=== PATIENT | female | born 1970 | race African-American/Black ===

== ENCOUNTER 2016-04-10 10:38 | Inpatient (IN) | payer MEDICARE, OTHER ==
[~2016-04-10] VITALS: Ht 162.6 cm; Wt 85.4 kg
[2016-04-10] VITALS (11 sets, daily range): BP systolic 82–119; BP diastolic 50–66; PULSE 123–130; RESP 20–32; TEMP 98.6–103.5; O2SAT 98–100
[~2016-04-10 10:38] MED LIST: ACET325T PO; CARB200T PO; LACT PO; LEVE500 PO; PRIM250T5 PO; VALP250 PO; VANC500I3 PO
[2016-04-10] MEDS ORDERED: ACETAMINOPHEN 650 MG SUPP RECTAL ONE (10:45)
[2016-04-10] MEDS ORDERED: SODIUM CHLOR 0.9% 1000 ML INJ 800 ML IV ONE (10:45)
[2016-04-10] MEDS ORDERED: SODIUM CHLOR 0.9% 1000 ML INJ 1,000 ML IV ONE (10:45)
[2016-04-10] MEDS ORDERED: metroNIDAZOLE 500 MG INJ 100 ML IV STA (10:51)
[2016-04-10] MEDS ORDERED: CITRSOL4 PO (11:31)
[2016-04-10] MEDS ORDERED: DULC10SU3 PR (11:31)
[2016-04-10] MEDS ORDERED: VALP250 PO (11:31)
[2016-04-10] MEDS ORDERED: VANC1SOL3 PO (11:31)
[2016-04-10] MEDS ORDERED: QUES4POW PO (11:31)
[2016-04-10] MEDS ORDERED: METR-1 PO (11:31)
[2016-04-10] MEDS ORDERED: MILKSUS PO (11:31)
[2016-04-10] MEDS ORDERED: LORA-392 PO (11:31)
[2016-04-10] MEDS ORDERED: ENEMENE5 PR (11:31)
--- NOTE | 2016-04-10 11:32 | PD ---
HPI Chief Complaint: Fever Time Seen by Provider: 10:45 Travel History International Travel<30 days: No Contact w/Intl Traveler<30days: No Traveled to known affect area: No History of Present Illness HPI Patient is a 45-year-old female with history of mental delay, blindness and seizure who presents to emergency room from alf for evaluation of fever , tachycardia, diarrhea, seizures. Patient was recently admitted to the hospital on March 14, 2016 severe sepsis secondary to C. difficile colitis. Patient recently completed course of PO Flagyl yesterday. As per alf records, patient has been having seizures all night, reports that she had 2 seizures this morning. Reports that she has been febrile with a temperature of 103.5. Reports concerns for her seizures as well as her tachycardia and increased temperature. When EMS at alf, patient's systolic blood pressure was in the 70s, after 1 L fluid, patient's blood pressure did improve and was 102/66. Patient was febrile in the emergency room with a rectal temperature of 103.5 and tachycardic with heart rate of 125. Patient unable to provide history of present illness at this time. PFSH Past Medical History Medical History: Unable to Obtain Hx Anticoagulant Therapy: No Developmental Delay: Yes (HX MENTAL RETARDATION) Diminished Hearing: No Gastrointestinal Disorders: Yes (C.DIFF) Hypertension: Yes Neurologic: Yes Reproductive: Yes Seizures: Yes Tetanus Vaccination: Unknown ?: Not Past Surgical History Surgical History: Unable to Obtain Neurologic Surgery: Yes (HEAD INJURY) Other Surgery: Yes Social History Alcohol Use: No (UNABLE TO OBTAIN) Tobacco Use: No (UNABLE TO OBTAIN) Substance Use: No (UNABLE TO OBTAIN) Allergies-Medications (Allergen,Severity, Reaction): Coded Allergies: No Known Allergies (Unverified , 04/10/16) Reported Meds & Prescriptions Reported Meds & Active Scripts Active Acetaminophen 325 Mg Tab 650 Mg PO Q4H PRN Acidophilus/l-Sporogenes (Lactobacillus Acidophilus) 1 Tab Tab 1 Tab PO TID Keppra (Levetiracetam) 500 Mg Tab 1,500 Mg PO Q12HR 30 Days Carbamazepine 200 Mg Tab 400 Mg PO Q8HR 30 Days Reported First-Vancomycin 50 Liq (Vancomycin HCl) 50 Mg/Ml [place] 125 Mg PO Q6HR Questran (Cholestyramine) 4 Gm/Pkt Powd 4 Gm PO TID 1 packet contains 4gm of cholestyramine. Milk of Magnesia Liq (Magnesium Hydroxide) 400 Mg/5 Ml Susp 30 Ml PO HS PRN Flagyl (Metronidazole) 500 Mg Tab 500 Mg PO TID 10 Days Enema Disposable (Sodium Phosphates) 1 Kellie Kellie 1 Applic NE DIRECTED PRN Dulcolax Supp (Bisacodyl) 10 Mg Supp 10 Mg NE IN AM PRN Depakene (Valproic Acid) 250 Mg Cap 500 Mg PO Q6HR Citroma Liq (Magnesium Citrate) 300 Ml Liq 300 Ml PO IN THE AM PRN Ativan (Lorazepam) 0.5 Mg Tab 0.5 Mg PO Q6H PRN Primidone 250 Mg Tab 250 Mg PO TID Review of Systems ROS Limitations: Altered Mental Status Except as stated in HPI: all other systems reviewed are Neg Physical Exam Exam Limitations: Altered Mental Status, Poor Historian Narrative GENERAL: Patient in moderate distress SKIN: Warm and dry. HEAD: Atraumatic. Normocephalic. EYES: Pupils equal and round. No scleral icterus. No injection or drainage. ENT: No nasal bleeding or discharge. Mucous membranes pink and dry NECK: Trachea midline. No JVD. CARDIOVASCULAR: Patient tachycardic. No murmur appreciated. RESPIRATORY: No accessory muscle use. Clear to auscultation. Breath sounds equal bilaterally. GASTROINTESTINAL: Abdomen soft, non-tender, nondistended. Hepatic and splenic margins not palpable. FC in place draining dark urine MUSCULOSKELETAL: No obvious deformities. No clubbing. No cyanosis. No edema. NEUROLOGICAL: Patient awake and alert only to sternal rubbing Data Data Last Documented VS Vital Signs Date Time Temp Pulse Resp B/P Pulse Ox O2 Delivery O2 Flow Rate FiO2 04/10/16 11:58 130 32 93/50 99 Room Air 04/10/16 10:40 103.5 Orders Electrocardiogram (04/10/16 10:45) Complete Blood Count With Diff (04/10/16 10:45) Comprehensive Metabolic Panel (04/10/16 10:45) Prothrombin Time / Inr (Pt) (04/10/16 10:45) Act Partial Throm Time (Ptt) (04/10/16 10:45) Magnesium (Mg) (04/10/16 10:45) Lipase (04/10/16 10:45) Ckmb (Isoenzyme) Profile (04/10/16 10:45) Troponin I (04/10/16 10:45) Urinalysis - C+S If Indicated (04/10/16 10:45) Influenzae A/B Antigen (04/10/16 10:45) Blood Culture (04/10/16 10:45) Chest, Single Ap (04/10/16 10:45) Sodium Chlor 0.9% 1000 Ml Inj (Ns 1000 M (04/10/16 10:45) Sodium Chlor 0.9% 1000 Ml Inj (Ns 1000 M (04/10/16 10:45) Lactic Acid Sepsis Protocol (04/10/16 10:45) Acetaminophen Supp (Tylenol Supp) (04/10/16 10:45) Phenytoin (Dilantin) (04/10/16 10:45) Carbamazepine (Tegretol) (04/10/16 10:45) Valproic Acid (Depakene) (04/10/16 10:45) Continue Browne/Suprapubic Cath (04/10/16 10:45) Stool Ova And Parasite Screen (04/10/16 10:51) Stool Wbc (Leukocytes) (04/10/16 10:51) C Diff Toxin Pcr (04/10/16 10:51) Metronidazole 500 Mg Inj (Flagyl 500 Mg (04/10/16 10:51) Urine Culture (04/10/16 11:30) Admit Order (Ed Use Only) (04/10/16 12:19) Labs Laboratory Tests Test 04/10/16 04/10/16 11:30 12:15 Urine Color BROWN Urine Turbidity HAZY Urine pH 5.5 Urine Specific [place] 1.024 Urine Protein 30 mg/dL Urine Glucose (UA) NEG mg/dL Urine Ketones NEG mg/dL Urine Occult Blood SMALL Urine Nitrite NEG Urine Bilirubin SMALL Urine Urobilinogen 2.0 MG/DL Urine Leukocyte Esterase LARGE Urine RBC 4 /hpf Urine WBC 14 /hpf Urine Squamous Epithelial 4 /hpf Cells Urine Bacteria OCC /hpf Urine Hyaline Casts 63 /lpf Urine Mucus FEW /lpf Microscopic Urinalysis Comment CATH-CULTURE IND White Blood Count 17.8 TH/MM3 Red Blood Count 2.87 MIL/MM3 Hemoglobin 8.3 GM/DL Hematocrit 25.2 % Mean Corpuscular Volume 87.7 FL Mean Corpuscular Hemoglobin 28.8 PG Mean Corpuscular Hemoglobin 32.8 % Concent Red Cell Distribution Width 17.3 % Platelet Count 279 TH/MM3 Mean Platelet Volume 8.4 FL Neutrophils (%) (Auto) 87.0 % Lymphocytes (%) (Auto) 2.7 % Monocytes (%) (Auto) 10.2 % Eosinophils (%) (Auto) 0.0 % Basophils (%) (Auto) 0.1 % Neutrophils # (Auto) 15.5 TH/MM3 Lymphocytes # (Auto) 0.5 TH/MM3 Monocytes # (Auto) 1.8 TH/MM3 Eosinophils # (Auto) 0.0 TH/MM3 Basophils # (Auto) 0.0 TH/MM3 CBC Comment AUTO DIFF Differential Total Cells 100 Counted Neutrophils % (Manual) 45 % Band Neutrophils % 47 % Lymphocytes % 1 % Monocytes % 6 % Neutrophils # (Manual) 16.6 TH/MM3 Metamyelocytes 1 % Differential Comment FINAL DIFF MANUAL Toxic Vacuolation PRESENT Dohle Bodies PRESENT Platelet Estimate NORMAL Platelet Morphology Comment NORMAL Sodium Level 139 MEQ/L Potassium Level 3.3 MEQ/L Chloride Level 109 MEQ/L Carbon Dioxide Level 17.4 MEQ/L Anion Gap 13 MEQ/L Blood Urea Nitrogen 32 MG/DL Creatinine 1.07 MG/DL Estimat Glomerular Filtration 67 ML/MIN Rate Random Glucose 87 MG/DL Lactic Acid Level 2.0 mmol/L Calcium Level 7.4 MG/DL Protein Corrected Calcium 8.0 MG/DL Magnesium Level 1.3 MG/DL Total Bilirubin 1.1 MG/DL Aspartate Amino Transf 59 U/L (AST/SGOT) Alanine Aminotransferase 34 U/L (ALT/SGPT) Alkaline Phosphatase 84 U/L Total Creatine Kinase 13 U/L Troponin I LESS THAN 0.02 NG/ML Total Protein 6.0 GM/DL Albumin 1.8 GM/DL Lipase 47 U/L Phenytoin (Dilantin) Level LESS THAN 0.4 MCG/ML Valproic Acid (Depakene) Level 49 MCG/ML Carbamazepine (Tegretol) Level 5.5 MCG/ML MDM Medical Decision Making Medical Screen Exam Complete: Yes Emergency Medical Condition: Yes Interpretation(s) EKG at 1118: Sinus tachycardia at 134 beats minute, QT/QTc to 331/410, nonspecific ST and T-wave abnormalities Vital Signs Date Time Temp Pulse Resp B/P Pulse Ox O2 Delivery O2 Flow Rate FiO2 04/10/16 11:58 130 32 93/50 99 Room Air 04/10/16 11:04 30 99 Room Air 04/10/16 10:40 103.5 125 30 102/66 98 04/10/16 10:40 103.5 125 30 102/66 99 Room Air Laboratory Tests Test 04/10/16 11:30 Urine Color BROWN (YELLW/STRAW) Urine Turbidity HAZY (CLEAR) Urine pH 5.5 (5.0-8.5) Urine Specific [place] 1.024 (1.002-1.035) Urine Protein 30 mg/dL (NEG-TRACE) Urine Glucose (UA) NEG mg/dL (NEG) Urine Ketones NEG mg/dL (NEG) Urine Occult Blood SMALL (NEG) Urine Nitrite NEG (NEG) Urine Bilirubin SMALL (NEG) Urine Urobilinogen 2.0 MG/DL (LESS THAN 2.0) Urine Leukocyte Esterase LARGE (NEG) Urine RBC 4 /hpf (0-3) Urine WBC 14 /hpf (0-5) Urine Squamous Epithelial 4 /hpf (0-5) Cells Urine Bacteria OCC /hpf (NONE) Urine Hyaline Casts 63 /lpf (RARE) Urine Mucus FEW /lpf (OCC) Microscopic Urinalysis Comment CATH-CULTURE IND Differential Diagnosis Severe sepsis, C. difficile colitis, dehydration, seizure disorder, UTI Narrative Course 45-year-old female with history of mental delay, blindness and seizures, since the emergency room from alf with complaints of multiple episodes of seizure yesterday as well today. Patient does have history of seizures, seizure precautions initiated emergency room. Patient is currently taking Depakote and Tegretol for her seizures, levels of Depakote and Tegretol ordered to evaluate if she is therapeutic on her seizure medications. Patient currently with no seizures in the emergency room Patient febrile with a temperature of 103.5 rectally, tachycardic with a heart rate in the 125 and initially hypotensive with a systolic blood pressure in the 70s - patient with severe sepsis most likely secondary to C. difficile. Patient 's diaper was changed while emergency room which showed diarrhea concern for C. difficile colitis. Patient has been ordered her 30 cc/kg fluid bolus, after fluid bolus, her blood pressure is 93/50. Patient has been given IV Flagyl as patient is mostly septic secondary to C. difficile colitis. Blood cultures and lactate ordered for patient as well. Rectal acetaminophen ordered for patient. Case reviewed with Dr. Pelayo, patient's primary care doctor who is in agreement with plan of care. Plan to admit patient to the ICU for close monitoring. Critical Care Narrative Aggregate critical care time was 30 minutes. Time to perform other separately billable procedures was not included in the critical care time. My time did not include minutes spent treating any other patients simultaneously or on activities that did not directly contribute to the patient's treatment. The services I provided to this patient were to treat and/or prevent clinically significant deterioration that could result in: , decompensation, deterioration I provided critical care services requiring my management, as noted below: Chart data review, documentation time, medication orders and management, vital sign assessments/reviewing monitor data, ordering and reviewing lab tests, ordering and interpreting/reviewing x-rays and diagnostic studies, care of the patient and discussion of the patient with the admitting physicians. Sepsis Criteria SIRS Criteria (2 or more): Temp > 100.9 or < 96.8, Heart rate over 90, RR > 20 or PaCO2 < 32 Sepsis Criteria (SIRS+source): Infect source susp/known Severe Sepsis (+one): Hypotension, Hypoperfusion Criteria Outcome: Meets SIRS criteria, Meets sepsis criteria, Meets severe sepsis criteria Diagnosis Primary Impression: Severe sepsis Admitting Information Admitting Physician Requests: Admit Elsie Kirkpatrick DO Apr 10, 2016 11:32
[2016-04-10 11:49] LABS: BACTERIA, URINE OCC /hpf; BLOOD, URINE SMALL (NEG); GLUCOSE,URINE NEG (NEG); HYALINE CAST, URINE 63 /lpf (RARE); KETONE, URINE NEG (NEG); MUCUS URINE FEW /lpf (OCC); NITRITE,URINE NEG (NEG); PH, URINE 5.5 (5.0-8.5); SQUAMOUS EPITHELIAL CELL URINE 4 /hpf (0-5)
[2016-04-10 11:51] LABS: COMMENT (UR) CATH-CULTURE IND; CULTURE IF INDICATED CATH CULTURE IND; URINE COLOR BROWN (YELLW/STRAW)
--- NOTE | 2016-04-10 12:23 | HHI.HP ---
History of Present Illness Primary Care Physician Unknown Admission Diagnosis Severe Sepsis Diagnoses: (1) Hypotension (2) Dehydration, moderate (3) C. difficile colitis (4) Seizure disorder (5) Leukocytosis (6) Physical deconditioning (7) Seizures (8) Mental retardation (9) Small bowel obstruction (10) JAMIE (acute kidney injury) History of Present Illness 45 y AAF. [place] [facility] [place]. PT NEW TO MY PRACTICE[facility] I ORDERED ATIVAN AND LABS FOR VPA, TEGRETOL, CBC, CMP. UNFORTUNATELY PT HAD TWO SZ TODAY, SPIKED TEMP TO 103 AND HAD PROGRESSIVE DIARRHEA WITH POS C DIF. PT SENT TO ER EMS. I WAS THUS CALLED BY ER MD FOR ADMIT. PT W NO FURTHER SZ. LABS PENDING. D/W ER MD. Sepsis Criteria SIRS Criteria (2 or more): Temp > 100.9 or < 96.8, Heart rate over 90, RR > 20 or PaCO2 < 32, WBC > 04008, < 4000 or > 10% bands Severe Sepsis (+one): Organ Dysfunction, Hypotension Multiple Organ Dysfunction Syn: Evidence -2 organs failing Criteria Outcome: Meets severe sepsis criteria Review of Systems ROS Limitations: Clinical Condition, Altered Mental Status, Unresponsive, Uncooperative Constitutional: COMPLAINS OF: Fatigue, Fever, Change in appetite Psychiatric: COMPLAINS OF: Confusion, Mood changes Past Family Social History Allergies: Coded Allergies: No Known Allergies (Unverified , 04/10/16) Past Medical History C DIF DEHYDRATION SZ'S, INTRACTABLE SBO RECENTLY MR JAMIE HYPERAMMONEMIA Past Surgical History NC Reported Medications Active Medications Acetaminophen (Tylenol Supp) 650 mg ONCE ONCE RECTAL Last administered on 04/10at 11:39; Start 04/10/16 at 10:45; Stop 04/10/16 at 10:51; Status DC Sodium Chloride 1,000 ml @ 1,000 mls/hr Q1H ONCE IV Last administered on at 11:39; Start 04/10/16 at 10:45; Stop 04/10/16 at 11:44; Status DC Sodium Chloride (NS 1000 ml Inj) 800 ml @ 1,000 mls/hr Q48M ONCE IV Last administered on 04/10/16at 12:07; Start 04/10/16 at 10:45; Stop 04/10/16 at 11 :32; Status DC Family History NC Social History , LIVES W FAMILY, NO E/T/D Physical Exam Vital Signs Vital Signs Date Time Temp Pulse Resp B/P Pulse Ox O2 Delivery O2 Flow Rate FiO2 04/10/16 11:58 130 32 93/50 99 Room Air 04/10/16 11:04 30 99 Room Air 04/10/16 10:40 103.5 125 30 102/66 98 04/10/16 10:40 103.5 125 30 102/66 99 Room Air Physical Exam GENERAL: chronically ill appearing, lethargic SKIN: No rashes, ecchymoses or lesions. Cool and dry. HEAD: Atraumatic. Normocephalic. No temporal or scalp tenderness. EYES: Pupils equal round and reactive. Extraocular motions intact. No scleral icterus. No injection or drainage. ENT: Nose without bleeding, purulent drainage or septal hematoma. Throat without erythema, tonsillar hypertrophy or exudate. Uvula midline. Airway patent. NECK: Trachea midline. No JVD or lymphadenopathy. Supple, nontender, no meningeal signs. CARDIOVASCULAR: Regular rate and rhythm without murmurs, gallops, or rubs. RESPIRATORY: Clear to auscultation. Breath sounds equal bilaterally. No wheezes , rales, or rhonchi. GASTROINTESTINAL: Abdomen soft, non-tender, nondistended. No hepato-splenomegaly , or palpable masses. No guarding. MUSCULOSKELETAL: Extremities without clubbing, cyanosis, or edema. No joint tenderness, effusion, or edema noted. No calf tenderness. Negative Homans sign bilaterally. NEUROLOGICAL: Awake and alert. Cranial nerves II through XII intact. Motor and sensory grossly within normal limits. 1 out of 5 muscle strength in all muscle groups. Normal speech. Laboratory Laboratory Tests Test 04/10/16 11:30 Urine Color BROWN Urine Turbidity HAZY Urine pH 5.5 Urine Specific [place] 1.024 Urine Protein 30 Urine Glucose (UA) NEG Urine Ketones NEG Urine Occult Blood SMALL Urine Nitrite NEG Urine Bilirubin SMALL Urine Urobilinogen 2.0 Urine Leukocyte Esterase LARGE Urine RBC 4 Urine WBC 14 Urine Squamous Epithelial 4 Cells Urine Bacteria OCC Urine Hyaline Casts 63 Urine Mucus FEW Microscopic Urinalysis Comment CATH-CULTURE IND Date/Time Procedure Status Source Growth 04/10/16 11:30 Urine Culture Received Urine Clean Catch Pending 04/10/16 11:25 Influenza Types A,B Antigen ([facility]) - Final Complete Nasal Aspirate NEGATIVE FOR FLU A AND B ANTIGEN.... Assessment and Plan Assessment and Plan SEVERE SEPSIS C DIF DEHYDRATION SZ'S, INTRACTABLE UTI SBO RECENTLY MR JAMIE HYPOKALEMIA HYPOMAGNESEMIA HYPOCALCEMIA HYPERAMMONEMIA PLAN: IVF IV ABX STOOL CULTURES ANTIEPILEPTIC LEVELS ATIVAN PRN ID CONSULT NEURO CONSULT CCM CONSULT IV MG IV CA ICU ADMIT FOR THE ABOVE DX AND PLAN. EXPECT 4 D INPT STAY. PT WOULD FROM THE ABOVE WITHOUT INPT ADMIT. DC BACK TO [facility]. Romie Pelayo MD Apr 10, 2016 12:23
[2016-04-10 12:27] LABS: AUTOMATED NEUTROPHIL # 15.5 TH/MM3 (1.8-7.7); BASOPHIL % 0.1 % (0.0-2.0); HEMATOCRIT 25.2 % (35.0-46.0); LYMPH % 2.7 % (9.0-44.0); LYMPHOCYTE # 0.5 TH/MM3 (1.0-4.8); MEAN CELL VOLUME 87.7 FL (80.0-100.0); MEAN CORPUSCULAR HEMOGLOBIN 28.8 PG (27.0-34.0); MEAN CORPUSCULAR HGB CONC 32.8 % (32.0-36.0); MONO % 10.2 % (0.0-8.0); PLATELET COUNT 279 TH/MM3 (150-450); RED BLOOD COUNT 2.87 MIL/MM3 (4.00-5.30); RED CELL DISTRIBUTION WIDTH 17.3 % (11.6-17.2); WHITE BLOOD COUNT 17.8 TH/MM3 (4.0-11.0)
[2016-04-10] MEDS ORDERED: BISACODYL 10 MG SUPP PR PRN ×2 (12:30→12:45)
[2016-04-10] MEDS ORDERED: PROCHLORPERAZINE 25 MG SUPP PR PRN (12:30)
[2016-04-10] MEDS ORDERED: MAGNESIUM HYDROXIDE SUSP 30 ML CUP PO PRN ×2 (12:30→12:45)
[2016-04-10] MEDS ORDERED: NALOXONE HCL 0.4 MG/ML AMP IV PRN (12:30)
[2016-04-10] MEDS ORDERED: SODIUM CHLORIDE 0.9% FLUSH 5 ML FLUSH FLUSH PRN (12:30)
[2016-04-10 12:36] LABS: HEMO FLAGS AUTO DIFF
[2016-04-10] MEDS ORDERED: LORazepam 2 MG/ML VIAL IV PUSH PRN (12:45)
[2016-04-10] MEDS ORDERED: DEXT 5%-NACL 0.9% 1000 ML INJ 1,000 ML IV SCH (12:45)
[2016-04-10] MEDS ORDERED: LORazepam 0.5 MG TAB PO PRN (12:45)
[2016-04-10] MEDS ORDERED: MAGNESIUM CITRATE SOLN 300 ML BTL PO PRN (12:45)
[2016-04-10 12:53] LABS: ALKALINE PHOSPHATASE 84 U/L (45-117); ALT (GPT) 34 U/L (10-53); ANION GAP 13 MEQ/L (5-15); AST (GOT) 59 U/L (15-37); BICARBONATE 17.4 MEQ/L (21.0-32.0); BLOOD UREA NITROGEN 32 MG/DL (7-18); CHLORIDE 109 MEQ/L (98-107); GLOMERULAR FILTRATION RATE 67 ML/MIN (>89); MAGNESIUM 1.3 MG/DL (1.5-2.5); POTASSIUM 3.3 MEQ/L (3.5-5.1); SODIUM (NA) 139 MEQ/L (136-145); TOTAL BILIRUBIN ADULT 1.1 MG/DL (0.2-1.0)
[2016-04-10 12:54] LABS: CREATINE KINASE 13 U/L (26-192)
[2016-04-10] MEDS: CHOLESTYRAMINE 4 GM PACKET PO SCH ×2 (13:00→17:58)
[2016-04-10] MEDS ORDERED: PIPERACIL-TAZO 3.375 GM PREMIX 50 ML IV ONE (13:00)
[2016-04-10] MEDS: LACTOBACILLUS ACIDOPHILUS TAB PO SCH ×2 (13:00→17:58)
[2016-04-10] MEDS: PRIMIDONE 250 MG TAB PO SCH (13:00)
--- NOTE | 2016-04-10 13:16 | RADRPT ---
EXAM DATE/TIME: 04/10/2016 12:47 [facility] COMPARISON: CHEST SINGLE AP, March 21, 2016, 13:53. INDICATIONS : Fever. MEDICAL HISTORY : Seizures. Blind SURGICAL HISTORY : None. ENCOUNTER: Initial ACUITY: 1 day PAIN SCORE: Non-responsive. LOCATION: Bilateral chest FINDINGS: A single view of the chest demonstrates the lungs to be symmetrically aerated without evidence of mas s or effusion. The cardiomediastinal contours are unremarkable. Osseous structures are intact. Mild coarsening of the bronchovascular markings in the retrocardiac region suggest left lower lobe manager lighting ior basilar infiltrate CONCLUSION: Coarsened bronchovascular markings retrocardiac region consistent with minimal or early left lower lo be posterior basilar segment infiltrate Ulysses Cardenas MD on April 10, 2016 at 13:13 Board Certified Radiologist. This report was verified electronically.
[2016-04-10 13:34] LABS: BANDS 47 % (0-6); METAMYELOCYTES 1 % (0-1); NEUTROPHIL # MANUAL DIFF 16.6 TH/MM3 (1.8-7.7); PLATELET ESTIMATE SMEAR NORMAL (NORMAL); PLATELET MORPHOLOGY NORMAL (NORMAL); POLYS (SEG NEUTROPHILS) 45 % (16-70); SCAN/DIFF FINAL DIFF MANUAL; WBC DIFF SAMPLE 100
[2016-04-10 13:36] LABS: DOHLE BODIES PRESENT (NONE SEEN); TOXIC VACUOLATION PRESENT (NONE SEEN)
[2016-04-10] MEDS: HEPARIN SODIUM - SQ 10,000 UNITS/ML VIAL SQ SCH ×2 (13:46→23:10)
[2016-04-10] MEDS: carBAMazepine 200 MG TAB PO SCH ×2 (14:00→20:35)
[2016-04-10] MEDS ORDERED: VANCOMYCIN INJ 600 MG in SODIUM CHLOR 0.9% 250 ML INJ 250 ML IV ONE (14:15)
[2016-04-10 14:18] LABS: C. DIFF EPI 027 PRESUMPTIVE POSITIVE (NEGATIVE)
[2016-04-10 14:24] LABS: C. DIFF TOXIN PCR POSITIVE (NEGATIVE)
--- NOTE | 2016-04-10 15:09 | PD.CONS ---
HPI Service Critical Care Medicine Consult Requested By Dr. Pelayo Reason for Consult Septic shock Primary Care Physician Unknown History of Present Illness 45y AA female with history of mental delay, blindness, seizure d/o, and recent hospitalization for C. difficile colitis presents from SNF with diarrhea and two day history of seizures. Pt was recently hospitalized at [facility] for treatment C. diff colitis, dehydration, JAMIE, and seizures. Discharged to SNF with vancomycin 125mg PO x4 weeks total (completed 04/10/16) per ID (Dr Bower). Due to AMS, pt unable to provide details about symptoms. Per EMR and discussion with ED physician, pt had continued diarrhea, with suspected failure of outpatient treatment for C. difficile, and seizures 2 days which prompted her visit to ED. Seizures currently managed with Keppra 1500mg BID, valproic acid 650mg q6h, and Carbamazepine 400mg q8h. seizure medications were increased 03/31/16. However, neurology has previously stated pt may never be seizure free (as EEG 03/18, 03/20, and 03/22 showed ongoing epileptic focus). Sister brought patient in, but was not at bedside during interview Review of Systems ROS Limitations: Clinical Condition (seizures), Altered Mental Status (at baseline) Eyes: COMPLAINS OF: Vision loss (blind) Neurologic: COMPLAINS OF: Seizures ROS ROS limited due to AMS patient Past Family Social History Allergies: Coded Allergies: No Known Allergies (Unverified , 04/10/16) Past Medical History Seizure disorder Mental delay Blindness Underweight: BMI <16 Recent C. difficile colitis Physical deconditioning Past Surgical History Unable to obtain from patient, per chart Reported Medications Reported Meds & Active Scripts Active Acetaminophen 325 Mg Tab 650 Mg PO Q4H PRN Acidophilus/l-Sporogenes (Lactobacillus Acidophilus) 1 Tab Tab 1 Tab PO TID Keppra (Levetiracetam) 500 Mg Tab 1,500 Mg PO Q12HR 30 Days Carbamazepine 200 Mg Tab 400 Mg PO Q8HR 30 Days Reported First-Vancomycin 50 Liq (Vancomycin HCl) 50 Mg/Ml [place] 125 Mg PO Q6HR Questran (Cholestyramine) 4 Gm/Pkt Powd 4 Gm PO TID 1 packet contains 4gm of cholestyramine. Milk of Magnesia Liq (Magnesium Hydroxide) 400 Mg/5 Ml Susp 30 Ml PO HS PRN Flagyl (Metronidazole) 500 Mg Tab 500 Mg PO TID 10 Days Enema Disposable (Sodium Phosphates) 1 Kellie Kellie 1 Applic MO DIRECTED PRN Dulcolax Supp (Bisacodyl) 10 Mg Supp 10 Mg MO IN AM PRN Depakene (Valproic Acid) 250 Mg Cap 500 Mg PO Q6HR Citroma Liq (Magnesium Citrate) 300 Ml Liq 300 Ml PO IN THE AM PRN Ativan (Lorazepam) 0.5 Mg Tab 0.5 Mg PO Q6H PRN Primidone 250 Mg Tab 250 Mg PO TID Family History Unable to obtain from patient, per EMR review. Noncontributory Social History Unable to obtain from patient, per EMR review: No tobacco, alcohol, recreational drug use Physical Exam Vital Signs Vital Signs Date Time Temp Pulse Resp B/P Pulse Ox O2 Delivery O2 Flow Rate FiO2 04/10/16 14:00 127 30 91/51 100 Room Air 04/10/16 13:00 103.4 125 32 93/51 99 Room Air 04/10/16 12:40 100 21 04/10/16 11:58 130 32 93/50 99 Room Air 04/10/16 11:04 30 99 Room Air 04/10/16 10:40 103.5 125 30 102/66 98 04/10/16 10:40 103.5 125 30 102/66 99 Room Air Physical Exam CONST: Thin AA female with AMS, unable to follow commands. Appears lethargic DERM: Excessively warm and dry, flaky skin. HEENT: White cloudy sclera bilaterally. Pupils obscured, misshapen, below lower lid line. NECK: No LAD CV: Tachycardic to 130. Hypotensive to 90/50. Regular rhythm. No murmurs appreciated. RESP: Breathing well on room air. Breath sounds equal bilaterally on anterior lung exam. No wheezing. GI: Abd soft, distended. Diffusely tender to palpation. Patient began moaning on exam and did not stop moaning, even once physical exam completed. : Browne in place draining dark yellow urine MSK: Able to move all four limbs. Unable to follow commands. NEURO: Altered mental status. Appears sleepy. 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 Laboratory Laboratory Tests Test 04/10/16 04/10/16 04/10/16 11:25 11:30 12:15 Stool C. difficile Toxin (PCR) POSITIVE Stl C. difficile Toxin PRESUMPTIVE Epiderm 027 POSITIVE Urine Color BROWN Urine Turbidity HAZY Urine pH 5.5 Urine Specific [place] 1.024 Urine Protein 30 Urine Glucose (UA) NEG Urine Ketones NEG Urine Occult Blood SMALL Urine Nitrite NEG Urine Bilirubin SMALL Urine Urobilinogen 2.0 Urine Leukocyte Esterase LARGE Urine RBC 4 Urine WBC 14 Urine Squamous Epithelial 4 Cells Urine Bacteria OCC Urine Hyaline Casts 63 Urine Mucus FEW Microscopic Urinalysis Comment CATH-CULTURE IND White Blood Count 17.8 Red Blood Count 2.87 Hemoglobin 8.3 Hematocrit 25.2 Mean Corpuscular Volume 87.7 Mean Corpuscular Hemoglobin 28.8 Mean Corpuscular Hemoglobin 32.8 Concent Red Cell Distribution Width 17.3 Platelet Count 279 Mean Platelet Volume 8.4 Neutrophils (%) (Auto) 87.0 Lymphocytes (%) (Auto) 2.7 Monocytes (%) (Auto) 10.2 Eosinophils (%) (Auto) 0.0 Basophils (%) (Auto) 0.1 Neutrophils # (Auto) 15.5 Lymphocytes # (Auto) 0.5 Monocytes # (Auto) 1.8 Eosinophils # (Auto) 0.0 Basophils # (Auto) 0.0 CBC Comment AUTO DIFF Differential Total Cells 100 Counted Neutrophils % (Manual) 45 Band Neutrophils % 47 Lymphocytes % 1 Monocytes % 6 Neutrophils # (Manual) 16.6 Metamyelocytes 1 Differential Comment FINAL DIFF MANUAL Toxic Vacuolation PRESENT Dohle Bodies PRESENT Platelet Estimate NORMAL Platelet Morphology Comment NORMAL Sodium Level 139 Potassium Level 3.3 Chloride Level 109 Carbon Dioxide Level 17.4 Anion Gap 13 Blood Urea Nitrogen 32 Creatinine 1.07 Estimat Glomerular Filtration 67 Rate Random Glucose 87 Lactic Acid Level 2.0 Calcium Level 7.4 Protein Corrected Calcium 8.0 Magnesium Level 1.3 Total Bilirubin 1.1 Aspartate Amino Transf 59 (AST/SGOT) Alanine Aminotransferase 34 (ALT/SGPT) Alkaline Phosphatase 84 Total Creatine Kinase 13 Troponin I LESS THAN 0.02 Total Protein 6.0 Albumin 1.8 Lipase 47 Phenytoin (Dilantin) Level LESS THAN 0.4 Valproic Acid (Depakene) Level 49 Carbamazepine (Tegretol) Level 5.5 Date/Time Procedure Status Source Growth 04/10/16 11:30 Urine Culture Worksheet Urine Clean Catch Pending 04/10/16 11:25 Influenza Types A,B Antigen (KAREN) - Final Complete Nasal Aspirate NEGATIVE FOR FLU A AND B ANTIGEN.... Result Diagram: 04/10/16 1215 04/10/16 1215 Imaging Last 72 hours Impressions Chest X-Ray 04/10/16 1045 Signed Impressions: Service Date/Time: Friday, April 10, 2016 12:47 - CONCLUSION: Coarsened bronchovascular markings retrocardiac region consistent with minimal or early left lower lobe posterior basilar segment infiltrate Ulysses Cardenas MD Septic Shock Reassessment Heart: Other Lungs: Clear Skin: Other (Excessively warm) Peripheral Pulses: Weak Right Dorsalis Pedis Bounding Right Radial Bounding Left Radial Absent Left Dorsalis Pedis Assessment and Plan Assessment and Plan 45y AA female with C. difficile collitis with failure of outpatient treatment with vancomycin, mental delay, seizure disorder, and large uterine fibroid presenting with seizures and septic shock. Critical care consulted for treatment of septic shock. Neuro Seizure disorder Seizures Altered mental status Blindness EEG on 03/18 with epileptic activities. Repeat EEG 03/20,03/22, still shows consistent with ongoing epileptic focus. -Tylenol PRN fever -Continue carbamazepine, keppra, valproic acid Cardiovascular Hypotensive Tachycardic -500mL LR bolus ordered Respiratory Abnormal CXR- possible aspiration PNA Negative for Flu A/B. CXR (04/10): Left lower lobe infiltrate. -Oximetry and oxygen supplementation PRN for saturations 90%+ -Antibiotics as below (ID) Gastrointestinal Abdominal distension Abdominal pain Uterine fibroid C. 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 Also evaluated by Gen [facility] who recommended medical management. Patient poor surgical candidate for surgery 2/2 C diff -NPO per ST recommendations -KUB bedside ordered, pending Infectious Disease Septic Shock secondary to C. difficile colitis, failure of outpatient treatment with vancomycin PO UTI Abnormal CXR- rule out aspiration pneumonia -Infectious disease consult pending -U/A +Large LE, +bacteria. Urine culture (04/10) pending -Blood culture (04/10) x2 pending -Continue Vanc IV, Vanc PO, and Flagyl IV -Consider adding cefepime or other broad spec coverage in addition to above. Will defer to ID recommendations. Received Zosyn x1 in ED this AM Renal/FEN No fluids at present, recommend considering hypotension Electrolytes: monitor and replace per ICU protocol Nutrition: NPO per ST recommendations Heme Normocytic anemia H/H currently 8.7/25. MCV 87. -Monitor with daily CBCs -Consider transfusion if Hgb <7 Prophylaxis GI: Protonix IV DVT: SCD, Heparin 5000units SQ BID Code Status Full Discussed Condition With DW: Dr. Bennett Attestation Attending Attestation: I evaluated the patient today with Dr. Weinstein. Together we discussed the patient's condition and formulated a joint care plan. I have reviewed and agree with the above documentation unless otherwise stated below. I personally saw and examined the patient, and my findings are below. In Brief: Is a 45-year-old female with history of congenital blindness who was recently admitted with C. difficile colitis and is recently status post treatment for this. She re-presents with high fevers, seizures, leukocytosis, tachycardia, hypotension all suggestive of severe sepsis. Her lactate was 2.0 in the emergency department. Her C. difficile stool test was positive. She is well known to Dr. Navarro of the infectious disease team. Critical-care medicine is been consult to evaluate and manage her severe sepsis and hemodynamic's. Her past medical history is pertinent for seizure disorder, mental delay, congenital blindness, and recent C. difficile colitis. Her past surgical history, family history, social history is unobtainable secondary to patient's clinical condition. Her outpatient medications were reviewed and are documented in the above resident's history and physical. On my exam, the patient is a frail female who appears much older than stated age. She is very critically ill appearing. She is in mild-to -moderate distress. She arouses to light tactile stimulation, but not to voice. She follows commands in bilateral upper extremities. She is somnolent. She is a RASS -1. She is tachycardic and mildly hypotensive with systolic blood pressure of 91. Her lungs are clear to auscultation. Her abdomen is soft , mildly tender, nondistended. There are no signs of gilberto peritonitis or guarding. Her extremities are very warm. They have good cap refill. Distal pulses are 2+. There are no lesions or skin breakdown. Her laboratory data is remarkable for a significant leukocytosis, lactate of 2, C. difficile positive. Assessment: 45-year-old female with recent history of C. difficile colitis who now represents with what appears to be severe sepsis. In the emergency department she received 2 L of crystalloid and was very fluid responsive. I agree with admitting her to the ICU for close monitoring. I discussed case with Dr. Navarro, we agree that we should cover her not only with C. difficile coverage but also with broad-spectrum antibiotics in case she has a superimposed bacterial infection. We will await cultures for blood, urine, sputum. Also given her waxing and waning mental status which may be secondary to her seizures, we will avoid by mouth medications and try to convert his many cases possible IV. The medications that we cannot convert to IV we will give per NG tube. For now, her severe sepsis, her seizures, her recurrent C. difficile all are clearly life-threatening at this point she is critically ill. Active problems: Seizures Severe sepsis Lactic acidosis Leukocytosis C. difficile colitis Dysphagia Severe acute protein calorie malnutrition Plan: Admit to the ICU Seizure precautions Ativan when necessary for seizures We'll place her back on her home antiepileptics with as many of these as possible converted to IV. Given additional 500 cc of LR for mild hypotension and tachycardia Increase her maintenance fluids to 200 cc an hour Recheck lactate in the morning Place Browne catheter every hour urine outputs with strict I's and O's IV Flagyl, by mouth vancomycin for C. difficile As discussed with infectious disease, we will hold off on broad-spectrum antibiotics. If she clinically declines, we will add Vancomycin, cefepime, Flagyl for broad-spectrum coverage, or as adjusted by infectious disease consult Nothing by mouth for now. Speech eval for dysphagia SCDs, subcutaneous heparin for DVT prophylaxis Protonix for GI prophylaxis This patient remains critically ill with one or more organ systems which are or may become a threat to life. I have spent in excess of 34 minutes discontinuously in the care and management of this patient. This time is exclusive of procedures, and includes, but is not limited to, evaluation of the patient, review of the medical record, discussions with family, consultants, nursing staff, or respiratory therapy, and documentation in the medical record. Jeane Weinstein MD R1 Apr 10, 2016 15:09 Jin Bennett MD Apr 10, 2016 20:28
[2016-04-10] MEDS ORDERED: D5-NS + KCL 40 MEQ INJ 1,000 ML IV SCH (15:15)
[2016-04-10] MEDS ORDERED: LACTATED RINGER'S 1000 ML INJ 500 ML IV ONE (16:00)
[2016-04-10] MEDS ORDERED: CALCIUM CHLORIDE 10% SOLN 1 GRAM/10 ML SYR IV PUSH ONE (16:00)
[2016-04-10] MEDS ORDERED: CALCIUM CHLORIDE INJ 1 GM in SODIUM CHLORIDE 0.9% INJ 100 ML IV ONE (16:00)
[2016-04-10] MEDS: MAGNESIUM SULFATE 1 GM PREMIX 100 ML IV SCH ×2 (16:38→17:24)
--- NOTE | 2016-04-10 17:19 | MB ---
cc: PING WISE DATE OF CONSULTATION 04/10/2016 REASON FOR CONSULTATION She is 45-year-old woman who I had actually rounded on for DR. Brown on 03/22/2016. I had talked to her sister at that time. She was sleeping a lot at home, on primidone, Depakote and Tegretol. Her EEG was positive. She has a seizure everyday at home and by the sounds of it a primary generalized seizure disorder. I increased her Depakote to 650 four times daily from 500 four times daily and maxed out her Keppra to 1500 b.i.d. I thought it was unlikely we would normalize her EEG. I recommended considering Vimpat or Lamictal if not doing well over the weekend. Nevertheless, the patient was admitted to the hospital today. She was in [facility], had a seizure yesterday, got Ativan. Two seizures today. Spiked a temperature to 103, progressive diarrhea with positive C. Difficile. Came into the ER. PAST MEDICAL HISTORY For: 1. C. Difficile. 2. Dehydration. 3. Seizures. 4. Blindness. 5. Small bowel obstruction. 6. Elevated ammonia in the past. 7. Mental retardation. SOCIAL HISTORY Not a smoker or a drinker. Lives with her sister. ALLERGIES NO KNOWN DRUG ALLERGIES. MEDICATIONS Before admission: 1. Primidone 250 t.i.d. 2. Ativan p.r.n. 3. Magnesium. 4. Depakote 500 q.6h 5. Dulcolax. 6. Enema. 7. Flagyl. 8. Questran. 9. Vancomycin. 10. Tegretol 400 q.8h. 11. Keppra 1500 q.12. 12. Acetaminophen. PHYSICAL EXAMINATION VITAL SIGNS: Temperature is 103.4 rectally, pulse to 130, respiratory rate 28, blood pressure 82/52 to 93/51. NECK: No carotid bruits. HEAD: Turned to the right but no forcefully so. HEART: Tachycardic. NEUROLOGIC: I did not see her pupils, just sclerae with blindness. She help her arms up for me and held her legs up for me but not to command. But when I put them up she held them up. Toes are downgoing bilaterally. No ankle clonus. LABORATORY DATA White count 17,000. Hematocrit 25, platelet count 279. C. difficile positive today. Depakote level 49. Tegretol 5.5 . Phenobarbital level 03/14 was 32. Primidone of 25. Basic metabolic profile essentially normal. Corrected calcium 8. LFTs minimally elevated. Ammonia level 31 two weeks ago. Troponin negative. Albumin 1.8. IMAGING CT of the brain done in February no acute findings review of the films. 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 IMPRESSION Breakthrough seizures but chronic seizures are hard to control. We will start her on the Vimpat IV, continue on her Depakote, Tegretol, primidone. I know her prior EEGs showed spike wave at times. Her seizures are more head turns. I will have to review her old EEG. Sounds like more of a primary generalized seizure disorder. MD POONAM Jaffe/TESSA /4:24 PM /4:45 PM
--- NOTE | 2016-04-10 17:30 | RADRPT ---
EXAM DATE/TIME: 04/10/2016 16:37 [facility] COMPARISON: CT ABDOMEN & PELVIS W CONTRAST, March 14, 2016, 10:21. ABDOMEN KUB ONLY, March 22, 2016, 5:56. ABDOMEN KUB ONLY, March 28, 2016, 23:21. INDICATIONS : Abdominal distention. MEDICAL HISTORY : None. SURGICAL HISTORY : None. ENCOUNTER: Subsequent ACUITY: 2 weeks PAIN SCORE: Non-responsive. LOCATION: all quadrants FINDINGS: Again a large soft tissue pelvic mass displaces bowel into the mid and upper to the level of L5. All does not appear dilated or obstructed. abdomen CONCLUSION: Surgery stable abdomen. Large pelvic mass displacing bowel into the mid and upper abdomen without nannette dence of obstruction Ulysses Cardenas MD on April 10, 2016 at 17:26 Board Certified Radiologist. This report was verified electronically.
--- NOTE | 2016-04-10 17:46 | PD.ID.CON ---
History of Present Illness Service Infectious Disease Consult Requested By Reason for Consult Evaluation and Mment of Severe Sepsis, Cdiff colitis. Primary Care Physician Unknown Diagnoses: History of Present Illness is a 45 y/o AAF with PMHx of mental delay, blindness, seizures, fibroid cyst for a long time (x20 years) who was brought in by her niece. Patient has prior known history of mental retardation and blindness. Patient was recently seen by me earlier this month at [facility]. During that admission patient had Small bowel obstruction from mechanical obstruction from uterine mass. She also diarrhea with severe colitis and Cdiff PCR positive. She underwent treatment with Oral Vanco, Vanco enema, Difficid during that admission. She continued to improve and now is readmitted due to uncontrolled seizures and new vs ongoing sepsis related to Cdiff. She was s/b GI during last admission and had Colonoscopy positive for pseudomembranes. ID consulted for evaluation and Mment of recurrent vs persistent Cdiff Colitis. Review of Systems ROS Limitations: Altered Mental Status, Other (mental retardation) Past Family Social History Allergies: Coded Allergies: No Known Allergies (Unverified , 04/10/16) Past Medical History Mental retardation Seizure disorder Uterine fibroid. blindness. Past Surgical History none Reported Medications Reported Meds & Active Scripts Active Acetaminophen 325 Mg Tab 650 Mg PO Q4H PRN Acidophilus/l-Sporogenes (Lactobacillus Acidophilus) 1 Tab Tab 1 Tab PO TID Keppra (Levetiracetam) 500 Mg Tab 1,500 Mg PO Q12HR 30 Days Carbamazepine 200 Mg Tab 400 Mg PO Q8HR 30 Days Reported First-Vancomycin 50 Liq (Vancomycin HCl) 50 Mg/Ml [place] 125 Mg PO Q6HR Questran (Cholestyramine) 4 Gm/Pkt Powd 4 Gm PO TID 1 packet contains 4gm of cholestyramine. Milk of Magnesia Liq (Magnesium Hydroxide) 400 Mg/5 Ml Susp 30 Ml PO HS PRN Flagyl (Metronidazole) 500 Mg Tab 500 Mg PO TID 10 Days Enema Disposable (Sodium Phosphates) 1 Kellie Kellie 1 Applic IA DIRECTED PRN Dulcolax Supp (Bisacodyl) 10 Mg Supp 10 Mg IA IN AM PRN Depakene (Valproic Acid) 250 Mg Cap 500 Mg PO Q6HR Citroma Liq (Magnesium Citrate) 300 Ml Liq 300 Ml PO IN THE AM PRN Ativan (Lorazepam) 0.5 Mg Tab 0.5 Mg PO Q6H PRN Primidone 250 Mg Tab 250 Mg PO TID Active Ordered Medications Current Medications Medications (Trade) Dose Ordered Sig/Rebeca Route Start Time Stop Time Status Last Admin (NS Flush) 2 ml UNSCH PRN FLUSH 04/10/16 12:30 04/10/16 15:19 (NS Flush) 2 ml BID FLUSH 04/10/16 21:00 (Tylenol) 650 mg Q4H PRN PO 04/10/16 12:30 04/10/16 17:58 (Zofran Inj) 4 mg Q6H PRN IVP 04/10/16 12:30 (Compazine Supp) 25 mg Q12H PRN IA 04/10/16 12:30 (Heparin Inj) 5,000 units Q12H SQ 04/10/16 13:00 04/10/16 13:46 (Narcan Inj) 0.4 mg UNSCH PRN IV 04/10/16 12:30 (Dulcolax Supp) 10 mg DAILY PRN IA 04/10/16 12:45 (TEGretol) 400 mg Q8HR PO 04/10/16 14:00 (Questran 4 Gm Pkt) 4 gm TID PO 04/10/16 13:00 04/10/16 17:58 (Lactinex) 1 tab TID PO 04/10/16 13:00 04/10/16 17:58 (Ativan) 0.5 mg Q6H PRN PO 04/10/16 12:45 (Citroma Liq) 300 ml DAILY PRN PO 04/10/16 12:45 (Milk Of Magnesia Liq) 30 ml HS PRN PO 04/10/16 12:45 (Mysoline) 250 mg TID PO 04/10/16 13:00 Vancomycin HCl 125 mg 125 mg Q6HR PO 04/10/16 18:00 04/10/16 17:58 (Flagyl 500 Mg Inj) 100 ml @ 100 mls/hr Q8H IV 04/10/16 20:00 Lorazepam 1 mg 1 mg Q4HR PRN IV PUSH 04/10/16 12:45 Potassium Chloride/Dextrose/ Sod Cl 1,000 ml @ 100 mls/hr Q10H IV 04/10/16 15:15 04/10/16 16:57 Levetriacetam 100 ml @ 400 mls/hr Q12HR IV 04/10/16 21:00 Valproate Sodium 750 mg/Sodium Chloride 107.5 ml @ 105 mls/hr Q6HR IV 04/10/16 18:00 04/10/16 18:04 (Vimpat Inj/NS Inj) 110 ml @ 110 mls/hr Q12HR IV 04/10/16 21:00 Family History NC to current ID problems. Social History Has sister involved in her care. Resident of [facility] prior to that was homebound. Physical Exam Vital Signs Vital Signs Date Time Temp Pulse Resp B/P Pulse Ox O2 Delivery O2 Flow Rate FiO2 04/10/16 15:45 125 27 86/57 99 Room Air 04/10/16 15:00 130 28 82/52 100 Room Air 04/10/16 14:00 127 30 91/51 100 Room Air 04/10/16 13:00 103.4 125 32 93/51 99 Room Air 04/10/16 12:40 100 21 04/10/16 11:58 130 32 93/50 99 Room Air 04/10/16 11:04 30 99 Room Air 04/10/16 10:40 103.5 125 30 102/66 98 04/10/16 10:40 103.5 125 30 102/66 99 Room Air Physical Exam GENERAL: This is a well-nourished, well-developed patient, in no apparent distress. SKIN: No rashes, ecchymoses or lesions. Cool and dry. HEAD: Atraumatic. Normocephalic. No temporal or scalp tenderness. EYES: Pupils equal round and reactive. Extraocular motions intact. No scleral icterus. No injection or drainage. ENT: Nose without bleeding, purulent drainage or septal hematoma. Throat without erythema, tonsillar hypertrophy or exudate. Uvula midline. Airway patent. NECK: Trachea midline. Supple, nontender, no meningeal signs. CARDIOVASCULAR: HS audible. RESPIRATORY: Clear to auscultation. Breath sounds equal bilaterally. GASTROINTESTINAL: Abdomen soft, diffuse tenderness. No rebound tenderness, rigidity or guarding. MUSCULOSKELETAL: Extremities without clubbing, cyanosis, or edema. No joint tenderness, effusion, or edema noted. No calf tenderness. Negative Homans sign bilaterally. NEUROLOGICAL: Awake. Responds to simple verbal questions. Blind. Psych: cooperative IV line sites with no e/o infection. Laboratory Laboratory Tests Test 04/10/16 04/10/16 04/10/16 11:25 11:30 12:15 Stool C. difficile Toxin (PCR) POSITIVE Stl C. difficile Toxin PRESUMPTIVE Epiderm 027 POSITIVE Urine Color BROWN Urine Turbidity HAZY Urine pH 5.5 Urine Specific Kaycee 1.024 Urine Protein 30 Urine Glucose (UA) NEG Urine Ketones NEG Urine Occult Blood SMALL Urine Nitrite NEG Urine Bilirubin SMALL Urine Urobilinogen 2.0 Urine Leukocyte Esterase LARGE Urine RBC 4 Urine WBC 14 Urine Squamous Epithelial 4 Cells Urine Bacteria OCC Urine Hyaline Casts 63 Urine Mucus FEW Microscopic Urinalysis Comment CATH-CULTURE IND White Blood Count 17.8 Red Blood Count 2.87 Hemoglobin 8.3 Hematocrit 25.2 Mean Corpuscular Volume 87.7 Mean Corpuscular Hemoglobin 28.8 Mean Corpuscular Hemoglobin 32.8 Concent Red Cell Distribution Width 17.3 Platelet Count 279 Mean Platelet Volume 8.4 Neutrophils (%) (Auto) 87.0 Lymphocytes (%) (Auto) 2.7 Monocytes (%) (Auto) 10.2 Eosinophils (%) (Auto) 0.0 Basophils (%) (Auto) 0.1 Neutrophils # (Auto) 15.5 Lymphocytes # (Auto) 0.5 Monocytes # (Auto) 1.8 Eosinophils # (Auto) 0.0 Basophils # (Auto) 0.0 CBC Comment AUTO DIFF Differential Total Cells 100 Counted Neutrophils % (Manual) 45 Band Neutrophils % 47 Lymphocytes % 1 Monocytes % 6 Neutrophils # (Manual) 16.6 Metamyelocytes 1 Differential Comment FINAL DIFF MANUAL Toxic Vacuolation PRESENT Dohle Bodies PRESENT Platelet Estimate NORMAL Platelet Morphology Comment NORMAL Sodium Level 139 Potassium Level 3.3 Chloride Level 109 Carbon Dioxide Level 17.4 Anion Gap 13 Blood Urea Nitrogen 32 Creatinine 1.07 Estimat Glomerular Filtration 67 Rate Random Glucose 87 Lactic Acid Level 2.0 Calcium Level 7.4 Protein Corrected Calcium 8.0 Magnesium Level 1.3 Total Bilirubin 1.1 Aspartate Amino Transf 59 (AST/SGOT) Alanine Aminotransferase 34 (ALT/SGPT) Alkaline Phosphatase 84 Total Creatine Kinase 13 Troponin I LESS THAN 0.02 Total Protein 6.0 Albumin 1.8 Lipase 47 Phenytoin (Dilantin) Level LESS THAN 0.4 Valproic Acid (Depakene) Level 49 Carbamazepine (Tegretol) Level 5.5 Date/Time Procedure Status Source Growth 04/10/16 15:25 Aerobic Blood Culture Received Blood Peripheral Pending 04/10/16 15:25 Anaerobic Blood Culture Received Blood Peripheral Pending 04/10/16 11:30 Urine Culture Worksheet Urine Clean Catch Pending 04/10/16 11:25 Influenza Types A,B Antigen (KAREN) - Final Complete Nasal Aspirate NEGATIVE FOR FLU A AND B ANTIGEN.... Result Diagram: 04/10/16 1215 04/10/16 1215 Imaging Last Impressions Chest X-Ray 04/10/16 1045 Signed Impressions: Service Date/Time: Sunday, April 10, 2016 12:47 - CONCLUSION: Coarsened bronchovascular markings retrocardiac region consistent with minimal or early left lower lobe posterior basilar segment infiltrate Ulysses Cardenas MD Abdomen X-Ray 04/10/16 0000 Signed Impressions: Service Date/Time: Sunday, April 10, 2016 16:37 - CONCLUSION: Surgery stable abdomen. Large pelvic mass displacing bowel into the mid and upper abdomen without evidence of obstruction Ulysses Cardenas MD Assessment and Plan Assessment and Plan Severe Sepsis Cdiff Colitis. Uterine fibroids large. Last admission had mechanical obstruction and ileus. Pneumonia likely aspiration PNA. Acute metabolic encephalopathy: seizures, sepsis. Acute renal failure: sepsis, prerenal. Recs Continue Flagyl IV Continue Vanco oral Repeat CXR in am. If continues to spike fevers or persistent infiltrate will need antibiotics. recd 1 dose of Zosyn and Vanco IV. For now treat as aspiration related chemical pneumonitis. If clinical condition changes overnight ok to add Broad spectrum antibiotics. Follow cultures Follow clinically. Reinaldo Mitchell and RN. Le Navarro MD Apr 10, 2016 17:46
[2016-04-10] MEDS: ACETAMINOPHEN 325 MG TAB PO PRN (17:58)
[2016-04-10] MEDS: VANCOMYCIN 500 MG VIAL (FOR ORAL USE ONLY) PO SCH ×2 (17:58→22:44)
[2016-04-10] MEDS ORDERED: VALPROIC ACID 250 MG CAP PO SCH (18:00)
[2016-04-10] MEDS: VALPROATE INJ 750 MG in SODIUM CHLORIDE 0.9% INJ 100 ML IV SCH ×2 (18:04→23:09)
[2016-04-10 19:47] LABS: APTT (PATIENT) 37.3 SEC (24.3-30.1); INTERNATIONAL NORMALIZED RATIO 1.4 RATIO
[2016-04-10] MEDS: levETIRAcetam 1000 MG INJ 100 ML IV SCH (20:35)
[2016-04-10] MEDS: SODIUM CHLORIDE 0.9% FLUSH 5 ML FLUSH FLUSH SCH (20:36)
[2016-04-10] MEDS: LACOSAMIDE INJ 100 MG in SODIUM CHLORIDE 0.9% INJ 100 ML IV SCH (20:37)
[2016-04-10] MEDS: metroNIDAZOLE 500 MG INJ 100 ML IV SCH (20:37)
[2016-04-10] MEDS ORDERED: CHLORHEXIDINE GLUCONATE 2 % 1 PACK (2 CLOTHS)(extra cloths) TOP PRN (20:45)
[2016-04-10] MEDS: DEXTROSE 10% INJ 1,000 ML IV SCH (20:47)
[2016-04-10] MEDS: LACTATED RINGER'S 1000 ML INJ 1,000 ML IV SCH (20:48)
[2016-04-10] MEDS ORDERED: levETIRAcetam 500 MG TAB PO SCH (21:00)
--- NOTE | 2016-04-10 22:58 | EKG ---
Date Performed: 04/10/2016 Time Performed: 11:18:59 PTAGE: 45 years EKG: SINUS TACHYCARDIA WITH SHORT ID INTERVAL WITH OCCASIONAL SUPRAVENTRICULAR PREMATURE COMPLEX ES NONSPECIFIC ST & T-WAVE ABNORMALITY ABNORMAL RHYTHM ECG PREVIOUS TRACING : 02/22/2016 15.55 DOCTOR: Rich Sutton Interpretating Date/Time 04/10/2016 22:58:03
[2016-04-10] MEDS: CHLORHEXIDINE GLUCONATE 2 % 1 PACK (2 CLOTHS)(taper/protocol) TOP SCH (23:47)
[2016-04-11] VITALS (13 sets, daily range): BP systolic 93–118; BP diastolic 50–65; PULSE 115–130; RESP 18–24; TEMP 98.2–101.6; O2SAT 97–100
[2016-04-11] MEDS: LACTATED RINGER'S 1000 ML INJ 1,000 ML IV SCH ×4 (00:39→19:55)
[2016-04-11] MEDS: metroNIDAZOLE 500 MG INJ 100 ML IV SCH ×3 (03:36→19:55)
[2016-04-11] MEDS: VANCOMYCIN 500 MG VIAL (FOR ORAL USE ONLY) PO SCH ×4 (04:13→23:01)
[2016-04-11] MEDS: carBAMazepine 200 MG TAB PO SCH ×3 (04:14→20:29)
[2016-04-11] MEDS: VALPROATE INJ 750 MG in SODIUM CHLORIDE 0.9% INJ 100 ML IV SCH ×4 (04:14→19:55)
--- NOTE | 2016-04-11 08:26 | HHI.PR ---
Subjective Remarks no sz overnoc Objective Vital Signs Date Time Temp Pulse Resp B/P Pulse Ox O2 Delivery O2 Flow Rate FiO2 04/11/16 06:00 123 04/11/16 04:00 100.1 123 20 115/62 100 04/11/16 04:00 123 04/11/16 00:00 98.7 125 20 118/63 100 04/11/16 00:00 123 04/10/16 23:10 99 21 04/10/16 22:00 123 04/10/16 20:00 98.6 123 20 119/55 100 04/10/16 20:00 123 04/10/16 16:00 102.5 129 20 119/55 100 04/10/16 15:45 125 27 86/57 99 Room Air 04/10/16 15:00 130 28 82/52 100 Room Air 04/10/16 14:00 127 30 91/51 100 Room Air 04/10/16 13:00 103.4 125 32 93/51 99 Room Air 04/10/16 12:40 100 21 04/10/16 11:58 130 32 93/50 99 Room Air 04/10/16 11:04 30 99 Room Air 04/10/16 10:40 103.5 125 30 102/66 98 04/10/16 10:40 103.5 125 30 102/66 99 Room Air I/O 04/10/16 04/10/16 04/10/16 04/11/16 04/11/16 04/11/16 07:00 15:00 23:00 07:00 15:00 23:00 Intake Total 1350 ml 1275 ml Output Total 850 ml 750 ml Balance 500 ml 525 ml IV Total 1350 ml 1275 ml Output Urine Total 850 ml 750 ml # Bowel Movements 2 1 3 Result Diagram: 04/10/16 1215 04/10/16 1215 Objective Remarks awake sticks out tongue and raises arms up for me Assessment and Plan Assessment and Plan imp on vimpat primidone vpa and cbz we will not be able to normalize eg an dunlikley we can dc sz as has daily for yrs will work on it oob and po soon Narendra Bob MD Apr 11, 2016 08:26
[2016-04-11] MEDS: LACTOBACILLUS ACIDOPHILUS TAB PO SCH ×3 (09:08→17:43)
[2016-04-11] MEDS: CHOLESTYRAMINE 4 GM PACKET PO SCH ×3 (09:08→17:43)
[2016-04-11] MEDS: PRIMIDONE 250 MG TAB PO SCH ×3 (09:08→17:42)
[2016-04-11] MEDS: SODIUM CHLORIDE 0.9% FLUSH 5 ML FLUSH FLUSH SCH ×2 (09:08→19:56)
[2016-04-11] MEDS: LACOSAMIDE INJ 100 MG in SODIUM CHLORIDE 0.9% INJ 100 ML IV SCH ×2 (09:09→19:56)
[2016-04-11] MEDS: levETIRAcetam 1000 MG INJ 100 ML IV SCH ×2 (09:09→19:55)
[2016-04-11] MEDS: ONDANSETRON HCL 4 MG/2 ML VIAL IVP PRN (09:25)
[2016-04-11] MEDS: ACETAMINOPHEN 325 MG TAB PO PRN (09:26)
[2016-04-11 09:42] LABS: AUTOMATED NEUTROPHIL # 12.9 TH/MM3 (1.8-7.7); BASOPHIL % 0.2 % (0.0-2.0); EOSINOPHIL % 0.2 % (0.0-4.0); HEMATOCRIT 31.2 % (35.0-46.0); HEMO FLAGS AUTO DIFF; LYMPH % 3.9 % (9.0-44.0); LYMPHOCYTE # 0.6 TH/MM3 (1.0-4.8); MEAN CELL VOLUME 87.6 FL (80.0-100.0); MEAN CORPUSCULAR HEMOGLOBIN 28.2 PG (27.0-34.0); MEAN CORPUSCULAR HGB CONC 32.2 % (32.0-36.0); MONO % 9.4 % (0.0-8.0); NEUT % 86.3 % (16.0-70.0); PLATELET COUNT 215 TH/MM3 (150-450); RED BLOOD COUNT 3.56 MIL/MM3 (4.00-5.30); RED CELL DISTRIBUTION WIDTH 17.8 % (11.6-17.2); WHITE BLOOD COUNT 14.9 TH/MM3 (4.0-11.0)
[2016-04-11 09:47] LABS: BICARBONATE 18.1 MEQ/L (21.0-32.0); POTASSIUM 3.9 MEQ/L (3.5-5.1)
[2016-04-11 10:21] LABS: BANDS 16 % (0-6); METAMYELOCYTES 3 % (0-1); NEUTROPHIL # MANUAL DIFF 12.2 TH/MM3 (1.8-7.7); PLATELET ESTIMATE SMEAR NORMAL (NORMAL); PLATELET MORPHOLOGY NORMAL (NORMAL); POLYS (SEG NEUTROPHILS) 63 % (16-70); SCAN/DIFF FINAL DIFF MANUAL; WBC DIFF SAMPLE 100
[2016-04-11] MEDS ORDERED: DIATRIZOATE MEGLUM/DIATRIZOATE SOD 9 ML CUP PO ONE (10:45)
--- NOTE | 2016-04-11 11:21 | HHI.IDPN ---
Subjective Subjective Remarks is a 45 y/o AAF with PMHx of mental delay, blindness, seizures, fibroid cyst for a long time (x20 years) who was brought in by her niece. Patient has prior known history of mental retardation and blindness. Patient was recently seen by me earlier this month at [facility]. During that admission patient had Small bowel obstruction from mechanical obstruction from uterine mass. She also diarrhea with severe colitis and Cdiff PCR positive. She underwent treatment with Oral Vanco, Vanco enema, Difficid during that admission. She continued to improve and now is readmitted due to uncontrolled seizures and new vs ongoing sepsis related to Cdiff. She was s/b GI during last admission and had Colonoscopy positive for pseudomembranes. Overnight events reviewed. Fevers Tmax Antibiotics Vanco oral Flagyl IV Lines Lines with no infection. Past Medical History reviewed Allergies: Coded Allergies: No Known Allergies (Unverified , 04/10/16) Objective . Vital Signs Date Time Temp Pulse Resp B/P Pulse Ox O2 Delivery O2 Flow Rate FiO2 04/11/16 11:11 97 04/11/16 10:00 121 04/11/16 08:00 101.6 130 24 95/50 99 04/11/16 08:00 130 04/11/16 06:00 123 04/11/16 04:00 100.1 123 20 115/62 100 04/11/16 04:00 123 04/11/16 00:00 98.7 125 20 118/63 100 04/11/16 00:00 123 04/10/16 23:10 99 21 04/10/16 22:00 123 04/10/16 20:00 98.6 123 20 119/55 100 04/10/16 20:00 123 04/10/16 16:00 102.5 129 20 119/55 100 04/10/16 15:45 125 27 86/57 99 Room Air 04/10/16 15:00 130 28 82/52 100 Room Air 04/10/16 14:00 127 30 91/51 100 Room Air 04/10/16 13:00 103.4 125 32 93/51 99 Room Air 04/10/16 12:40 100 21 04/10/16 11:58 130 32 93/50 99 Room Air 04/10/16 04/10/16 04/11/16 15:00 23:00 07:00 Intake Total 1350 ml 1275 ml Output Total 850 ml 750 ml Balance 500 ml 525 ml IV Total 1350 ml 1275 ml Output Urine Total 850 ml 750 ml # Bowel Movements 2 1 3 . Laboratory Tests Test 04/10/16 04/11/16 12:15 09:15 White Blood Count 17.8 TH/MM3 14.9 TH/MM3 Red Blood Count 2.87 MIL/MM3 3.56 MIL/MM3 Hemoglobin 8.3 GM/DL 10.0 GM/DL Hematocrit 25.2 % 31.2 % Mean Corpuscular Volume 87.7 FL 87.6 FL Mean Corpuscular Hemoglobin 28.8 PG 28.2 PG Mean Corpuscular Hemoglobin 32.8 % 32.2 % Concent Red Cell Distribution Width 17.3 % 17.8 % Platelet Count 279 TH/MM3 215 TH/MM3 Mean Platelet Volume 8.4 FL 9.0 FL Neutrophils (%) (Auto) 87.0 % 86.3 % Lymphocytes (%) (Auto) 2.7 % 3.9 % Monocytes (%) (Auto) 10.2 % 9.4 % Eosinophils (%) (Auto) 0.0 % 0.2 % Basophils (%) (Auto) 0.1 % 0.2 % Neutrophils # (Auto) 15.5 TH/MM3 12.9 TH/MM3 Lymphocytes # (Auto) 0.5 TH/MM3 0.6 TH/MM3 Monocytes # (Auto) 1.8 TH/MM3 1.4 TH/MM3 Eosinophils # (Auto) 0.0 TH/MM3 0.0 TH/MM3 Basophils # (Auto) 0.0 TH/MM3 0.0 TH/MM3 CBC Comment AUTO DIFF AUTO DIFF Differential Total Cells 100 100 Counted Neutrophils % (Manual) 45 % 63 % Band Neutrophils % 47 % 16 % Lymphocytes % 1 % 12 % Monocytes % 6 % 6 % Neutrophils # (Manual) 16.6 TH/MM3 12.2 TH/MM3 Metamyelocytes 1 % 3 % Differential Comment FINAL DIFF FINAL DIFF MANUAL MANUAL Toxic Vacuolation PRESENT Dohle Bodies PRESENT Platelet Estimate NORMAL NORMAL Platelet Morphology Comment NORMAL NORMAL Red Cell Morphology Comment NORMAL Hematology Comments Laboratory Tests Test 04/10/16 04/11/16 12:15 09:15 Sodium Level 139 MEQ/L 144 MEQ/L Potassium Level 3.3 MEQ/L 3.9 MEQ/L Chloride Level 109 MEQ/L 110 MEQ/L Carbon Dioxide Level 17.4 MEQ/L 18.1 MEQ/L Anion Gap 13 MEQ/L 16 MEQ/L Blood Urea Nitrogen 32 MG/DL 25 MG/DL Creatinine 1.07 MG/DL 0.77 MG/DL Estimat Glomerular Filtration 67 ML/MIN 98 ML/MIN Rate Random Glucose 87 MG/DL 88 MG/DL Lactic Acid Level 2.0 mmol/L 4.6 mmol/L Calcium Level 7.4 MG/DL 7.7 MG/DL Protein Corrected Calcium 8.0 MG/DL Magnesium Level 1.3 MG/DL Total Bilirubin 1.1 MG/DL Aspartate Amino Transf 59 U/L (AST/SGOT) Alanine Aminotransferase 34 U/L (ALT/SGPT) Alkaline Phosphatase 84 U/L Total Creatine Kinase 13 U/L Troponin I LESS THAN 0.02 NG/ML Total Protein 6.0 GM/DL Albumin 1.8 GM/DL Lipase 47 U/L Microbiology Date/Time Procedure Status Source Growth 04/10/16 11:25 Influenza Types A,B Antigen (KAREN) - Final Complete Nasal Aspirate NEGATIVE FOR FLU A AND B ANTIGEN.... 04/10/16 11:30 Urine Culture Worksheet Urine Clean Catch Pending 04/10/16 15:25 Aerobic Blood Culture - Preliminary Resulted Blood Peripheral NO GROWTH IN 1 DAY 04/10/16 15:25 Anaerobic Blood Culture - Preliminary Resulted Blood Peripheral NO GROWTH IN 1 DAY 04/10/16 18:47 Aerobic Blood Culture - Preliminary Resulted Blood Peripheral NO GROWTH IN 1 DAY 04/10/16 18:47 Anaerobic Blood Culture - Final Resulted Blood Peripheral QNS - SEE AEROBE REPORT Imaging Last Impressions Chest X-Ray 04/10/16 1045 Signed Impressions: Service Date/Time: Sunday, April 10, 2016 12:47 - CONCLUSION: Coarsened bronchovascular markings retrocardiac region consistent with minimal or early left lower lobe posterior basilar segment infiltrate Ulysses Cardenas MD Abdomen X-Ray 04/10/16 0000 Signed Impressions: Service Date/Time: Sunday, April 10, 2016 16:37 - CONCLUSION: Surgery stable abdomen. Large pelvic mass displacing bowel into the mid and upper abdomen without evidence of obstruction Ulysses Cardenas MD Physical Exam GENERAL: This is a well-nourished, well-developed patient, in no apparent distress. SKIN: No rashes, ecchymoses or lesions. Cool and dry. HEAD: Atraumatic. Normocephalic. No temporal or scalp tenderness. EYES: Pupils equal round and reactive. Extraocular motions intact. No scleral icterus. No injection or drainage. ENT: Nose without bleeding, purulent drainage or septal hematoma. Throat without erythema, tonsillar hypertrophy or exudate. Uvula midline. Airway patent. NECK: Trachea midline. Supple, nontender, no meningeal signs. CARDIOVASCULAR: HS audible. RESPIRATORY: Clear to auscultation. Breath sounds equal bilaterally. GASTROINTESTINAL: Abdomen soft, diffuse tenderness. No rebound tenderness, rigidity or guarding. MUSCULOSKELETAL: Extremities without clubbing, cyanosis, or edema. No joint tenderness, effusion, or edema noted. No calf tenderness. Negative Homans sign bilaterally. NEUROLOGICAL: Awake. Responds to simple verbal questions. Blind. Psych: cooperative IV line sites with no e/o infection. Assessment & Plan Remarks Severe Sepsis Cdiff Colitis. Uterine fibroids large. Last admission had mechanical obstruction and ileus. Pneumonia likely aspiration PNA. Acute metabolic encephalopathy: seizures, sepsis. Acute renal failure: sepsis, prerenal. Recs Continue Flagyl IV Continue Vanco oral Repeat CXR today in view of persistent fevers. If continues to spike fevers or persistent infiltrate will need antibiotics. recd 1 dose of Zosyn and Vanco IV. Check repeat lactate at 2 pm today. If lactate high get CT A/P to look for bowel pathology. For now treat as aspiration related chemical pneumonitis. If clinical condition changes overnight ok to add Broad spectrum antibiotics. Follow cultures Follow clinically. Reinaldo Mitchell and RN. Kitchen will be OOT from 04/12/16 to 05/01/2016. Other ID MDs covering for me. Le Navarro MD Apr 11, 2016 11:21
--- NOTE | 2016-04-11 11:50 | RADRPT ---
EXAM DATE/TIME: 04/11/2016 11:22 [place] COMPARISON: CHEST SINGLE AP, April 10, 2016, 12:47. INDICATIONS : Pneumonia. MEDICAL HISTORY : None. SURGICAL HISTORY : None. ENCOUNTER: Subsequent ACUITY: 1 week PAIN SCORE: 0/10 LOCATION: Bilateral chest FINDINGS: Compared to the prior exam there now appears to be some interstitial infiltrates bilaterally. This ca n be seen with either pulmonary edema versus pneumonia. The heart size is stable. No definite pleural effusions are demonstrated. There is NG tube in the stomach. The bony structures are stable. CONCLUSION: 1. There has been an increase in the interstitial markings bilaterally which can be seen with either pulmonary edema versus pneumonia. 2. NG tube in the stomach. Rashad Coronel MD on April 11, 2016 at 11:47 Board Certified Radiologist. This report was verified electronically.
--- NOTE | 2016-04-11 12:26 | HHI.FPPN ---
Subjective Remarks IN ICU NGT CLAMPED D/W DR CURTIS PLAN BELOW D/W RN PT TOOK PO Objective Vitals Vital Signs Date Time Temp Pulse Resp B/P Pulse Ox O2 Delivery O2 Flow Rate FiO2 04/11/16 11:11 97 04/11/16 10:00 121 04/11/16 08:00 101.6 130 24 95/50 99 04/11/16 08:00 130 04/11/16 06:00 123 04/11/16 04:00 100.1 123 20 115/62 100 04/11/16 04:00 123 04/11/16 00:00 98.7 125 20 118/63 100 04/11/16 00:00 123 04/10/16 23:10 99 21 04/10/16 22:00 123 04/10/16 20:00 98.6 123 20 119/55 100 04/10/16 20:00 123 04/10/16 16:00 102.5 129 20 119/55 100 04/10/16 15:45 125 27 86/57 99 Room Air 04/10/16 15:00 130 28 82/52 100 Room Air 04/10/16 14:00 127 30 91/51 100 Room Air 04/10/16 13:00 103.4 125 32 93/51 99 Room Air 04/10/16 12:40 100 21 I/O 04/10/16 04/10/16 04/10/16 04/11/16 04/11/16 04/11/16 06:59 14:59 22:59 06:59 14:59 22:59 Intake Total 1350 ml 1275 ml Output Total 850 ml 750 ml Balance 500 ml 525 ml IV Total 1350 ml 1275 ml Output Urine Total 850 ml 750 ml # Bowel Movements 2 1 3 Result Diagram: 04/11/1691404/11/16914 Objective Remarks GENERAL: SKIN: Warm and dry. HEAD: Atraumatic. Normocephalic. EYES: Pupils equal and round. No scleral icterus. No injection or drainage. ENT: No nasal bleeding or discharge. Mucous membranes pink and moist. NECK: Trachea midline. No JVD. CARDIOVASCULAR: Regular rate and rhythm. RESPIRATORY: No accessory muscle use. Clear to auscultation. Breath sounds equal bilaterally. GASTROINTESTINAL: Abdomen soft, tender, distended. Hepatic and splenic margins not palpable. MUSCULOSKELETAL: Extremities without clubbing, cyanosis, or edema. No obvious deformities. NEUROLOGICAL: Awake and alert. No obvious cranial nerve deficits. Motor grossly within normal limits. 1 out of 5 muscle strength in the arms and legs. PSYCHIATRIC: lethargic Medications and IVs Current Medications Medications (Trade) Dose Ordered Sig/Rebeca Route Start Time Stop Time Status Last Admin (NS Flush) 2 ml UNSCH PRN FLUSH 04/10/16 12:30 04/10/16 15:19 (NS Flush) 2 ml BID FLUSH 04/10/16 21:00 04/11/16 09:08 (Tylenol) 650 mg Q4H PRN PO 04/10/16 12:30 04/11/16 09:26 (Zofran Inj) 4 mg Q6H PRN IVP 04/10/16 12:30 04/11/16 09:25 (Compazine Supp) 25 mg Q12H PRN IL 04/10/16 12:30 (Heparin Inj) 5,000 units Q12H SQ 04/10/16 13:00 04/10/16 23:10 (Narcan Inj) 0.4 mg UNSCH PRN IV 04/10/16 12:30 (Dulcolax Supp) 10 mg DAILY PRN IL 04/10/16 12:45 (TEGretol) 400 mg Q8HR PO 04/10/16 14:00 04/11/16 04:14 (Questran 4 Gm Pkt) 4 gm TID PO 04/10/16 13:00 04/11/16 09:08 (Lactinex) 1 tab TID PO 04/10/16 13:00 04/11/16 09:08 (Ativan) 0.5 mg Q6H PRN PO 04/10/16 12:45 (Citroma Liq) 300 ml DAILY PRN PO 04/10/16 12:45 (Milk Of Magnesia Liq) 30 ml HS PRN PO 04/10/16 12:45 (Mysoline) 250 mg TID PO 04/10/16 13:00 04/11/16 09:08 Vancomycin HCl 125 mg 125 mg Q6HR PO 04/10/16 18:00 04/11/16 04:13 (Flagyl 500 Mg Inj) 100 ml @ 100 mls/hr Q8H IV 04/10/16 20:00 04/11/16 03:36 Lorazepam 1 mg 1 mg Q4HR PRN IV PUSH 04/10/16 12:45 Levetriacetam 100 ml @ 400 mls/hr Q12HR IV 04/10/16 21:00 04/11/16 09:09 Valproate Sodium 750 mg/Sodium Chloride 107.5 ml @ 105 mls/hr Q6HR IV 04/10/16 18:00 04/11/16 04:14 Lacosamide 100 mg/ Sodium Chloride 110 ml @ 110 mls/hr Q12HR IV 04/10/16 21:00 04/11/16 09:09 Dextrose 1,000 ml @ 30 mls/hr Q24H IV 04/10/16 21:00 04/10/16 20:47 (Lr 1000 ml Inj) 1,000 ml @ 150 mls/hr Q6H40M IV 04/10/16 21:00 04/11/16 09:09 Miscellaneous Information Patient in critical care unit? Ass... [id number] XX 04/10/16 20:45 (Chlorhexidine 2% Cloth) 3 pack DAILY@04 TOP 04/11/16 04:00 04/15/16 04:01 04/10/16 23:47 (Chlorhexidine 2% Cloth) 3 pack UNSCH PRN TOP 04/10/16 20:45 04/15/16 20:39 A/P Assessment and Plan SEVERE SEPSIS C DIF DEHYDRATION SZ'S, INTRACTABLE UTI SBO RECENTLY ASPIRATION PNA UTERINE FIBROIDS ARF, PRERENAL MR JAMIE HYPOKALEMIA HYPOMAGNESEMIA HYPOCALCEMIA HYPERAMMONEMIA PLAN: NGT REPEAT LACTATE AND MAYBE CT IVF IV ABX STOOL CULTURES ANTIEPILEPTIC LEVELS ATIVAN PRN ID CONSULT NEURO CONSULT CCM CONSULT ICU CARE Romie Pelayo MD Apr 11, 2016 12:26
[2016-04-11] MEDS: HEPARIN SODIUM - SQ 10,000 UNITS/ML VIAL SQ SCH ×2 (12:43→23:01)
--- NOTE | 2016-04-11 15:34 | HHI.CCPN ---
Subjective Remarks/Hospital Course Hospital Course: 45y AA female with history of mental delay, blindness, seizure d/o, and recent hospitalization for C. difficile colitis presents from SNF with diarrhea and two day history of seizures. Pt was recently hospitalized at [facility] for treatment C. diff colitis, dehydration, JAMIE, and seizures. Discharged to SNF with vancomycin 125mg PO x4 weeks total (completed 04/10/16) per ID (Dr Bower). Due to AMS, pt unable to provide details about symptoms. Per EMR and discussion with ED physician, pt had continued diarrhea, with suspected failure of outpatient treatment for C. difficile, and seizures 2 days which prompted her visit to ED. Seizures currently managed with Keppra 1500mg BID, valproic acid 650mg q6h, and Carbamazepine 400mg q8h. seizure medications were increased 03/31/16. However, neurology has previously stated pt may never be seizure free (as EEG 03/18, 03/20, and 03/22 showed ongoing epileptic focus). Sister brought patient in, but was not at bedside during interview Subjective: 04/11: significantly improved mental status, back to baseline. eating applesauce this morning. renal function improving. lactate uptrended from 2 to 4 this AM, unclear etiology. Objective Vital Signs Date Time Temp Pulse Resp B/P Pulse Ox O2 Delivery O2 Flow Rate FiO2 04/11/16 14:00 117 04/11/16 12:00 98.2 20 93/60 100 04/10/16 23:10 21 04/10/16 15:45 Room Air Intake and Output 04/10/16 04/10/16 04/11/16 08:00 16:00 00:00 Intake Total 1350 ml Output Total 850 ml Balance 500 ml Result Diagram: 04/11/16 0915 04/11/16 0915 Other Results Microbiology Date/Time Procedure Status Source Growth 04/10/16 11:25 Influenza Types A,B Antigen (KAREN) - Final Complete Nasal Aspirate NEGATIVE FOR FLU A AND B ANTIGEN.... Imaging Last 72 hours Impressions Chest X-Ray 04/10/16 1045 Signed Impressions: Service Date/Time: Sunday, April 10, 2016 12:47 - CONCLUSION: Coarsened bronchovascular markings retrocardiac region consistent with minimal or early left lower lobe posterior basilar segment infiltrate Ulysses Cardenas MD Objective Remarks GENERAL: Frail -[place]itt[place] woman, lying in bed HEENT: Pupils equally round and reactive. Mucous members moist. NECK: Trachea is midline. There is no JVD. CHEST: Equal chest rise. Unlabored respirations. Clear to auscultation. CARDIOVASCULAR: Tachycardic rate, regular rhythm. No appreciable murmurs. ABDOMEN: Soft, moderately distended, nontender. No guarding or peritoneal signs. MUSCULOSKELETAL: no peripheral edema. Distal pulses 2+. NEUROLOGICAL: RASS -1. Follows commands. A/P Assessment and Plan Assessment: 45-year-old female with history of ovarian mass and prior C. difficile who presents with recurrent C. difficile and severe sepsis. Her hematinics are improving. Her lactate is concerning. Given her history of abdominal pathology, it is possible that she has intestinal ischemia or other intra-abdominal process. We will repeat a lactate and 4 hours and if it is uptrending we will order CT abdomen/pelvis with IV and by mouth contrast. Otherwise hemodynamically she is improved. Neuro Seizure disorder Seizures Altered mental statusresolving Blindness EEG on 03/18 with epileptic activities. Repeat EEG 03/20,03/22, still shows consistent with ongoing epileptic focus. -Tylenol PRN fever -Continue carbamazepine, keppra, valproic acid Cardiovascular Severe sepsis Sinus tachycardialikely secondary to surgical response - continue maintenance IV fluids Goal map greater than 65. Not needing pressors at this time. Respiratory Possible retrocardiac consolidation possible aspiration PNA Negative for Flu A/B. CXR (04/10): Left lower lobe infiltrate. -Oximetry and oxygen supplementation PRN for saturations 90%+ -Antibiotics as below (ID) Gastrointestinal Abdominal distension Uterine fibroid C. diff colitis (see ID) Dysphagiaresolving Acute protein calorie malnutritionmoderate Last hospitalization, pt evaluated by LINER MACHINE OPERATOR who did not believe obstruction caused by fibroids. Also evaluated by Gen Sx who recommended medical management. Patient poor surgical candidate for surgery 2/2 C diff -NPO per ST recommendations. We will reevaluate this as she is more awake today. Nursing bedside swallow assessment. If she passes we'll advance her to clear liquids. Infectious Disease Septic Shock secondary to C. difficile colitis, failure of outpatient treatment with vancomycin PO UTI Abnormal CXR- rule out aspiration pneumonia -Infectious disease- Dr. Navarro -U/A +Large LE, +bacteria. Urine culture (04/10) pending -Blood culture (04/10) x2 pending -Continue Vanc PO, and Flagyl IV -If clinical decline, will broaden to BSAbx. Renal/FEN Acute kidney injuryresolving Hypokalemia ICU electronic protocol Continue Browne Renal function improving, daily BMP Heme Normocytic anemialikely anemia of chronic disease Does not be transfusion triggers at this time Daily CBC -Consider transfusion if Hgb <7 Prophylaxis GI: Protonix IV DVT: SCD, Heparin 5000units SQ BID Dispo: Remain in the ICU. If she continues to improve, critical care medicine will sign off and transition back to the family medicine team. Jin Bennett MD Apr 11, 2016 15:34
--- NOTE | 2016-04-11 18:17 | MG ---
cc: GLEN BEE Lab No: [id number] Date: 04/11/2016 Age: Sex: F Race: TECHNIQUE: 17 channel EEG. DESCRIPTION: The background rhythm shows mild slowing in the theta range roughly 6 Hz. At times, there is a normal alpha rhythm. At times there also appears to be sleep activity with sleep spindles and vertex sharp waves present. There are no lateralizing features and I do not see any epileptiform discharges. INTERPRETATION: Mildly abnormal study consistent with a mild encephalopathy. There is normal sleep activity as well. There are no epileptiform discharges. MD ELICIA Younger/ABA /6:01 PM /6:16 PM
[2016-04-11] MEDS: DEXTROSE 10% INJ 1,000 ML IV SCH (19:56)
[2016-04-11] MEDS: CHLORHEXIDINE GLUCONATE 2 % 1 PACK (2 CLOTHS)(taper/protocol) TOP SCH (23:02)
[2016-04-12] VITALS (13 sets, daily range): BP systolic 97–107; BP diastolic 54–68; PULSE 110–123; RESP 18–22; TEMP 97.8–99; O2SAT 97–100
[2016-04-12] MEDS: metroNIDAZOLE 500 MG INJ 100 ML IV SCH ×3 (01:53→20:01)
[2016-04-12] MEDS: LACTATED RINGER'S 1000 ML INJ 1,000 ML IV SCH ×3 (04:05→20:03)
[2016-04-12] MEDS: carBAMazepine 200 MG TAB PO SCH ×3 (04:33→20:01)
[2016-04-12] MEDS: VANCOMYCIN 500 MG VIAL (FOR ORAL USE ONLY) PO SCH ×4 (04:33→23:04)
[2016-04-12] MEDS: VALPROATE INJ 750 MG in SODIUM CHLORIDE 0.9% INJ 100 ML IV SCH ×4 (04:34→20:01)
[2016-04-12] MEDS: LACOSAMIDE INJ 100 MG in SODIUM CHLORIDE 0.9% INJ 100 ML IV SCH ×2 (08:10→21:00)
[2016-04-12] MEDS: SODIUM CHLORIDE 0.9% FLUSH 5 ML FLUSH FLUSH SCH ×2 (08:10→20:02)
--- NOTE | 2016-04-12 08:35 | MG ---
cc: GLEN BEE M.D. Lab No: [id number] Date: 04/11/2016 Age: __ Sex: F Race: __ Since the original dictation, I have reviewed the EEG of Suzanne Tejada on 04/11. There are approximately six episodes of occasional bilateral frontal sharp activity which does show phase reversal. This does indicate an underlying convulsive tendency. MD ELICIA Younger/ARACELIS /8:28 AM /8:33 AM
[2016-04-12 08:51] LABS: BICARBONATE 17.5 MEQ/L (21.0-32.0); INDIRECT BILIRUBIN 0.3 MG/DL (0.0-0.8); PHENOBARBITAL 20.4 MCG/ML (15.0-40.0); POTASSIUM 3.8 MEQ/L (3.5-5.1); TOTAL BILIRUBIN ADULT 0.5 MG/DL (0.2-1.0)
[2016-04-12] MEDS: levETIRAcetam 1000 MG INJ 100 ML IV SCH ×2 (09:00→20:01)
[2016-04-12] MEDS: LACTOBACILLUS ACIDOPHILUS TAB PO SCH ×3 (09:00→17:38)
[2016-04-12] MEDS: PRIMIDONE 250 MG TAB PO SCH ×3 (09:00→17:38)
[2016-04-12] MEDS: CHOLESTYRAMINE 4 GM PACKET PO SCH ×3 (09:00→17:38)
--- NOTE | 2016-04-12 09:04 | HHI.PR ---
Subjective Remarks no sz overnoc acc to nurse tech thought she saw some small sz head turn yest? Objective Vital Signs Date Time Temp Pulse Resp B/P Pulse Ox O2 Delivery O2 Flow Rate FiO2 04/12/16 08:00 98.7 114 18 98/57 100 04/12/16 08:00 114 04/12/16 06:00 123 04/12/16 04:00 98.7 113 18 107/68 100 04/12/16 04:00 123 04/12/16 02:00 123 04/12/16 00:00 123 04/12/16 00:00 98.5 113 18 97/54 100 04/11/16 22:00 123 04/11/16 20:03 98 21 04/11/16 20:00 98.9 119 18 95/58 100 04/11/16 20:00 123 04/11/16 18:00 123 04/11/16 16:00 98.8 120 18 97/65 100 04/11/16 16:00 120 04/11/16 14:00 117 04/11/16 12:00 98.2 115 20 93/60 100 04/11/16 12:00 115 04/11/16 11:11 97 04/11/16 10:00 121 I/O 04/11/16 04/11/16 04/11/16 04/12/16 04/12/16 04/12/16 06:59 14:59 22:59 06:59 14:59 22:59 Intake Total 1275 ml 1870 ml 1159 ml 1194 ml 645 ml Output Total 750 ml 432 ml 375 ml 394 ml 46 ml Balance 525 ml 1438 ml 784 ml 800 ml 599 ml IV Total 1275 ml 1870 ml 1159 ml 1194 ml 645 ml Output Urine Total 750 ml 432 ml 375 ml 394 ml 46 ml # Bowel Movements 3 3 3 Result Diagram: 04/11/16 0915 04/12/16 0800 Objective Remarks awake raises arms up for me Assessment and Plan Assessment and Plan imp on vimpat primidone vpa and cbz cbz 14 will lower to 300 tid hold next dose we will not be able to normalize eeg an d unlikley we can dc sz as has daily for yrs will work on it doing well change to po when able Narendra Bob MD Apr 12, 2016 09:04
--- NOTE | 2016-04-12 09:31 | HHI.FPPN ---
Subjective Remarks D/W DR CURTIS, ORDER CT ABDOMEN W CONTRAST, IVF'S D/W RN Objective Vitals Vital Signs Date Time Temp Pulse Resp B/P Pulse Ox O2 Delivery O2 Flow Rate FiO2 04/12/16 08:00 98.7 114 18 98/57 100 04/12/16 08:00 114 04/12/16 06:00 123 04/12/16 04:00 98.7 113 18 107/68 100 04/12/16 04:00 123 04/12/16 02:00 123 04/12/16 00:00 123 04/12/16 00:00 98.5 113 18 97/54 100 04/11/16 22:00 123 04/11/16 20:03 98 21 04/11/16 20:00 98.9 119 18 95/58 100 04/11/16 20:00 123 04/11/16 18:00 123 04/11/16 16:00 98.8 120 18 97/65 100 04/11/16 16:00 120 04/11/16 14:00 117 04/11/16 12:00 98.2 115 20 93/60 100 04/11/16 12:00 115 04/11/16 11:11 97 04/11/16 10:00 121 I/O 04/11/16 04/11/16 04/11/16 04/12/16 04/12/16 04/12/16 07:00 15:00 23:00 07:00 15:00 23:00 Intake Total 1275 ml 1870 ml 1326 ml 1027 ml 645 ml Output Total 750 ml 432 ml 430 ml 339 ml 46 ml Balance 525 ml 1438 ml 896 ml 688 ml 599 ml IV Total 1275 ml 1870 ml 1326 ml 1027 ml 645 ml Output Urine Total 750 ml 432 ml 430 ml 339 ml 46 ml # Bowel Movements 3 3 3 Result Diagram: 04/11/16 0915 04/12/16 0800 Objective Remarks GENERAL: SKIN: Warm and dry. HEAD: Atraumatic. Normocephalic. EYES: Pupils equal and round. No scleral icterus. No injection or drainage. ENT: No nasal bleeding or discharge. Mucous membranes pink and moist. NECK: Trachea midline. No JVD. CARDIOVASCULAR: Regular rate and rhythm. RESPIRATORY: No accessory muscle use. Clear to auscultation. Breath sounds equal bilaterally. GASTROINTESTINAL: Abdomen soft, tender, distended. Hepatic and splenic margins not palpable. MUSCULOSKELETAL: Extremities without clubbing, cyanosis, or edema. No obvious deformities. NEUROLOGICAL: Awake and alert. No obvious cranial nerve deficits. Motor grossly within normal limits. 1 out of 5 muscle strength in the arms and legs. PSYCHIATRIC: lethargic Medications and IVs Current Medications Medications (Trade) Dose Ordered Sig/Rebeca Route Start Time Stop Time Status Last Admin (NS Flush) 2 ml UNSCH PRN FLUSH 04/10/16 12:30 04/10/16 15:19 (NS Flush) 2 ml BID FLUSH 04/10/16 21:00 04/11/16 19:56 (Tylenol) 650 mg Q4H PRN PO 04/10/16 12:30 04/11/16 09:26 (Zofran Inj) 4 mg Q6H PRN IVP 04/10/16 12:30 04/11/16 09:25 (Compazine Supp) 25 mg Q12H PRN GA 04/10/16 12:30 (Heparin Inj) 5,000 units Q12H SQ 04/10/16 13:00 04/11/16 23:01 (Narcan Inj) 0.4 mg UNSCH PRN IV 04/10/16 12:30 (Dulcolax Supp) 10 mg DAILY PRN GA 04/10/16 12:45 (Questran 4 Gm Pkt) 4 gm TID PO 04/10/16 13:00 04/12/16 09:00 (Lactinex) 1 tab TID PO 04/10/16 13:00 04/12/16 09:00 (Ativan) 0.5 mg Q6H PRN PO 04/10/16 12:45 (Citroma Liq) 300 ml DAILY PRN PO 04/10/16 12:45 (Milk Of Magnesia Liq) 30 ml HS PRN PO 04/10/16 12:45 (Mysoline) 250 mg TID PO 04/10/16 13:00 04/12/16 09:00 Vancomycin HCl 125 mg 125 mg Q6HR PO 04/10/16 18:00 04/12/16 04:33 (Flagyl 500 Mg Inj) 100 ml @ 100 mls/hr Q8H IV 04/10/16 20:00 04/12/16 01:53 Lorazepam 1 mg 1 mg Q4HR PRN IV PUSH 04/10/16 12:45 Levetriacetam 100 ml @ 400 mls/hr Q12HR IV 04/10/16 21:00 04/12/16 09:00 Valproate Sodium 750 mg/Sodium Chloride 107.5 ml @ 105 mls/hr Q6HR IV 04/10/16 18:00 04/12/16 04:34 Lacosamide 100 mg/ Sodium Chloride 110 ml @ 110 mls/hr Q12HR IV 04/10/16 21:00 04/12/16 08:10 Dextrose 1,000 ml @ 30 mls/hr Q24H IV 04/10/16 21:00 04/11/16 19:56 (Lr 1000 ml Inj) 1,000 ml @ 150 mls/hr Q6H40M IV 04/10/16 21:00 04/12/16 04:05 Miscellaneous Information Patient in critical care unit? Ass... [id number] XX 04/10/16 20:45 (Chlorhexidine 2% Cloth) 3 pack DAILY@04 TOP 04/11/16 04:00 04/15/16 04:01 04/11/16 23:02 (Chlorhexidine 2% Cloth) 3 pack UNSCH PRN TOP 04/10/16 20:45 04/15/16 20:39 (TEGretol) 300 mg Q8HR PO 04/12/16 14:00 Urinary Catheter: Yes A/P Assessment and Plan SEVERE SEPSIS LACTIC ACIDOSIS C DIF DEHYDRATION SZ'S, INTRACTABLE UTI SBO RECENTLY ASPIRATION PNA UTERINE FIBROIDS ARF, PRERENAL MR JAMIE HYPOKALEMIA HYPOMAGNESEMIA HYPOCALCEMIA HYPERAMMONEMIA PLAN: CT A/P NPO HOLD TEGRETOL NGT IVF IV ABX STOOL CULTURES ANTIEPILEPTIC LEVELS ATIVAN PRN ID CONSULT NEURO CONSULT. CCM CONSULT ICU CARE Romie Pelayo MD Apr 12, 2016 09:31
[2016-04-12] MEDS ORDERED: DIATRIZOATE MEGLUM/DIATRIZOATE SOD 9 ML CUP PO ONE (09:45)
--- NOTE | 2016-04-12 10:51 | HHI.IDPN ---
Subjective Subjective Remarks ID COVERAGE Chart reviewed is a 45 y/o AAF with PMHx of mental delay, blindness, seizures, fibroid cyst for a long time (x20 years) who was brought in by her niece. Patient has prior known history of mental retardation and blindness. Patient was recently seen by me earlier this month at [facility]. During that admission patient had Small bowel obstruction from mechanical obstruction from uterine mass. She also diarrhea with severe colitis and Cdiff PCR positive. She underwent treatment with Oral Vanco, Vanco enema, Difficid during that admission. She continued to improve and now is readmitted due to uncontrolled seizures and new vs ongoing sepsis related to Cdiff. She was s/b GI during last admission and had Colonoscopy positive for pseudomembranes. Notes reviewed Temps better Frequent BM BP ok Lactic acid higher today Antibiotics Vanco oral Flagyl IV Lines Lines with no infection. Past Medical History reviewed Allergies: Coded Allergies: No Known Allergies (Unverified , 04/10/16) Objective . Vital Signs Date Time Temp Pulse Resp B/P Pulse Ox O2 Delivery O2 Flow Rate FiO2 04/12/16 10:00 110 04/12/16 08:00 98.7 114 18 98/57 100 04/12/16 08:00 114 04/12/16 06:00 123 04/12/16 04:00 98.7 113 18 107/68 100 04/12/16 04:00 123 04/12/16 02:00 123 04/12/16 00:00 123 04/12/16 00:00 98.5 113 18 97/54 100 04/11/16 22:00 123 04/11/16 20:03 98 21 04/11/16 20:00 98.9 119 18 95/58 100 04/11/16 20:00 123 04/11/16 18:00 123 04/11/16 16:00 98.8 120 18 97/65 100 04/11/16 16:00 120 04/11/16 14:00 117 04/11/16 12:00 98.2 115 20 93/60 100 04/11/16 12:00 115 04/11/16 11:11 97 04/11/16 04/11/16 04/12/16 15:00 23:00 07:00 Intake Total 1870 ml 1326 ml 1027 ml Output Total 432 ml 430 ml 339 ml Balance 1438 ml 896 ml 688 ml IV Total 1870 ml 1326 ml 1027 ml Output Urine Total 432 ml 430 ml 339 ml # Bowel Movements 3 3 . Laboratory Tests Test 04/10/16 04/11/16 12:15 09:15 White Blood Count 17.8 TH/MM3 14.9 TH/MM3 Red Blood Count 2.87 MIL/MM3 3.56 MIL/MM3 Hemoglobin 8.3 GM/DL 10.0 GM/DL Hematocrit 25.2 % 31.2 % Mean Corpuscular Volume 87.7 FL 87.6 FL Mean Corpuscular Hemoglobin 28.8 PG 28.2 PG Mean Corpuscular Hemoglobin 32.8 % 32.2 % Concent Red Cell Distribution Width 17.3 % 17.8 % Platelet Count 279 TH/MM3 215 TH/MM3 Mean Platelet Volume 8.4 FL 9.0 FL Neutrophils (%) (Auto) 87.0 % 86.3 % Lymphocytes (%) (Auto) 2.7 % 3.9 % Monocytes (%) (Auto) 10.2 % 9.4 % Eosinophils (%) (Auto) 0.0 % 0.2 % Basophils (%) (Auto) 0.1 % 0.2 % Neutrophils # (Auto) 15.5 TH/MM3 12.9 TH/MM3 Lymphocytes # (Auto) 0.5 TH/MM3 0.6 TH/MM3 Monocytes # (Auto) 1.8 TH/MM3 1.4 TH/MM3 Eosinophils # (Auto) 0.0 TH/MM3 0.0 TH/MM3 Basophils # (Auto) 0.0 TH/MM3 0.0 TH/MM3 CBC Comment AUTO DIFF AUTO DIFF Differential Total Cells 100 100 Counted Neutrophils % (Manual) 45 % 63 % Band Neutrophils % 47 % 16 % Lymphocytes % 1 % 12 % Monocytes % 6 % 6 % Neutrophils # (Manual) 16.6 TH/MM3 12.2 TH/MM3 Metamyelocytes 1 % 3 % Differential Comment FINAL DIFF FINAL DIFF MANUAL MANUAL Toxic Vacuolation PRESENT Dohle Bodies PRESENT Platelet Estimate NORMAL NORMAL Platelet Morphology Comment NORMAL NORMAL Red Cell Morphology Comment NORMAL Hematology Comments Laboratory Tests Test 04/10/16 04/11/16 04/11/16 04/12/16 12:15 09:15 17:02 08:00 Sodium Level 139 MEQ/L 144 MEQ/L 138 MEQ/L Potassium Level 3.3 MEQ/L 3.9 MEQ/L 3.8 MEQ/L Chloride Level 109 MEQ/L 110 MEQ/L 107 MEQ/L Carbon Dioxide Level 17.4 MEQ/L 18.1 MEQ/L 17.5 MEQ/L Anion Gap 13 MEQ/L 16 MEQ/L 14 MEQ/L Blood Urea Nitrogen 32 MG/DL 25 MG/DL 19 MG/DL Creatinine 1.07 MG/DL 0.77 MG/DL 0.47 MG/DL Estimat Glomerular Filtration 67 ML/MIN 98 ML/MIN 173 ML/MIN Rate Random Glucose 87 MG/DL 88 MG/DL 79 MG/DL Lactic Acid Level 2.0 mmol/L 4.6 mmol/L 5.2 mmol/L Calcium Level 7.4 MG/DL 7.7 MG/DL 8.0 MG/DL Protein Corrected Calcium 8.0 MG/DL Magnesium Level 1.3 MG/DL Total Bilirubin 1.1 MG/DL 0.5 MG/DL Aspartate Amino Transf 59 U/L 42 U/L (AST/SGOT) Alanine Aminotransferase 34 U/L 26 U/L (ALT/SGPT) Alkaline Phosphatase 84 U/L 99 U/L Total Creatine Kinase 13 U/L Troponin I LESS THAN 0.02 NG/ML Total Protein 6.0 GM/DL 5.7 GM/DL Albumin 1.8 GM/DL 1.4 GM/DL Lipase 47 U/L Direct Bilirubin 0.2 MG/DL Indirect Bilirubin 0.3 MG/DL Microbiology Date/Time Procedure Status Source Growth 04/10/16 11:25 Influenza Types A,B Antigen (KAREN) - Final Complete Nasal Aspirate NEGATIVE FOR FLU A AND B ANTIGEN.... 04/10/16 11:30 Urine Culture - Final Complete Urine Clean Catch Enterobacter Cloacae 04/10/16 15:25 Aerobic Blood Culture - Preliminary Resulted Blood Peripheral NO GROWTH IN 1 DAY 04/10/16 15:25 Anaerobic Blood Culture - Preliminary Resulted Blood Peripheral NO GROWTH IN 1 DAY 04/10/16 18:47 Aerobic Blood Culture - Preliminary Resulted Blood Peripheral NO GROWTH IN 1 DAY 04/10/16 18:47 Anaerobic Blood Culture - Final Resulted Blood Peripheral QNS - SEE AEROBE REPORT Imaging Last Impressions Chest X-Ray 04/10/16 1045 Signed Impressions: Service Date/Time: Sunday, April 10, 2016 12:47 - CONCLUSION: Coarsened bronchovascular markings retrocardiac region consistent with minimal or early left lower lobe posterior basilar segment infiltrate Ulysses Cardenas MD Abdomen X-Ray 04/10/16 0000 Signed Impressions: Service Date/Time: Sunday, April 10, 2016 16:37 - CONCLUSION: Surgery stable abdomen. Large pelvic mass displacing bowel into the mid and upper abdomen without evidence of obstruction Ulysses Cardenas MD Physical Exam GENERAL: awakens easily, not in resp distress SKIN: No rashes, ecchymoses or lesions. Cool and dry. HEAD: Atraumatic. Normocephalic. No temporal or scalp tenderness. EYES: Pupils equal round and reactive. No scleral icterus. No injection or drainage. ENT: Nose without bleeding, purulent drainage. Slightly dry oral mucosa. Airway patent. NECK: Trachea midline. Supple, nontender, no meningeal signs. CARDIOVASCULAR: HS audible. RESPIRATORY: Clear to auscultation. Breath sounds equal bilaterally. GASTROINTESTINAL: Abdomen distended, diffuse tenderness. No rebound tenderness , rigidity or guarding. MUSCULOSKELETAL: Extremities without clubbing, cyanosis, or edema. No joint effusion, or edema noted. No calf tenderness. Negative Homans sign bilaterally. NEUROLOGICAL: Awake. Responds to simple verbal questions. Blind. Psych: cooperative IV line sites with no e/o infection. Assessment & Plan Remarks Severe Sepsis Cdiff Colitis. Uterine fibroids large. Last admission had mechanical obstruction and ileus. Pneumonia likely aspiration PNA. Acute metabolic encephalopathy: seizures, sepsis. Acute renal failure: sepsis, prerenal. Elevated lactic acid, rising, etiology? Recs Continue Flagyl IV Continue Vanco oral Monitor temps Follow C/S Follow CBC For CT A/P today Monitor progress Dr Price covering this weekend D/W Sheila Acuña MD Apr 12, 2016 10:51
--- NOTE | 2016-04-12 11:07 | HHI.CCPN ---
Subjective Remarks/Hospital Course Hospital Course: 45y AA female with history of mental delay, blindness, seizure d/o, and recent hospitalization for C. difficile colitis presents from SNF with diarrhea and two day history of seizures. Pt was recently hospitalized at [facility] for treatment C. diff colitis, dehydration, JAMIE, and seizures. Discharged to SNF with vancomycin 125mg PO x4 weeks total (completed 04/10/16) per ID (Dr Bower). Due to AMS, pt unable to provide details about symptoms. Per EMR and discussion with ED physician, pt had continued diarrhea, with suspected failure of outpatient treatment for C. difficile, and seizures 2 days which prompted her visit to ED. Seizures currently managed with Keppra 1500mg BID, valproic acid 650mg q6h, and Carbamazepine 400mg q8h. seizure medications were increased 03/31/16. However, neurology has previously stated pt may never be seizure free (as EEG 03/18, 03/20, and 03/22 showed ongoing epileptic focus). Sister brought patient in, but was not at bedside during interview Subjective: 04/11: significantly improved mental status, back to baseline. eating applesauce this morning. renal function improving. lactate uptrended from 2 to 4 this AM, unclear etiology. 04/12: lactate continues to rise, but clinically she continues to improve. I am concerned we are missing an intra-abdominal source of tissue malperfusion. urine with aponte-sensitive enterobacter, but d/w ID and we think this may be contaminant or colonization and likely not the source of her clinical decline. Objective Vital Signs Date Time Temp Pulse Resp B/P Pulse Ox O2 Delivery O2 Flow Rate FiO2 04/12/16 10:00 110 04/12/16 08:00 98.7 18 98/57 100 04/11/16 20:03 21 04/10/16 15:45 Room Air Intake and Output 04/11/16 04/11/16 04/12/16 08:00 16:00 00:00 Intake Total 1275 ml 2283 ml 1056 ml Output Total 750 ml 552 ml 349 ml Balance 525 ml 1731 ml 707 ml Result Diagram: 04/11/16 0915 04/12/16 0800 Other Results Microbiology Date/Time Procedure Status Source Growth 04/10/16 11:25 Influenza Types A,B Antigen (KAREN) - Final Complete Nasal Aspirate NEGATIVE FOR FLU A AND B ANTIGEN.... 04/10/16 11:30 Urine Culture - Final Complete Urine Clean Catch Enterobacter Cloacae Imaging Last 72 hours Impressions Chest X-Ray 04/10/16 1045 Signed Impressions: Service Date/Time: Sunday, April 10, 2016 12:47 - CONCLUSION: Coarsened bronchovascular markings retrocardiac region consistent with minimal or early left lower lobe posterior basilar segment infiltrate Ulysses Cardenas MD Objective Remarks GENERAL: Frail -Mexican woman, lying in bed HEENT: Pupils equally round and reactive. Mucous members moist. NECK: Trachea is midline. There is no JVD. CHEST: Equal chest rise. Unlabored respirations. Clear to auscultation. CARDIOVASCULAR: Tachycardic rate, regular rhythm. No appreciable murmurs. ABDOMEN: Soft, moderately distended, nontender. No guarding or peritoneal signs. MUSCULOSKELETAL: no peripheral edema. Distal pulses 2+. NEUROLOGICAL: RASS -1. Follows commands. A/P Assessment and Plan Assessment: 45-year-old female with history of ovarian mass and prior C. difficile who presents with recurrent C. difficile and severe sepsis. Clinically, she appears to be improving, though her lactic acidosis is worsening , and this is concerning to me. I am worried we are missing an intra-abdominal source of tissue malperfusion. We will proceed with CT abdomen/pelvis with IV and by mouth contrast. Neuro Seizure disorder Seizures Altered mental statusresolving Blindness EEG on 03/18 with epileptic activities. Repeat EEG 03/20,03/22, still shows consistent with ongoing epileptic focus. -Tylenol PRN fever -Continue carbamazepine, keppra, valproic acid - neurology following. - carbamazepine level elevated today, and per neuro recs, will hold dose and adjust per neuro. Cardiovascular Severe sepsis Sinus tachycardialikely secondary to surgical response - continue maintenance IV fluids, decrease to 82cc/hr. Goal map greater than 65. Not needing pressors at this time. Respiratory Possible retrocardiac consolidation possible aspiration PNA Negative for Flu A/B. CXR (04/10): Left lower lobe infiltrate. -Oximetry and oxygen supplementation PRN for saturations 90%+ -Antibiotics as below (ID) Gastrointestinal Abdominal distension Uterine fibroid C. diff colitis (see ID) Dysphagiaresolving Acute protein calorie malnutritionmoderate Last hospitalization, pt evaluated by ESCORT SERVICE ATTENDANT who did not believe obstruction caused by fibroids. Also evaluated by Gen Sx who recommended medical management. Patient poor surgical candidate for surgery 2/2 C diff -NPO per ST recommendations. Continue to re-evaluate per speech therapy. Infectious Disease Septic Shock secondary to C. difficile colitis, failure of outpatient treatment with vancomycin PO UTI Abnormal CXR- rule out aspiration pneumonia -Infectious disease- Dr. Navarro -U/A +Large LE, +bacteria. Urine culture (04/10) aponte-sensitive enterobacter. I have spoken to ID and we both agree that this may be either a contaminant or colonization, but given her overall clinical improvement, this is likely not the source of her sepsis and we will conservatively manage this without abx coverage at this time. -Blood culture (04/10) x2 pending -Continue Vanc PO, and Flagyl IV -If clinical decline, will broaden to BSAbx. Renal/FEN Acute kidney injuryresolving Hypokalemia ICU electronic protocol Continue Browne Renal function improving, daily BMP Heme Normocytic anemialikely anemia of chronic disease Does not be transfusion triggers at this time Daily CBC -Consider transfusion if Hgb <7 Prophylaxis GI: Protonix IV DVT: SCD, Heparin 5000units SQ BID Dispo: Remain in the ICU. If she continues to improve, critical care medicine will sign off and transition back to the family medicine team. Jin Bennett MD Apr 12, 2016 11:07
[2016-04-12 11:20] LABS: AUTOMATED NEUTROPHIL # 16.1 TH/MM3 (1.8-7.7); BASOPHIL % 0.1 % (0.0-2.0); HEMATOCRIT 30.4 % (35.0-46.0); LYMPHOCYTE # 0.4 TH/MM3 (1.0-4.8); MEAN CELL VOLUME 88.4 FL (80.0-100.0); MEAN CORPUSCULAR HEMOGLOBIN 27.5 PG (27.0-34.0); MEAN CORPUSCULAR HGB CONC 31.1 % (32.0-36.0); MONO % 8.2 % (0.0-8.0); NEUT % 89.7 % (16.0-70.0); PLATELET COUNT 232 TH/MM3 (150-450); RED BLOOD COUNT 3.44 MIL/MM3 (4.00-5.30); RED CELL DISTRIBUTION WIDTH 18.3 % (11.6-17.2)
[2016-04-12 11:23] LABS: HEMO FLAGS AUTO DIFF
[2016-04-12 11:28] LABS: APTT (PATIENT) 35.3 SEC (24.3-30.1); INTERNATIONAL NORMALIZED RATIO 1.5 RATIO; PROTHROMBIN TIME - PATIENT 16.4 SEC (9.8-11.6)
[2016-04-12 12:08] LABS: BANDS 20 % (0-6); CORRECTED NUCLEATED RBC 1 /100 WBC (0-0); METAMYELOCYTES 2 % (0-1); NEUTROPHIL # MANUAL DIFF 16.7 TH/MM3 (1.8-7.7); PLATELET ESTIMATE SMEAR NORMAL (NORMAL); PLATELET MORPHOLOGY NORMAL (NORMAL); POLYS (SEG NEUTROPHILS) 71 % (16-70); SCAN/DIFF FINAL DIFF MANUAL; WBC DIFF SAMPLE 100
[2016-04-12 12:13] LABS: TOXIC GRANULATION 1+ (NORMAL)
[2016-04-12] MEDS: HEPARIN SODIUM - SQ 10,000 UNITS/ML VIAL SQ SCH ×2 (12:23→23:04)
[2016-04-12] MEDS: ONDANSETRON HCL 4 MG/2 ML VIAL IVP PRN (12:23)
[2016-04-12] MEDS ORDERED: IOHEXOL 350 MG/ML 10 ML VIAL (for RAD DIAG) IV ONE (15:01)
--- NOTE | 2016-04-12 15:49 | RADRPT ---
EXAM DATE/TIME: 04/12/2016 14:59 [facility] COMPARISON: CT ABDOMEN & PELVIS W CONTRAST, March 14, 2016, 10:21. INDICATIONS : Severe sepsis with diffuse abdominal pain; evaluate for possible abscess. IV CONTRAST: 80 cc Omnipaque 350 (iohexol) IV ORAL CONTRAST: Prescribed oral contrast ingested. RADIATION DOSE: 11.47 CTDIvol (mGy) MEDICAL HISTORY : Hypertension. Seizures. C-Diff SURGICAL HISTORY : Hysterectomy. ENCOUNTER: Initial ACUITY: 1 month PAIN SCALE: Non-responsive LOCATION: Abdomen/pelvis TECHNIQUE: Volumetric scanning of the abdomen and pelvis was performed. Using automated exposure control and ad justment of the mA and/or kV according to patient size, radiation dose was kept as low as reasonably achievable to obtain optimal diagnostic quality images. FINDINGS: LOWER LUNGS: Bibasilar atelectasis with small effusions. LIVER: Homogeneous density without lesion. There is no dilation of the biliary tree. No calcified gallston es. SPLEEN: Normal size without lesion. PANCREAS: Within normal limits. KIDNEYS: Normal in size and shape. There is no mass, stone or hydronephrosis. ADRENAL GLANDS: Within normal limits. VASCULAR: There is no aortic aneurysm. BOWEL/MESENTERY: There continues to be diffuse inflammatory changes throughout the entire colon from the cecum all the way to the rectum suggestive of diffuse colitis. There is contrast in the small bowel which is nondi lated. The colon is nondilated. No free air is demonstrated. There is a small amount of abdominal asc ites, not enough for drainage. No loculated fluid collections are seen to suggest an abdominal absces s.. ABDOMINAL WALL: There is edema throughout the body wall characteristic of anasarca. RETROPERITONEUM: There is no lymphadenopathy. BLADDER: Browne catheter in place. Bladder decompressed. REPRODUCTIVE: Large bulky fibroid uterus. The bulky fibroid uterus measures 14 cm x 14.8 cm. INGUINAL: There is no lymphadenopathy or hernia. MUSCULOSKELETAL: Within normal limits for patient age. CONCLUSION: 1. No evidence of abdominal or pelvic abscess. 2. Diffuse inflammatory changes of the entire colon from the cecum to the rectum characteristic of di ffuse colitis. 3. Bibasilar atelectasis with small bilateral effusions. 4. Small amount of ascites in the abdomen and pelvis, insufficient for drainage. 5. Diffuse edema throughout the body wall characteristics of anasarca. 6. Large bulky fibroid uterus. Rashad J. Siragusa, MD on April 12, 2016 at 15:41 Board Certified Radiologist. This report was verified electronically.
[2016-04-12] MEDS: DEXTROSE 10% INJ 1,000 ML IV SCH (20:02)
[2016-04-12] MEDS: CHLORHEXIDINE GLUCONATE 2 % 1 PACK (2 CLOTHS)(taper/protocol) TOP SCH (23:26)
[2016-04-13] VITALS (13 sets, daily range): BP systolic 94–105; BP diastolic 59–72; PULSE 101–114; RESP 20–24; TEMP 97.5–98.7; O2SAT 95–100
[2016-04-13] MEDS: metroNIDAZOLE 500 MG INJ 100 ML IV SCH ×3 (02:28→21:11)
[2016-04-13] MEDS: VANCOMYCIN 500 MG VIAL (FOR ORAL USE ONLY) PO SCH ×4 (04:51→23:41)
[2016-04-13] MEDS: carBAMazepine 200 MG TAB PO SCH ×3 (04:52→21:15)
[2016-04-13] MEDS: VALPROATE INJ 750 MG in SODIUM CHLORIDE 0.9% INJ 100 ML IV SCH ×4 (05:06→23:36)
[2016-04-13] MEDS: CHOLESTYRAMINE 4 GM PACKET PO SCH ×3 (09:39→17:41)
[2016-04-13] MEDS: levETIRAcetam 1000 MG INJ 100 ML IV SCH ×2 (09:39→21:11)
[2016-04-13] MEDS: SODIUM CHLORIDE 0.9% FLUSH 5 ML FLUSH FLUSH SCH ×2 (09:39→21:00)
[2016-04-13] MEDS: PRIMIDONE 250 MG TAB PO SCH ×3 (09:39→17:41)
[2016-04-13] MEDS: LACOSAMIDE INJ 100 MG in SODIUM CHLORIDE 0.9% INJ 100 ML IV SCH ×2 (09:39→21:15)
[2016-04-13] MEDS: LACTOBACILLUS ACIDOPHILUS TAB PO SCH ×3 (09:39→17:41)
--- NOTE | 2016-04-13 10:21 | HHI.FPPN ---
Subjective Remarks LETHARGIC AROUSES TO VOICE D/W RN Objective Vitals Vital Signs Date Time Temp Pulse Resp B/P Pulse Ox O2 Delivery O2 Flow Rate FiO2 04/13/16 06:00 114 04/13/16 04:00 114 04/13/16 04:00 97.5 109 22 101/67 100 04/13/16 02:00 114 04/13/16 00:00 98.7 108 22 94/59 100 04/13/16 00:00 114 04/12/16 22:00 114 04/12/16 20:00 98.7 114 22 105/64 100 04/12/16 20:00 114 04/12/16 19:30 100 21 04/12/16 18:00 114 04/12/16 16:00 99.0 115 22 107/67 100 04/12/16 16:00 115 04/12/16 14:00 118 04/12/16 12:00 97.8 118 22 107/63 97 04/12/16 12:00 118 I/O 04/12/16 04/12/16 04/12/16 04/13/16 04/13/16 04/13/16 06:59 14:59 22:59 06:59 14:59 22:59 Intake Total 1194 ml 1817 ml 694 ml 816 ml Output Total 394 ml 200 ml 306 ml 376 ml Balance 800 ml 1617 ml 388 ml 440 ml IV Total 1194 ml 1817 ml 694 ml 816 ml Output Urine Total 394 ml 200 ml 306 ml 376 ml # Bowel Movements 3 1 3 Result Diagram: 04/12/16 1034 04/12/16 0800 Objective Remarks GENERAL: SKIN: Warm and dry. HEAD: Atraumatic. Normocephalic. EYES: Pupils equal and round. No scleral icterus. No injection or drainage. ENT: No nasal bleeding or discharge. Mucous membranes pink and moist. NGT CLAMPED NECK: Trachea midline. No JVD. CARDIOVASCULAR: Regular rate and rhythm. RESPIRATORY: No accessory muscle use. Clear to auscultation. Breath sounds equal bilaterally. GASTROINTESTINAL: Abdomen soft, tender, distended. Hepatic and splenic margins not palpable. MUSCULOSKELETAL: Extremities without clubbing, cyanosis, or edema. No obvious deformities. NEUROLOGICAL: Awake and alert. No obvious cranial nerve deficits. Motor grossly within normal limits. 1 out of 5 muscle strength in the arms and legs. PSYCHIATRIC: lethargic Medications and IVs Current Medications Medications (Trade) Dose Ordered Sig/Rebeca Route Start Time Stop Time Status Last Admin (NS Flush) 2 ml UNSCH PRN FLUSH 04/10/16 12:30 04/10/16 15:19 (NS Flush) 2 ml BID FLUSH 04/10/16 21:00 04/13/16 09:39 (Tylenol) 650 mg Q4H PRN PO 04/10/16 12:30 04/11/16 09:26 (Zofran Inj) 4 mg Q6H PRN IVP 04/10/16 12:30 04/12/16 12:23 (Compazine Supp) 25 mg Q12H PRN ID 04/10/16 12:30 (Heparin Inj) 5,000 units Q12H SQ 04/10/16 13:00 04/13/16 23:41 (Narcan Inj) 0.4 mg UNSCH PRN IV 04/10/16 12:30 (Dulcolax Supp) 10 mg DAILY PRN ID 04/10/16 12:45 (Questran 4 Gm Pkt) 4 gm TID PO 04/10/16 13:00 04/13/16 17:41 (Lactinex) 1 tab TID PO 04/10/16 13:00 04/13/16 17:41 (Ativan) 0.5 mg Q6H PRN PO 04/10/16 12:45 (Citroma Liq) 300 ml DAILY PRN PO 04/10/16 12:45 (Milk Of Magnesia Liq) 30 ml HS PRN PO 04/10/16 12:45 (Mysoline) 250 mg TID PO 04/10/16 13:00 04/13/16 17:41 Vancomycin HCl 125 mg 125 mg Q6HR PO 04/10/16 18:00 04/14/16 05:04 (Flagyl 500 Mg Inj) 100 ml @ 100 mls/hr Q8H IV 04/10/16 20:00 04/14/16 05:02 Lorazepam 1 mg 1 mg Q4HR PRN IV PUSH 04/10/16 12:45 Levetriacetam 100 ml @ 400 mls/hr Q12HR IV 04/10/16 21:00 04/13/16 21:11 Valproate Sodium 750 mg/Sodium Chloride 107.5 ml @ 105 mls/hr Q6HR IV 04/10/16 18:00 04/14/16 05:02 Lacosamide 100 mg/ Sodium Chloride 110 ml @ 110 mls/hr Q12HR IV 04/10/16 21:00 04/13/16 21:15 Dextrose 1,000 ml @ 30 mls/hr Q24H IV 04/10/16 21:00 04/13/16 14:57 (Lr 1000 ml Inj) 1,000 ml @ 83 mls/hr Q12H3M IV 04/10/16 21:00 04/14/16 05:02 Miscellaneous Information Patient in critical care unit? Ass... Q361D XX 04/10/16 20:45 (Chlorhexidine 2% Cloth) 3 pack DAILY@04 TOP 04/11/16 04:00 04/15/16 04:01 04/14/16 04:00 (Chlorhexidine 2% Cloth) 3 pack UNSCH PRN TOP 04/10/16 20:45 04/15/16 20:39 (TEGretol) 300 mg Q8HR PO 04/12/16 14:00 04/14/16 05:03 A/P Assessment and Plan SEVERE SEPSIS LACTIC ACIDOSIS C DIF. COLITIS ON CT ABDOMEN. DEHYDRATION SZ'S, INTRACTABLE UTI, LIKELY CONTAMINANT ON UA SBO RECENTLY ASPIRATION PNA UTERINE FIBROIDS TEGRETOL TOXICITY ARF, PRERENAL MR JAMIE HYPOKALEMIA HYPOMAGNESEMIA HYPOCALCEMIA HYPERAMMONEMIA PLAN: NPO NGT CHANGE TO D51/2 IV ABX STOOL CULTURES ANTIEPILEPTIC LEVELS ATIVAN PRN ID CONSULT NEURO CONSULT. CCM SIGNED OFF. ICU CARE. SEE ORDERS FOR MED AND LABS CHANGES. Romie Pelayo MD Apr 13, 2016 10:21
[2016-04-13 11:53] LABS: AUTOMATED NEUTROPHIL # 13.2 TH/MM3 (1.8-7.7); BASOPHIL % 0.3 % (0.0-2.0); EOSINOPHIL % 0.1 % (0.0-4.0); HEMATOCRIT 32.3 % (35.0-46.0); LYMPH % 10.3 % (9.0-44.0); LYMPHOCYTE # 1.7 TH/MM3 (1.0-4.8); MEAN CORPUSCULAR HGB CONC 32.2 % (32.0-36.0); MONO % 9.9 % (0.0-8.0); NEUT % 79.4 % (16.0-70.0); PLATELET COUNT 214 TH/MM3 (150-450); RED BLOOD COUNT 3.71 MIL/MM3 (4.00-5.30); RED CELL DISTRIBUTION WIDTH 18.2 % (11.6-17.2); WHITE BLOOD COUNT 16.6 TH/MM3 (4.0-11.0)
[2016-04-13 11:58] LABS: HEMO FLAGS AUTO DIFF
[2016-04-13 12:07] LABS: BICARBONATE 15.6 MEQ/L (21.0-32.0); PHENOBARBITAL 21.6 MCG/ML (15.0-40.0); POTASSIUM 4.3 MEQ/L (3.5-5.1)
[2016-04-13 13:39] LABS: BANDS 33 % (0-6); NEUTROPHIL # MANUAL DIFF 13.6 TH/MM3 (1.8-7.7); OVALOCYTES 1+ (NORMAL); PLATELET ESTIMATE SMEAR NORMAL (NORMAL); PLATELET MORPHOLOGY NORMAL (NORMAL); POLYS (SEG NEUTROPHILS) 49 % (16-70); SCAN/DIFF FINAL DIFF MANUAL; TOXIC GRANULATION 1+ (NORMAL); WBC DIFF SAMPLE 100
[2016-04-13] MEDS: HEPARIN SODIUM - SQ 10,000 UNITS/ML VIAL SQ SCH ×2 (14:10→23:41)
[2016-04-13] MEDS: DEXTROSE 10% INJ 1,000 ML IV SCH (14:57)
[2016-04-13] MEDS: LACTATED RINGER'S 1000 ML INJ 1,000 ML IV SCH (17:41)
[2016-04-14] VITALS (13 sets, daily range): BP systolic 100–108; BP diastolic 60–71; PULSE 95–104; RESP 21–24; TEMP 98.2–99; O2SAT 95–99
[2016-04-14] MEDS: CHLORHEXIDINE GLUCONATE 2 % 1 PACK (2 CLOTHS)(taper/protocol) TOP SCH (04:00)
[2016-04-14] MEDS: VALPROATE INJ 750 MG in SODIUM CHLORIDE 0.9% INJ 100 ML IV SCH ×3 (05:02→17:20)
[2016-04-14] MEDS: metroNIDAZOLE 500 MG INJ 100 ML IV SCH ×3 (05:02→20:06)
[2016-04-14] MEDS: LACTATED RINGER'S 1000 ML INJ 1,000 ML IV SCH (05:02)
[2016-04-14] MEDS: carBAMazepine 200 MG TAB PO SCH ×3 (05:03→21:38)
[2016-04-14] MEDS: VANCOMYCIN 500 MG VIAL (FOR ORAL USE ONLY) PO SCH ×3 (05:04→17:20)
[2016-04-14] MEDS: levETIRAcetam 1000 MG INJ 100 ML IV SCH ×2 (08:31→20:07)
[2016-04-14] MEDS: SODIUM CHLORIDE 0.9% FLUSH 5 ML FLUSH FLUSH SCH ×2 (08:31→20:07)
[2016-04-14] MEDS: LACTOBACILLUS ACIDOPHILUS TAB PO SCH ×3 (08:31→17:21)
[2016-04-14] MEDS: PRIMIDONE 250 MG TAB PO SCH ×3 (08:31→18:00)
[2016-04-14] MEDS: CHOLESTYRAMINE 4 GM PACKET PO SCH ×3 (08:31→17:21)
[2016-04-14] MEDS: LACOSAMIDE INJ 100 MG in SODIUM CHLORIDE 0.9% INJ 100 ML IV SCH ×2 (08:31→20:09)
[2016-04-14] MEDS: DEXT 5%-NACL 0.9% 1000 ML INJ 1,000 ML IV SCH ×2 (09:00→21:15)
[2016-04-14 11:02] LABS: HEMATOCRIT 28.4 % (35.0-46.0); MEAN CELL VOLUME 84.5 FL (80.0-100.0); MEAN CORPUSCULAR HEMOGLOBIN 26.2 PG (27.0-34.0); MEAN CORPUSCULAR HGB CONC 31.1 % (32.0-36.0); PLATELET COUNT 191 TH/MM3 (150-450); RED BLOOD COUNT 3.36 MIL/MM3 (4.00-5.30); RED CELL DISTRIBUTION WIDTH 17.8 % (11.6-17.2); WHITE BLOOD COUNT 13.2 TH/MM3 (4.0-11.0)
[2016-04-14 11:15] LABS: ANION GAP 12 MEQ/L (5-15); AST (GOT) 37 U/L (15-37); BICARBONATE 19.2 MEQ/L (21.0-32.0); BLOOD UREA NITROGEN 11 MG/DL (7-18); CHLORIDE 103 MEQ/L (98-107); GLOMERULAR FILTRATION RATE 279 ML/MIN (>89); POTASSIUM 3.1 MEQ/L (3.5-5.1); SODIUM (NA) 134 MEQ/L (136-145)
[2016-04-14 11:17] LABS: ALKALINE PHOSPHATASE 137 U/L (45-117); ALT (GPT) 18 U/L (10-53); TOTAL BILIRUBIN ADULT 0.8 MG/DL (0.2-1.0)
[2016-04-14 11:19] LABS: HEMO FLAGS AUTO DIFF
[2016-04-14 11:43] LABS: BANDS 18 % (0-6); METAMYELOCYTES 1 % (0-1); NEUTROPHIL # MANUAL DIFF 11.5 TH/MM3 (1.8-7.7); OVALOCYTES 1+ (NORMAL); PLATELET ESTIMATE SMEAR NORMAL (NORMAL); PLATELET MORPHOLOGY NORMAL (NORMAL); POLYS (SEG NEUTROPHILS) 68 % (16-70); SCAN/DIFF FINAL DIFF MANUAL; TARGET CELLS 1+ (NORMAL); TOXIC GRANULATION 1+ (NORMAL); WBC DIFF SAMPLE 100
[2016-04-14 11:48] LABS: PHENOBARBITAL 19.4 MCG/ML (15.0-40.0)
[2016-04-14] MEDS: HEPARIN SODIUM - SQ 10,000 UNITS/ML VIAL SQ SCH (12:54)
[2016-04-14] MEDS: ACETAMINOPHEN 325 MG TAB PO PRN (17:21)
[2016-04-14] MEDS: POTASSIUM CHLOR 20 MEQ PREMIX 100 ML IV SCH ×2 (17:43→21:15)
[2016-04-15] VITALS (13 sets, daily range): BP systolic 99–112; BP diastolic 62–72; PULSE 96–103; RESP 20–24; TEMP 98.2–99.2; O2SAT 95–100
[2016-04-15] MEDS: VALPROATE INJ 750 MG in SODIUM CHLORIDE 0.9% INJ 100 ML IV SCH ×4 (00:52→18:02)
[2016-04-15] MEDS: VANCOMYCIN 500 MG VIAL (FOR ORAL USE ONLY) PO SCH ×4 (00:53→18:02)
[2016-04-15] MEDS: HEPARIN SODIUM - SQ 10,000 UNITS/ML VIAL SQ SCH ×2 (00:56→12:19)
[2016-04-15] MEDS: CHLORHEXIDINE GLUCONATE 2 % 1 PACK (2 CLOTHS)(taper/protocol) TOP SCH (04:00)
[2016-04-15] MEDS: metroNIDAZOLE 500 MG INJ 100 ML IV SCH ×3 (04:26→21:47)
[2016-04-15] MEDS: carBAMazepine 200 MG TAB PO SCH ×3 (04:27→22:35)
[2016-04-15 06:54] LABS: HEMATOCRIT 30.4 % (35.0-46.0); MEAN CELL VOLUME 85.6 FL (80.0-100.0); MEAN CORPUSCULAR HEMOGLOBIN 27.4 PG (27.0-34.0); PLATELET COUNT 276 TH/MM3 (150-450); RED BLOOD COUNT 3.55 MIL/MM3 (4.00-5.30); RED CELL DISTRIBUTION WIDTH 18.2 % (11.6-17.2); WHITE BLOOD COUNT 13.6 TH/MM3 (4.0-11.0)
[2016-04-15 06:55] LABS: PHENOBARBITAL 17.8 MCG/ML (15.0-40.0)
[2016-04-15 06:56] LABS: BICARBONATE 19.1 MEQ/L (21.0-32.0); MAGNESIUM 1.5 MG/DL (1.5-2.5)
[2016-04-15 06:59] LABS: POTASSIUM 3.8 MEQ/L (3.5-5.1)
[2016-04-15 07:02] LABS: HEMO FLAGS AUTO DIFF
[2016-04-15 07:49] LABS: BANDS 22 % (0-6); MYELOCYTES 1 % (0-0); NEUTROPHIL # MANUAL DIFF 11.2 TH/MM3 (1.8-7.7); POLYS (SEG NEUTROPHILS) 59 % (16-70); WBC DIFF SAMPLE 100
[2016-04-15 07:50] LABS: SCAN/DIFF FINAL DIFF MANUAL
[2016-04-15 07:51] LABS: KERATOCYTES OCC (NORMAL); PLATELET ESTIMATE SMEAR NORMAL (NORMAL); PLATELET MORPHOLOGY NORMAL (NORMAL); TOXIC GRANULATION 1+ (NORMAL)
--- NOTE | 2016-04-15 07:58 | HHI.FPPN ---
Subjective Remarks weak +diarrhea d/w RN Objective Vitals Vital Signs Date Time Temp Pulse Resp B/P Pulse Ox O2 Delivery O2 Flow Rate FiO2 04/15/16 06:00 102 04/15/16 04:00 102 04/15/16 04:00 98.4 102 22 106/69 100 04/15/16 02:00 103 04/15/16 00:00 98.9 103 21 112/70 100 04/15/16 00:00 103 04/14/16 22:00 101 04/14/16 20:00 103 04/14/16 20:00 98.8 103 22 100/71 96 04/14/16 18:00 98 04/14/16 16:00 98 04/14/16 16:00 98.2 101 24 101/60 95 04/14/16 14:00 98 04/14/16 12:00 98 04/14/16 12:00 98.4 102 22 106/69 96 04/14/16 10:00 98 04/14/16 09:49 98 21 04/14/16 08:00 98.2 95 22 102/71 97 04/14/16 08:00 98 I/O 04/14/16 04/14/16 04/14/16 04/15/16 04/15/16 04/15/16 07:00 15:00 23:00 07:00 15:00 23:00 Intake Total 1302 ml 1444 ml 989 ml 1178 ml Output Total 200 ml 350 ml 280 ml 250 ml Balance 1102 ml 1094 ml 709 ml 928 ml IV Total 1242 ml 1244 ml 929 ml 1118 ml Other 60 ml 200 ml 60 ml 60 ml Output Urine Total 200 ml 350 ml 280 ml 250 ml # Bowel Movements 0 3 1 1 Result Diagram: 04/15/16 0509 04/15/16 0509 Objective Remarks GENERAL: SKIN: Warm and dry. HEAD: Atraumatic. Normocephalic. EYES: Pupils equal and round. No scleral icterus. No injection or drainage. ENT: No nasal bleeding or discharge. Mucous membranes pink and moist. NGT CLAMPED NECK: Trachea midline. No JVD. CARDIOVASCULAR: Regular rate and rhythm. RESPIRATORY: No accessory muscle use. Clear to auscultation. Breath sounds equal bilaterally. GASTROINTESTINAL: Abdomen soft, tender, distended. Hepatic and splenic margins not palpable. MUSCULOSKELETAL: Extremities without clubbing, cyanosis, or edema. No obvious deformities. NEUROLOGICAL: Awake and alert. No obvious cranial nerve deficits. Motor grossly within normal limits. 1 out of 5 muscle strength in the arms and legs. PSYCHIATRIC: lethargic Medications and IVs Current Medications Medications (Trade) Dose Ordered Sig/Rebeca Route Start Time Stop Time Status Last Admin (NS Flush) 2 ml UNSCH PRN FLUSH 04/10/16 12:30 04/10/16 15:19 (NS Flush) 2 ml BID FLUSH 04/10/16 21:00 04/13/16 09:39 (Tylenol) 650 mg Q4H PRN PO 04/10/16 12:30 04/14/16 17:21 (Zofran Inj) 4 mg Q6H PRN IVP 04/10/16 12:30 04/12/16 12:23 (Compazine Supp) 25 mg Q12H PRN IA 04/10/16 12:30 (Heparin Inj) 5,000 units Q12H SQ 04/10/16 13:00 04/15/16 00:56 (Narcan Inj) 0.4 mg UNSCH PRN IV 04/10/16 12:30 (Dulcolax Supp) 10 mg DAILY PRN IA 04/10/16 12:45 (Questran 4 Gm Pkt) 4 gm TID PO 04/10/16 13:00 04/14/16 17:21 (Lactinex) 1 tab TID PO 04/10/16 13:00 04/14/16 17:21 (Ativan) 0.5 mg Q6H PRN PO 04/10/16 12:45 (Citroma Liq) 300 ml DAILY PRN PO 04/10/16 12:45 (Milk Of Magnesia Liq) 30 ml HS PRN PO 04/10/16 12:45 (Mysoline) 250 mg TID PO 04/10/16 13:00 04/14/16 18:00 Vancomycin HCl 125 mg 125 mg Q6HR PO 04/10/16 18:00 04/15/16 04:27 (Flagyl 500 Mg Inj) 100 ml @ 100 mls/hr Q8H IV 04/10/16 20:00 04/15/16 04:26 Lorazepam 1 mg 1 mg Q4HR PRN IV PUSH 04/10/16 12:45 Levetriacetam 100 ml @ 400 mls/hr Q12HR IV 04/10/16 21:00 04/14/16 20:07 Valproate Sodium 750 mg/Sodium Chloride 107.5 ml @ 105 mls/hr Q6HR IV 04/10/16 18:00 04/15/16 06:17 (Vimpat Inj/NS Inj) 110 ml @ 110 mls/hr Q12HR IV 04/10/16 21:00 04/14/16 20:09 Miscellaneous Information Patient in critical care unit? Ass... Q361D XX 04/10/16 20:45 (Chlorhexidine 2% Cloth) 3 pack UNSCH PRN TOP 04/10/16 20:45 04/15/16 20:39 Carbamazepine 300 mg 300 mg Q8HR PO 04/12/16 14:00 04/15/16 04:27 (D5W-NS 1000 ml Inj) 1,000 ml @ 84 mls/hr [id number] IV 04/14/16 09:00 04/14/16 21:15 A/P Assessment and Plan SEVERE SEPSIS LACTIC ACIDOSIS C DIF. COLITIS ON CT ABDOMEN. DEHYDRATION HYPOKALEMIA SZ'S, INTRACTABLE UTI, LIKELY CONTAMINANT ON UA SBO RECENTLY ASPIRATION PNA UTERINE FIBROIDS TEGRETOL TOXICITY ARF, PRERENAL MR JAMIE HYPOKALEMIA HYPOMAGNESEMIA HYPOCALCEMIA HYPERAMMONEMIA PLAN: NPO NGT CHANGE TO D51/2 LYTE REPLACEMENT IV ABX STOOL CULTURES ANTIEPILEPTIC LEVELS ATIVAN PRN ID CONSULT NEURO CONSULT. CCM SIGNED OFF. ICU CARE. SEE ORDERS FOR MED AND LABS CHANGES. Romie Pelayo MD Apr 15, 2016 07:58
[2016-04-15] MEDS ORDERED: POTASSIUM CL 40 MEQ/30 ML LIQ UDC PO/TUBE PRN ×2 (08:00)
[2016-04-15] MEDS ORDERED: POTASSIUM CHLOR 20 MEQ PREMIX 100 ML IV PRN ×2 (08:00)
[2016-04-15] MEDS ORDERED: MAGNESIUM SULFATE INJ 4 GM in SODIUM CHLORIDE 0.9% INJ 92 ML IV PRN (08:00)
[2016-04-15] MEDS ORDERED: MAGNESIUM OXIDE 400 MG TAB PO PRN (08:00)
[2016-04-15] MEDS ORDERED: SODIUM PHOSPHATE INJ 30 MMOL in SODIUM CHLOR 0.9% 250 ML INJ 240 ML IV PRN (08:00)
[2016-04-15] MEDS ORDERED: POTASSIUM PHOSPHATE MONOBASIC 500 MG TAB PO/TUBE PRN (08:00)
[2016-04-15] MEDS ORDERED: MAGNESIUM SULFATE INJ 2 GM in SODIUM CHLORIDE 0.9% INJ 96 ML IV PRN (08:00)
[2016-04-15] MEDS ORDERED: POTASSIUM PHOSPHATE MONOBASIC 500 MG TAB PO PRN (08:00)
[2016-04-15] MEDS ORDERED: POTASSIUM PHOSPHATE INJ 30 MMOL in SODIUM CHLOR 0.9% 250 ML INJ 250 ML IV PRN (08:00)
[2016-04-15] MEDS ORDERED: POTASSIUM CHLOR 40 MEQ PREMIX 100 ML IV PRN ×2 (08:00)
[2016-04-15] MEDS: LACTOBACILLUS ACIDOPHILUS TAB PO SCH ×3 (08:44→18:02)
[2016-04-15] MEDS: LACOSAMIDE INJ 100 MG in SODIUM CHLORIDE 0.9% INJ 100 ML IV SCH ×2 (08:44→21:44)
[2016-04-15] MEDS: PRIMIDONE 250 MG TAB PO SCH ×3 (08:44→18:02)
[2016-04-15] MEDS: CHOLESTYRAMINE 4 GM PACKET PO SCH ×3 (08:44→18:02)
[2016-04-15] MEDS: SODIUM CHLORIDE 0.9% FLUSH 5 ML FLUSH FLUSH SCH ×2 (09:00→21:48)
--- NOTE | 2016-04-15 09:36 | HHI.PR ---
Subjective Remarks no sz overnoc acc to nurse Objective Vital Signs Date Time Temp Pulse Resp B/P Pulse Ox O2 Delivery O2 Flow Rate FiO2 04/15/16 08:00 98.4 98 22 105/69 98 04/15/16 08:00 98 04/15/16 06:00 102 04/15/16 04:00 102 04/15/16 04:00 98.4 102 22 106/69 100 04/15/16 02:00 103 04/15/16 00:00 98.9 103 21 112/70 100 04/15/16 00:00 103 04/14/16 22:00 101 04/14/16 20:00 103 04/14/16 20:00 98.8 103 22 100/71 96 04/14/16 18:00 98 04/14/16 16:00 98 04/14/16 16:00 98.2 101 24 101/60 95 04/14/16 14:00 98 04/14/16 12:00 98 04/14/16 12:00 98.4 102 22 106/69 96 04/14/16 10:00 98 04/14/16 09:49 98 21 I/O 04/14/16 04/14/16 04/14/16 04/15/16 04/15/16 04/15/16 06:59 14:59 22:59 06:59 14:59 22:59 Intake Total 1302 ml 1444 ml 989 ml 1178 ml Output Total 200 ml 350 ml 280 ml 250 ml Balance 1102 ml 1094 ml 709 ml 928 ml IV Total 1242 ml 1244 ml 929 ml 1118 ml Other 60 ml 200 ml 60 ml 60 ml Output Urine Total 200 ml 350 ml 280 ml 250 ml # Bowel Movements 0 3 1 1 Result Diagram: 04/15/16 0509 04/15/16 0509 Objective Remarks asleep now Assessment and Plan Assessment and Plan imp on vimpat primidone vpa and cbz cbz 8 on300 tid we will not be able to normalize eeg an stephani light we can dc sz as has daily for yrs will work on it doing well change to po when able recheck eeg doing well now Narendra Bob MD Apr 15, 2016 09:36
[2016-04-15] MEDS: DEXT 5%-NACL 0.9% 1000 ML INJ 1,000 ML IV SCH ×2 (10:20→22:35)
[2016-04-15] MEDS: levETIRAcetam 1000 MG INJ 100 ML IV SCH ×2 (10:21→21:41)
[2016-04-15] MEDS: ACETAMINOPHEN 325 MG TAB PO PRN ×2 (12:43→21:41)
--- NOTE | 2016-04-15 15:55 | HHI.IDPN ---
Subjective Subjective Remarks ID COVERAGE Notes reviewed Temps ok Still with LBM CT A/P with colitis BP ok is a 45 y/o AAF with PMHx of mental delay, blindness, seizures, fibroid cyst for a long time (x20 years) who was brought in by her niece. Patient has prior known history of mental retardation and blindness. Patient was recently seen by me earlier this month at [facility]. During that admission patient had Small bowel obstruction from mechanical obstruction from uterine mass. She also diarrhea with severe colitis and Cdiff PCR positive. She underwent treatment with Oral Vanco, Vanco enema, Difficid during that admission. She continued to improve and now is readmitted due to uncontrolled seizures and new vs ongoing sepsis related to Cdiff. She was s/b GI during last admission and had Colonoscopy positive for pseudomembranes. Antibiotics Vanco oral Flagyl IV Lines Lines with no infection. Past Medical History reviewed Allergies: Coded Allergies: No Known Allergies (Unverified , 04/10/16) Objective . Vital Signs Date Time Temp Pulse Resp B/P Pulse Ox O2 Delivery O2 Flow Rate FiO2 04/15/16 14:00 98 04/15/16 12:00 98.6 98 24 110/72 95 04/15/16 12:00 96 04/15/16 10:00 98 04/15/16 08:00 98.4 98 22 105/69 98 04/15/16 08:00 98 04/15/16 06:00 102 04/15/16 04:00 102 04/15/16 04:00 98.4 102 22 106/69 100 04/15/16 02:00 103 04/15/16 00:00 98.9 103 21 112/70 100 04/15/16 00:00 103 04/14/16 22:00 101 04/14/16 20:00 103 04/14/16 20:00 98.8 103 22 100/71 96 04/14/16 18:00 98 04/14/16 16:00 98 04/14/16 16:00 98.2 101 24 101/60 95 04/14/16 04/14/16 04/15/16 15:00 23:00 07:00 Intake Total 1444 ml 989 ml 1178 ml Output Total 350 ml 280 ml 250 ml Balance 1094 ml 709 ml 928 ml IV Total 1244 ml 929 ml 1118 ml Other 200 ml 60 ml 60 ml Output Urine Total 350 ml 280 ml 250 ml # Bowel Movements 3 1 1 . Laboratory Tests Test 04/14/16 04/15/16 09:57 05:09 White Blood Count 13.2 TH/MM3 13.6 TH/MM3 Red Blood Count 3.36 MIL/MM3 3.55 MIL/MM3 Hemoglobin 8.8 GM/DL 9.7 GM/DL Hematocrit 28.4 % 30.4 % Mean Corpuscular Volume 84.5 FL 85.6 FL Mean Corpuscular Hemoglobin 26.2 PG 27.4 PG Mean Corpuscular Hemoglobin 31.1 % 32.0 % Concent Red Cell Distribution Width 17.8 % 18.2 % Platelet Count 191 TH/MM3 276 TH/MM3 Mean Platelet Volume 8.6 FL 9.4 FL Neutrophils (%) (Auto) % % Lymphocytes (%) (Auto) % % Monocytes (%) (Auto) % % Eosinophils (%) (Auto) % % Basophils (%) (Auto) % % Neutrophils # (Auto) TH/MM3 TH/MM3 Lymphocytes # (Auto) TH/MM3 TH/MM3 Monocytes # (Auto) TH/MM3 TH/MM3 Eosinophils # (Auto) TH/MM3 TH/MM3 Basophils # (Auto) TH/MM3 TH/MM3 CBC Comment AUTO DIFF AUTO DIFF Differential Total Cells 100 100 Counted Neutrophils % (Manual) 68 % 59 % Band Neutrophils % 18 % 22 % Lymphocytes % 6 % 4 % Monocytes % 7 % 14 % Neutrophils # (Manual) 11.5 TH/MM3 11.2 TH/MM3 Metamyelocytes 1 % Differential Comment FINAL DIFF FINAL DIFF MANUAL MANUAL Toxic Granulation 1+ 1+ Platelet Estimate NORMAL NORMAL Platelet Morphology Comment NORMAL NORMAL Target Cells 1+ Ovalocytes 1+ Hematology Comments Myelocytes 1 % Keratocytes OCC Laboratory Tests Test 04/14/16 04/15/16 09:57 05:09 Sodium Level 134 MEQ/L 137 MEQ/L Potassium Level 3.1 MEQ/L 3.8 MEQ/L Chloride Level 103 MEQ/L 106 MEQ/L Carbon Dioxide Level 19.2 MEQ/L 19.1 MEQ/L Anion Gap 12 MEQ/L 12 MEQ/L Blood Urea Nitrogen 11 MG/DL 9 MG/DL Creatinine 0.31 MG/DL 0.37 MG/DL Estimat Glomerular Filtration 279 ML/MIN 227 ML/MIN Rate Random Glucose 88 MG/DL 82 MG/DL Calcium Level 7.5 MG/DL 7.6 MG/DL Total Bilirubin 0.8 MG/DL Aspartate Amino Transf 37 U/L (AST/SGOT) Alanine Aminotransferase 18 U/L (ALT/SGPT) Alkaline Phosphatase 137 U/L Total Protein 5.1 GM/DL Albumin 1.3 GM/DL Phosphorus Level 2.3 MG/DL Magnesium Level 1.5 MG/DL Imaging Last Impressions Chest X-Ray 04/10/16 1045 Signed Impressions: Service Date/Time: Sunday, April 10, 2016 12:47 - CONCLUSION: Coarsened bronchovascular markings retrocardiac region consistent with minimal or early left lower lobe posterior basilar segment infiltrate Ulysses Cardenas MD Abdomen X-Ray 04/10/16 0000 Signed Impressions: Service Date/Time: Sunday, April 10, 2016 16:37 - CONCLUSION: Surgery stable abdomen. Large pelvic mass displacing bowel into the mid and upper abdomen without evidence of obstruction Ulysses Cardenas MD Physical Exam GENERAL: looks very weak, awake and interactive, not in resp distress SKIN: No rashes, ecchymoses or lesions. Cool and dry. HEENT: [place] conjunctiva. No scleral icterus. No injection or drainage. Slightly dry oral mucosa. NECK: Trachea midline. Supple, nontender, no meningeal signs. CARDIOVASCULAR: HS audible. RESPIRATORY: Clear to auscultation. Breath sounds equal bilaterally. GASTROINTESTINAL: Abdomen distended, diffuse tenderness. No rebound tenderness , rigidity or guarding. MUSCULOSKELETAL: Extremities without clubbing, cyanosis, or edema. No calf tenderness. Negative Homans sign bilaterally. NEUROLOGICAL: Awake. Interactive. Psych: cooperative IV line sites with no e/o infection. Assessment & Plan Remarks Severe Sepsis, slowly improving Cdiff Colitis. Uterine fibroids large. Last admission had mechanical obstruction and ileus. Pneumonia likely aspiration PNA. Acute metabolic encephalopathy: seizures, sepsis. Acute renal failure: sepsis, prerenal. Elevated lactic acid, rising, etiology? Recs Continue Flagyl IV Continue Vanco oral Monitor temps Monitor progress Sheila Rowland MD Apr 15, 2016 15:55
--- NOTE | 2016-04-15 19:42 | MG ---
cc: PING WISE Lab No: Date: Age: Sex: F Race: ELECTROENCEPHALOGRAM NUMBER [id number] INTRODUCTION Known history of seizures. This is a repeat EEG. On Tegretol, Depakote, Vimpat, primidone. DESCRIPTION A diffuse 5-10 Hz rhythms are noted, synchronous and symmetric. Sharp complexes seen diffusely at epoch 24 which lasts 200 milliseconds. No prolonged seizure activity is noted. Photic stimulation was performed without significant posterior driving. Another sharp wave is seen at epoch 121 just lasting 200 milliseconds. IMPRESSION There is not very much seizure activity going on here, just sharp noted twice today. This is much improved from past reports. MD POONAM Jaffe/TESSA /6:54 PM /7:37 PM
[2016-04-16] VITALS (12 sets, daily range): BP systolic 102–108; BP diastolic 65–69; PULSE 90–104; RESP 16–20; TEMP 96.5–98.5; O2SAT 96–100
[2016-04-16] MEDS: VALPROATE INJ 750 MG in SODIUM CHLORIDE 0.9% INJ 100 ML IV SCH ×4 (01:11→18:00)
[2016-04-16] MEDS: VANCOMYCIN 500 MG VIAL (FOR ORAL USE ONLY) PO SCH ×4 (01:12→18:00)
[2016-04-16] MEDS: HEPARIN SODIUM - SQ 10,000 UNITS/ML VIAL SQ SCH ×2 (01:12→16:31)
[2016-04-16] MEDS: ACETAMINOPHEN 325 MG TAB PO PRN (04:33)
[2016-04-16] MEDS: metroNIDAZOLE 500 MG INJ 100 ML IV SCH ×3 (04:33→22:30)
[2016-04-16] MEDS: carBAMazepine 200 MG TAB PO SCH ×3 (06:17→22:29)
[2016-04-16] MEDS: DEXT 5%-NACL 0.9% 1000 ML INJ 1,000 ML IV SCH ×2 (06:19→22:31)
[2016-04-16] MEDS: LACTOBACILLUS ACIDOPHILUS TAB PO SCH ×3 (07:50→18:00)
[2016-04-16] MEDS: LACOSAMIDE INJ 100 MG in SODIUM CHLORIDE 0.9% INJ 100 ML IV SCH ×2 (07:50→22:46)
[2016-04-16] MEDS: PRIMIDONE 250 MG TAB PO SCH ×3 (07:50→18:00)
[2016-04-16] MEDS: SODIUM CHLORIDE 0.9% FLUSH 5 ML FLUSH FLUSH SCH ×2 (07:51→22:32)
[2016-04-16] MEDS: CHOLESTYRAMINE 4 GM PACKET PO SCH ×3 (07:51→18:00)
[2016-04-16] MEDS: levETIRAcetam 1000 MG INJ 100 ML IV SCH ×2 (07:55→22:32)
--- NOTE | 2016-04-16 10:17 | HHI.FPPN ---
Subjective Remarks EEG IMPROVED D/W RN, OK TO TRANSFER FLOORS OFF TELE LABS REVIEWED SPECIALISTS NOTES REVIEWED. PT CALM Objective Vitals Vital Signs Date Time Temp Pulse Resp B/P Pulse Ox O2 Delivery O2 Flow Rate FiO2 04/16/16 08:25 98.3 96 20 102/65 100 04/16/16 08:24 102 04/16/16 06:00 97 04/16/16 05:33 20 04/16/16 04:00 98.2 100 20 105/68 100 04/16/16 04:00 100 04/16/16 02:00 95 04/16/16 00:00 104 04/16/16 00:00 98.5 104 16 108/66 100 04/15/16 22:00 101 04/15/16 20:00 99.2 101 20 99/62 100 04/15/16 20:00 101 04/15/16 19:10 96 21 04/15/16 18:00 98 04/15/16 16:00 98.2 99 22 106/64 96 04/15/16 16:00 98 04/15/16 14:00 98 04/15/16 12:00 98.6 98 24 110/72 95 04/15/16 12:00 96 I/O 04/15/16 04/15/16 04/15/16 04/16/16 04/16/16 04/16/16 07:00 15:00 23:00 07:00 15:00 23:00 Intake Total 1178 ml 1234 ml 963 ml 1094 ml Output Total 250 ml 350 ml 325 ml 260 ml Balance 928 ml 884 ml 638 ml 834 ml Intake Oral 120 ml 0 ml 0 ml IV Total 1118 ml 914 ml 933 ml 1034 ml Other 60 ml 200 ml 30 ml 60 ml Output Urine Total 250 ml 350 ml 325 ml 260 ml # Bowel Movements 1 2 1 1 Result Diagram: 04/15/16 0509 04/15/16 0509 Objective Remarks GENERAL: SKIN: Warm and dry. HEAD: Atraumatic. Normocephalic. EYES: Pupils equal and round. No scleral icterus. No injection or drainage. ENT: No nasal bleeding or discharge. Mucous membranes pink and moist. NGT CLAMPED NECK: Trachea midline. No JVD. CARDIOVASCULAR: Regular rate and rhythm. RESPIRATORY: No accessory muscle use. Clear to auscultation. Breath sounds equal bilaterally. GASTROINTESTINAL: Abdomen soft, tender, distended. Hepatic and splenic margins not palpable. MUSCULOSKELETAL: Extremities without clubbing, cyanosis, or edema. No obvious deformities. NEUROLOGICAL: Awake and alert. No obvious cranial nerve deficits. Motor grossly within normal limits. 1 out of 5 muscle strength in the arms and legs. PSYCHIATRIC: lethargic Medications and IVs Current Medications Medications (Trade) Dose Ordered Sig/Rebeca Route Start Time Stop Time Status Last Admin (NS Flush) 2 ml UNSCH PRN FLUSH 04/10/16 12:30 04/10/16 15:19 (NS Flush) 2 ml BID FLUSH 04/10/16 21:00 04/16/16 07:51 (Tylenol) 650 mg Q4H PRN PO 04/10/16 12:30 04/16/16 04:33 (Zofran Inj) 4 mg Q6H PRN IVP 04/10/16 12:30 04/12/16 12:23 (Compazine Supp) 25 mg Q12H PRN [place] 04/10/16 12:30 (Heparin Inj) 5,000 units Q12H SQ 04/10/16 13:00 04/16/16 01:12 (Narcan Inj) 0.4 mg UNSCH PRN IV 04/10/16 12:30 (Dulcolax Supp) 10 mg DAILY PRN [place] 04/10/16 12:45 (Questran 4 Gm Pkt) 4 gm TID PO 04/10/16 13:00 04/16/16 07:51 (Lactinex) 1 tab TID PO 04/10/16 13:00 04/16/16 07:50 (Ativan) 0.5 mg Q6H PRN PO 04/10/16 12:45 (Citroma Liq) 300 ml DAILY PRN PO 04/10/16 12:45 (Milk Of Magnesia Liq) 30 ml HS PRN PO 04/10/16 12:45 Primidone 250 mg 250 mg TID PO 04/10/16 13:00 04/16/16 07:50 (Flagyl 500 Mg Inj) 100 ml @ 100 mls/hr Q8H IV 04/10/16 20:00 04/16/16 04:33 Lorazepam 1 mg 1 mg Q4HR PRN IV PUSH 04/10/16 12:45 Levetriacetam 100 ml @ 400 mls/hr Q12HR IV 04/10/16 21:00 04/16/16 07:55 Valproate Sodium 750 mg/Sodium Chloride 107.5 ml @ 105 mls/hr Q6HR IV 04/10/16 18:00 04/16/16 06:17 (Vimpat Inj/NS Inj) 110 ml @ 110 mls/hr Q12HR IV 04/10/16 21:00 04/16/16 07:50 Miscellaneous Information Patient in critical care unit? Ass... [id number] XX 04/10/16 20:45 Carbamazepine 300 mg 300 mg Q8HR PO 04/12/16 14:00 04/16/16 06:17 Dextrose/Sodium Chloride 1,000 ml @ 84 mls/hr [id number] IV 04/14/16 09:00 04/16/16 06:19 Potassium Chloride 100 ml @ 50 mls/hr Q2H PRN IV 04/15/16 08:00 (KCl 20 Meq Premix Inj) 100 ml @ 50 mls/hr Q2H PRN IV 04/15/16 08:00 Potassium Chloride 40 meq 40 meq UNSCH PRN PO/TUBE 04/15/16 08:00 Potassium Chloride 100 ml @ 25 mls/hr UNSCH PRN IV 04/15/16 08:00 Potassium Chloride 100 ml @ 50 mls/hr Q2H PRN IV 04/15/16 08:00 (Magnesium Sulfate Inj/NS Inj) 100 ml @ 50 mls/hr UNSCH PRN IV 04/15/16 08:00 Magnesium Oxide 800 mg 800 mg UNSCH PRN PO 04/15/16 08:00 (Magnesium Sulfate Inj/NS Inj) 100 ml @ 50 mls/hr UNSCH PRN IV 04/15/16 08:00 Potassium Phosphate 2000 mg 2,000 mg Q4H PRN PO 04/15/16 08:00 (Sodium Phosphate Inj/NS 250 ml Inj) 250 ml @ 42 mls/hr UNSCH PRN IV 04/15/16 08:00 (KCl 40 Meq/30 ml Liq) 40 meq UNSCH PRN PO/TUBE 04/15/16 08:00 Potassium Phosphate 2000 mg 2,000 mg UNSCH PRN PO/TUBE 04/15/16 08:00 (Potassium Phosphate Inj/NS 250 ml Inj) 260 ml @ 42 mls/hr UNSCH PRN IV 04/15/16 08:00 (VANCOMYCIN for oral use only) 500 mg Q6HR PO 04/15/16 18:00 04/16/16 06:17 A/P Assessment and Plan SEVERE SEPSIS LACTIC ACIDOSIS C DIF. COLITIS ON CT ABDOMEN. DEHYDRATION HYPOKALEMIA SZ'S, INTRACTABLE UTI, LIKELY CONTAMINANT ON UA SBO RECENTLY ASPIRATION PNA UTERINE FIBROIDS TEGRETOL TOXICITY ARF, PRERENAL MR JAMIE HYPOKALEMIA HYPOMAGNESEMIA HYPOCALCEMIA HYPERAMMONEMIA PLAN: NGT D51/2 IV ABX STOOL CULTURES ANTIEPILEPTIC LEVELS ATIVAN PRN ID CONSULT NEURO CONSULT. CCM SIGNED OFF. ICU CARE. SEE ORDERS FOR MED AND LABS CHANGES. Romie Pelayo MD Apr 16, 2016 10:17
--- NOTE | 2016-04-16 13:58 | HHI.IDPN ---
Subjective Subjective Remarks ID COVERAGE Notes reviewed Patient is out of [facility] Temps ok Still with LBM CT A/P with colitis BP ok is a 45 y/o AAF with PMHx of mental delay, blindness, seizures, fibroid cyst for a long time (x20 years) who was brought in by her niece. Patient has prior known history of mental retardation and blindness. Patient was recently seen by me earlier this month at [facility]. During that admission patient had Small bowel obstruction from mechanical obstruction from uterine mass. She also diarrhea with severe colitis and Cdiff PCR positive. She underwent treatment with Oral Vanco, Vanco enema, Difficid during that admission. She continued to improve and now is readmitted due to uncontrolled seizures and new vs ongoing sepsis related to Cdiff. She was s/b GI during last admission and had Colonoscopy positive for pseudomembranes. Antibiotics Vanco oral Flagyl IV Lines Lines with no infection. Past Medical History reviewed Allergies: Coded Allergies: No Known Allergies (Unverified , 04/10/16) Objective . Vital Signs Date Time Temp Pulse Resp B/P Pulse Ox O2 Delivery O2 Flow Rate FiO2 04/16/16 12:42 96.5 90 18 106/69 99 04/16/16 10:00 96 04/16/16 08:25 98.3 96 20 102/65 100 04/16/16 08:24 102 04/16/16 06:00 97 04/16/16 05:33 20 04/16/16 04:00 98.2 100 20 105/68 100 04/16/16 04:00 100 04/16/16 02:00 95 04/16/16 00:00 104 04/16/16 00:00 98.5 104 16 108/66 100 04/15/16 22:00 101 04/15/16 20:00 99.2 101 20 99/62 100 04/15/16 20:00 101 04/15/16 19:10 96 21 04/15/16 18:00 98 04/15/16 16:00 98.2 99 22 106/64 96 04/15/16 16:00 98 04/15/16 14:00 98 04/15/16 04/15/16 04/16/16 15:00 23:00 07:00 Intake Total 1234 ml 963 ml 1094 ml Output Total 350 ml 325 ml 260 ml Balance 884 ml 638 ml 834 ml Intake Oral 120 ml 0 ml 0 ml IV Total 914 ml 933 ml 1034 ml Other 200 ml 30 ml 60 ml Output Urine Total 350 ml 325 ml 260 ml # Bowel Movements 2 1 1 . Laboratory Tests Test 04/15/16 05:09 White Blood Count 13.6 TH/MM3 Red Blood Count 3.55 MIL/MM3 Hemoglobin 9.7 GM/DL Hematocrit 30.4 % Mean Corpuscular Volume 85.6 FL Mean Corpuscular Hemoglobin 27.4 PG Mean Corpuscular Hemoglobin 32.0 % Concent Red Cell Distribution Width 18.2 % Platelet Count 276 TH/MM3 Mean Platelet Volume 9.4 FL Neutrophils (%) (Auto) % Lymphocytes (%) (Auto) % Monocytes (%) (Auto) % Eosinophils (%) (Auto) % Basophils (%) (Auto) % Neutrophils # (Auto) TH/MM3 Lymphocytes # (Auto) TH/MM3 Monocytes # (Auto) TH/MM3 Eosinophils # (Auto) TH/MM3 Basophils # (Auto) TH/MM3 CBC Comment AUTO DIFF Differential Total Cells 100 Counted Neutrophils % (Manual) 59 % Band Neutrophils % 22 % Lymphocytes % 4 % Monocytes % 14 % Neutrophils # (Manual) 11.2 TH/MM3 Myelocytes 1 % Differential Comment FINAL DIFF MANUAL Toxic Granulation 1+ Platelet Estimate NORMAL Platelet Morphology Comment NORMAL Keratocytes OCC Laboratory Tests Test 04/15/16 05:09 Sodium Level 137 MEQ/L Potassium Level 3.8 MEQ/L Chloride Level 106 MEQ/L Carbon Dioxide Level 19.1 MEQ/L Anion Gap 12 MEQ/L Blood Urea Nitrogen 9 MG/DL Creatinine 0.37 MG/DL Estimat Glomerular Filtration 227 ML/MIN Rate Random Glucose 82 MG/DL Calcium Level 7.6 MG/DL Phosphorus Level 2.3 MG/DL Magnesium Level 1.5 MG/DL Imaging Last Impressions Chest X-Ray 04/10/16 1045 Signed Impressions: Service Date/Time: Sunday, April 10, 2016 12:47 - CONCLUSION: Coarsened bronchovascular markings retrocardiac region consistent with minimal or early left lower lobe posterior basilar segment infiltrate Ulysses Cardenas MD Abdomen X-Ray 04/10/16 0000 Signed Impressions: Service Date/Time: Sunday, April 10, 2016 16:37 - CONCLUSION: Surgery stable abdomen. Large pelvic mass displacing bowel into the mid and upper abdomen without evidence of obstruction Ulysses Cardenas MD Physical Exam GENERAL: looks very weak, awakens easily, not in resp distress SKIN: No rashes, ecchymoses or lesions. Cool and dry. HEENT: [place] conjunctiva. No scleral icterus. No injection or drainage. Slightly dry oral mucosa. NECK: Trachea midline. Supple, nontender, no meningeal signs. CARDIOVASCULAR: HS audible. RESPIRATORY: Clear to auscultation. Breath sounds equal bilaterally. GASTROINTESTINAL: Abdomen distended, diffuse tenderness. No rebound tenderness , rigidity or guarding. MUSCULOSKELETAL: Extremities without clubbing, cyanosis, or edema. No calf tenderness. NEUROLOGICAL: Awake. Interactive. Psych: cooperative IV line sites with no e/o infection. Assessment & Plan Remarks Severe Sepsis, slowly improving Cdiff Colitis. Uterine fibroids large. Last admission had mechanical obstruction and ileus. Pneumonia likely aspiration PNA. Acute metabolic encephalopathy: seizures, sepsis. Acute renal failure: sepsis, prerenal. - resolved Elevated lactic acid, better Recs Continue Flagyl IV Continue Vanco oral Monitor temps Monitor progress Sheila Rowland MD Apr 16, 2016 13:58
[2016-04-16 14:48] LABS: AUTOMATED NEUTROPHIL # 14.4 TH/MM3 (1.8-7.7); BASOPHIL # 0.1 TH/MM3 (0-0.2); BASOPHIL % 0.7 % (0.0-2.0); EOSINOPHIL % 0.3 % (0.0-4.0); HEMATOCRIT 32.5 % (35.0-46.0); LYMPH % 9.5 % (9.0-44.0); LYMPHOCYTE # 1.8 TH/MM3 (1.0-4.8); MEAN CELL VOLUME 85.8 FL (80.0-100.0); MEAN CORPUSCULAR HEMOGLOBIN 27.2 PG (27.0-34.0); MEAN CORPUSCULAR HGB CONC 31.7 % (32.0-36.0); MONO % 12.7 % (0.0-8.0); NEUT % 76.8 % (16.0-70.0); PLATELET COUNT 395 TH/MM3 (150-450); RED BLOOD COUNT 3.78 MIL/MM3 (4.00-5.30); RED CELL DISTRIBUTION WIDTH 18.4 % (11.6-17.2); WHITE BLOOD COUNT 18.8 TH/MM3 (4.0-11.0)
[2016-04-16 14:49] LABS: HEMO FLAGS AUTO DIFF
[2016-04-16 15:17] LABS: BANDS 23 % (0-6); METAMYELOCYTES 3 % (0-1); MYELOCYTES 7 % (0-0); NEUTROPHIL # MANUAL DIFF 17.3 TH/MM3 (1.8-7.7); OVALOCYTES 1+ (NORMAL); POLYS (SEG NEUTROPHILS) 59 % (16-70); TOXIC GRANULATION 1+ (NORMAL); WBC DIFF SAMPLE 100
[2016-04-16 15:18] LABS: PLATELET ESTIMATE SMEAR NORMAL (NORMAL); PLATELET MORPHOLOGY NORMAL (NORMAL); SCAN/DIFF FINAL DIFF MANUAL
[2016-04-16 15:19] LABS: BICARBONATE 19.9 MEQ/L (21.0-32.0); POTASSIUM 3.1 MEQ/L (3.5-5.1)
[2016-04-16 15:20] LABS: PHENOBARBITAL 18.1 MCG/ML (15.0-40.0)
[2016-04-16 15:37] LABS: CALCIUM-PROTEIN CORRECTED 8.5 MG/DL (8.5-10.1)
[2016-04-16] MEDS ORDERED: MORPHINE SULFATE 4 MG/ML INJ IV PRN (22:00)
[2016-04-16] MEDS ORDERED: FUROSEMIDE 40 MG/4 ML VIAL IV PUSH ONE (22:00)
[2016-04-17] VITALS (8 sets, daily range): BP systolic 104–119; BP diastolic 61–69; PULSE 90–103; RESP 15–20; TEMP 95.4–98.5; O2SAT 96–100
[2016-04-17] MEDS: VALPROATE INJ 750 MG in SODIUM CHLORIDE 0.9% INJ 100 ML IV SCH ×4 (01:19→18:00)
[2016-04-17] MEDS: VANCOMYCIN 500 MG VIAL (FOR ORAL USE ONLY) PO SCH ×4 (01:19→18:00)
[2016-04-17] MEDS: HEPARIN SODIUM - SQ 10,000 UNITS/ML VIAL SQ SCH ×2 (01:20→13:00)
[2016-04-17] MEDS: metroNIDAZOLE 500 MG INJ 100 ML IV SCH ×3 (04:48→20:00)
[2016-04-17] MEDS: carBAMazepine 200 MG TAB PO SCH ×3 (06:30→21:47)
[2016-04-17] MEDS: CHOLESTYRAMINE 4 GM PACKET PO SCH ×3 (09:00→18:00)
[2016-04-17] MEDS: SODIUM CHLORIDE 0.9% FLUSH 5 ML FLUSH FLUSH SCH ×2 (09:00→21:00)
[2016-04-17 10:24] LABS: BICARBONATE 20.6 MEQ/L (21.0-32.0); POTASSIUM 3.4 MEQ/L (3.5-5.1)
[2016-04-17] MEDS: LACOSAMIDE INJ 100 MG in SODIUM CHLORIDE 0.9% INJ 100 ML IV SCH ×2 (10:30→21:00)
[2016-04-17 10:39] LABS: AUTOMATED NEUTROPHIL # 17.5 TH/MM3 (1.8-7.7); BASOPHIL # 0.1 TH/MM3 (0-0.2); BASOPHIL % 0.5 % (0.0-2.0); EOSINOPHIL # 0.1 TH/MM3 (0-0.4); EOSINOPHIL % 0.3 % (0.0-4.0); HEMATOCRIT 30.3 % (35.0-46.0); HEMO FLAGS AUTO DIFF; LYMPHOCYTE # 1.4 TH/MM3 (1.0-4.8); MEAN CELL VOLUME 84.7 FL (80.0-100.0); MEAN CORPUSCULAR HEMOGLOBIN 26.8 PG (27.0-34.0); MEAN CORPUSCULAR HGB CONC 31.6 % (32.0-36.0); MONO % 15.2 % (0.0-8.0); PLATELET COUNT 490 TH/MM3 (150-450); RED BLOOD COUNT 3.58 MIL/MM3 (4.00-5.30); RED CELL DISTRIBUTION WIDTH 18.4 % (11.6-17.2); WHITE BLOOD COUNT 22.5 TH/MM3 (4.0-11.0)
[2016-04-17 10:41] LABS: CALCIUM-PROTEIN CORRECTED 8.5 MG/DL (8.5-10.1)
[2016-04-17] MEDS: LACTOBACILLUS ACIDOPHILUS TAB PO SCH ×3 (11:17→18:00)
[2016-04-17] MEDS: PRIMIDONE 250 MG TAB PO SCH ×3 (11:17→18:00)
--- NOTE | 2016-04-17 11:20 | HHI.FPPN ---
Subjective Remarks CALLED W SEVERE EDEMA AND ABDOM PAIN RN REQS MORPHINE AND LASIX D/W RN Objective Vitals Vital Signs Date Time Temp Pulse Resp B/P Pulse Ox O2 Delivery O2 Flow Rate FiO2 04/17/16 04:00 98.1 99 18 109/64 99 04/17/16 00:00 98.4 100 18 119/64 98 04/16/16 22:32 18 04/16/16 21:00 96 04/16/16 20:01 96 21 04/16/16 20:00 98.5 101 18 104/66 97 04/16/16 16:15 97.3 98 20 106/67 97 04/16/16 12:42 96.5 90 18 106/69 99 I/O 04/16/16 04/16/16 04/16/16 04/17/16 04/17/16 04/17/16 07:00 15:00 23:00 07:00 15:00 23:00 Intake Total 1094 ml 902 ml Output Total 260 ml 600 ml 1950 ml Balance 834 ml -600 ml -1048 ml Intake Oral 0 ml IV Total 1034 ml 902 ml Other 60 ml Output Urine Total 260 ml 600 ml 1950 ml # Bowel Movements 1 1 0 Result Diagram: 04/17/1637 04/17/1637 Objective Remarks GENERAL: SKIN: Warm and dry. HEAD: Atraumatic. Normocephalic. EYES: Pupils equal and round. No scleral icterus. No injection or drainage. ENT: No nasal bleeding or discharge. Mucous membranes pink and moist. NGT CLAMPED NECK: Trachea midline. No JVD. CARDIOVASCULAR: Regular rate and rhythm. RESPIRATORY: No accessory muscle use. Clear to auscultation. Breath sounds equal bilaterally. GASTROINTESTINAL: Abdomen soft, tender, distended. Hepatic and splenic margins not palpable. MUSCULOSKELETAL: Extremities without clubbing, cyanosis, or edema. No obvious deformities. NEUROLOGICAL: Awake and alert. No obvious cranial nerve deficits. Motor grossly within normal limits. 1 out of 5 muscle strength in the arms and legs. PSYCHIATRIC: lethargic Medications and IVs Current Medications Medications (Trade) Dose Ordered Sig/Rebeca Route Start Time Stop Time Status Last Admin (NS Flush) 2 ml UNSCH PRN FLUSH 04/10/16 12:30 04/10/16 15:19 (NS Flush) 2 ml BID FLUSH 04/10/16 21:00 04/16/16 22:32 (Tylenol) 650 mg Q4H PRN PO 04/10/16 12:30 04/16/16 04:33 (Zofran Inj) 4 mg Q6H PRN IVP 04/10/16 12:30 04/12/16 12:23 (Compazine Supp) 25 mg Q12H PRN [place] 04/10/16 12:30 (Heparin Inj) 5,000 units Q12H SQ 04/10/16 13:00 04/17/16 01:20 (Narcan Inj) 0.4 mg UNSCH PRN IV 04/10/16 12:30 (Dulcolax Supp) 10 mg DAILY PRN [place] 04/10/16 12:45 (Questran 4 Gm Pkt) 4 gm TID PO 04/10/16 13:00 04/16/16 18:00 (Lactinex) 1 tab TID PO 04/10/16 13:00 04/16/16 18:00 (Ativan) 0.5 mg Q6H PRN PO 04/10/16 12:45 (Citroma Liq) 300 ml DAILY PRN PO 04/10/16 12:45 (Milk Of Magnesia Liq) 30 ml HS PRN PO 04/10/16 12:45 Primidone 250 mg 250 mg TID PO 04/10/16 13:00 04/16/16 07:50 (Flagyl 500 Mg Inj) 100 ml @ 100 mls/hr Q8H IV 04/10/16 20:00 04/17/16 04:48 Lorazepam 1 mg 1 mg Q4HR PRN IV PUSH 04/10/16 12:45 Levetriacetam 100 ml @ 400 mls/hr Q12HR IV 04/10/16 21:00 04/16/16 22:32 Valproate Sodium 750 mg/Sodium Chloride 107.5 ml @ 105 mls/hr Q6HR IV 04/10/16 18:00 04/17/16 06:30 (Vimpat Inj/NS Inj) 110 ml @ 110 mls/hr Q12HR IV 04/10/16 21:00 04/16/16 22:46 Miscellaneous Information Patient in critical care unit? Ass... Q361D XX 04/10/16 20:45 Carbamazepine 300 mg 300 mg Q8HR PO 04/12/16 14:00 04/17/16 06:30 Dextrose/Sodium Chloride 1,000 ml @ 84 mls/hr [id number] IV 04/14/16 09:00 04/16/16 22:31 Potassium Chloride 100 ml @ 50 mls/hr Q2H PRN IV 04/15/16 08:00 (KCl 20 Meq Premix Inj) 100 ml @ 50 mls/hr Q2H PRN IV 04/15/16 08:00 Potassium Chloride 40 meq 40 meq UNSCH PRN PO/TUBE 04/15/16 08:00 Potassium Chloride 100 ml @ 25 mls/hr UNSCH PRN IV 04/15/16 08:00 Potassium Chloride 100 ml @ 50 mls/hr Q2H PRN IV 04/15/16 08:00 (Magnesium Sulfate Inj/NS Inj) 100 ml @ 50 mls/hr UNSCH PRN IV 04/15/16 08:00 Magnesium Oxide 800 mg 800 mg UNSCH PRN PO 04/15/16 08:00 (Magnesium Sulfate Inj/NS Inj) 100 ml @ 50 mls/hr UNSCH PRN IV 04/15/16 08:00 Potassium Phosphate 2000 mg 2,000 mg Q4H PRN PO 04/15/16 08:00 (Sodium Phosphate Inj/NS 250 ml Inj) 250 ml @ 42 mls/hr UNSCH PRN IV 04/15/16 08:00 (KCl 40 Meq/30 ml Liq) 40 meq UNSCH PRN PO/TUBE 04/15/16 08:00 Potassium Phosphate 2000 mg 2,000 mg UNSCH PRN PO/TUBE 04/15/16 08:00 (Potassium Phosphate Inj/NS 250 ml Inj) 260 ml @ 42 mls/hr UNSCH PRN IV 04/15/16 08:00 (VANCOMYCIN for oral use only) 500 mg Q6HR PO 04/15/16 18:00 04/17/16 06:30 (Morphine Inj) 4 mg Q4H PRN IV 04/16/16 22:00 04/16/16 22:27 A/P Assessment and Plan SEVERE SEPSIS LACTIC ACIDOSIS C DIF. COLITIS ON CT ABDOMEN. DEHYDRATION HYPOKALEMIA SZ'S, INTRACTABLE UTI, LIKELY CONTAMINANT ON UA SBO RECENTLY ASPIRATION PNA UTERINE FIBROIDS TEGRETOL TOXICITY ARF, PRERENAL MR JAMIE HYPOKALEMIA HYPOMAGNESEMIA HYPOCALCEMIA HYPERAMMONEMIA PLAN: KUB NGT D51/2, ADD K, LOWER IVF, LASIX IV X ONE IV ABX STOOL CULTURES ATIVAN PRN GI CONSULT FOR INTRACTABLE C DIF, INCR ABDOM PAIN ID CONSULT NEURO CONSULT. CCM SIGNED OFF. ICU CARE. SEE ORDERS FOR MED AND LABS CHANGES. Romie Pelayo MD Apr 17, 2016 11:20
[2016-04-17] MEDS: levETIRAcetam 1000 MG INJ 100 ML IV SCH ×2 (11:22→21:00)
[2016-04-17 12:08] LABS: BANDS 27 % (0-6); CORRECTED NUCLEATED RBC 1 /100 WBC (0-0); METAMYELOCYTES 3 % (0-1); NEUTROPHIL # MANUAL DIFF 16.2 TH/MM3 (1.8-7.7); PLATELET ESTIMATE SMEAR HIGH (NORMAL); POLYS (SEG NEUTROPHILS) 42 % (16-70); WBC DIFF SAMPLE 100
[2016-04-17 12:09] LABS: PLATELET MORPHOLOGY CLUMPED (NORMAL); SCAN/DIFF FINAL DIFF MANUAL
--- NOTE | 2016-04-17 12:34 | HHI.IDPN ---
Subjective Subjective Remarks ID COVERAGE Notes reviewed Temps ok Still with LBM Having increased abdominal pain CT A/P with colitis BP ok is a 45 y/o AAF with PMHx of mental delay, blindness, seizures, fibroid cyst for a long time (x20 years) who was brought in by her niece. Patient has prior known history of mental retardation and blindness. Patient was recently seen by me earlier this month at [facility]. During that admission patient had Small bowel obstruction from mechanical obstruction from uterine mass. She also diarrhea with severe colitis and Cdiff PCR positive. She underwent treatment with Oral Vanco, Vanco enema, Difficid during that admission. She continued to improve and now is readmitted due to uncontrolled seizures and new vs ongoing sepsis related to Cdiff. She was s/b GI during last admission and had Colonoscopy positive for pseudomembranes. Antibiotics Vanco oral Flagyl IV Lines Lines with no infection. Past Medical History reviewed Allergies: Coded Allergies: No Known Allergies (Unverified , 04/10/16) Objective . Vital Signs Date Time Temp Pulse Resp B/P Pulse Ox O2 Delivery O2 Flow Rate FiO2 04/17/16 04:00 98.1 99 18 109/64 99 04/17/16 00:00 98.4 100 18 119/64 98 04/16/16 22:32 18 04/16/16 21:00 96 04/16/16 20:01 96 21 04/16/16 20:00 98.5 101 18 104/66 97 04/16/16 16:15 97.3 98 20 106/67 97 04/16/16 12:42 96.5 90 18 106/69 99 04/16/16 04/16/16 04/17/16 15:00 23:00 07:00 Intake Total 902 ml Output Total 600 ml 1950 ml Balance -600 ml -1048 ml IV Total 902 ml Output Urine Total 600 ml 1950 ml # Bowel Movements 1 0 . Laboratory Tests Test 04/16/16 04/17/16 14:41 09:37 White Blood Count 18.8 TH/MM3 22.5 TH/MM3 Red Blood Count 3.78 MIL/MM3 3.58 MIL/MM3 Hemoglobin 10.3 GM/DL 9.6 GM/DL Hematocrit 32.5 % 30.3 % Mean Corpuscular Volume 85.8 FL 84.7 FL Mean Corpuscular Hemoglobin 27.2 PG 26.8 PG Mean Corpuscular Hemoglobin 31.7 % 31.6 % Concent Red Cell Distribution Width 18.4 % 18.4 % Platelet Count 395 TH/MM3 490 TH/MM3 Mean Platelet Volume 7.8 FL 8.0 FL Neutrophils (%) (Auto) 76.8 % 78.0 % Lymphocytes (%) (Auto) 9.5 % 6.0 % Monocytes (%) (Auto) 12.7 % 15.2 % Eosinophils (%) (Auto) 0.3 % 0.3 % Basophils (%) (Auto) 0.7 % 0.5 % Neutrophils # (Auto) 14.4 TH/MM3 17.5 TH/MM3 Lymphocytes # (Auto) 1.8 TH/MM3 1.4 TH/MM3 Monocytes # (Auto) 2.4 TH/MM3 3.4 TH/MM3 Eosinophils # (Auto) 0.0 TH/MM3 0.1 TH/MM3 Basophils # (Auto) 0.1 TH/MM3 0.1 TH/MM3 CBC Comment AUTO DIFF AUTO DIFF Differential Total Cells 100 100 Counted Neutrophils % (Manual) 59 % 42 % Band Neutrophils % 23 % 27 % Lymphocytes % 4 % 12 % Monocytes % 4 % 16 % Neutrophils # (Manual) 17.3 TH/MM3 16.2 TH/MM3 Metamyelocytes 3 % 3 % Myelocytes 7 % Differential Comment FINAL DIFF FINAL DIFF MANUAL MANUAL Toxic Granulation 1+ Platelet Estimate NORMAL HIGH Platelet Morphology Comment NORMAL CLUMPED Ovalocytes 1+ Nucleated Red Blood Cells 1 /100 WBC Hematology Comments Laboratory Tests Test 04/16/16 04/17/16 14:41 09:37 Sodium Level 140 MEQ/L 141 MEQ/L Potassium Level 3.1 MEQ/L 3.4 MEQ/L Chloride Level 109 MEQ/L 110 MEQ/L Carbon Dioxide Level 19.9 MEQ/L 20.6 MEQ/L Anion Gap 11 MEQ/L 10 MEQ/L Blood Urea Nitrogen 6 MG/DL 5 MG/DL Creatinine 0.36 MG/DL 0.34 MG/DL Estimat Glomerular Filtration 235 ML/MIN 251 ML/MIN Rate Random Glucose 83 MG/DL 72 MG/DL Calcium Level 7.4 MG/DL 7.4 MG/DL Protein Corrected Calcium 8.5 MG/DL 8.5 MG/DL Total Protein 5.2 GM/DL 5.2 GM/DL Imaging Last Impressions Chest X-Ray 12/28/16 1045 Signed Impressions: Service Date/Time: Sunday, April 10, 2016 12:47 - CONCLUSION: Coarsened bronchovascular markings retrocardiac region consistent with minimal or early left lower lobe posterior basilar segment infiltrate Ulysses Cardenas MD Abdomen X-Ray 04/10/16 0000 Signed Impressions: Service Date/Time: Sunday, April 10, 2016 16:37 - CONCLUSION: Surgery stable abdomen. Large pelvic mass displacing bowel into the mid and upper abdomen without evidence of obstruction Ulysses Cardenas MD Physical Exam GENERAL: looks very weak, awakens easily, not in resp distress SKIN: No rashes, ecchymoses or lesions. Cool and dry. HEENT: [place] conjunctiva. No scleral icterus. No injection or drainage. Slightly dry oral mucosa. NECK: Trachea midline. Supple, nontender, no meningeal signs. CARDIOVASCULAR: HS audible. RESPIRATORY: Clear to auscultation. Breath sounds equal bilaterally. GASTROINTESTINAL: Abdomen distended, diffuse tenderness. No rebound tenderness , rigidity or guarding. MUSCULOSKELETAL: Extremities without clubbing, cyanosis, or edema. No calf tenderness. NEUROLOGICAL: Awake. Interactive. Psych: cooperative IV line sites with no e/o infection. Assessment & Plan Remarks Severe Sepsis, due to C diff Cdiff Colitis. - increasing abdominal pain Leukocytosis worsening Uterine fibroids large. Last admission had mechanical obstruction and ileus. Pneumonia likely aspiration PNA. Acute metabolic encephalopathy: seizures, sepsis. Acute renal failure: sepsis, prerenal. - resolved Elevated lactic acid, better Recs Continue Flagyl IV Continue Vanco oral AXR to eval increased pain GI has been consulted Monitor temps Monitor progress Follow CBC Sheila Rowland MD Apr 17, 2016 12:34
[2016-04-17] MEDS: POTASSIUM CHLORIDE INJ 30 MEQ in DEXT 5%-NACL 0.9% 1000 ML INJ 1,000 ML IV SCH (13:00)
--- NOTE | 2016-04-17 15:02 | PD.CONS ---
HPI History of Present Illness This is a 45 year old who is currently hospitalized for severe sepsis with CDiff colitis. She was recently hospitalized at [facility] and was treated with oral vanco, vanco enema. She was evaluated with colonoscopy ( 03/15/16) and this revealed C. Difficile colitis. Pathology revealed mild acute colitis. She was discharged on 04/05/16 on Oral Vancomycin. She returned to the ER on 04/10 with fever, tachycardia, seizures, and diarrhea and was admitted for sepsis and persistent CDiff colitis.Abdomen/Pelvis CT (04/12/16)--- --> 1. No evidence of abdominal or pelvic abscess. 2. Diffuse inflammatory changes of the entire colon from the cecum to the rectum characteristic of diffuse colitis. 3. Bibasilar atelectasis with small bilateral effusions. 4. Small amount of ascites in the abdomen and pelvis, insufficient for drainage. 5. Diffuse edema throughout the body wall characteristics of anasarca. 6. Large bulky fibroid uterus. ID is following and she is being treated with Flagyl and oral vanco. However, she is having worsening leukocytosis, distention, and abdominal discomfort and GI has been consulted for further evaluation. The patient is lethargic and is unable to answer any questions or provide any history and therefore the history has been obtained from the EMR. Her abdomen is distended and tympanic and she has moderate to severe tenderness on exam. She is having 2-7 bowel movements per day. KUB is pending. (Tara Dean) PFSH Past Medical History Recent CDiff colitis Seizure disorder Developmental delay Blindness Past Surgical History Unable to obtain (Tara Dean) Coded Allergies: No Known Allergies (Unverified , 04/10/16) Medications Allergies Coded Allergies Type Severity Reaction Last Updated Verified No Known Allergies 04/10/16 No Active Scripts Medications Dose Route/Sig Days Date Category Dose Instructions First-Vancomycin 50 Liq (Vancomycin HCl) 50 Mg/Ml [place] 125 Mg PO Q6HR 04/10/16 Reported Questran (Cholestyramine) 4 Gm/Pkt Powd 4 Gm PO TID 04/10/16 Reported 1 packet contains 4gm of cholestyramine. Milk of Magnesia Liq (Magnesium Hydroxide) 400 Mg/5 Ml Susp 30 Ml PO HS PRN 04/10/16 Reported Flagyl (Metronidazole) 500 Mg Tab 500 Mg PO TID 10 04/10/16 Reported Enema Disposable (Sodium Phosphates) 1 Kellie Kellie 1 Applic PA DIRECTED PRN 04/10/16 Reported Dulcolax Supp (Bisacodyl) 10 Mg Supp 10 Mg PA IN AM PRN 04/10/16 Reported Depakene (Valproic Acid) 250 Mg Cap 500 Mg PO Q6HR 04/10/16 Reported Citroma Liq (Magnesium Citrate) 300 Ml Liq 300 Ml PO IN THE AM PRN 04/10/16 Reported Ativan (Lorazepam) 0.5 Mg Tab 0.5 Mg PO Q6H PRN 04/10/16 Reported Acetaminophen 325 Mg Tab 650 Mg PO Q4H PRN 04/05/16 Rx Acidophilus/l-Sporogenes (Lactobacillus Acidophilus) 1 Tab Tab 1 Tab PO TID 04/05/16 Rx Keppra (Levetiracetam) 500 Mg Tab 1,500 Mg PO Q12HR 30 04/05/16 Rx Carbamazepine 200 Mg Tab 400 Mg PO Q8HR 30 04/05/16 Rx Primidone 250 Mg Tab 250 Mg PO TID 02/22/16 Reported Family History Unable to obtain Social History Unable to obtain (Tara Dean) Review of Systems ROS Unable to obtain (Tara Dean) GI Exam Vitals I&O Vital Signs Date Time Temp Pulse Resp B/P Pulse Ox O2 Delivery O2 Flow Rate FiO2 04/17/16 04:00 98.1 99 18 109/64 99 04/17/16 00:00 98.4 100 18 119/64 98 04/16/16 22:32 18 04/16/16 21:00 96 04/16/16 20:01 96 21 04/16/16 20:00 98.5 101 18 104/66 97 04/16/16 16:15 97.3 98 20 106/67 97 I/O 04/16/16 04/16/16 04/16/16 04/17/16 04/17/16 04/17/16 06:59 14:59 22:59 06:59 14:59 22:59 Intake Total 1094 ml 902 ml Output Total 260 ml 600 ml 1950 ml Balance 834 ml -600 ml -1048 ml Intake Oral 0 ml IV Total 1034 ml 902 ml Other 60 ml Output Urine Total 260 ml 600 ml 1950 ml # Bowel Movements 1 1 0 Imaging Last Impressions Abdomen/Pelvis CT 04/12/16 0000 Signed Impressions: Service Date/Time: Tuesday, April 12, 2016 14:59 - CONCLUSION: 1. No evidence of abdominal or pelvic abscess. 2. Diffuse inflammatory changes of the entire colon from the cecum to the rectum characteristic of diffuse colitis. 3. Bibasilar atelectasis with small bilateral effusions. 4. Small amount of ascites in the abdomen and pelvis, insufficient for drainage. 5. Diffuse edema throughout the body wall characteristics of anasarca. 6. Large bulky fibroid uterus. Rashad Coronel MD Chest X-Ray 04/11/16 0000 Signed Impressions: Service Date/Time: March 11:22 - CONCLUSION: 1. There has been an increase in the interstitial markings bilaterally which can be seen with either pulmonary edema versus pneumonia. 2. NG tube in the stomach. Rashad Coronel MD Abdomen X-Ray 04/10/16 0000 Signed Impressions: Service Date/Time: Sunday, April 10, 2016 16:37 - CONCLUSION: Surgery stable abdomen. Large pelvic mass displacing bowel into the mid and upper abdomen without evidence of obstruction Ulysses Cardenas MD Laboratory Test 04/17/16 09:37 White Blood Count 22.5 TH/MM3 Red Blood Count 3.58 MIL/MM3 Hemoglobin 9.6 GM/DL Hematocrit 30.3 % Mean Corpuscular Volume 84.7 FL Mean Corpuscular Hemoglobin 26.8 PG Mean Corpuscular Hemoglobin 31.6 % Concent Red Cell Distribution Width 18.4 % Platelet Count 490 TH/MM3 Mean Platelet Volume 8.0 FL Neutrophils (%) (Auto) 78.0 % Lymphocytes (%) (Auto) 6.0 % Monocytes (%) (Auto) 15.2 % Eosinophils (%) (Auto) 0.3 % Basophils (%) (Auto) 0.5 % Neutrophils # (Auto) 17.5 TH/MM3 Lymphocytes # (Auto) 1.4 TH/MM3 Monocytes # (Auto) 3.4 TH/MM3 Eosinophils # (Auto) 0.1 TH/MM3 Basophils # (Auto) 0.1 TH/MM3 CBC Comment AUTO DIFF Differential Total Cells 100 Counted Neutrophils % (Manual) 42 % Band Neutrophils % 27 % Lymphocytes % 12 % Monocytes % 16 % Neutrophils # (Manual) 16.2 TH/MM3 Metamyelocytes 3 % Nucleated Red Blood Cells 1 /100 WBC Differential Comment FINAL DIFF MANUAL Platelet Estimate HIGH Platelet Morphology Comment CLUMPED Hematology Comments Sodium Level 141 MEQ/L Potassium Level 3.4 MEQ/L Chloride Level 110 MEQ/L Carbon Dioxide Level 20.6 MEQ/L Anion Gap 10 MEQ/L Blood Urea Nitrogen 5 MG/DL Creatinine 0.34 MG/DL Estimat Glomerular Filtration 251 ML/MIN Rate Random Glucose 72 MG/DL Calcium Level 7.4 MG/DL Protein Corrected Calcium 8.5 MG/DL Total Protein 5.2 GM/DL Physical Examination HEENT: Normocephalic; atraumatic; no jaundice. CHEST: Resp. even/unlabored. CARDIAC: RRR. ABDOMEN: Abdomen is distended, tympanic, moderate to severe tenderness on exam ; no hepatosplenomegaly; bowel sounds are present in all four quadrants. EXTREMITIES: Generalized edema SKIN: Normal; no rash; no jaundice. 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 Pt recently hospitalized at [facility] for CDiff and was treated with oral vanco, vanco enema. She was evaluated with colonoscopy (03/15/16) and this revealed C. Difficile colitis. Pathology revealed mild acute colitis. She was discharged on 04/05/16 on Oral Vancomycin. She returned to the ER on 04/10 with fever, tachycardia, seizures, and diarrhea and was admitted for sepsis and persistent CDiff colitis.Abdomen/Pelvis CT (04/12/16)-----> 1. No evidence of abdominal or pelvic abscess. 2. Diffuse inflammatory changes of the entire colon from the cecum to the rectum characteristic of diffuse colitis. 3. Bibasilar atelectasis with small bilateral effusions. 4. Small amount of ascites in the abdomen and pelvis, insufficient for drainage. 5. Diffuse edema throughout the body wall characteristics of anasarca. 6. Large bulky fibroid uterus. ID is following, on flagyl, oral vanco. Now with worsening distention, abdominal pain, and leukocytosis. Pt is quite distended and tympanic and she has moderate to severe tenderness on exam. KUB pending. ? Rpt. CT scan. R/O megacolon. - Sepsis/leukocytosis/lactic acidosis secondary to above. Worsening leukocytosis. - Dehydration, electrolyte abnormalities. Per primary - Sz d/o, per primary PLAN: - NPO - NGT to LIWS - Lactic acid level - Stat CT Scan with po contrast - GS evaluation - Await KUB results - Cont. Flagyl, Oral Vanco - CBC, BMP in am - Will d/w Dr. Giron - Supportive care - Further recommendations to follow based on results of above - Pt seen and examined by Dr. Giron and myself and this note is written on his behalf (Tara Dean) Physician Comments Patient was seen and examined, agree with above note and plan, labs for AM, consider surgical consult. (Ignacio Giron MD) Tara Dean Apr 17, 2016 15:01 Ignacio Giron MD Apr 17, 2016 20:52
--- NOTE | 2016-04-17 16:02 | RADRPT ---
EXAM DATE/TIME: 04/17/2016 13:29 [facility] COMPARISON: CT ABDOMEN & PELVIS W CONTRAST, April 12, 2016, 14:59. INDICATIONS : Distention. MEDICAL HISTORY : Hypertension. seizures, c-diff SURGICAL HISTORY : Hysterectomy. ENCOUNTER: Initial ACUITY: 1 week PAIN SCORE: Non-responsive. LOCATION: Abdomen FINDINGS: Supine view of the abdomen was performed. The abdominal bowel gas pattern is mild ileus. No abnorma l masses, calcifications, or organomegaly is seen. The osseous structures are unremarkable. CONCLUSION: 1. Mild ileus. Findings similar to April 10. No free air. No evidence for obstruction. Thumbprinti ng and mucosal thickening suspected in the colon. Bruce Baez MD on April 17, 2016 at 15:59 Board Certified Radiologist. This report was verified electronically.
[2016-04-17] MEDS ORDERED: DIATRIZOATE MEGLUM/DIATRIZOATE SOD 9 ML CUP PO ONE (16:30)
[2016-04-18] VITALS (8 sets, daily range): BP systolic 112–120; BP diastolic 62–76; PULSE 93–101; RESP 16–20; TEMP 93.6–98.6; O2SAT 95–99
[2016-04-18] MEDS: HEPARIN SODIUM - SQ 10,000 UNITS/ML VIAL SQ SCH (01:00)
--- NOTE | 2016-04-18 01:47 | RADRPT ---
EXAM DATE/TIME: 04/18/2016 01:10 [facility] COMPARISON: CT ABDOMEN & PELVIS W CONTRAST, April 12, 2016, 14:59. INDICATIONS : Severe distension and abdomial pain. Evaluate for free air. ORAL CONTRAST: Prescribed oral contrast ingested. RADIATION DOSE: 16.05 CTDIvol (mGy) MEDICAL HISTORY : Seizures. Hypertension. SURGICAL HISTORY : None. ENCOUNTER: Subsequent ACUITY: 1 week PAIN SCALE: 8/10 LOCATION: abdomen TECHNIQUE: Volumetric scanning of the abdomen and pelvis was performed. Using automated exposure control and ad justment of the mA and/or kV according to patient size, radiation dose was kept as low as reasonably achievable to obtain optimal diagnostic quality images. FINDINGS: LOWER LUNGS: Bilateral pleural effusions and bibasilar consolidation. This is stable. Small pericardial effusion i s stable as well. LIVER: Homogeneous density without lesion. There is no dilation of the biliary tree. No calcified gallston es. SPLEEN: Normal size without lesion. PANCREAS: Within normal limits. KIDNEYS: Normal in size and shape. There is no mass, stone, or hydronephrosis. ADRENAL GLANDS: Within normal limits. VASCULAR: There is no aortic aneurysm. BOWEL/MESENTERY: Diffuse wall thickening of the entire colon is again seen and unchanged. No free air observed. A slig ht increase in the volume of ascites noted. Small bowel and stomach are unremarkable. ABDOMINAL WALL: Anasarca. RETROPERITONEUM: There is no lymphadenopathy. BLADDER: No wall thickening or mass. REPRODUCTIVE: A grossly enlarged and lobulated uterus is again noted. INGUINAL: There is no lymphadenopathy or hernia. MUSCULOSKELETAL: Within normal limits for patient age. CONCLUSION: 1. No abscess or free air. 2. Diffuse inflammatory process involving the entire colon is unchanged. 3. Slight increase in volume of ascites. 4. Unchanged bilateral pleural effusions and bibasilar atelectasis/infiltrates. 5. Anasarca 6. Enlarged fibroid uterus Jordan Up Jr., MD on April 18, 2016 at 1:40 Board Certified Radiologist. This report was verified electronically.
[2016-04-18] MEDS: metroNIDAZOLE 500 MG INJ 100 ML IV SCH ×3 (04:00→21:03)
[2016-04-18] MEDS: VALPROATE INJ 750 MG in SODIUM CHLORIDE 0.9% INJ 100 ML IV SCH ×5 (06:00→18:23)
[2016-04-18] MEDS: VANCOMYCIN 500 MG VIAL (FOR ORAL USE ONLY) PO SCH ×4 (07:08→18:08)
[2016-04-18] MEDS: carBAMazepine 200 MG TAB PO SCH ×3 (07:09→21:08)
--- NOTE | 2016-04-18 08:01 | HHI.PR ---
Subjective Remarks no sz overnoc acc to nurse Objective Vital Signs Date Time Temp Pulse Resp B/P Pulse Ox O2 Delivery O2 Flow Rate FiO2 04/18/16 04:00 98.6 98 20 120/71 98 04/18/16 00:00 98.6 100 20 119/67 95 04/17/16 20:00 98.5 101 20 118/69 96 04/17/16 14:00 96.2 90 15 111/65 100 04/17/16 12:00 95.6 90 18 104/61 98 04/17/16 10:00 96 I/O 04/17/16 04/17/16 04/17/16 04/18/16 04/18/16 04/18/16 07:00 15:00 23:00 07:00 15:00 23:00 Intake Total 902 ml 0 ml 0 ml Output Total 1950 ml 1050 ml 300 ml Balance -1048 ml -1050 ml -300 ml Intake Oral 0 ml 0 ml IV Total 902 ml Output Urine Total 1950 ml 1050 ml 300 ml # Voids 0 # Bowel Movements 0 0 2 Result Diagram: 04/17/16 0937 04/17/16 0937 Objective Remarks asleep now again hard to awaken Assessment and Plan Assessment and Plan imp on vimpat primidone 18 vpa 53 and cbz 8.7 cbz 8.7 on300 tid last eeg looked really good just a few d/c will work on it doing well change to po when able c diff nursing will update me at noon if awakens or not Narendra Bob MD Apr 18, 2016 08:01
[2016-04-18 08:29] LABS: AUTOMATED NEUTROPHIL # 16.1 TH/MM3 (1.8-7.7); BASOPHIL % 0.2 % (0.0-2.0); EOSINOPHIL % 0.1 % (0.0-4.0); HEMATOCRIT 32.3 % (35.0-46.0); LYMPHOCYTE # 1.4 TH/MM3 (1.0-4.8); MEAN CELL VOLUME 89.6 FL (80.0-100.0); MEAN CORPUSCULAR HEMOGLOBIN 27.7 PG (27.0-34.0); MEAN CORPUSCULAR HGB CONC 30.9 % (32.0-36.0); MONO % 10.7 % (0.0-8.0); PLATELET COUNT 581 TH/MM3 (150-450); RED CELL DISTRIBUTION WIDTH 19.1 % (11.6-17.2); WHITE BLOOD COUNT 19.6 TH/MM3 (4.0-11.0)
[2016-04-18 08:30] LABS: HEMO FLAGS AUTO DIFF
[2016-04-18 08:52] LABS: BICARBONATE 22.3 MEQ/L (21.0-32.0); POTASSIUM 3.1 MEQ/L (3.5-5.1)
[2016-04-18] MEDS: levETIRAcetam 1000 MG INJ 100 ML IV SCH ×2 (09:00→21:04)
[2016-04-18] MEDS: CHOLESTYRAMINE 4 GM PACKET PO SCH ×3 (09:00→18:00)
[2016-04-18] MEDS: SODIUM CHLORIDE 0.9% FLUSH 5 ML FLUSH FLUSH SCH ×2 (09:00→21:08)
[2016-04-18] MEDS: LACTOBACILLUS ACIDOPHILUS TAB PO SCH ×3 (09:00→18:00)
[2016-04-18 09:42] LABS: BANDS 16 % (0-6); EOSINOPHILS 1 % (0-4); METAMYELOCYTES 1 % (0-1); MYELOCYTES 3 % (0-0); NEUTROPHIL # MANUAL DIFF 13.7 TH/MM3 (1.8-7.7); PLATELET ESTIMATE SMEAR HIGH (NORMAL); PLATELET MORPHOLOGY NORMAL (NORMAL); POLYS (SEG NEUTROPHILS) 50 % (16-70); SCAN/DIFF FINAL DIFF MANUAL; WBC DIFF SAMPLE 100
[2016-04-18] MEDS ORDERED: INSULIN HUMAN REGULAR 1,000 UNITS/10 ML VIAL SQ PRN (10:00)
[2016-04-18] MEDS ORDERED: LACTATED RINGER'S 1000 ML IV SCH (10:00)
--- NOTE | 2016-04-18 10:58 | HHI.FPPN ---
Subjective Remarks LETHARGIC D/W RN NOTES REVIEWED Objective Vitals Vital Signs Date Time Temp Pulse Resp B/P Pulse Ox O2 Delivery O2 Flow Rate FiO2 04/18/16 08:00 93.6 93 20 112/62 96 04/18/16 04:00 98.6 98 20 120/71 98 04/18/16 00:00 98.6 100 20 119/67 95 04/17/16 20:00 98.5 101 20 118/69 96 04/17/16 14:00 96.2 90 15 111/65 100 04/17/16 12:00 95.6 90 18 104/61 98 I/O 04/17/16 04/17/16 04/17/16 04/18/16 04/18/16 04/18/16 06:59 14:59 22:59 06:59 14:59 22:59 Intake Total 902 ml 0 ml 0 ml Output Total 1950 ml 1050 ml 300 ml Balance -1048 ml -1050 ml -300 ml Intake Oral 0 ml 0 ml IV Total 902 ml Output Urine Total 1950 ml 1050 ml 300 ml # Voids 0 # Bowel Movements 0 0 2 Result Diagram: 04/18/1672704/18/16727 Objective Remarks GENERAL: SKIN: Warm and dry. HEAD: Atraumatic. Normocephalic. EYES: Pupils equal and round. No scleral icterus. No injection or drainage. ENT: No nasal bleeding or discharge. Mucous membranes pink and moist. NGT CLAMPED NECK: Trachea midline. No JVD. CARDIOVASCULAR: Regular rate and rhythm. RESPIRATORY: No accessory muscle use. Clear to auscultation. Breath sounds equal bilaterally. GASTROINTESTINAL: Abdomen soft, tender, distended. Hepatic and splenic margins not palpable. MUSCULOSKELETAL: Extremities without clubbing, cyanosis, or edema. No obvious deformities. NEUROLOGICAL: Awake and alert. No obvious cranial nerve deficits. Motor grossly within normal limits. 1 out of 5 muscle strength in the arms and legs. PSYCHIATRIC: lethargic Medications and IVs Current Medications Medications (Trade) Dose Ordered Sig/Rebeca Route Start Time Stop Time Status Last Admin (NS Flush) 2 ml UNSCH PRN FLUSH 04/10/16 12:30 04/10/16 15:19 (NS Flush) 2 ml BID FLUSH 04/10/16 21:00 1/4/17 21:00 (Tylenol) 650 mg Q4H PRN PO 04/10/16 12:30 04/16/16 04:33 (Zofran Inj) 4 mg Q6H PRN IVP 04/10/16 12:30 04/12/16 12:23 (Compazine Supp) 25 mg Q12H PRN AK 04/10/16 12:30 (Heparin Inj) 5,000 units Q12H SQ 04/10/16 13:00 Hold 04/18/16 01:00 (Narcan Inj) 0.4 mg UNSCH PRN IV 04/10/16 12:30 (Dulcolax Supp) 10 mg DAILY PRN AK 04/10/16 12:45 (Questran 4 Gm Pkt) 4 gm TID PO 04/10/16 13:00 04/17/16 18:00 (Lactinex) 1 tab TID PO 04/10/16 13:00 04/17/16 18:00 (Ativan) 0.5 mg Q6H PRN PO 04/10/16 12:45 (Citroma Liq) 300 ml DAILY PRN PO 04/10/16 12:45 (Milk Of Magnesia Liq) 30 ml HS PRN PO 04/10/16 12:45 Primidone 250 mg 250 mg TID PO 04/10/16 13:00 04/17/16 18:00 (Flagyl 500 Mg Inj) 100 ml @ 100 mls/hr Q8H IV 04/10/16 20:00 04/18/16 04:00 Lorazepam 1 mg 1 mg Q4HR PRN IV PUSH 04/10/16 12:45 Levetriacetam 100 ml @ 400 mls/hr Q12HR IV 04/10/16 21:00 04/17/16 21:00 Valproate Sodium 750 mg/Sodium Chloride 107.5 ml @ 105 mls/hr Q6HR IV 04/10/16 18:00 04/18/16 06:00 (Vimpat Inj/NS Inj) 110 ml @ 110 mls/hr Q12HR IV 04/10/16 21:00 04/17/16 21:00 Miscellaneous Information Patient in critical care unit? Ass... Q361D XX 04/10/16 20:45 (TEGretol) 300 mg Q8HR PO 04/12/16 14:00 1/5/17 07:09 Vancomycin HCl 500 mg 500 mg Q6HR PO 04/15/16 18:00 04/18/16 07:08 Potassium Chloride 30 meq/ Dextrose/Sodium Chloride 1,015 ml @ 30 mls/hr Q24H IV 04/17/16 13:00 04/17/16 13:00 (Lr 1000 ml Inj) 1,000 ml @ 30 mls/hr Q24H IV 04/18/16 10:00 Urinary Catheter: Yes A/P Assessment and Plan SEVERE SEPSIS LACTIC ACIDOSIS C DIF. COLITIS ON CT ABDOMEN. ILEUS DEHYDRATION HYPOKALEMIA SZ'S, INTRACTABLE UTI, LIKELY CONTAMINANT ON UA SBO RECENTLY ASPIRATION PNA UTERINE FIBROIDS TEGRETOL TOXICITY ARF, PRERENAL MR JAMIE HYPOKALEMIA HYPOMAGNESEMIA HYPOCALCEMIA HYPERAMMONEMIA PLAN: MAY HAVE COLECTOMY AND RESECTION TODAY IVF NGT LIWS IV ABX STOOL CULTURES ATIVAN PRN GI CONSULT FOR INTRACTABLE C DIF, INCR ABDOM PAIN ID CONSULT NEURO CONSULT. SURGERY CONSULT CCM SIGNED OFF. ICU CARE. SEE ORDERS FOR MED AND LABS CHANGES. Romie Pelayo MD Apr 18, 2016 10:58
[2016-04-18] MEDS: LACOSAMIDE INJ 100 MG in SODIUM CHLORIDE 0.9% INJ 100 ML IV SCH ×2 (11:18→21:05)
[2016-04-18] MEDS: PRIMIDONE 250 MG TAB PO SCH ×3 (11:23→18:08)
--- NOTE | 2016-04-18 12:36 | HHI.IDPN ---
Subjective Subjective Remarks ID COVERAGE Notes reviewed Temps ok BM recorded less Lethargic Repeat CT no change except increased ascites GI consult noted is a 45 y/o AAF with PMHx of mental delay, blindness, seizures, fibroid cyst for a long time (x20 years) who was brought in by her niece. Patient has prior known history of mental retardation and blindness. Patient was recently seen by me earlier this month at [facility]. During that admission patient had Small bowel obstruction from mechanical obstruction from uterine mass. She also diarrhea with severe colitis and Cdiff PCR positive. She underwent treatment with Oral Vanco, Vanco enema, Difficid during that admission. She continued to improve and now is readmitted due to uncontrolled seizures and new vs ongoing sepsis related to Cdiff. She was s/b GI during last admission and had Colonoscopy positive for pseudomembranes. Antibiotics Vanco oral Flagyl IV Lines Lines with no infection. Past Medical History reviewed Allergies: Coded Allergies: No Known Allergies (Unverified , 04/10/16) Objective . Vital Signs Date Time Temp Pulse Resp B/P Pulse Ox O2 Delivery O2 Flow Rate FiO2 04/18/16 08:00 93.6 93 20 112/62 96 04/18/16 04:00 98.6 98 20 120/71 98 04/18/16 00:00 98.6 100 20 119/67 95 04/17/16 20:00 98.5 101 20 118/69 96 04/17/16 18:00 103 04/17/16 14:00 96.2 90 15 111/65 100 04/17/16 04/17/16 04/18/16 15:00 23:00 07:00 Intake Total 0 ml 0 ml Output Total 1050 ml 300 ml Balance -1050 ml -300 ml Intake Oral 0 ml 0 ml Output Urine Total 1050 ml 300 ml # Voids 0 # Bowel Movements 0 2 . Laboratory Tests Test 04/16/16 04/17/16 04/18/16 14:41 09:37 07:28 White Blood Count 18.8 TH/MM3 22.5 TH/MM3 19.6 TH/MM3 Red Blood Count 3.78 MIL/MM3 3.58 MIL/MM3 3.60 MIL/MM3 Hemoglobin 10.3 GM/DL 9.6 GM/DL 10.0 GM/DL Hematocrit 32.5 % 30.3 % 32.3 % Mean Corpuscular Volume 85.8 FL 84.7 FL 89.6 FL Mean Corpuscular Hemoglobin 27.2 PG 26.8 PG 27.7 PG Mean Corpuscular Hemoglobin 31.7 % 31.6 % 30.9 % Concent Red Cell Distribution Width 18.4 % 18.4 % 19.1 % Platelet Count 395 TH/MM3 490 TH/MM3 581 TH/MM3 Mean Platelet Volume 7.8 FL 8.0 FL 7.4 FL Neutrophils (%) (Auto) 76.8 % 78.0 % 82.0 % Lymphocytes (%) (Auto) 9.5 % 6.0 % 7.0 % Monocytes (%) (Auto) 12.7 % 15.2 % 10.7 % Eosinophils (%) (Auto) 0.3 % 0.3 % 0.1 % Basophils (%) (Auto) 0.7 % 0.5 % 0.2 % Neutrophils # (Auto) 14.4 TH/MM3 17.5 TH/MM3 16.1 TH/MM3 Lymphocytes # (Auto) 1.8 TH/MM3 1.4 TH/MM3 1.4 TH/MM3 Monocytes # (Auto) 2.4 TH/MM3 3.4 TH/MM3 2.1 TH/MM3 Eosinophils # (Auto) 0.0 TH/MM3 0.1 TH/MM3 0.0 TH/MM3 Basophils # (Auto) 0.1 TH/MM3 0.1 TH/MM3 0.0 TH/MM3 CBC Comment AUTO DIFF AUTO DIFF AUTO DIFF Differential Total Cells 100 100 100 Counted Neutrophils % (Manual) 59 % 42 % 50 % Band Neutrophils % 23 % 27 % 16 % Lymphocytes % 4 % 12 % 16 % Monocytes % 4 % 16 % 13 % Neutrophils # (Manual) 17.3 TH/MM3 16.2 TH/MM3 13.7 TH/MM3 Metamyelocytes 3 % 3 % 1 % Myelocytes 7 % 3 % Differential Comment FINAL DIFF FINAL DIFF FINAL DIFF MANUAL MANUAL MANUAL Toxic Granulation 1+ Platelet Estimate NORMAL HIGH HIGH Platelet Morphology Comment NORMAL CLUMPED NORMAL Ovalocytes 1+ Nucleated Red Blood Cells 1 /100 WBC Hematology Comments Eosinophils % 1 % Laboratory Tests Test 04/16/16 04/17/16 04/17/16 04/18/16 14:41 09:37 16:36 07:28 Sodium Level 140 MEQ/L 141 MEQ/L 140 MEQ/L Potassium Level 3.1 MEQ/L 3.4 MEQ/L 3.1 MEQ/L Chloride Level 109 MEQ/L 110 MEQ/L 108 MEQ/L Carbon Dioxide Level 19.9 MEQ/L 20.6 MEQ/L 22.3 MEQ/L Anion Gap 11 MEQ/L 10 MEQ/L 10 MEQ/L Blood Urea Nitrogen 6 MG/DL 5 MG/DL 3 MG/DL Creatinine 0.36 MG/DL 0.34 MG/DL 0.32 MG/DL Estimat Glomerular Filtration 235 ML/MIN 251 ML/MIN 269 ML/MIN Rate Random Glucose 83 MG/DL 72 MG/DL 85 MG/DL Calcium Level 7.4 MG/DL 7.4 MG/DL 7.6 MG/DL Protein Corrected Calcium 8.5 MG/DL 8.5 MG/DL Total Protein 5.2 GM/DL 5.2 GM/DL Lactic Acid Level 1.1 mmol/L Imaging Last Impressions Chest X-Ray 04/10/16 1045 Signed Impressions: Service Date/Time: Sunday, April 10, 2016 12:47 - CONCLUSION: Coarsened bronchovascular markings retrocardiac region consistent with minimal or early left lower lobe posterior basilar segment infiltrate Ulysses Cardenas MD Abdomen X-Ray 04/10/16 0000 Signed Impressions: Service Date/Time: Sunday, April 10, 2016 16:37 - CONCLUSION: Surgery stable abdomen. Large pelvic mass displacing bowel into the mid and upper abdomen without evidence of obstruction Ulysses Cardenas MD Physical Exam GENERAL: Lethargic, weak, not in resp distress SKIN: No rashes, ecchymoses or lesions. Cool and dry. HEENT: [place] conjunctiva. No scleral icterus. No injection or drainage. Slightly dry oral mucosa. NECK: Trachea midline. Supple, nontender, no meningeal signs. CARDIOVASCULAR: HS audible. RESPIRATORY: Clear to auscultation. Breath sounds equal bilaterally. GASTROINTESTINAL: Abdomen distended, has diffuse tenderness. MUSCULOSKELETAL: Extremities without clubbing, cyanosis, or edema. No calf tenderness. NEUROLOGICAL: Lethargic. Psych: cooperative IV line sites with no e/o infection. Assessment & Plan Remarks Severe Sepsis, due to C diff Cdiff Colitis. - increasing abdominal pain Leukocytosis, persistent Uterine fibroids large. Last admission had mechanical obstruction and ileus. Pneumonia likely aspiration PNA. Acute metabolic encephalopathy: seizures, sepsis. Acute renal failure: sepsis, prerenal. - resolved Recs Continue Flagyl IV Continue Vanco oral Monitor temps Monitor progress Follow CBC GI evaluating Sheila Rowland MD Apr 18, 2016 12:36
--- NOTE | 2016-04-18 14:16 | HHI.GIFU ---
Subjective Remarks Resting in bed. Lethargic. NGT to LIWS- small amount of drainage. Abdomen soft, not as distended or tender on exam today. Family at bedside. Going to OR this afternoon (Tara Dean) Objective Vitals I&O Vital Signs Date Time Temp Pulse Resp B/P Pulse Ox O2 Delivery O2 Flow Rate FiO2 04/18/16 12:00 96.5 96 17 116/70 97 04/18/16 08:00 93.6 93 20 112/62 96 04/18/16 04:00 98.6 98 20 120/71 98 04/18/16 00:00 98.6 100 20 119/67 95 04/17/16 20:00 98.5 101 20 118/69 96 04/17/16 18:00 103 I/O 04/17/16 04/17/16 04/17/16 04/18/16 04/18/16 04/18/16 07:00 15:00 23:00 07:00 15:00 23:00 Intake Total 902 ml 0 ml 0 ml Output Total 1950 ml 1050 ml 300 ml Balance -1048 ml -1050 ml -300 ml Intake Oral 0 ml 0 ml IV Total 902 ml Output Urine Total 1950 ml 1050 ml 300 ml # Voids 0 # Bowel Movements 0 0 2 Laboratory Laboratory Tests Test 04/17/16 04/18/16 16:36 07:28 Lactic Acid Level 1.1 White Blood Count 19.6 Red Blood Count 3.60 Hemoglobin 10.0 Hematocrit 32.3 Mean Corpuscular Volume 89.6 Mean Corpuscular Hemoglobin 27.7 Mean Corpuscular Hemoglobin 30.9 Concent Red Cell Distribution Width 19.1 Platelet Count 581 Mean Platelet Volume 7.4 Neutrophils (%) (Auto) 82.0 Lymphocytes (%) (Auto) 7.0 Monocytes (%) (Auto) 10.7 Eosinophils (%) (Auto) 0.1 Basophils (%) (Auto) 0.2 Neutrophils # (Auto) 16.1 Lymphocytes # (Auto) 1.4 Monocytes # (Auto) 2.1 Eosinophils # (Auto) 0.0 Basophils # (Auto) 0.0 CBC Comment AUTO DIFF Differential Total Cells 100 Counted Neutrophils % (Manual) 50 Band Neutrophils % 16 Lymphocytes % 16 Monocytes % 13 Eosinophils % 1 Neutrophils # (Manual) 13.7 Metamyelocytes 1 Myelocytes 3 Differential Comment FINAL DIFF MANUAL Platelet Estimate HIGH Platelet Morphology Comment NORMAL Sodium Level 140 Potassium Level 3.1 Chloride Level 108 Carbon Dioxide Level 22.3 Anion Gap 10 Blood Urea Nitrogen 3 Creatinine 0.32 Estimat Glomerular Filtration 269 Rate Random Glucose 85 Calcium Level 7.6 Imaging Last Impressions Abdomen/Pelvis CT 04/17/16 0000 Signed Impressions: Service Date/Time: April 01:10 - CONCLUSION: 1. No abscess or free air. 2. Diffuse inflammatory process involving the entire colon is unchanged. 3. Slight increase in volume of ascites. 4. Unchanged bilateral pleural effusions and bibasilar atelectasis/infiltrates. 5. Anasarca 6. Enlarged fibroid uterus Jordan Up Jr., MD Abdomen X-Ray 04/17/16 0000 Signed Impressions: Service Date/Time: Sunday, April 17, 2016 13:29 - CONCLUSION: 1. Mild ileus. Findings similar to April 10. No free air. No evidence for obstruction. Thumbprinting and mucosal thickening suspected in the colon. Bruce Baez MD Chest X-Ray 04/11/16 0000 Signed Impressions: Service Date/Time: March 11:22 - CONCLUSION: 1. There has been an increase in the interstitial markings bilaterally which can be seen with either pulmonary edema versus pneumonia. 2. NG tube in the stomach. Rashad Coronel MD Physical Exam HEENT: Normocephalic; atraumatic; no jaundice. CHEST: Resp. shallow/even, diminished throughout CARDIAC: RRR ABDOMEN: Soft, distended, although improved from yesterday, diffuse tenderness , mild- much improved from yesterday; no hepatosplenomegaly; bowel sounds are present in all four quadrants. EXTREMITIES: Generalized edema. SKIN: Normal; no rash; no jaundice. PAPER SORTER: Lethargic. (Tara Dean) Assessment and Plan Plan ASSESSMENT: - CDiff Colitis. Pt recently hospitalized at [facility] for CDiff and was treated with oral vanco, vanco enema. She was evaluated with colonoscopy (03/15/16) and this revealed C. Difficile colitis. Pathology revealed mild acute colitis. She was discharged on 04/05/16 on Oral Vancomycin. She returned to the ER on 04/10 with fever, tachycardia, seizures, and diarrhea and was admitted for sepsis and persistent CDiff colitis.Abdomen/Pelvis CT (04/12/16)-----> 1. No evidence of abdominal or pelvic abscess. 2. Diffuse inflammatory changes of the entire colon from the cecum to the rectum characteristic of diffuse colitis. 3. Bibasilar atelectasis with small bilateral effusions. 4. Small amount of ascites in the abdomen and pelvis, insufficient for drainage. 5. Diffuse edema throughout the body wall characteristics of anasarca. 6. Large bulky fibroid uterus. ID is following, on flagyl, oral vanco. Pt had worsening distention, abdominal pain, and leukocytosis and had worrisome exam with moderate to severe distention, with moderate to severe tenderness yesterday. GS consulted. Abdomen X-Ray (04/17/16)----> 1. Mild ileus. Findings similar to April 10. No free air. No evidence for obstruction. Thumbprinting and mucosal thickening suspected in the colon. Abdomen/Pelvis CT (04/17/16)----> 1. No abscess or free air. 2. Diffuse inflammatory process involving the entire colon is unchanged. 3. Slight increase in volume of ascites. 4. Unchanged bilateral pleural effusions and bibasilar atelectasis/infiltrates. 5. Anasarca 6. Enlarged fibroid uterus. S/P GS evaluation, going to OR for exploratory laparotomy, possible ostomy, possible bowel resection. NGT to LIWS, not much drainage. Clinically , not as distended or tender today. No bm per nurse. WBC 19.6. Flagyl, Oral Vanco. . - Sepsis/leukocytosis/lactic acidosis secondary to above. ID following. - Dehydration, electrolyte abnormalities. Per primary - Sz d/o, per primary PLAN: - NPO - NGT to LIWS - Cont. Flagyl, Oral Vanco - GS following - Monitor labs - Supportive care - Further recommendations to follow based on results of above - Pt seen and examined by Dr. Giron and myself and this note is written on his behalf (Tara Dean) Physician Comments Patient was seen and examined, agree with above note and plan, D/W surgery, may need colectomy if no improvement. (Ignacio Giron MD) Tara Dean Apr 18, 2016 14:16 Ignacio Giron MD Apr 18, 2016 20:24
[2016-04-19] VITALS (7 sets, daily range): BP systolic 111–115; BP diastolic 64–74; PULSE 89–101; RESP 20; TEMP 96.3–97.6; O2SAT 96–100
[2016-04-19] MEDS: VALPROATE INJ 750 MG in SODIUM CHLORIDE 0.9% INJ 100 ML IV SCH ×3 (00:40→21:00)
[2016-04-19] MEDS: VANCOMYCIN 500 MG VIAL (FOR ORAL USE ONLY) PO SCH ×4 (00:44→18:00)
[2016-04-19] MEDS: metroNIDAZOLE 500 MG INJ 100 ML IV SCH ×4 (06:28→20:45)
[2016-04-19] MEDS: POTASSIUM CHLORIDE INJ 30 MEQ in DEXT 5%-NACL 0.9% 1000 ML INJ 1,000 ML IV SCH (06:31)
[2016-04-19] MEDS: carBAMazepine 200 MG TAB PO SCH (06:31)
--- NOTE | 2016-04-19 08:38 | HHI.PR ---
Subjective Remarks Objective Vital Signs Date Time Temp Pulse Resp B/P Pulse Ox O2 Delivery O2 Flow Rate FiO2 04/19/16 04:00 97.6 100 20 114/64 100 04/19/16 00:00 96.3 89 20 115/74 98 04/18/16 20:00 96.8 96 20 119/76 99 04/18/16 18:00 97 04/18/16 14:00 95.4 100 16 118/65 95 04/18/16 12:00 96.5 96 17 116/70 97 I/O 04/18/16 04/18/16 04/18/16 04/19/16 04/19/16 04/19/16 07:00 15:00 23:00 07:00 15:00 23:00 Intake Total 0 ml Output Total 300 ml 700 ml 600 ml Balance -300 ml -700 ml -600 ml Intake Oral 0 ml Output Urine Total 300 ml 700 ml 600 ml # Bowel Movements 2 3 2 Result Diagram: 04/18/16 0728 04/18/1628 Objective Remarks awake follows commands voice strong Assessment and Plan Assessment and Plan imp on vimpat primidone 18 vpa 53 and cbz 8.7 cbz 8.7 on300 tid last eeg looked really good just a few d/c will work on it doing well change to po when able c diff oob please to chair Narendra Bob MD Apr 19, 2016 08:37
[2016-04-19] MEDS: levETIRAcetam 1000 MG INJ 100 ML IV SCH ×2 (09:00→21:00)
[2016-04-19] MEDS: LACTOBACILLUS ACIDOPHILUS TAB PO SCH ×2 (09:00→12:35)
[2016-04-19] MEDS: SODIUM CHLORIDE 0.9% FLUSH 5 ML FLUSH FLUSH SCH (09:00)
[2016-04-19] MEDS: CHOLESTYRAMINE 4 GM PACKET PO SCH ×2 (09:00→12:35)
[2016-04-19] MEDS: PRIMIDONE 250 MG TAB PO SCH ×2 (09:00→12:35)
[2016-04-19 10:02] LABS: BICARBONATE 22.5 MEQ/L (21.0-32.0); POTASSIUM 3.1 MEQ/L (3.5-5.1)
[2016-04-19 10:25] LABS: AUTOMATED NEUTROPHIL # 17.9 TH/MM3 (1.8-7.7); BASOPHIL # 0.1 TH/MM3 (0-0.2); BASOPHIL % 0.3 % (0.0-2.0); EOSINOPHIL # 0.1 TH/MM3 (0-0.4); EOSINOPHIL % 0.4 % (0.0-4.0); LYMPH % 7.1 % (9.0-44.0); LYMPHOCYTE # 1.5 TH/MM3 (1.0-4.8); MEAN CELL VOLUME 83.8 FL (80.0-100.0); MEAN CORPUSCULAR HEMOGLOBIN 27.7 PG (27.0-34.0); MEAN CORPUSCULAR HGB CONC 33.1 % (32.0-36.0); MONO % 8.3 % (0.0-8.0); NEUT % 83.9 % (16.0-70.0); PLATELET COUNT 516 TH/MM3 (150-450); RED BLOOD COUNT 3.46 MIL/MM3 (4.00-5.30); RED CELL DISTRIBUTION WIDTH 18.5 % (11.6-17.2); WHITE BLOOD COUNT 21.4 TH/MM3 (4.0-11.0)
[2016-04-19 10:26] LABS: HEMO FLAGS AUTO DIFF
[2016-04-19] MEDS: NACL 0.9% IV SCH (10:49)
[2016-04-19] MEDS: POTASSIUM CHLORIDE IV SCH (10:49)
[2016-04-19] MEDS: DEXT 5% IV SCH (10:49)
[2016-04-19] MEDS: LACOSAMIDE INJ 100 MG in SODIUM CHLORIDE 0.9% INJ 100 ML IV SCH ×2 (10:52→21:00)
--- NOTE | 2016-04-19 10:55 | HHI.FPPN ---
Subjective Remarks more alert NGT OUT AGITATED WHEN EXAMINED "LEAVE ME ALONE" D/W RN Objective Vitals Vital Signs Date Time Temp Pulse Resp B/P Pulse Ox O2 Delivery O2 Flow Rate FiO2 04/19/16 08:39 96.6 101 20 113/71 96 04/19/16 04:00 97.6 100 20 114/64 100 04/19/16 00:00 96.3 89 20 115/74 98 04/18/16 20:00 96.8 96 20 119/76 99 04/18/16 18:00 97 04/18/16 14:00 95.4 100 16 118/65 95 04/18/16 12:00 96.5 96 17 116/70 97 I/O 04/18/16 04/18/16 04/18/16 04/19/16 04/19/16 04/19/16 07:00 15:00 23:00 07:00 15:00 23:00 Intake Total 0 ml Output Total 300 ml 700 ml 600 ml Balance -300 ml -700 ml -600 ml Intake Oral 0 ml Output Urine Total 300 ml 700 ml 600 ml # Bowel Movements 2 3 2 Result Diagram: 04/19/1692904/19/1630 Objective Remarks GENERAL: SKIN: Warm and dry. HEAD: Atraumatic. Normocephalic. EYES: cloudy, blind ENT: No nasal bleeding or discharge. Mucous membranes pink and moist. NGT CLAMPED NECK: Trachea midline. No JVD. CARDIOVASCULAR: Regular rate and rhythm. RESPIRATORY: No accessory muscle use. Clear to auscultation. Breath sounds equal bilaterally. GASTROINTESTINAL: Abdomen soft, tender. mod distended. Hepatic and splenic margins not palpable. MUSCULOSKELETAL: Extremities without clubbing, cyanosis, or edema. No obvious deformities. NEUROLOGICAL: Awake and alert. No obvious cranial nerve deficits. Motor grossly within normal limits. 1 out of 5 muscle strength in the arms and legs. PSYCHIATRIC: lethargic Medications and IVs Current Medications Medications (Trade) Dose Ordered Sig/Rebeca Route Start Time Stop Time Status Last Admin (NS Flush) 2 ml UNSCH PRN FLUSH 04/10/16 12:30 04/10/16 15:19 (NS Flush) 2 ml BID FLUSH 04/10/16 21:00 04/18/16 21:08 (Tylenol) 650 mg Q4H PRN PO 04/10/16 12:30 04/16/16 04:33 (Zofran Inj) 4 mg Q6H PRN IVP 04/10/16 12:30 04/12/16 12:23 (Compazine Supp) 25 mg Q12H PRN W[place] 04/10/16 12:30 (Heparin Inj) 5,000 units Q12H SQ 04/10/16 13:00 Hold 04/18/16 01:00 (Narcan Inj) 0.4 mg UNSCH PRN IV 04/10/16 12:30 (Dulcolax Supp) 10 mg DAILY PRN W[place] 04/10/16 12:45 (Questran 4 Gm Pkt) 4 gm TID PO 04/10/16 13:00 04/17/16 18:00 (Lactinex) 1 tab TID PO 04/10/16 13:00 04/17/16 18:00 (Ativan) 0.5 mg Q6H PRN PO 04/10/16 12:45 (Citroma Liq) 300 ml DAILY PRN PO 04/10/16 12:45 (Milk Of Magnesia Liq) 30 ml HS PRN PO 04/10/16 12:45 Primidone 250 mg 250 mg TID PO 04/10/16 13:00 04/18/16 18:08 (Flagyl 500 Mg Inj) 100 ml @ 100 mls/hr Q8H IV 04/10/16 20:00 04/19/16 06:28 Lorazepam 1 mg 1 mg Q4HR PRN IV PUSH 04/10/16 12:45 Levetriacetam 100 ml @ 400 mls/hr Q12HR IV 04/10/16 21:00 04/18/16 21:04 Valproate Sodium 750 mg/Sodium Chloride 107.5 ml @ 105 mls/hr Q6HR IV 04/10/16 18:00 04/19/16 06:27 (Vimpat Inj/NS Inj) 110 ml @ 110 mls/hr Q12HR IV 04/10/16 21:00 04/18/16 21:05 Miscellaneous Information Patient in critical care unit? Ass... Q361D XX 04/10/16 20:45 (TEGretol) 300 mg Q8HR PO 04/12/16 14:00 04/19/16 06:31 Vancomycin HCl 500 mg 500 mg Q6HR PO 04/15/16 18:00 04/19/16 06:31 Potassium Chloride 30 meq/ Dextrose/Sodium Chloride 1,015 ml @ 30 mls/hr Q24H IV 04/17/16 13:00 04/19/16 06:31 (Lr 1000 ml Inj) 1,000 ml @ 30 mls/hr Q24H IV 04/18/16 10:00 A/P Assessment and Plan SEVERE SEPSIS LACTIC ACIDOSIS C DIF. COLITIS ON CT ABDOMEN. ILEUS DEHYDRATION HYPOKALEMIA SZ'S, INTRACTABLE UTI, LIKELY CONTAMINANT ON UA SBO RECENTLY ASPIRATION PNA UTERINE FIBROIDS TEGRETOL TOXICITY ARF, PRERENAL MR JAMIE HYPOKALEMIA HYPOMAGNESEMIA HYPOCALCEMIA HYPERAMMONEMIA PLAN: MAY HAVE COLECTOMY AND RESECTION TODAY. replace Ca and K IVF IV ABX STOOL CULTURES ATIVAN PRN GI CONSULT FOR INTRACTABLE C DIF, INCR ABDOM PAIN ID CONSULT NEURO CONSULT. SURGERY CONSULT CCM SIGNED OFF. ICU CARE. SEE ORDERS FOR MED AND LABS CHANGES. Romie Pelayo MD Apr 19, 2016 10:55
[2016-04-19] MEDS ORDERED: POTASSIUM CHLOR 40 MEQ PREMIX 100 ML IV ONE (11:00)
--- NOTE | 2016-04-19 11:08 | HHI.GIFU ---
Subjective Remarks Resting in bed. No distress. Nurse reports that she pulled out NGT this am, but is going to OR at 1pm and they do plan on placing gastrostomy tube. Does not seem to be as tender on exam. + BM (Tara Dean) Objective Vitals I&O Vital Signs Date Time Temp Pulse Resp B/P Pulse Ox O2 Delivery O2 Flow Rate FiO2 04/19/16 08:39 96.6 101 20 113/71 96 04/19/16 04:00 97.6 100 20 114/64 100 04/19/16 00:00 96.3 89 20 115/74 98 04/18/16 20:00 96.8 96 20 119/76 99 04/18/16 18:00 97 04/18/16 14:00 95.4 100 16 118/65 95 04/18/16 12:00 96.5 96 17 116/70 97 I/O 04/18/16 04/18/16 04/18/16 04/19/16 04/19/16 04/19/16 07:00 15:00 23:00 07:00 15:00 23:00 Intake Total 0 ml Output Total 300 ml 700 ml 600 ml Balance -300 ml -700 ml -600 ml Intake Oral 0 ml Output Urine Total 300 ml 700 ml 600 ml # Bowel Movements 2 3 2 Laboratory Laboratory Tests Test 04/18/16 04/19/16 13:50 09:30 Blood Type A POSITIVE Antibody Screen NEGATIVE Blood Bank Comment White Blood Count 21.4 Red Blood Count 3.46 Hemoglobin 9.6 Hematocrit 29.0 Mean Corpuscular Volume 83.8 Mean Corpuscular Hemoglobin 27.7 Mean Corpuscular Hemoglobin 33.1 Concent Red Cell Distribution Width 18.5 Platelet Count 516 Mean Platelet Volume 8.0 Neutrophils (%) (Auto) 83.9 Lymphocytes (%) (Auto) 7.1 Monocytes (%) (Auto) 8.3 Eosinophils (%) (Auto) 0.4 Basophils (%) (Auto) 0.3 Neutrophils # (Auto) 17.9 Lymphocytes # (Auto) 1.5 Monocytes # (Auto) 1.8 Eosinophils # (Auto) 0.1 Basophils # (Auto) 0.1 CBC Comment AUTO DIFF Hematology Comments Sodium Level 143 Potassium Level 3.1 Chloride Level 109 Carbon Dioxide Level 22.5 Anion Gap 12 Blood Urea Nitrogen 3 Creatinine 0.19 Estimat Glomerular Filtration 491 Rate Random Glucose 82 Calcium Level 6.9 Protein Corrected Calcium 8.0 Total Protein 5.0 Imaging Last Impressions Abdomen/Pelvis CT 04/17/16 0000 Signed Impressions: Service Date/Time: April 01:10 - CONCLUSION: 1. No abscess or free air. 2. Diffuse inflammatory process involving the entire colon is unchanged. 3. Slight increase in volume of ascites. 4. Unchanged bilateral pleural effusions and bibasilar atelectasis/infiltrates. 5. Anasarca 6. Enlarged fibroid uterus Jordan Up Jr., MD Abdomen X-Ray 04/17/16 0000 Signed Impressions: Service Date/Time: Sunday, April 17, 2016 13:29 - CONCLUSION: 1. Mild ileus. Findings similar to April 10. No free air. No evidence for obstruction. Thumbprinting and mucosal thickening suspected in the colon. Bruce Baez MD Chest X-Ray 04/11/16 0000 Signed Impressions: Service Date/Time: March 11:22 - CONCLUSION: 1. There has been an increase in the interstitial markings bilaterally which can be seen with either pulmonary edema versus pneumonia. 2. NG tube in the stomach. Rashad Coronel MD Physical Exam HEENT: Normocephalic; atraumatic; no jaundice. CHEST: Resp. shallow/even, diminished throughout CARDIAC: RRR ABDOMEN: Soft, distended, although improved from yesterday, mild diffuse tenderness,improved; no hepatosplenomegaly; bowel sounds are present in all four quadrants. EXTREMITIES: Generalized edema. SKIN: Normal; no rash; no jaundice. APPLICATION SPECIALIST: Lethargic. (Tara Dean [facility]) Assessment and Plan Plan ASSESSMENT: - CDiff Colitis. Pt recently hospitalized at [facility] for CDiff and was treated with oral vanco, vanco enema. She was evaluated with colonoscopy (03/15/16) and this revealed C. Difficile colitis. Pathology revealed mild acute colitis. She was discharged on 04/05/16 on Oral Vancomycin. She returned to the ER on 04/10 with fever, tachycardia, seizures, and diarrhea and was admitted for sepsis and persistent CDiff colitis.Abdomen/Pelvis CT (04/12/16)-----> 1. No evidence of abdominal or pelvic abscess. 2. Diffuse inflammatory changes of the entire colon from the cecum to the rectum characteristic of diffuse colitis. 3. Bibasilar atelectasis with small bilateral effusions. 4. Small amount of ascites in the abdomen and pelvis, insufficient for drainage. 5. Diffuse edema throughout the body wall characteristics of anasarca. 6. Large bulky fibroid uterus. ID is following, on flagyl, oral vanco. Pt had worsening distention, abdominal pain, and leukocytosis and had worrisome exam with moderate to severe distention, with moderate to severe tenderness yesterday. GS consulted. Abdomen X-Ray (04/17/16)----> 1. Mild ileus. Findings similar to April 10. No free air. No evidence for obstruction. Thumbprinting and mucosal thickening suspected in the colon. Abdomen/Pelvis CT (04/17/16)----> 1. No abscess or free air. 2. Diffuse inflammatory process involving the entire colon is unchanged. 3. Slight increase in volume of ascites. 4. Unchanged bilateral pleural effusions and bibasilar atelectasis/infiltrates. 5. Anasarca 6. Enlarged fibroid uterus. S/P GS evaluation, going to OR for exploratory laparotomy, possible ostomy, possible bowel resection, gastrostomy tube placement today at 1pm. NGT came out this am. Small bm. Distended, not quite as tender on exam. WBC 21.4. Flagyl, Oral Vanco. . - Sepsis/leukocytosis/lactic acidosis secondary to above. ID following. - Dehydration, electrolyte abnormalities. Per primary - Sz d/o, per primary PLAN: - NPO - Cont. Flagyl, Oral Vanco - GS following- going to OR at 1pm - Monitor labs - Supportive care - Further recommendations to follow based on results of above - Pt seen and examined by Dr. Giron and myself and this note is written on his behalf (Tara Dean) Physician Comments Patient was seen and examined, agree with above note and plan, we will sign off since she is getting surgery. (Ignacio Giron MD) Tara Dean Apr 19, 2016 11:08 Ignacio Giron MD Apr 20, 2016 07:28
[2016-04-19 11:15] LABS: BANDS 5 % (0-6); METAMYELOCYTES 2 % (0-1); MYELOCYTES 3 % (0-0); NEUTROPHIL # MANUAL DIFF 18.8 TH/MM3 (1.8-7.7); PLATELET ESTIMATE SMEAR HIGH (NORMAL); PLATELET MORPHOLOGY CLUMPED (NORMAL); POLYS (SEG NEUTROPHILS) 78 % (16-70); SCAN/DIFF FINAL DIFF MANUAL; WBC DIFF SAMPLE 100
[2016-04-19 11:17] LABS: TOXIC GRANULATION 2+ (NORMAL)
[2016-04-19] MEDS ORDERED: PROPOFOL 200 MG/20 ML AMP IV ONE (12:00)
[2016-04-19] MEDS ORDERED: POTASSIUM CHLOR 20 MEQ PREMIX 100 ML IV SCH (12:00)
[2016-04-19] MEDS ORDERED: LACTATED RINGER'S 1000 ML INJ 2,000 ML IV ONE (12:00)
[2016-04-19] MEDS ORDERED: SODIUM CHLORID 0.9% 500 ML INJ 500 ML IV ONE (12:00)
[2016-04-19] MEDS ORDERED: PHENYLEPHRINE HCL 10 MG/ML VIAL IV ONE (12:00)
[2016-04-19] MEDS ORDERED: NORMOSOL R INJ 1,000 ML IV ONE (12:00)
[2016-04-19] MEDS ORDERED: ONDANSETRON HCL 4 MG/2 ML VIAL IV PUSH ONE (12:00)
[2016-04-19] MEDS ORDERED: CALCIUM GLUCONATE INJ 1 GM in SODIUM CHLORIDE 0.9% INJ 100 ML IV ONE (12:00)
[2016-04-19] MEDS ORDERED: SODIUM CHLOR 0.9% 250 ML INJ 250 ML IV ONE (12:00)
--- NOTE | 2016-04-19 12:18 | HHI.IDPN ---
Subjective Subjective Remarks ID COVERAGE Notes reviewed D/W RN Temps ok Still with frequent BM OR today by general surgery More awake today is a 45 y/o AAF with PMHx of mental delay, blindness, seizures, fibroid cyst for a long time (x20 years) who was brought in by her niece. Patient has prior known history of mental retardation and blindness. Patient was recently seen by me earlier this month at [facility]. During that admission patient had Small bowel obstruction from mechanical obstruction from uterine mass. She also diarrhea with severe colitis and Cdiff PCR positive. She underwent treatment with Oral Vanco, Vanco enema, Difficid during that admission. She continued to improve and now is readmitted due to uncontrolled seizures and new vs ongoing sepsis related to Cdiff. She was s/b GI during last admission and had Colonoscopy positive for pseudomembranes. Antibiotics Vanco oral Flagyl IV Lines Lines with no infection. Past Medical History reviewed Allergies: Coded Allergies: No Known Allergies (Unverified , 04/10/16) Objective . Vital Signs Date Time Temp Pulse Resp B/P Pulse Ox O2 Delivery O2 Flow Rate FiO2 04/19/16 08:39 96.6 101 20 113/71 96 04/19/16 04:00 97.6 100 20 114/64 100 04/19/16 00:00 96.3 89 20 115/74 98 04/18/16 20:00 96.8 96 20 119/76 99 04/18/16 18:00 97 04/18/16 14:00 95.4 100 16 118/65 95 04/18/16 04/18/16 04/19/16 15:00 23:00 07:00 Output Total 700 ml 600 ml Balance -700 ml -600 ml Output Urine Total 700 ml 600 ml # Bowel Movements 3 2 . Laboratory Tests Test 04/18/16 04/19/16 07:28 09:30 White Blood Count 19.6 TH/MM3 21.4 TH/MM3 Red Blood Count 3.60 MIL/MM3 3.46 MIL/MM3 Hemoglobin 10.0 GM/DL 9.6 GM/DL Hematocrit 32.3 % 29.0 % Mean Corpuscular Volume 89.6 FL 83.8 FL Mean Corpuscular Hemoglobin 27.7 PG 27.7 PG Mean Corpuscular Hemoglobin 30.9 % 33.1 % Concent Red Cell Distribution Width 19.1 % 18.5 % Platelet Count 581 TH/MM3 516 TH/MM3 Mean Platelet Volume 7.4 FL 8.0 FL Neutrophils (%) (Auto) 82.0 % 83.9 % Lymphocytes (%) (Auto) 7.0 % 7.1 % Monocytes (%) (Auto) 10.7 % 8.3 % Eosinophils (%) (Auto) 0.1 % 0.4 % Basophils (%) (Auto) 0.2 % 0.3 % Neutrophils # (Auto) 16.1 TH/MM3 17.9 TH/MM3 Lymphocytes # (Auto) 1.4 TH/MM3 1.5 TH/MM3 Monocytes # (Auto) 2.1 TH/MM3 1.8 TH/MM3 Eosinophils # (Auto) 0.0 TH/MM3 0.1 TH/MM3 Basophils # (Auto) 0.0 TH/MM3 0.1 TH/MM3 CBC Comment AUTO DIFF AUTO DIFF Differential Total Cells 100 100 Counted Neutrophils % (Manual) 50 % 78 % Band Neutrophils % 16 % 5 % Lymphocytes % 16 % 8 % Monocytes % 13 % 4 % Eosinophils % 1 % Neutrophils # (Manual) 13.7 TH/MM3 18.8 TH/MM3 Metamyelocytes 1 % 2 % Myelocytes 3 % 3 % Differential Comment FINAL DIFF FINAL DIFF MANUAL MANUAL Platelet Estimate HIGH HIGH Platelet Morphology Comment NORMAL CLUMPED Toxic Granulation 2+ Hematology Comments Laboratory Tests Test 04/17/16 04/18/16 04/19/16 16:36 07:28 09:30 Lactic Acid Level 1.1 mmol/L Sodium Level 140 MEQ/L 143 MEQ/L Potassium Level 3.1 MEQ/L 3.1 MEQ/L Chloride Level 108 MEQ/L 109 MEQ/L Carbon Dioxide Level 22.3 MEQ/L 22.5 MEQ/L Anion Gap 10 MEQ/L 12 MEQ/L Blood Urea Nitrogen 3 MG/DL 3 MG/DL Creatinine 0.32 MG/DL 0.19 MG/DL Estimat Glomerular Filtration 269 ML/MIN 491 ML/MIN Rate Random Glucose 85 MG/DL 82 MG/DL Calcium Level 7.6 MG/DL 6.9 MG/DL Protein Corrected Calcium 8.0 MG/DL Total Protein 5.0 GM/DL Imaging Last Impressions Chest X-Ray 04/10/16 1045 Signed Impressions: Service Date/Time: Sunday, April 10, 2016 12:47 - CONCLUSION: Coarsened bronchovascular markings retrocardiac region consistent with minimal or early left lower lobe posterior basilar segment infiltrate Ulysses Cardenas MD Abdomen X-Ray 04/10/16 0000 Signed Impressions: Service Date/Time: Sunday, April 10, 2016 16:37 - CONCLUSION: Surgery stable abdomen. Large pelvic mass displacing bowel into the mid and upper abdomen without evidence of obstruction Ulysses Cardenas MD Physical Exam GENERAL: Awake, and alert today, weak, not in resp distress SKIN: No rashes, ecchymoses or lesions. Cool and dry. HEENT: [place] conjunctiva. No scleral icterus. No injection or drainage. Slightly dry oral mucosa. NECK: Trachea midline. Supple, nontender, no meningeal signs. CARDIOVASCULAR: HS audible. RESPIRATORY: Clear to auscultation. Breath sounds equal bilaterally. GASTROINTESTINAL: Abdomen seems less distended, still has diffuse tenderness. MUSCULOSKELETAL: Extremities without edema. No calf tenderness. NEUROLOGICAL: Lethargic. Psych: cooperative IV line sites with no e/o infection. Assessment & Plan Remarks Severe Sepsis, due to C diff C diff Colitis. - increasing abdominal pain Leukocytosis, persistent Uterine fibroids large. Last admission had mechanical obstruction and ileus. Pneumonia likely aspiration PNA. Acute metabolic encephalopathy: seizures, sepsis. Acute renal failure: sepsis, prerenal. - resolved Recs Continue Flagyl IV Continue Vanco oral Monitor progress OR today - possible bowel resection and placement of feeding tube D/W RN Dr Arriaga covering this weekend if neede Sheila Rowland MD Apr 19, 2016 12:18
[2016-04-19] MEDS ORDERED: VANCOMYCIN HCL 1000 MG VIAL ONE (12:23)
[2016-04-19] MEDS ORDERED: BUPIVACAINE/EPINEPHRINE 0.25% PF 30 ML VIAL ONE (12:24)
--- NOTE | 2016-04-19 12:56 | HHI.PR ---
Subjective Subjective Notes remains in bed groaning, WBC 21k Objective Vitals/I&O Vital Signs Date Time Temp Pulse Resp B/P Pulse Ox O2 Delivery O2 Flow Rate FiO2 04/19/16 08:39 96.6 101 20 113/71 96 04/16/16 20:01 21 Labs Laboratory Tests Test 04/18/16 04/19/16 13:50 09:30 Blood Type A POSITIVE Antibody Screen NEGATIVE Blood Bank Comment White Blood Count 21.4 Red Blood Count 3.46 Hemoglobin 9.6 Hematocrit 29.0 Mean Corpuscular Volume 83.8 Mean Corpuscular Hemoglobin 27.7 Mean Corpuscular Hemoglobin 33.1 Concent Red Cell Distribution Width 18.5 Platelet Count 516 Mean Platelet Volume 8.0 Neutrophils (%) (Auto) 83.9 Lymphocytes (%) (Auto) 7.1 Monocytes (%) (Auto) 8.3 Eosinophils (%) (Auto) 0.4 Basophils (%) (Auto) 0.3 Neutrophils # (Auto) 17.9 Lymphocytes # (Auto) 1.5 Monocytes # (Auto) 1.8 Eosinophils # (Auto) 0.1 Basophils # (Auto) 0.1 CBC Comment AUTO DIFF Differential Total Cells 100 Counted Neutrophils % (Manual) 78 Band Neutrophils % 5 Lymphocytes % 8 Monocytes % 4 Neutrophils # (Manual) 18.8 Metamyelocytes 2 Myelocytes 3 Differential Comment FINAL DIFF MANUAL Toxic Granulation 2+ Platelet Estimate HIGH Platelet Morphology Comment CLUMPED Hematology Comments Sodium Level 143 Potassium Level 3.1 Chloride Level 109 Carbon Dioxide Level 22.5 Anion Gap 12 Blood Urea Nitrogen 3 Creatinine 0.19 Estimat Glomerular Filtration 491 Rate Random Glucose 82 Calcium Level 6.9 Protein Corrected Calcium 8.0 Total Protein 5.0 Cardiovascular: Regular Lungs: Other (bilateral expansion) Abdomen: Other (distended, +ttp, rebound) A/P Assessment and Plan chronic c. diff failed medical management PLAN OR today for exploration npo hold heparin abx Jeremiah Lozada MD Apr 19, 2016 12:56
[2016-04-19] MEDS ORDERED: KETAMINE HCL 500 MG/5 ML VIAL ONE (13:56)
[2016-04-19] MEDS ORDERED: ALBUMIN HUMAN 5% 12.5 GM/250 ML BOTTLE IV ONE ×2 (14:55→17:04)
[2016-04-19 15:01] LABS: BLOOD GAS BASE EXCESS -3.3 mmol/L (-2-2); BLOOD GAS CARBOXYHEMOGLOBIN 2.1 % (0-4); BLOOD GAS HCO3 21 mmol/L (22-26); BLOOD GAS METHEMOGLOBIN 1.2 % (0-2); BLOOD GAS O2 HGB SATURATION 96 % (90-100); BLOOD GAS OXYGEN CONTENT 12.3 Vol % (12.0-20.0); BLOOD GAS PCO2 33 mmHg (38-42); BLOOD GAS PO2 153 mmHg (61-120); BLOOD GAS TOTAL HGB 8.8 G/DL (12.0-16.0); CRITICAL VALUE NO; FIO2 50 %; OXYGEN DEVICE OR; TEMP CORR TO 98.6
[2016-04-19] MEDS ORDERED: PROPOFOL 1000 MG/100 ML INJ 100 ML ONE (16:55)
[2016-04-19] MEDS ORDERED: ACETAMINOPHEN 1000 MG/100 ML VIAL IV ONE (16:58)
[2016-04-19] MEDS ORDERED: PHENYLEPHRINE HCL 10 MG/ML VIAL ONE (17:08)
--- NOTE | 2016-04-19 17:14 | HHI.PR ---
Immediate Post Op Note Procedure Date: Apr 19, 2016 Pre Op Diagnosis: medical refractory c.diff Post Op Diagnosis: same Surgeon: Jeremiah Lozada MD Marketing Professional(s): Dr. Godwin due to the complexity of the laparoscopic case Dr. Godwin was needed to assist with retraction and camera control Procedure: dx lap, lap g tube, lap pericentesis, lap diverting ileostomy with mucus fistula , vanc irrigation of colon Findings: ascities, viable distended colon Complications: none Specimen(s) removed: none Estimated blood loss: 40cc Anesthesia: General Drains: REBEL (pelvic 10F) IVF (2500) Patient to: PACU Patient Condition: Jeremiah Desai MD Apr 19, 2016 17:14
[2016-04-19] MEDS ORDERED: fentaNYL CITRATE 250 MCG/5 ML AMP ONE (17:19)
[2016-04-19] MEDS ORDERED: MIDAZOLAM HCL 2 MG/2 ML VIAL ONE (17:19)
[2016-04-19 18:15] LABS: AUTOMATED NEUTROPHIL # 16.5 TH/MM3 (1.8-7.7); BASOPHIL # 0.1 TH/MM3 (0-0.2); BASOPHIL % 0.4 % (0.0-2.0); EOSINOPHIL % 0.2 % (0.0-4.0); HEMATOCRIT 23.5 % (35.0-46.0); LYMPH % 4.4 % (9.0-44.0); LYMPHOCYTE # 0.8 TH/MM3 (1.0-4.8); MEAN CELL VOLUME 84.6 FL (80.0-100.0); MEAN CORPUSCULAR HEMOGLOBIN 27.9 PG (27.0-34.0); MONO % 6.5 % (0.0-8.0); NEUT % 88.5 % (16.0-70.0); PLATELET COUNT 577 TH/MM3 (150-450); RED BLOOD COUNT 2.78 MIL/MM3 (4.00-5.30); RED CELL DISTRIBUTION WIDTH 18.2 % (11.6-17.2); WHITE BLOOD COUNT 18.7 TH/MM3 (4.0-11.0)
[2016-04-19 18:20] LABS: HEMO FLAGS AUTO DIFF
[2016-04-19] MEDS ORDERED: DO NOT ADM ANY ANTICOAGULANT DRUGS XX PRN (18:30)
[2016-04-19 18:57] LABS: BLOOD GAS BASE EXCESS -5.2 mmol/L (-2-2); BLOOD GAS CARBOXYHEMOGLOBIN 1.6 % (0-4); BLOOD GAS HCO3 20 mmol/L (22-26); BLOOD GAS METHEMOGLOBIN 1.2 % (0-2); BLOOD GAS O2 HGB SATURATION 96 % (90-100); BLOOD GAS OXYGEN CONTENT 11.7 Vol % (12.0-20.0); BLOOD GAS PCO2 42 mmHg (38-42); BLOOD GAS PO2 130 mmHg (61-120); BLOOD GAS TOTAL HGB 8.5 G/DL (12.0-16.0); CRITICAL VALUE NO; DRAW SITE ART LINE; FIO2 50 %; OXYGEN DEVICE VENTILATOR; TEMP CORR TO 98.6; VENT SETTINGS A/C 10/450/+5
--- NOTE | 2016-04-19 19:09 | RADRPT ---
EXAM DATE/TIME: 04/19/2016 18:02 [facility] COMPARISON: CHEST SINGLE AP, April 11, 2016, 11:22. INDICATIONS : Central line placement and intubation. MEDICAL HISTORY : None. SURGICAL HISTORY : None. ENCOUNTER: Initial ACUITY: 1 day PAIN SCORE: Non-responsive. LOCATION: Bilateral chest FINDINGS: A single view of the chest demonstrates endotracheal tube in satisfactory position. Right central deacon e in superior vena cava. Cardiomegaly. Left greater than right airspace disease. Small left effusion. CONCLUSION: 1. Endotracheal tube and right central line in satisfactory position. No pneumothorax. Left greater t jack right airspace disease and pleural effusion. Bruce Baez MD on April 19, 2016 at 19:06 Board Certified Radiologist. This report was verified electronically.
[2016-04-19 19:11] LABS: APTT (PATIENT) 45.3 SEC (24.3-30.1); INTERNATIONAL NORMALIZED RATIO 3.3 RATIO; PROTHROMBIN TIME - PATIENT 38.4 SEC (9.8-11.6)
[2016-04-19 19:16] LABS: ANION GAP 12 MEQ/L (5-15); BICARBONATE 21.7 MEQ/L (21.0-32.0); BLOOD UREA NITROGEN 3 MG/DL (7-18); CHLORIDE 110 MEQ/L (98-107); GLOMERULAR FILTRATION RATE 645 ML/MIN (>89); SODIUM (NA) 144 MEQ/L (136-145)
[2016-04-19 19:22] LABS: BANDS 7 % (0-6); CORRECTED NUCLEATED RBC 1 /100 WBC (0-0); METAMYELOCYTES 4 % (0-1); MYELOCYTES 5 % (0-0); NEUTROPHIL # MANUAL DIFF 17.4 TH/MM3 (1.8-7.7); OVALOCYTES 1+ (NORMAL); POLYS (SEG NEUTROPHILS) 77 % (16-70); WBC DIFF SAMPLE 100
[2016-04-19 19:23] LABS: KERATOCYTES 1+ (NORMAL); PLATELET ESTIMATE SMEAR HIGH (NORMAL); PLATELET MORPHOLOGY NORMAL (NORMAL); SCAN/DIFF FINAL DIFF MANUAL; STOMATOCYTES 1+ (NORMAL)
[2016-04-19 19:38] LABS: CALCIUM-PROTEIN CORRECTED 8.1 MG/DL (8.5-10.1)
[2016-04-19 19:40] LABS: POTASSIUM 2.4 MEQ/L (3.5-5.1)
[2016-04-19] MEDS ORDERED: POTASSIUM PHOSPHATE MONOBASIC 500 MG TAB PO/TUBE PRN (19:45)
[2016-04-19] MEDS ORDERED: POTASSIUM CHLOR 20 MEQ PREMIX 100 ML IV PRN ×2 (19:45)
[2016-04-19] MEDS ORDERED: MAGNESIUM OXIDE 400 MG TAB PO PRN (19:45)
[2016-04-19] MEDS ORDERED: POTASSIUM PHOSPHATE INJ 30 MMOL in SODIUM CHLOR 0.9% 250 ML INJ 250 ML IV PRN (19:45)
[2016-04-19] MEDS ORDERED: CHLORHEXIDINE GLUCONATE 2 % 1 PACK (2 CLOTHS) TOP PRN (19:45)
[2016-04-19] MEDS ORDERED: MAGNESIUM SULFATE INJ 2 GM in SODIUM CHLORIDE 0.9% INJ 96 ML IV PRN (19:45)
[2016-04-19] MEDS ORDERED: POTASSIUM PHOSPHATE MONOBASIC 500 MG TAB PO PRN (19:45)
[2016-04-19] MEDS ORDERED: SODIUM CHLORIDE 0.9% FLUSH 5 ML FLUSH IV FLUSH PRN (19:45)
[2016-04-19] MEDS ORDERED: MISCELLANEOUS NURSING INFORMATION XX SCH (19:45)
[2016-04-19] MEDS ORDERED: POTASSIUM CL 40 MEQ/30 ML LIQ UDC PO/TUBE PRN ×2 (19:45)
[2016-04-19] MEDS ORDERED: SODIUM PHOSPHATE INJ 30 MMOL in SODIUM CHLOR 0.9% 250 ML INJ 240 ML IV PRN (19:45)
[2016-04-19] MEDS ORDERED: POTASSIUM CHLOR 40 MEQ PREMIX 100 ML ONE (19:47)
[2016-04-19] MEDS ORDERED: RESP: ALBUTEROL 2.5 MG/IPRATROPIUM 0.5 MG NEB (PRN) INH (20:00)
[2016-04-19] MEDS: NS + KCL 20 MEQ INJ 1,000 ML IV SCH (20:00)
[2016-04-19] MEDS: POTASSIUM CHLOR 40 MEQ PREMIX 100 ML IV PRN ×2 (20:00→21:53)
[2016-04-19] MEDS: RESP: ALBUTEROL 2.5 MG/IPRATROPIUM 0.5 MG NEB (SCH) INH (22:20)
[2016-04-20] MEDS ORDERED: VALPROATE INJ 750 MG in SODIUM CHLORIDE 0.9% INJ 100 ML IV SCH ×2
[2016-04-20] MEDS ORDERED: *morphine SULFATE 8 MG/ML PERIprocedure ONLY ONE ×3 (01:41→07:18)
--- NOTE | 2016-04-20 02:04 | PD.CONS ---
HPI Service Critical Care Medicine Consult Requested By Reason for Consult Ventilator dependency Primary Care Physician Unknown History of Present Illness 45y AA female with history of mental delay, blindness, seizure d/o, and recent hospitalization for C. difficile colitis presents from SNF with diarrhea and two day history of seizures. Pt was recently hospitalized at [place] for treatment C. diff colitis, dehydration, JAMIE, and seizures. Discharged to SNF with vancomycin 125mg PO x4 weeks total (completed 04/10/16) per ID (Dr Bower).Due to AMS, pt unable to provide details about symptoms. Per EMR and discussion with ED physician, pt had continued diarrhea, with suspected failure of outpatient treatment for C. difficile, and seizures 2 days which prompted her visit to ED. Seizures currently managed with Keppra 1500mg BID, valproic acid 650mg q6h, and Carbamazepine 400mg q8h. seizure medications were increased 03/31/16. The patient left hospital 04/05 , on oral vancomycin during her treatment for C. difficile colitis. The patient presented 5 days later 04/10 with abdominal pain fever sepsis and seizures and was admitted. For the previous 5 days it was noted that the patient began to have mental decline, alert and oriented to somnolent responding only to noxious stimuli. The patient today underwent surgery which included a diagnostic laparoscopy, laparoscopy assisted diverting ileostomy with mucous fistula, removal of 2 L of ascites via laparoscopic paracentesis. Intraoperatively the patient received 2500 cc of crystalloid, 7 50 cc albumin, urine output 150 cc, EBL 20 cc. The patient was transferred to PACU and continues on mechanical ventilation with initial ABGs 7.29/42/1:30/20/-5.2. The patient is not on any sedation and remains unresponsive. Review of Systems ROS Limitations: Intubated Past Family Social History Allergies: Coded Allergies: No Known Allergies (Unverified , 04/10/16) Physical Exam Vital Signs Vital Signs Date Time Temp Pulse Resp B/P Pulse Ox O2 Delivery O2 Flow Rate FiO2 04/19/16 22:20 100 40 04/19/16 22:00 97.3 93 12 112/68 100 Mechanical Ventilator 45 107/54 04/19/16 21:00 97.4 97 12 112/67 99 Mechanical Ventilator 45 112/55 04/19/16 21:00 45 04/19/16 20:08 100 45 04/19/16 19:46 87 12 107/64 100 Mechanical Ventilator 50 115/51 04/19/16 19:46 50 04/19/16 19:30 89 12 103/63 100 Mechanical Ventilator 50 109/55 04/19/16 19:15 102 12 104/62 100 Mechanical Ventilator 50 118/51 04/19/16 19:00 93 12 109/67 100 Mechanical Ventilator 50 112/53 04/19/16 18:45 93 12 109/67 100 Mechanical Ventilator 50 120/59 04/19/16 18:40 50 04/19/16 18:30 92 10 105/65 100 Mechanical Ventilator 50 120/57 04/19/16 18:15 89 10 125/59 100 Mechanical Ventilator 50 119/58 04/19/16 18:00 94 10 97/64 100 Mechanical Ventilator 50 108/64 04/19/16 17:50 92 10 117/54 99 Mechanical Ventilator 50 04/19/16 17:40 97.5 88 10 108/66 99 Mechanical Ventilator 50 123/58 04/19/16 17:40 50 04/19/16 17:32 97 50 04/19/16 13:21 97.6 98 20 111/72 96 04/19/16 08:39 96.6 101 20 113/71 96 04/19/16 04:00 97.6 100 20 114/64 100 Physical Exam GENERAL: Frail -[place] woman, lying in bed HEENT: Pupils equally round and reactive. Mucous members moist. NECK: Trachea is midline. There is no JVD. CHEST: Equal chest rise. Unlabored respirations. Clear to auscultation. CARDIOVASCULAR: Tachycardic rate, regular rhythm. No appreciable murmurs. ABDOMEN: Soft, moderately distended, nontender. No guarding or peritoneal signs. MUSCULOSKELETAL: no peripheral edema. Distal pulses 2+. NEUROLOGICAL: RASS -1. Follows commands. Laboratory Laboratory Tests Test 04/19/16 04/19/16 04/19/16 04/19/16 09:30 14:45 17:45 18:18 White Blood Count 21.4 18.7 Red Blood Count 3.46 2.78 Hemoglobin 9.6 7.8 Hematocrit 29.0 23.5 Mean Corpuscular Volume 83.8 84.6 Mean Corpuscular Hemoglobin 27.7 27.9 Mean Corpuscular Hemoglobin 33.1 33.0 Concent Red Cell Distribution Width 18.5 18.2 Platelet Count 516 577 Mean Platelet Volume 8.0 6.9 Neutrophils (%) (Auto) 83.9 88.5 Lymphocytes (%) (Auto) 7.1 4.4 Monocytes (%) (Auto) 8.3 6.5 Eosinophils (%) (Auto) 0.4 0.2 Basophils (%) (Auto) 0.3 0.4 Neutrophils # (Auto) 17.9 16.5 Lymphocytes # (Auto) 1.5 0.8 Monocytes # (Auto) 1.8 1.2 Eosinophils # (Auto) 0.1 0.0 Basophils # (Auto) 0.1 0.1 CBC Comment AUTO DIFF AUTO DIFF Differential Total Cells 100 100 Counted Neutrophils % (Manual) 78 77 Band Neutrophils % 5 7 Lymphocytes % 8 7 Monocytes % 4 Neutrophils # (Manual) 18.8 17.4 Metamyelocytes 2 4 Myelocytes 3 5 Differential Comment FINAL DIFF FINAL DIFF MANUAL MANUAL Toxic Granulation 2+ Platelet Estimate HIGH HIGH Platelet Morphology Comment CLUMPED NORMAL Hematology Comments Sodium Level 143 144 Potassium Level 3.1 2.4 Chloride Level 109 110 Carbon Dioxide Level 22.5 21.7 Anion Gap 12 12 Blood Urea Nitrogen 3 3 Creatinine 0.19 LESS THAN 0.15 Estimat Glomerular Filtration 491 645 Rate Random Glucose 82 81 Calcium Level 6.9 6.8 Protein Corrected Calcium 8.0 8.1 Total Protein 5.0 4.6 Prealbumin 5 Blood Gas Puncture Site DRAWN IN OR ART LINE Blood Gas Patient Temperature 98.6 98.6 Blood Gas HCO3 21 20 Blood Gas Base Excess -3.3 -5.2 Blood Gas Oxygen Saturation 96 96 Arterial Blood pH 7.42 7.30 Arterial Blood Partial 33 42 Pressure CO2 Arterial Blood Partial 153 130 Pressure O2 Arterial Blood Oxygen Content 12.3 11.7 Arterial Blood 2.1 1.6 Carboxyhemoglobin Arterial Blood Methemoglobin 1.2 1.2 Blood Gas Hemoglobin 8.8 8.5 Oxygen Delivery Device OR VENTILATOR Blood Gas Inspired Oxygen 50 50 Nucleated Red Blood Cells 1 Ovalocytes 1+ Stomatocytes 1+ Keratocytes 1+ Phosphorus Level 2.5 Blood Gas Ventilator Setting A/C 10/450/+5 Test 04/19/16 18:39 Prothrombin Time 38.4 Prothromb Time International 3.3 Ratio Activated Partial 45.3 Thromboplast Time Result Diagram: 04/19/16 17404/19/16 174 Imaging Last 48 hours Impressions Chest X-Ray 04/19/16 0000 Signed Impressions: Service Date/Time: Tuesday, April 19, 2016 18:02 - CONCLUSION: 1. Endotracheal tube and right central line in satisfactory position. No pneumothorax. Left greater than right airspace disease and pleural effusion. Bruce Baez MD Septic Shock Reassessment Heart: Regular rate and rhythm Lungs: Clear Skin: Warm Peripheral Pulses: Bounding Right Dorsalis Pedis Bounding Left Dorsalis Pedis Assessment and Plan Assessment and Plan Assessment: 45-year-old female with history of ovarian mass and prior C. difficile who presents with refractory C. difficile colitis, that underwent surgical intervention. Neuro Seizure disorder Seizures Altered mental status Blindness EEG on 03/18 with epileptic activities. Repeat EEG 03/20,03/22, still shows consistent with ongoing epileptic focus. -Tylenol PRN fever -Continue AED's per neurology -Minimize benzodiazepines, and sedatives - Cardiovascular H/O Severe sepsis - continue maintenance IV fluids, decrease to 82cc/hr. Maintain MAP > 65mmHg -Normotensive at this time Respiratory Ventilator dependency -Mechanical ventilation AC 12/450/5/0.45 -Bronchodilators every 4 hours scheduled -Follow-up postop chest x-ray Gastrointestinal Abdominal distension Uterine fibroid C. diff colitis refractory Ascites Acute protein calorie malnutritionmoderate S/P lap assisted diverting ileostomy with mucous fistula, laparoscopic vancomycin irrigation, G-tube insertion, laparoscopic paracentesis POD #0 -Paracentesis 2 L evacuated, REBEL drain left abdomen minimal serosanguineous, 2 trocar sites Steri-Stripped no erythema or drainage, G-tube 18 Scottish left upper quadrant to gravity Red rubber ileostomy to to be irrigated with vancomycin daily Infectious Disease H/O Septic Shock secondary to C. difficile colitis, failure of outpatient treatment with vancomycin PO H/O UTI -Infectious disease- Dr. Navarro. -Vancomycin irrigation via ileostomy per general surgery/ID recommendations daily Renal/FEN Acute kidney injuryresolving Hypokalemia ICU electronic protocol Continue Browne Monitor BMP Heme Normocytic anemialikely anemia of chronic disease Does not be transfusion triggers at this time Daily CBC -Obtain postop CBC -Consider transfusion if Hgb <7 Prophylaxis GI: Protonix IV DVT: SCD, will resume pharmacological prophylaxis per surgery Dispo: This patient remains critically ill with one or more organ systems which are or may become a threat to life. I have spent in excess of 55 minutes discontinuously in the care and management of this patient. This time is exclusive of procedures, and includes, but is not limited to, evaluation of the patient, review of the medical record, discussions with family, consultants, nursing staff, or respiratory therapy, and documentation in the medical record. Code Status Full code Discussed Condition With With MEDICAL SUPPORT ASSISTANT at bedside Keturah Lorenzo MD Apr 20, 2016 02:04
[2016-04-20] MEDS: VALPROATE INJ 750 MG in SODIUM CHLORIDE 0.9% INJ 100 ML IV SCH ×4 (02:45→21:48)
[2016-04-20] MEDS: RESP: ALBUTEROL 2.5 MG/IPRATROPIUM 0.5 MG NEB (SCH) INH ×4 (03:41→19:43)
[2016-04-20 03:42] VITALS: O2SAT 100
[2016-04-20] MEDS ORDERED: PROPOFOL 1000 MG/100 ML INJ 100 ML ONE ×2 (03:42→12:43)
[2016-04-20 03:58] LABS: AUTOMATED NEUTROPHIL # 20.9 TH/MM3 (1.8-7.7); BASOPHIL % 0.1 % (0.0-2.0); EOSINOPHIL % 0.2 % (0.0-4.0); LYMPH % 4.5 % (9.0-44.0); LYMPHOCYTE # 1.1 TH/MM3 (1.0-4.8); MEAN CELL VOLUME 83.9 FL (80.0-100.0); MEAN CORPUSCULAR HEMOGLOBIN 27.7 PG (27.0-34.0); MONO % 6.8 % (0.0-8.0); NEUT % 88.4 % (16.0-70.0); PLATELET COUNT 613 TH/MM3 (150-450); RED CELL DISTRIBUTION WIDTH 18.2 % (11.6-17.2); WHITE BLOOD COUNT 23.7 TH/MM3 (4.0-11.0)
[2016-04-20] MEDS: metroNIDAZOLE 500 MG INJ 100 ML IV SCH ×3 (04:00→20:37)
[2016-04-20 04:04] LABS: HEMO FLAGS AUTO DIFF
[2016-04-20 04:43] LABS: BICARBONATE 23.7 MEQ/L (21.0-32.0); MAGNESIUM 1.1 MG/DL (1.5-2.5); POTASSIUM 3.4 MEQ/L (3.5-5.1)
[2016-04-20 04:47] LABS: APTT (PATIENT) 45.6 SEC (24.3-30.1); INTERNATIONAL NORMALIZED RATIO 2.9 RATIO; PROTHROMBIN TIME - PATIENT 34.1 SEC (9.8-11.6)
[2016-04-20 05:06] LABS: CALCIUM-PROTEIN CORRECTED 8.3 MG/DL (8.5-10.1)
[2016-04-20] MEDS: POTASSIUM CHLOR 40 MEQ PREMIX 100 ML IV PRN (05:11)
--- NOTE | 2016-04-20 05:39 | RADRPT ---
EXAM DATE/TIME: 04/20/2016 05:03 [facility] COMPARISON: CHEST SINGLE AP, April 11, 2016, 11:22. CHEST SINGLE AP, April 19, 2016, 18:02. INDICATIONS : Post op- please evaluate respiratory distress. MEDICAL HISTORY : None. SURGICAL HISTORY : None. ENCOUNTER: Initial ACUITY: 1 day PAIN SCORE: Non-responsive. LOCATION: Bilateral chest FINDINGS: The patient is rotated towards the right. Endotracheal tube tip is 2.5 cm above the trinity. Right i nternal jugular catheter tip in the right atrium. There is increasing opacity in the left hemithorax , now with almost complete opacification. There is also consolidation in the right perihilar region and loss of delineation of portion of the right hemidiaphragm. CONCLUSION: Increasing infiltrate and pleural effusion on the left side now with almost complete white out of the left hemithorax. Persistent consolidation in the medial right lower lung. Jordan Bethea MD on April 20, 2016 at 5:36 Board Certified Radiologist. This report was verified electronically.
[2016-04-20] MEDS: MAGNESIUM SULFATE INJ 4 GM in SODIUM CHLORIDE 0.9% INJ 92 ML IV PRN (05:45)
[2016-04-20] MEDS: VANCOMYCIN 500 MG VIAL (FOR ORAL USE ONLY) PO SCH ×3 (06:00→12:00)
[2016-04-20] MEDS: NS + KCL 20 MEQ INJ 1,000 ML IV SCH ×2 (07:50→17:30)
[2016-04-20] MEDS: PROPOFOL 1000 MG/100 ML IV SCH ×2 (07:55→13:18)
[2016-04-20] MEDS: PHENYLEPHRINE 40 MG/D5W 496 ML ADMIX IV SCH ×6 (07:55→19:18)
--- NOTE | 2016-04-20 08:06 | MB ---
cc: MARIUM RIDDLE MD DATE OF CONSULTATION: 04/17/2016 REASON FOR CONSULTATION: Abdominal pain, medical with refractory C difficile colitis, ascites. HISTORY OF PRESENT ILLNESS The patient is a 45-year-old female who presented to the hospital with severe C difficile Colitis. The patient is a poor historian, unable to get a solid history from the patient, however per notes in H&P. The patient was noted to present on April 10 with this recurrent, severe C difficile colitis. Patient was noted to have been diagnosed and treated with C. Diff colitis March 15. She underwent Medical management with what appears per her notes to be improvement. At the time the patient did have a short hospital stay, there was a surgical consult for bowel obstruction which resolved without operative intervention and the patient appeared to be recovering however, she has had several bowel and recurrent episodes and then represented on a with similar complaints of worsening pain and distension. She was admitted placed on antibiotics and. Resuscitated initially in the ICU in and transferred to the floor where she was continued with medical management. Over the course of the hospital stay at this time. Her distension got significantly worse, increasing pain and a leukocytosis of 20,000. She had a repeat CT scan showing evidence of worsening ascites with continued worsening thickening of the colon. Therefore surgery was consulted for further evaluation.. On my exam the patient is in bed, is moaning, minimally responds to commands and is essentially nonfocal. She does have pretty significant distended abdomen and is diffusely tender to palpation. There is no evidence of abdominal scars. Per notes she has been having diarrhea with multiple bowel movements. She underwent colonoscopy with evidence of C difficile colitis in the past. PAST MEDICAL HISTORY 1. C. difficile colitis. 2. Seizure disorders. 3. Developmental delay 4. Blindness. PAST SURGICAL HISTORY: Unobtainable and her previous notes appears to have had no surgeries. ALLERGIES/MEDICATIONS: See electronic medical record. FAMILY HISTORY: Unable to obtain. REVIEW OF SYSTEMS Unable to obtain. HEAD, EYES, EARS, NOSE, AND THROAT: Unable to obtain. CARDIOVASCULAR SYSTEM: Unable to obtain. RESPIRATORY: Unable to obtain. EXTREMITIES: Unable to obtain. INTEGUMENT: Unable to obtain. NEUROLOGIC: Unable to obtain. PSYCHIATRIC: Unable to obtain. GENITOURINARY: Unable to obtain. PHYSICAL EXAMINATION GENERAL: The patient is on distress. VITAL SIGNS: His temperature 90.58, pulse 101, respirations 40, blood pressure 118/69, saturation 96%. HEAD, EYES, EARS, NOSE, AND THROAT: Eyes are closed with mucous membranes dry. NECK: Trachea midline supple. HEART: S1-S2 regular rate and rhythm. LUNGS: Bilateral expansion. ABDOMEN: Distended. Positive tenderness to palpation diffusely minimal rebound. No peritoneal signs. GENITOURINARY: Within of minimal normal limits. Browne in place. EXTREMITIES: Warm, perfused 2+ pulses all extremities. NEUROLOGIC: Difficult to assess. INTEGUMENT: No evidence of rash or bruises. LABORATORY AND DIAGNOSTIC DATA WBC is an 22.5 hemoglobin 9.6, hematocrit 30.3, Colace 490, sodium 141 potassium 3.4, Chloride 110, BUN 5, creatinine 0.3, corrected calcium 8.5, creatinine 0.3, albumin 1.3. Coagulation; INR 1.5, PT 16.4, PTT 35.3. RADIOLOGIC: CT scan was reviewed by myself and compared to admission CT scan. No evidence of abscess or free air, diffuse inflammation involving the entire colon with thickening increased from previous CT, increase in volume of ascites on CT. Diffuse edema multiple large fibroid uterus. ASSESSMENT The patient 45-year-old female with medical neurological issues currently with refractory to medical therapy C diff colitis. PLAN After full radiologic clinical or laboratory workup the patient with above-named issue including a medical refractory C-Difficile colitis. The patient does have a worsening of ascites and thickening of colon and evidence of continued increase leukocytosis and signs of sepsis. She is undergoing antibiotic therapy which agree with this. To continue IV fluids and resuscitation, pain control and a close monitoring. At this point the patient is not warrant an emergent operation however, the patient will likely benefit from. Operative intervention including potential diagnostic laparoscopy to evaluate for viability of colon and possible exploratory laparotomy. Also we could consider doing ileostomy with Diverting mucous fistula in order to help improve of the patient's medical refractory C. Diff Colitis and assist in antibiotic colonic irrigations. The patient's albumin is 1.3. We will check a prealbumin the patient has signs of malnutrition and poor p.o. intake at this time. We will also discuss consideration of gastrostomy feeding tube. The plans and procedures were discussed in detail with the family. He stated understanding and agreed and would like to proceed with potential operative intervention. MD Hannah Raymond /7:12 AM 7:32 AM
[2016-04-20] MEDS: LACOSAMIDE INJ 100 MG in SODIUM CHLORIDE 0.9% INJ 100 ML IV SCH ×2 (08:40→20:51)
[2016-04-20] MEDS ORDERED: PANTOPRAZOLE SODIUM 40 MG VIAL IV SCH (09:00)
[2016-04-20] MEDS: ARTIFICIAL TEARS OPTH SOLN 15 ML BTL EACH EYE SCH ×3 (09:00→18:00)
[2016-04-20 09:19] VITALS: O2SAT 100
--- NOTE | 2016-04-20 10:02 | HHI.FPPN ---
Subjective Remarks SEEN IN ICU- PACU D/W RN'S PT CALM TELE REVIEWED LABS REVIEWED SPECIALISTS NOTES REVIEWED Objective Vitals Vital Signs Date Time Temp Pulse Resp B/P Pulse Ox O2 Delivery O2 Flow Rate FiO2 04/20/16 09:19 100 40 04/20/16 07:00 98.5 100 12 110/64 100 Mechanical Ventilator 40 116/54 04/20/16 06:00 98.5 98 12 111/64 100 Mechanical Ventilator 40 105/54 04/20/16 06:00 40 04/20/16 05:00 99.0 97 12 96/55 100 Mechanical Ventilator 40 90/50 04/20/16 04:00 40 04/20/16 04:00 98.8 102 12 146/86 100 Mechanical Ventilator 40 149/86 04/20/16 03:42 100 40 04/20/16 03:00 98.6 95 12 127/75 100 Mechanical Ventilator 40 138/70 04/20/16 02:00 40 04/20/16 02:00 98.5 97 12 128/73 100 Mechanical Ventilator 40 136/65 04/20/16 01:00 98.0 92 17 130/78 100 Mechanical Ventilator 40 161/71 04/20/16 00:00 97.6 91 12 107/70 100 Mechanical Ventilator 40 108/54 04/20/16 00:00 40 04/19/16 23:00 97.4 97 12 110/68 100 Mechanical Ventilator 40 108/63 04/19/16 22:20 100 40 04/19/16 22:00 97.3 93 12 112/68 100 Mechanical Ventilator 45 107/54 04/19/16 21:00 97.4 97 12 112/67 99 Mechanical Ventilator 45 112/55 04/19/16 21:00 45 04/19/16 20:08 100 45 04/19/16 19:46 87 12 107/64 100 Mechanical Ventilator 50 115/51 04/19/16 19:46 50 04/19/16 19:30 89 12 103/63 100 Mechanical Ventilator 50 109/55 04/19/16 19:15 102 12 104/62 100 Mechanical Ventilator 50 118/51 04/19/16 19:00 93 12 109/67 100 Mechanical Ventilator 50 112/53 04/19/16 18:45 93 12 109/67 100 Mechanical Ventilator 50 120/59 04/19/16 18:40 50 04/19/16 18:30 92 10 105/65 100 Mechanical Ventilator 50 120/57 04/19/16 18:15 89 10 125/59 100 Mechanical Ventilator 50 119/58 04/19/16 18:00 94 10 97/64 100 Mechanical Ventilator 50 108/64 04/19/16 17:50 92 10 117/54 99 Mechanical Ventilator 50 04/19/16 17:40 97.5 88 10 108/66 99 Mechanical Ventilator 50 123/58 04/19/16 17:40 50 04/19/16 17:32 97 50 04/19/16 13:21 97.6 98 20 111/72 96 I/O 04/19/16 04/19/16 04/19/16 04/20/16 04/20/16 04/20/16 07:00 15:00 23:00 07:00 15:00 23:00 Intake Total 4351 ml 790 ml Output Total 600 ml 200 ml 1415 ml 1440 ml 70 ml Balance -600 ml -200 ml 2936 ml -650 ml -70 ml IV Total 1101 ml 790 ml Albumin 750 ml Other 2500 ml Output Urine Total 600 ml 200 ml 725 ml 580 ml Stool Total 60 ml Gastric Drainage Total 300 ml 150 ml Drainage Total 370 ml 650 ml 70 ml Estimated Blood Loss 20 ml # Bowel Movements 2 Result Diagram: 04/20/1634204/20/16342 Objective Remarks GENERAL: Calm, on vent SKIN: Warm and dry. HEAD: Atraumatic. Normocephalic. EYES: cloudy ENT: No nasal bleeding or discharge. Mucous membranes pink and moist. NECK: Trachea midline. No JVD. CARDIOVASCULAR: Regular rate and rhythm. RESPIRATORY: No accessory muscle use. Clear to auscultation. Breath sounds equal bilaterally. GASTROINTESTINAL: Abdomen soft, tender. mod distended. Hepatic and splenic margins not palpable. G-tube 18 Macedonian left upper quadrant to gravity, Ostomy draining, LL quad REBEL drain, MUSCULOSKELETAL: Extremities without clubbing, cyanosis, or edema. No obvious deformities. NEUROLOGICAL: sedated on vent Medications and IVs Current Medications Medications (Trade) Dose Ordered Sig/Rebeca Route Start Time Stop Time Status Last Admin (Tylenol) 650 mg Q4H PRN PO 04/10/16 12:30 04/16/16 04:33 (Compazine Supp) 25 mg Q12H PRN NV 04/10/16 12:30 (Heparin Inj) 5,000 units Q12H SQ 04/10/16 13:00 Hold 04/18/16 01:00 (Narcan Inj) 0.4 mg UNSCH PRN IV 04/10/16 12:30 (Dulcolax Supp) 10 mg DAILY PRN NV 04/10/16 12:45 (Questran 4 Gm Pkt) 4 gm TID PO 04/10/16 13:00 04/17/16 18:00 (Lactinex) 1 tab TID PO 04/10/16 13:00 04/17/16 18:00 (Ativan) 0.5 mg Q6H PRN PO 04/10/16 12:45 (Citroma Liq) 300 ml DAILY PRN PO 04/10/16 12:45 (Milk Of Magnesia Liq) 30 ml HS PRN PO 04/10/16 12:45 Primidone 250 mg 250 mg TID PO 04/10/16 13:00 04/18/16 18:08 (Flagyl 500 Mg Inj) 100 ml @ 100 mls/hr Q8H IV 04/10/16 20:00 04/20/16 04:00 Lorazepam 1 mg 1 mg Q4HR PRN IV PUSH 04/10/16 12:45 Levetriacetam 100 ml @ 400 mls/hr Q12HR IV 04/10/16 21:00 04/19/16 21:00 (Vimpat Inj/NS Inj) 110 ml @ 110 mls/hr Q12HR IV 04/10/16 21:00 04/20/16 08:40 Miscellaneous Information Patient in critical care unit? Ass... Q361D XX 04/10/16 20:45 (TEGretol) 300 mg Q8HR PO 04/12/16 14:00 04/19/16 06:31 Vancomycin HCl 500 mg 500 mg Q6HR PO 04/15/16 18:00 04/19/16 06:31 (KCl Inj/D5W-NS 1000 ml Inj) 1,020 ml @ 30 mls/hr Q24H IV 04/19/16 10:49 Miscellaneous Information ALL NURSING DEPARTME... UNSCH PRN XX 04/19/16 18:30 04/20/16 18:29 (NS + KCl 20 Meq Inj) 1,000 ml @ 100 mls/hr Q10H IV 04/19/16 21:00 04/20/16 07:50 (NS Flush) 2 ml UNSCH PRN IV FLUSH 04/19/16 19:45 (NS Flush) 2 ml BID IV FLUSH 04/19/16 21:00 (Protonix Inj) 40 mg DAILY IV 04/20/16 09:00 04/20/16 09:30 (Tears Naturale Opth Soln) 1 drop TID EACH EYE 04/20/16 09:00 04/20/16 09:00 (Zofran Inj) 4 mg Q6H PRN IV 04/19/16 21:00 Miscellaneous Information 1 Q361D XX 04/19/16 19:45 (Chlorhexidine 2% Cloth) 3 pack Taper DAILY@04 TOP 04/20/16 04:00 04/16/17 03:59 Chlorhexidine Gluconate 3 pack 3 pack UNSCH PRN TOP 04/19/16 19:45 Potassium Chloride 100 ml @ 50 mls/hr Q2H PRN IV 04/19/16 20:00 04/19/16 21:53 (KCl 20 Meq Premix Inj) 100 ml @ 50 mls/hr Q2H PRN IV 04/19/16 19:45 04/19/16 20:00 Potassium Chloride 40 meq 40 meq UNSCH PRN PO/TUBE 04/19/16 19:45 Potassium Chloride 100 ml @ 25 mls/hr UNSCH PRN IV 04/19/16 19:45 04/20/16 05:11 Potassium Chloride 100 ml @ 50 mls/hr Q2H PRN IV 04/19/16 19:45 (Magnesium Sulfate Inj/NS Inj) 100 ml @ 50 mls/hr UNSCH PRN IV 04/19/16 19:45 04/20/16 05:45 Magnesium Oxide 800 mg 800 mg UNSCH PRN PO 04/19/16 19:45 (Magnesium Sulfate Inj/NS Inj) 100 ml @ 50 mls/hr UNSCH PRN IV 04/19/16 19:45 Potassium Phosphate 2000 mg 2,000 mg Q4H PRN PO 04/19/16 19:45 (Sodium Phosphate Inj/NS 250 ml Inj) 250 ml @ 42 mls/hr UNSCH PRN IV 04/19/16 19:45 (KCl 40 Meq/30 ml Liq) 40 meq UNSCH PRN PO/TUBE 04/19/16 19:45 Potassium Phosphate 2000 mg 2,000 mg UNSCH PRN PO/TUBE 04/19/16 19:45 (Potassium Phosphate Inj/NS 250 ml Inj) 260 ml @ 42 mls/hr UNSCH PRN IV 04/19/16 19:45 04/20/16 05:45 Chlorhexidine Gluconate 15 ml 15 ml BID@08,20 MT 04/19/16 21:00 (Depacon Inj/NS Inj) 107.5 ml @ 105 mls/hr Q6H IV 04/19/16 21:00 04/20/16 09:55 A/P Assessment and Plan VDRF ILEOSTOMY WITH VANC IRRIGATION AND PARACENTESIS APR 19, GT INSERTION SEVERE SEPSIS LACTIC ACIDOSIS C DIF. COLITIS ON CT ABDOMEN. ILEUS DEHYDRATION HYPOKALEMIA SZ'S, INTRACTABLE UTI, LIKELY CONTAMINANT ON UA SBO RECENTLY ASPIRATION PNA UTERINE FIBROIDS TEGRETOL TOXICITY ARF, PRERENAL MR JAMIE HYPOKALEMIA HYPOMAGNESEMIA HYPOCALCEMIA HYPERAMMONEMIA PLAN: Ileostomy to to be irrigated with vancomycin daily IVF IV ABX STOOL CULTURES VENT MGMT PER [facility] GI CONSULT FOR INTRACTABLE C DIF, INCR ABDOM PAIN ID CONSULT NEURO CONSULT. SURGERY CONSULT [facility] CONSULT ICU CARE. SEE ORDERS FOR MED AND LABS CHANGES. Romie Pelayo MD Apr 20, 2016 10:02
[2016-04-20] MEDS: levETIRAcetam 1000 MG INJ 100 ML IV SCH ×2 (10:45→20:51)
[2016-04-20] MEDS: NACL 0.9% IV SCH (10:49)
[2016-04-20] MEDS: POTASSIUM CHLORIDE IV SCH (10:49)
[2016-04-20] MEDS: DEXT 5% IV SCH (10:49)
[2016-04-20 11:26] LABS: BANDS 8 % (0-6); MYELOCYTES 2 % (0-0); NEUTROPHIL # MANUAL DIFF 22.5 TH/MM3 (1.8-7.7); PLATELET ESTIMATE SMEAR HIGH (NORMAL); POLYS (SEG NEUTROPHILS) 85 % (16-70); WBC DIFF SAMPLE 100
[2016-04-20 11:27] LABS: PLATELET MORPHOLOGY NORMAL (NORMAL); SCAN/DIFF FINAL DIFF MANUAL
[2016-04-20] MEDS ORDERED: TERBUTALINE INJ 1 MG/ML AMP SQ PRN (12:00)
[2016-04-20] MEDS ORDERED: Vancomycin Consult Pharmacy 1 EA OTHER SCH (13:15)
--- NOTE | 2016-04-20 13:15 | HHI.PR ---
Subjective Subjective Notes intubated, still held in PACU. Sedated on diprivan and on colby Objective Vitals/I&O Vital Signs Date Time Temp Pulse Resp B/P Pulse Ox O2 Delivery O2 Flow Rate FiO2 04/20/16 12:00 98.7 85 12 111/66 98 102/45 04/20/16 12:00 40 04/20/16 11:00 Mechanical Ventilator Labs Laboratory Tests Test 04/19/16 04/19/16 04/19/16 04/19/16 14:45 17:45 18:18 18:39 Blood Gas Puncture Site DRAWN IN OR ART LINE Blood Gas Patient Temperature 98.6 98.6 Blood Gas HCO3 21 20 Blood Gas Base Excess -3.3 -5.2 Blood Gas Oxygen Saturation 96 96 Arterial Blood pH 7.42 7.30 Arterial Blood Partial 33 42 Pressure CO2 Arterial Blood Partial 153 130 Pressure O2 Arterial Blood Oxygen Content 12.3 11.7 Arterial Blood 2.1 1.6 Carboxyhemoglobin Arterial Blood Methemoglobin 1.2 1.2 Blood Gas Hemoglobin 8.8 8.5 Oxygen Delivery Device OR VENTILATOR Blood Gas Inspired Oxygen 50 50 White Blood Count 18.7 Red Blood Count 2.78 Hemoglobin 7.8 Hematocrit 23.5 Mean Corpuscular Volume 84.6 Mean Corpuscular Hemoglobin 27.9 Mean Corpuscular Hemoglobin 33.0 Concent Red Cell Distribution Width 18.2 Platelet Count 577 Mean Platelet Volume 6.9 Neutrophils (%) (Auto) 88.5 Lymphocytes (%) (Auto) 4.4 Monocytes (%) (Auto) 6.5 Eosinophils (%) (Auto) 0.2 Basophils (%) (Auto) 0.4 Neutrophils # (Auto) 16.5 Lymphocytes # (Auto) 0.8 Monocytes # (Auto) 1.2 Eosinophils # (Auto) 0.0 Basophils # (Auto) 0.1 CBC Comment AUTO DIFF Differential Total Cells 100 Counted Neutrophils % (Manual) 77 Band Neutrophils % 7 Lymphocytes % 7 Neutrophils # (Manual) 17.4 Metamyelocytes 4 Myelocytes 5 Nucleated Red Blood Cells 1 Differential Comment FINAL DIFF MANUAL Platelet Estimate HIGH Platelet Morphology Comment NORMAL Ovalocytes 1+ Stomatocytes 1+ Keratocytes 1+ Sodium Level 144 Potassium Level 2.4 Chloride Level 110 Carbon Dioxide Level 21.7 Anion Gap 12 Blood Urea Nitrogen 3 Creatinine LESS THAN 0.15 Estimat Glomerular Filtration 645 Rate Random Glucose 81 Calcium Level 6.8 Protein Corrected Calcium 8.1 Phosphorus Level 2.5 Total Protein 4.6 Blood Gas Ventilator Setting A/C 10/450/+5 Prothrombin Time 38.4 Prothromb Time International 3.3 Ratio Activated Partial 45.3 Thromboplast Time Test 04/20/16 03:43 White Blood Count 23.7 Red Blood Count 3.10 Hemoglobin 8.6 Hematocrit 26.0 Mean Corpuscular Volume 83.9 Mean Corpuscular Hemoglobin 27.7 Mean Corpuscular Hemoglobin 33.0 Concent Red Cell Distribution Width 18.2 Platelet Count 613 Mean Platelet Volume 6.7 Neutrophils (%) (Auto) 88.4 Lymphocytes (%) (Auto) 4.5 Monocytes (%) (Auto) 6.8 Eosinophils (%) (Auto) 0.2 Basophils (%) (Auto) 0.1 Neutrophils # (Auto) 20.9 Lymphocytes # (Auto) 1.1 Monocytes # (Auto) 1.6 Eosinophils # (Auto) 0.0 Basophils # (Auto) 0.0 CBC Comment AUTO DIFF Differential Total Cells 100 Counted Neutrophils % (Manual) 85 Band Neutrophils % 8 Lymphocytes % 4 Monocytes % 1 Neutrophils # (Manual) 22.5 Myelocytes 2 Differential Comment FINAL DIFF MANUAL Platelet Estimate HIGH Platelet Morphology Comment NORMAL Prothrombin Time 34.1 Prothromb Time International 2.9 Ratio Activated Partial 45.6 Thromboplast Time Sodium Level 147 Potassium Level 3.4 Chloride Level 114 Carbon Dioxide Level 23.7 Anion Gap 9 Blood Urea Nitrogen 2 Creatinine 0.19 Estimat Glomerular Filtration 491 Rate Random Glucose 80 Calcium Level 7.0 Protein Corrected Calcium 8.3 Phosphorus Level 2.3 Magnesium Level 1.1 Total Protein 4.7 Abdomen: Non-distended, Non-tender, Other (ileostomy looks pink and healthy. no output. drain with yellow serous drainage. MF intubated with Red pina catheter.) A/P Assessment and Plan postop ileostomy and MF with MF intubated with red pina catheter to facilitate irrigation of colon with vancomycin for persistent C diff. Will leave orders for pharmacy to dose. Narendra Araiza MD Apr 20, 2016 13:15
[2016-04-20] MEDS: NS IRRIGATION SCH ×4 (15:00→21:48)
[2016-04-20] MEDS: VANCOMYCIN IRRIGATION SCH ×4 (15:00→21:48)
[2016-04-20] MEDS ORDERED: NS RECTAL SCH ×2 (15:00)
[2016-04-20] MEDS ORDERED: VANCOMYCIN RECTAL SCH ×2 (15:00)
[2016-04-20 15:23] VITALS: O2SAT 97
[2016-04-20] MEDS ORDERED: ACETAMINOPHEN 500 MG CPLT PO PRN (16:15)
[2016-04-20] MEDS: fentaNYL DRIP 250 ML IV SCH (16:28)
[2016-04-20 16:36] LABS: MAGNESIUM 1.5 MG/DL (1.5-2.5); POTASSIUM 3.8 MEQ/L (3.5-5.1)
[2016-04-20] MEDS: CHOLESTYRAMINE 4 GM PACKET PO SCH (18:00)
[2016-04-20] MEDS: LACTOBACILLUS ACIDOPHILUS TAB PO SCH (18:00)
[2016-04-20] MEDS: PRIMIDONE 250 MG TAB PO SCH (18:00)
[2016-04-20 19:43] VITALS: O2SAT 100
[2016-04-20 20:00] VITALS: BP 110/72; PULSE 90; PULSE 92; RESP 12; TEMP 99.5; O2SAT 100
[2016-04-20] MEDS: CHLORHEXIDINE GLUCONATE 2 % 1 PACK (2 CLOTHS) TOP SCH (20:29)
[2016-04-20] MEDS: CHLORHEXIDINE 0.12% (ORAL KIT) 15 ML CUP MT SCH (20:29)
[2016-04-20] MEDS: SODIUM CHLORIDE 0.9% FLUSH 5 ML FLUSH IV FLUSH SCH (20:37)
[2016-04-20] MEDS: carBAMazepine 200 MG TAB PO SCH (20:49)
[2016-04-20 22:00] VITALS: PULSE 87
[2016-04-21] VITALS (19 sets, daily range): BP systolic 100–119; BP diastolic 50–66; PULSE 56–89; RESP 12–22; TEMP 96.7–99.5; O2SAT 100
[2016-04-21] MEDS: PROPOFOL 1000 MG/100 ML IV SCH ×2 (00:53→21:32)
[2016-04-21] MEDS: RESP: ALBUTEROL 2.5 MG/IPRATROPIUM 0.5 MG NEB (SCH) INH ×4 (03:37→21:32)
[2016-04-21] MEDS: NS + KCL 20 MEQ INJ 1,000 ML IV SCH ×3 (03:56→22:39)
[2016-04-21] MEDS: VALPROATE INJ 750 MG in SODIUM CHLORIDE 0.9% INJ 100 ML IV SCH ×4 (03:56→20:35)
[2016-04-21] MEDS: NS IRRIGATION SCH ×8 (03:56→20:22)
[2016-04-21] MEDS: VANCOMYCIN IRRIGATION SCH ×8 (03:56→20:22)
[2016-04-21] MEDS: metroNIDAZOLE 500 MG INJ 100 ML IV SCH ×3 (04:52→20:22)
[2016-04-21 05:21] LABS: AUTOMATED NEUTROPHIL # 20.3 TH/MM3 (1.8-7.7); BASOPHIL % 0.1 % (0.0-2.0); EOSINOPHIL # 0.2 TH/MM3 (0-0.4); EOSINOPHIL % 0.7 % (0.0-4.0); HEMATOCRIT 27.8 % (35.0-46.0); HEMO FLAGS DIFF FINAL; LYMPHOCYTE # 1.4 TH/MM3 (1.0-4.8); MEAN CORPUSCULAR HEMOGLOBIN 27.6 PG (27.0-34.0); MONO % 8.6 % (0.0-8.0); NEUT % 84.6 % (16.0-70.0); PLATELET COUNT 576 TH/MM3 (150-450); RED BLOOD COUNT 3.23 MIL/MM3 (4.00-5.30); RED CELL DISTRIBUTION WIDTH 19.2 % (11.6-17.2)
[2016-04-21] MEDS: carBAMazepine 200 MG TAB PO SCH ×3 (06:00→21:21)
[2016-04-21 06:07] LABS: BICARBONATE 23.3 MEQ/L (21.0-32.0); POTASSIUM 3.7 MEQ/L (3.5-5.1)
--- NOTE | 2016-04-21 08:10 | HHI.FPPN ---
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 Objective Vitals Vital Signs Date Time Temp Pulse Resp B/P Pulse Ox O2 Delivery O2 Flow Rate FiO2 04/21/16 06:00 85 04/21/16 04:19 100 40 04/21/16 04:00 85 04/21/16 04:00 40 04/21/16 04:00 98.7 85 12 119/61 100 04/21/16 02:00 85 04/21/16 00:10 100 40 04/21/16 00:00 99.5 86 12 100/50 100 04/21/16 00:00 86 04/21/16 00:00 40 04/20/16 22:00 87 04/20/16 20:00 90 04/20/16 20:00 99.5 92 12 110/72 100 Automatic Cuff 04/20/16 19:43 100 40 04/20/16 19:10 101/62 99 Mechanical Ventilator 40 93/51 04/20/16 19:10 40 04/20/16 18:00 97.7 88 12 105/66 99 Mechanical Ventilator 40 92/49 04/20/16 18:00 40 04/20/16 17:00 84 12 102/63 99 Mechanical Ventilator 40 93/51 04/20/16 16:00 89 12 100/64 98 Mechanical Ventilator 40 98/50 04/20/16 16:00 40 04/20/16 15:23 97 40 04/20/16 15:00 88 12 98/63 98 Mechanical Ventilator 40 102/51 04/20/16 14:00 40 04/20/16 14:00 98.5 82 12 98/62 99 Mechanical Ventilator 40 100/49 04/20/16 12:00 98.7 85 12 111/66 98 102/45 04/20/16 12:00 40 04/20/16 11:00 92 12 105/66 98 Mechanical Ventilator 40 99/48 04/20/16 10:00 99.4 84 12 96/56 99 Mechanical Ventilator 40 106/52 04/20/16 10:00 40 04/20/16 09:19 100 40 04/20/16 09:00 87 12 105/63 98 Mechanical Ventilator 40 103/51 I/O 04/20/16 04/20/16 04/20/16 04/21/16 04/21/16 04/21/16 07:00 15:00 23:00 07:00 15:00 23:00 Intake Total 790 ml 950 ml 2134 ml 1964 ml Output Total 1440 ml 1075 ml 1555 ml 1375 ml Balance -650 ml -125 ml 579 ml 589 ml IV Total 790 ml 950 ml 1634 ml 1464 ml Tube Irrigant 500 ml 500 ml Output Urine Total 580 ml 555 ml 615 ml 650 ml Stool Total 60 ml 450 ml 475 ml Gastric Drainage Total 150 ml 0 ml 0 ml Drainage Total 650 ml 520 ml 490 ml 250 ml Result Diagram: 04/21/1644404/21/16444 Objective Remarks GENERAL: Calm, on vent SKIN: Warm and dry. HEAD: Atraumatic. Normocephalic. EYES: cloudy ENT: No nasal bleeding or discharge. Mucous membranes pink and moist. NECK: Trachea midline. No JVD. CARDIOVASCULAR: Regular rate and rhythm. RESPIRATORY: No accessory muscle use. Clear to auscultation. Breath sounds equal bilaterally. GASTROINTESTINAL: Abdomen soft, tender. mod distended. Hepatic and splenic margins not palpable. G-tube 18 Icelandic left upper quadrant to gravity, Ostomy draining, LL quad REBEL drain, MUSCULOSKELETAL: Extremities without clubbing, cyanosis, or edema. No obvious deformities. NEUROLOGICAL: sedated on vent Medications and IVs Current Medications Medications (Trade) Dose Ordered Sig/Rebeca Route Start Time Stop Time Status Last Admin (Compazine Supp) 25 mg Q12H PRN KS 04/10/16 12:30 (Heparin Inj) 5,000 units Q12H SQ 04/10/16 13:00 Hold 04/18/16 01:00 (Narcan Inj) 0.4 mg UNSCH PRN IV 04/10/16 12:30 (Dulcolax Supp) 10 mg DAILY PRN KS 04/10/16 12:45 (Questran 4 Gm Pkt) 4 gm TID PO 04/10/16 13:00 04/17/16 18:00 (Lactinex) 1 tab TID PO 04/10/16 13:00 04/17/16 18:00 (Ativan) 0.5 mg Q6H PRN PO 04/10/16 12:45 (Citroma Liq) 300 ml DAILY PRN PO 04/10/16 12:45 (Milk Of Magnesia Liq) 30 ml HS PRN PO 04/10/16 12:45 Primidone 250 mg 250 mg TID PO 04/10/16 13:00 04/18/16 18:08 (Flagyl 500 Mg Inj) 100 ml @ 100 mls/hr Q8H IV 04/10/16 20:00 04/21/16 04:52 Lorazepam 1 mg 1 mg Q4HR PRN IV PUSH 04/10/16 12:45 Levetriacetam 100 ml @ 400 mls/hr Q12HR IV 04/10/16 21:00 04/20/16 20:51 (Vimpat Inj/NS Inj) 110 ml @ 110 mls/hr Q12HR IV 04/10/16 21:00 04/20/16 20:51 Miscellaneous Information Patient in critical care unit? Ass... Q361D XX 04/10/16 20:45 (TEGretol) 300 mg Q8HR PO 04/12/16 14:00 04/19/16 06:31 Vancomycin HCl 500 mg 500 mg Q6HR PO 04/15/16 18:00 Hold 04/20/16 12:00 Potassium Chloride 40 meq/ Dextrose/Sodium Chloride 1,020 ml @ 30 mls/hr Q24H IV 04/19/16 10:49 (NS + KCl 20 Meq Inj) 1,000 ml @ 100 mls/hr Q10H IV 04/19/16 21:00 04/21/16 03:56 (NS Flush) 2 ml UNSCH PRN IV FLUSH 04/19/16 19:45 (NS Flush) 2 ml BID IV FLUSH 04/19/16 21:00 04/20/16 20:37 (Protonix Inj) 40 mg DAILY IV 04/20/16 09:00 04/20/16 09:30 (Tears Naturale Opth Soln) 1 drop TID EACH EYE 04/20/16 09:00 04/20/16 18:00 (Zofran Inj) 4 mg Q6H PRN IV 04/19/16 21:00 Miscellaneous Information 1 Q361D XX 04/19/16 19:45 (Chlorhexidine 2% Cloth) 3 pack Taper DAILY@04 TOP 04/20/16 04:00 04/16/17 03:59 04/20/16 20:29 Chlorhexidine Gluconate 3 pack 3 pack UNSCH PRN TOP 04/19/16 19:45 Potassium Chloride 100 ml @ 50 mls/hr Q2H PRN IV 04/19/16 20:00 04/19/16 21:53 (KCl 20 Meq Premix Inj) 100 ml @ 50 mls/hr Q2H PRN IV 04/19/16 19:45 04/19/16 20:00 Potassium Chloride 40 meq 40 meq UNSCH PRN PO/TUBE 04/19/16 19:45 Potassium Chloride 100 ml @ 25 mls/hr UNSCH PRN IV 04/19/16 19:45 04/20/16 05:11 Potassium Chloride 100 ml @ 50 mls/hr Q2H PRN IV 04/19/16 19:45 (Magnesium Sulfate Inj/NS Inj) 100 ml @ 50 mls/hr UNSCH PRN IV 04/19/16 19:45 04/20/16 05:45 Magnesium Oxide 800 mg 800 mg UNSCH PRN PO 04/19/16 19:45 (Magnesium Sulfate Inj/NS Inj) 100 ml @ 50 mls/hr UNSCH PRN IV 04/19/16 19:45 04/20/16 17:15 Potassium Phosphate 2000 mg 2,000 mg Q4H PRN PO 04/19/16 19:45 (Sodium Phosphate Inj/NS 250 ml Inj) 250 ml @ 42 mls/hr UNSCH PRN IV 04/19/16 19:45 (KCl 40 Meq/30 ml Liq) 40 meq UNSCH PRN PO/TUBE 04/19/16 19:45 Potassium Phosphate 2000 mg 2,000 mg UNSCH PRN PO/TUBE 04/19/16 19:45 (Potassium Phosphate Inj/NS 250 ml Inj) 260 ml @ 42 mls/hr UNSCH PRN IV 04/19/16 19:45 04/20/16 05:45 Chlorhexidine Gluconate 15 ml 15 ml BID@08,20 MT 04/19/16 21:00 04/20/16 20:29 Valproate Sodium 750 mg/Sodium Chloride 107.5 ml @ 105 mls/hr Q6H IV 04/19/16 21:00 04/21/16 03:56 (Neosynephrine Inj/D5W 500 ml Inj) 500 ml @ 0 mls/hr TITRATE IV 04/20/16 13:00 04/20/16 19:18 Terbutaline Sulfate 1 mg 1 mg UNSCH PRN SQ 04/20/16 12:00 Vancomycin HCl 500 mg/Sodium Chloride 500 ml @ 0 mls/hr Q6H IRRIGATION 04/20/16 15:00 04/21/16 03:56 (fentaNYL DRIP) 250 ml @ 0 mls/hr TITRATE IV 04/20/16 15:15 04/20/16 16:28 Acetaminophen 500 mg 500 mg Q4H PRN PO 04/20/16 16:15 (Diprivan 1000 Mg/100ml Inj) 100 ml @ 0 mls/hr TITRATE IV 04/20/16 23:30 04/21/16 00:53 A/P Assessment and Plan VDRF ILEOSTOMY, PARACENTESIS APR 19, GT INSERTION APR 19, SEVERE SEPSIS LACTIC ACIDOSIS C DIF. COLITIS ON CT ABDOMEN. ILEUS DEHYDRATION HYPOKALEMIA SZ'S, INTRACTABLE UTI, LIKELY CONTAMINANT ON UA SBO RECENTLY ASPIRATION PNA UTERINE FIBROIDS TEGRETOL TOXICITY ARF, PRERENAL MR JAMIE HYPOKALEMIA HYPOMAGNESEMIA HYPOCALCEMIA HYPERAMMONEMIA PLAN: IV CALCIUM STOP PROTONIX RESTART HEPARIN 5000 BID FOR PROPHYLAXIS IF OK WITH SURGERY. VANCOMYCIN ILEOSTOMY COLONIC IRRIGATION QD IVF IV ABX STOOL CULTURES VENT MGMT PER [facility] GI CONSULT FOR INTRACTABLE C DIF, INCR ABDOM PAIN ID CONSULT NEURO CONSULT. SURGERY CONSULT [facility] CONSULT ICU CARE. SEE ORDERS FOR MED AND LABS CHANGES. Romie Pelayo MD Apr 21, 2016 08:10
[2016-04-21] MEDS ORDERED: HEPARIN SODIUM - SQ 10,000 UNITS/ML VIAL SQ SCH (09:00)
[2016-04-21] MEDS: levETIRAcetam 1000 MG INJ 100 ML IV SCH ×2 (09:17→20:23)
[2016-04-21] MEDS: SODIUM CHLORIDE 0.9% FLUSH 5 ML FLUSH IV FLUSH SCH ×2 (09:18→20:23)
[2016-04-21] MEDS: ARTIFICIAL TEARS OPTH SOLN 15 ML BTL EACH EYE SCH ×3 (09:23→18:00)
[2016-04-21] MEDS: CHLORHEXIDINE 0.12% (ORAL KIT) 15 ML CUP MT SCH ×2 (09:23→20:22)
[2016-04-21] MEDS ORDERED: CALCIUM GLUCONATE INJ 1 GM in SODIUM CHLORIDE 0.9% INJ 100 ML IV ONE (10:00)
[2016-04-21] MEDS: PRIMIDONE 250 MG TAB PO SCH ×3 (10:03→18:28)
[2016-04-21] MEDS: LACOSAMIDE INJ 100 MG in SODIUM CHLORIDE 0.9% INJ 100 ML IV SCH ×2 (10:03→20:34)
[2016-04-21] MEDS: LACTOBACILLUS ACIDOPHILUS TAB PO SCH ×3 (10:03→18:28)
[2016-04-21] MEDS: CHOLESTYRAMINE 4 GM PACKET PO SCH ×3 (10:04→18:28)
[2016-04-21] MEDS: PHENYLEPHRINE 40 MG/D5W 496 ML ADMIX IV SCH ×4 (12:11→22:45)
--- NOTE | 2016-04-21 16:01 | HHI.IDPN ---
Note Infectious Disease Note ID COVERAGE: Patient in no distress. Had diverting ileostomy and G tube placed 04/19/16. Vancomycin being administered. Notes reviewed D/W RN Temps ok Still with frequent BM is a 45 y/o AAF with PMHx of mental delay, blindness, seizures, fibroid cyst for a long time (x20 years) who was brought in by her niece. Patient has prior known history of mental retardation and blindness. Patient was recently seen by me earlier this month at [facility]. During that admission patient had Small bowel obstruction from mechanical obstruction from uterine mass. She also diarrhea with severe colitis and Cdiff PCR positive. She underwent treatment with Oral Vanco, Vanco enema, Difficid during that admission. Readmitted due to uncontrolled seizures and new vs ongoing sepsis related to Cdiff. She was s/b GI during last admission and had Colonoscopy positive for pseudomembranes. Antibiotics Vanco oral Flagyl IV Lines Lines with no infection. Past Medical History reviewed Allergies: Coded Allergies: No Known Allergies (Unverified , 04/10/16) Objective Vital Signs Date Time Temp Pulse Resp B/P Pulse Ox O2 Delivery O2 Flow Rate FiO2 04/21/16 12:36 100 35 04/21/16 09:50 100 35 04/21/16 08:00 40 04/21/16 08:00 81 04/21/16 08:00 99.0 82 22 108/54 100 04/21/16 06:00 85 04/21/16 04:19 100 40 04/21/16 04:00 85 04/21/16 04:00 40 04/21/16 04:00 98.7 85 12 119/61 100 04/21/16 02:00 85 04/21/16 00:10 100 40 04/21/16 00:00 99.5 86 12 100/50 100 04/21/16 00:00 86 04/21/16 00:00 40 04/20/16 22:00 87 04/20/16 20:00 90 04/20/16 20:00 99.5 92 12 110/72 100 Automatic Cuff 04/20/16 19:43 100 40 04/20/16 19:10 101/62 99 Mechanical Ventilator 40 93/51 04/20/16 19:10 40 04/20/16 18:00 97.7 88 12 105/66 99 Mechanical Ventilator 40 92/49 04/20/16 18:00 40 04/20/16 17:00 84 12 102/63 99 Mechanical Ventilator 40 93/51 04/20/16 16:00 89 12 100/64 98 Mechanical Ventilator 40 98/50 04/20/16 16:00 40 . 04/20/16 04/20/16 04/21/16 15:00 23:00 07:00 Intake Total 950 ml 2134 ml 1964 ml Output Total 1075 ml 1555 ml 1375 ml Balance -125 ml 579 ml 589 ml IV Total 950 ml 1634 ml 1464 ml Tube Irrigant 500 ml 500 ml Output Urine Total 555 ml 615 ml 650 ml Stool Total 450 ml 475 ml Gastric Drainage Total 0 ml 0 ml Drainage Total 520 ml 490 ml 250 ml Laboratory Tests Test 04/19/16 04/20/16 04/21/16 17:45 03:43 04:45 White Blood Count 18.7 TH/MM3 23.7 TH/MM3 24.0 TH/MM3 Red Blood Count 2.78 MIL/MM3 3.10 MIL/MM3 3.23 MIL/MM3 Hemoglobin 7.8 GM/DL 8.6 GM/DL 8.9 GM/DL Hematocrit 23.5 % 26.0 % 27.8 % Mean Corpuscular Volume 84.6 FL 83.9 FL 86.0 FL Mean Corpuscular Hemoglobin 27.9 PG 27.7 PG 27.6 PG Mean Corpuscular Hemoglobin 33.0 % 33.0 % 32.0 % Concent Red Cell Distribution Width 18.2 % 18.2 % 19.2 % Platelet Count 577 TH/MM3 613 TH/MM3 576 TH/MM3 Mean Platelet Volume 6.9 FL 6.7 FL 6.8 FL Neutrophils (%) (Auto) 88.5 % 88.4 % 84.6 % Lymphocytes (%) (Auto) 4.4 % 4.5 % 6.0 % Monocytes (%) (Auto) 6.5 % 6.8 % 8.6 % Eosinophils (%) (Auto) 0.2 % 0.2 % 0.7 % Basophils (%) (Auto) 0.4 % 0.1 % 0.1 % Neutrophils # (Auto) 16.5 TH/MM3 20.9 TH/MM3 20.3 TH/MM3 Lymphocytes # (Auto) 0.8 TH/MM3 1.1 TH/MM3 1.4 TH/MM3 Monocytes # (Auto) 1.2 TH/MM3 1.6 TH/MM3 2.1 TH/MM3 Eosinophils # (Auto) 0.0 TH/MM3 0.0 TH/MM3 0.2 TH/MM3 Basophils # (Auto) 0.1 TH/MM3 0.0 TH/MM3 0.0 TH/MM3 CBC Comment AUTO DIFF AUTO DIFF DIFF FINAL Differential Total Cells 100 100 Counted Neutrophils % (Manual) 77 % 85 % Band Neutrophils % 7 % 8 % Lymphocytes % 7 % 4 % Neutrophils # (Manual) 17.4 TH/MM3 22.5 TH/MM3 Metamyelocytes 4 % Myelocytes 5 % 2 % Nucleated Red Blood Cells 1 /100 WBC Differential Comment FINAL DIFF FINAL DIFF MANUAL MANUAL Platelet Estimate HIGH HIGH Platelet Morphology Comment NORMAL NORMAL Ovalocytes 1+ Stomatocytes 1+ Keratocytes 1+ Monocytes % 1 % Laboratory Tests Test 04/19/16 04/20/16 04/20/16 04/21/16 17:45 03:43 15:51 04:45 Sodium Level 144 MEQ/L 147 MEQ/L 145 MEQ/L Potassium Level 2.4 MEQ/L 3.4 MEQ/L 3.8 MEQ/L 3.7 MEQ/L Chloride Level 110 MEQ/L 114 MEQ/L 112 MEQ/L Carbon Dioxide Level 21.7 MEQ/L 23.7 MEQ/L 23.3 MEQ/L Anion Gap 12 MEQ/L 9 MEQ/L 10 MEQ/L Blood Urea Nitrogen 3 MG/DL 2 MG/DL 1 MG/DL Creatinine LESS THAN 0.15 0.19 MG/DL 0.22 MG/DL MG/DL Estimat Glomerular Filtration 645 ML/MIN 491 ML/MIN 415 ML/MIN Rate Random Glucose 81 MG/DL 80 MG/DL 90 MG/DL Calcium Level 6.8 MG/DL 7.0 MG/DL 6.7 MG/DL Protein Corrected Calcium 8.1 MG/DL 8.3 MG/DL 8.0 MG/DL Phosphorus Level 2.5 MG/DL 2.3 MG/DL 2.6 MG/DL Total Protein 4.6 GM/DL 4.7 GM/DL 4.6 GM/DL Magnesium Level 1.1 MG/DL 1.5 MG/DL Imaging Chest X-Ray 04/20/16 0600 Signed Impressions: Service Date/Time: Wednesday, April 20, 2016 05:03 - CONCLUSION: Increasing infiltrate and pleural effusion on the left side now with almost complete white out of the left hemithorax. Persistent consolidation in the medial right lower lung. Jordan Bethea MD Chest X-Ray 04/19/16 0000 Signed Impressions: Service Date/Time: Tuesday, April 19, 2016 18:02 - CONCLUSION: 1. Endotracheal tube and right central line in satisfactory position. No pneumothorax. Left greater than right airspace disease and pleural effusion. Bruce Baez MD Chest X-Ray 04/10/16 1045 Signed Impressions: Service Date/Time: Sunday, April 10, 2016 12:47 - CONCLUSION: Coarsened bronchovascular markings retrocardiac region consistent with minimal or early left lower lobe posterior basilar segment infiltrate Ulysses Cardenas MD Abdomen X-Ray 04/10/16 0000 Signed Impressions: Service Date/Time: Sunday, April 10, 2016 16:37 - CONCLUSION: Surgery stable abdomen. Large pelvic mass displacing bowel into the mid and upper abdomen without evidence of obstruction Ulysses Cardenas MD Physical Exam GENERAL: No acute distress. SKIN: No rashes, ecchymoses or lesions. Cool and dry. HEENT: [place] conjunctiva. No scleral icterus. No injection or drainage. Slightly dry oral mucosa. NECK: Trachea midline. Supple, nontender, no meningeal signs. CARDIOVASCULAR: HS audible. RESPIRATORY: Clear to auscultation. Breath sounds equal bilaterally. GASTROINTESTINAL: Abdomen distended, MUSCULOSKELETAL: Extremities without edema. No calf tenderness. NEUROLOGICAL: Lethargic. Psych: cooperative IV line sites with no e/o infection. Assessment & Plan Remarks Severe Sepsis, due to C diff C diff Colitis. - increasing abdominal pain Leukocytosis, persistent Uterine fibroids large. Last admission had mechanical obstruction and ileus. Pneumonia likely aspiration PNA. Acute metabolic encephalopathy: seizures, sepsis. Acute renal failure: sepsis, prerenal. - resolved Recs Continue Flagyl IV Continue Vanco oral Vanco via ileostomy. Monitor progress D/W RN. Francisco J Arriaga MD Apr 21, 2016 16:01
--- NOTE | 2016-04-21 16:56 | HHI.PR ---
Subjective Subjective Notes Still intubated and on small dose of pressor (neosynephrine). Objective Vitals/I&O Vital Signs Date Time Temp Pulse Resp B/P Pulse Ox O2 Delivery O2 Flow Rate FiO2 04/21/16 16:00 98.0 89 12 112/66 100 04/21/16 16:00 40 04/20/16 19:10 Mechanical Ventilator Labs Laboratory Tests Test 04/21/16 04:45 White Blood Count 24.0 Red Blood Count 3.23 Hemoglobin 8.9 Hematocrit 27.8 Mean Corpuscular Volume 86.0 Mean Corpuscular Hemoglobin 27.6 Mean Corpuscular Hemoglobin 32.0 Concent Red Cell Distribution Width 19.2 Platelet Count 576 Mean Platelet Volume 6.8 Neutrophils (%) (Auto) 84.6 Lymphocytes (%) (Auto) 6.0 Monocytes (%) (Auto) 8.6 Eosinophils (%) (Auto) 0.7 Basophils (%) (Auto) 0.1 Neutrophils # (Auto) 20.3 Lymphocytes # (Auto) 1.4 Monocytes # (Auto) 2.1 Eosinophils # (Auto) 0.2 Basophils # (Auto) 0.0 CBC Comment DIFF FINAL Differential Comment Sodium Level 145 Potassium Level 3.7 Chloride Level 112 Carbon Dioxide Level 23.3 Anion Gap 10 Blood Urea Nitrogen 1 Creatinine 0.22 Estimat Glomerular Filtration 415 Rate Random Glucose 90 Calcium Level 6.7 Protein Corrected Calcium 8.0 Total Protein 4.6 Lungs: Clear Abdomen: Other (Distended; serous drainage from REBLE drain.) Extremities: Other (Anasarca noted) Narrative Exam Colostomy and mucous fistula viable. A/P Problem List: (1) Urinary tract infection (2) Colitis presumed infectious (3) Candiduria (4) Leukocytosis (5) Seizure disorder (6) Small bowel obstruction (7) Hypotension (8) Mental retardation (9) Physical deconditioning (10) Dehydration, moderate (11) JAMIE (acute kidney injury) (12) C. difficile colitis (13) Severe sepsis Assessment and Plan POD #2 Laparoscopic gastrostomy tube placement laparoscopic assisted diverting ileostomy with mucous fistula Plan: Continue irrigation with vancomycin per red rubber catheter that is in cecum; Restart irrigation per rectum as well. Zaheer Godwin MD Apr 21, 2016 16:55
--- NOTE | 2016-04-21 19:16 | HHI.CCPN ---
Subjective Remarks/Hospital Course 45y AA female with history of mental delay, blindness, seizure d/o, and recent hospitalization for C. difficile colitis presents from SNF with diarrhea and two day history of seizures. Pt was recently hospitalized at [facility] for treatment C. diff colitis, dehydration, JAMIE, and seizures. Discharged to SNF with vancomycin 125mg PO x4 weeks total (completed 04/10/16) per ID (Dr Bower).Due to AMS, pt unable to provide details about symptoms. Per EMR and discussion with ED physician, pt had continued diarrhea, with suspected failure of outpatient treatment for C. difficile, and seizures 2 days which prompted her visit to ED. Seizures currently managed with Keppra 1500mg BID, valproic acid 650mg q6h, and Carbamazepine 400mg q8h. seizure medications were increased 03/31/16. The patient left hospital 04/05 , on oral vancomycin during her treatment for C. difficile colitis. The patient presented 5 days later 04/10 with abdominal pain fever sepsis and seizures and was admitted. For the previous 5 days it was noted that the patient began to have mental decline, alert and oriented to somnolent responding only to noxious stimuli. The patient today underwent surgery which included a diagnostic laparoscopy, laparoscopy assisted diverting ileostomy with mucous fistula, removal of 2 L of ascites via laparoscopic paracentesis. Intraoperatively the patient received 2500 cc of crystalloid, 7 50 cc albumin, urine output 150 cc, EBL 20 cc. The patient was transferred to PACU and continues on mechanical ventilation with initial ABGs 7.29/42/1:30/20/-5.2. The patient is not on any sedation and remains unresponsive. Subjective: 04/21 Remains on neosynephrine 70 mcg/min, weaned from 90 this morning. MAP is 80s when sedation held. Excellent UOP at ~ 70 mL/hr last shift. Afebrile. Objective Vital Signs Date Time Temp Pulse Resp B/P Pulse Ox O2 Delivery O2 Flow Rate FiO2 04/21/16 18:00 74 04/21/16 17:07 100 35 04/21/16 16:00 98.0 12 112/66 04/20/16 19:10 Mechanical Ventilator Intake and Output 04/20/16 04/20/16 04/21/16 08:00 16:00 00:00 Intake Total 790 ml 1050 ml 2034 ml Output Total 1310 ml 1155 ml 1405 ml Balance -520 ml -105 ml 629 ml Result Diagram: 04/21/16 0445 04/21/16 0445 Imaging Last 48 hours Impressions Chest X-Ray 04/19/16 0000 Signed Impressions: Service Date/Time: Tuesday, April 19, 2016 18:02 - CONCLUSION: 1. Endotracheal tube and right central line in satisfactory position. No pneumothorax. Left greater than right airspace disease and pleural effusion. Bruce Baez MD Objective Remarks Drips: Neosynephrine 70 mcg/min (52 ml/hr) Propofol 20 g per KG per minute (9 mL per hour) Fentanyl 100 mcg/h (10 mL per hour) Temp 98 P 69 BP 118/61 MAP 83 Sats 100% on vent GENERAL: Frail -[place] woman with congenital blindness, orotracheally intubated. HEENT: Chronic ocular changes related to blindness. slight scleral edema Mucous membranes moist. NECK: Trachea is midline. There is no JVD. RESP: Breath sounds present bilaterally without wheezes, rales or rhonchi, synchronous with vent. . CARDIOVASCULAR: rrr with sinus rhythm in 80s on monitor. No appreciable murmurs. ABDOMEN: G tube in place. ileostomy in place with green liquid output. Mucous fistula in place with red rubber catheter. There is a REBEL drain on left with serous output, noncloudy. Bowel sounds hypoactive. MUSCULOSKELETAL: 1-2+ edema of all extremities and edema of abdominal wall. . NEUROLOGICAL: No eye opening, move extremities but not following commands upon initial sedation vacation. A/P Assessment and Plan Assessment: 45-year-old female with history of ovarian mass and prior C. difficile who presents with refractory C. difficile colitis, that underwent surgical intervention. Neuro Seizure disorder Seizures Mental disability Congenital Blindness Propofol for sedation. Fentanyl drip for analgosedation. RASS target -2. Daily sedation vacation EEG improving per neurology note. EEG 04/15/16 showed a couple of sharps Continue on anticonvulsants per neurology, Dr. Bob. -Depakote 750 mg IV every 6 hours. - Keppra 1 g IV every 12 hours -Vimpat 100 g IV every 12 hours. -Tegretol 300 every 8 Cardiovascular Severe sepsis Hypotension, now in part sedative related. - Neosynephrine, wean to maintain MAP > 65mmHg Respiratory Acute respiratory failure L Lung atelectasis, (resolved) -Mechanical ventilation AC 12/450/5/0.45 -Bronchodilators every 4 hours scheduled -CXR 04/20 showed opacification of left lung field, improved on f/u CXR. -CPAP trial today and extubate if appropriate Gastrointestinal Abdominal distension Uterine fibroid C. diff colitis refractory Ascites Acute protein calorie malnutritionmoderate S/P lap assisted diverting ileostomy with mucous fistula, laparoscopic vancomycin irrigation, G-tube insertion, laparoscopic paracentesis POD #1 2 L ascites evacuated, REBEL drain left abdomen with serous drainage. , 2 trocar sites Steri-Stripped no erythema or drainage, Red rubber ileostomy to to be irrigated with vancomycin daily. Also receiving rectal vanc per d/w RN. Infectious Disease H/O Septic Shock secondary to C. difficile colitis, failure of outpatient treatment with vancomycin PO H/O UTI -Infectious disease- Dr. Navarro. -Vancomycin irrigation via ileostomy and rectal per general surgery/ID recommendations daily Renal/FEN Acute kidney injuryresolving Hypokalemia ICU electronic protocol Continue Browne. UOP is appropriate. Monitor BMP Heme Normocytic anemialikely anemia of chronic disease Followup CBC Prophylaxis GI: Protonix IV DVT: SCD, subcut dvt prophylaxis when okay with surgery. Discussed with bedside RN. CCT 30 minutes exclusive of separately billable procedures. Martha Sullivan MD Apr 21, 2016 19:16 exclusive of procedures, and includes, but is not limited to, evaluation of the patient, review of the medical record, discussions with family, consultants, nursing staff, or respiratory therapy, and documentation in the medical record. Martha Sullivan MD Apr 21, 2016 19:16 Martha Sullivan MD Apr 21, 2016 19:16
--- NOTE | 2016-04-21 21:26 | RADRPT ---
EXAM DATE/TIME: 04/21/2016 21:03 [facility] COMPARISON: CHEST SINGLE AP, April 20, 2016, 5:03. INDICATIONS : Respiratory failure MEDICAL HISTORY : None. SURGICAL HISTORY : None. ENCOUNTER: Subsequent ACUITY: 2 days PAIN SCORE: Non-responsive. LOCATION: Bilateral chest FINDINGS: The endotracheal tube has its tip approximately 3 cm above the trinity in good position. A right inte rnal jugular central line has its tip in the right atrium. There is no pneumothorax. Small bilatera l pleural effusions are noted. There is increased aeration of the left lung compared to the previous examination performed on 04/20/2016. Mild central pulmonary vascular congestion is noted. CONCLUSION: 1. Small bilateral pleural effusions with marked increased aeration of the left lung compared to the previous day's film. 2. Mild pulmonary vascular congestion bilaterally. 3. Endotracheal tube and right internal jugular central line are stable. Nathaniel Siu MD on April 21, 2016 at 21:14 Board Certified Radiologist. This report was verified electronically.
[2016-04-21] MEDS: fentaNYL DRIP 250 ML IV SCH (21:33)
[2016-04-21] MEDS: PANTOPRAZOLE SODIUM 40 MG VIAL IV PUSH SCH (23:22)
[2016-04-22] VITALS (17 sets, daily range): BP systolic 82–121; BP diastolic 46–62; PULSE 53–108; RESP 12–18; TEMP 97.5–98.2; O2SAT 98–100
[2016-04-22] MEDS: VANCOMYCIN IRRIGATION SCH ×8 (03:01→20:05)
[2016-04-22] MEDS: NS IRRIGATION SCH ×8 (03:01→20:05)
[2016-04-22] MEDS: metroNIDAZOLE 500 MG INJ 100 ML IV SCH ×3 (03:02→20:05)
[2016-04-22] MEDS: VALPROATE INJ 750 MG in SODIUM CHLORIDE 0.9% INJ 100 ML IV SCH ×4 (03:02→20:04)
[2016-04-22] MEDS: CHLORHEXIDINE GLUCONATE 2 % 1 PACK (2 CLOTHS) TOP SCH (03:28)
[2016-04-22] MEDS: RESP: ALBUTEROL 2.5 MG/IPRATROPIUM 0.5 MG NEB (SCH) INH ×4 (04:17→19:29)
[2016-04-22 04:59] LABS: AUTOMATED NEUTROPHIL # 10.6 TH/MM3 (1.8-7.7); BASOPHIL % 0.3 % (0.0-2.0); EOSINOPHIL # 0.1 TH/MM3 (0-0.4); HEMATOCRIT 27.9 % (35.0-46.0); HEMO FLAGS DIFF FINAL; LYMPHOCYTE # 1.3 TH/MM3 (1.0-4.8); MEAN CELL VOLUME 85.1 FL (80.0-100.0); MEAN CORPUSCULAR HEMOGLOBIN 27.8 PG (27.0-34.0); MEAN CORPUSCULAR HGB CONC 32.7 % (32.0-36.0); MONO % 7.9 % (0.0-8.0); NEUT % 80.8 % (16.0-70.0); PLATELET COUNT 453 TH/MM3 (150-450); RED BLOOD COUNT 3.27 MIL/MM3 (4.00-5.30); RED CELL DISTRIBUTION WIDTH 18.9 % (11.6-17.2); WHITE BLOOD COUNT 13.1 TH/MM3 (4.0-11.0)
[2016-04-22 05:31] LABS: ANION GAP 9 MEQ/L (5-15); BLOOD UREA NITROGEN LESS THAN 1 MG/DL (7-18); CHLORIDE 112 MEQ/L (98-107); GLOMERULAR FILTRATION RATE 558 ML/MIN (>89); POTASSIUM 3.4 MEQ/L (3.5-5.1); SODIUM (NA) 145 MEQ/L (136-145)
[2016-04-22] MEDS: carBAMazepine 200 MG TAB PO SCH ×3 (05:55→21:10)
[2016-04-22] MEDS: POTASSIUM CHLOR 40 MEQ PREMIX 100 ML IV PRN (05:55)
[2016-04-22] MEDS: PHENYLEPHRINE 40 MG/D5W 496 ML ADMIX IV SCH ×4 (05:56→15:07)
[2016-04-22 06:01] LABS: CALCIUM-PROTEIN CORRECTED 8.1 MG/DL (8.5-10.1)
[2016-04-22] MEDS: levETIRAcetam 1000 MG INJ 100 ML IV SCH ×2 (08:28→20:05)
[2016-04-22] MEDS: LACOSAMIDE INJ 100 MG in SODIUM CHLORIDE 0.9% INJ 100 ML IV SCH ×2 (08:28→20:46)
[2016-04-22] MEDS: LACTOBACILLUS ACIDOPHILUS TAB PO SCH ×2 (08:29→12:03)
[2016-04-22] MEDS: SODIUM CHLORIDE 0.9% FLUSH 5 ML FLUSH IV FLUSH SCH ×2 (08:29→20:05)
[2016-04-22] MEDS: ARTIFICIAL TEARS OPTH SOLN 15 ML BTL EACH EYE SCH ×2 (08:29→12:03)
[2016-04-22] MEDS: CHOLESTYRAMINE 4 GM PACKET PO SCH ×3 (08:29→18:00)
[2016-04-22] MEDS: PRIMIDONE 250 MG TAB PO SCH ×2 (08:29→12:02)
[2016-04-22] MEDS: CHLORHEXIDINE 0.12% (ORAL KIT) 15 ML CUP MT SCH ×2 (08:30→20:04)
[2016-04-22] MEDS: NS + KCL 20 MEQ INJ 1,000 ML IV SCH ×2 (08:31→19:59)
--- NOTE | 2016-04-22 08:47 | HHI.PR ---
Subjective Remarks on vent sp or Objective Vital Signs Date Time Temp Pulse Resp B/P Pulse Ox O2 Delivery O2 Flow Rate FiO2 04/22/16 06:00 66 04/22/16 04:12 98 35 04/22/16 04:00 35 04/22/16 04:00 97.5 53 12 121/58 100 04/22/16 04:00 53 04/22/16 02:00 64 04/22/16 00:00 35 04/22/16 00:00 53 04/22/16 00:00 97.5 53 12 114/55 100 04/21/16 22:00 56 04/21/16 21:31 100 35 04/21/16 20:04 100 35 04/21/16 20:00 68 04/21/16 20:00 96.7 66 12 100/54 100 04/21/16 20:00 35 04/21/16 18:00 74 04/21/16 17:07 100 35 04/21/16 16:00 98.0 89 12 112/66 100 04/21/16 16:00 84 04/21/16 16:00 40 04/21/16 14:00 70 04/21/16 14:00 40 04/21/16 12:36 100 35 04/21/16 12:00 97.8 74 12 106/56 100 04/21/16 12:00 40 04/21/16 12:00 74 04/21/16 10:00 40 04/21/16 10:00 80 04/21/16 09:50 100 35 I/O 04/21/16 04/21/16 04/21/16 04/22/16 04/22/16 04/22/16 07:00 15:00 23:00 07:00 15:00 23:00 Intake Total 1964 ml 2405 ml 1542 ml 1878 ml Output Total 1375 ml 1925 ml 1590 ml 1450 ml Balance 589 ml 480 ml -48 ml 428 ml IV Total 1464 ml 1855 ml 1042 ml 1378 ml Lipid 50 ml Tube Irrigant 500 ml 500 ml 500 ml 500 ml Output Urine Total 650 ml 550 ml 600 ml 700 ml Stool Total 475 ml 550 ml 120 ml 50 ml Gastric Drainage Total 0 ml 500 ml 350 ml 250 ml Drainage Total 250 ml 325 ml 520 ml 450 ml Result Diagram: 04/22/1641904/22/16 042 Objective Remarks on vent sedated i dw nursing no sz and followed some commands yest Assessment and Plan Assessment and Plan imp on vimpat primidone 18 vpa 53 and cbz 8.7 check labs cbz 8.7 on300 tid last eeg looked really good just a few d/c will work on it doing well change to po when able c diff will follow Narendra Bob MD Apr 22, 2016 08:47
--- NOTE | 2016-04-22 10:04 | HHI.IDPN ---
Subjective Subjective Remarks ID COVERAGE Notes reviewed D/W RN Temps ok On neosynephrine Had surgery 04/19 - has diverting ileostomy and mucus fistula Colon looks viable Current getting vanco solution in mucus fistula and vanco enema Sedated on the vent is a 45 y/o AAF with PMHx of mental delay, blindness, seizures, fibroid cyst for a long time (x20 years) who was brought in by her niece. Patient has prior known history of mental retardation and blindness. Patient was recently seen by me earlier this month at [facility]. During that admission patient had Small bowel obstruction from mechanical obstruction from uterine mass. She also diarrhea with severe colitis and Cdiff PCR positive. She underwent treatment with Oral Vanco, Vanco enema, Difficid during that admission. She continued to improve and now is readmitted due to uncontrolled seizures and new vs ongoing sepsis related to Cdiff. She was s/b GI during last admission and had Colonoscopy positive for pseudomembranes. Antibiotics Vanco oral Flagyl IV Lines Lines with no infection. Past Medical History reviewed Allergies: Coded Allergies: No Known Allergies (Unverified , 04/10/16) Objective . Vital Signs Date Time Temp Pulse Resp B/P Pulse Ox O2 Delivery O2 Flow Rate FiO2 04/22/16 09:01 100 35 04/22/16 06:00 66 04/22/16 04:12 98 35 04/22/16 04:00 35 04/22/16 04:00 97.5 53 12 121/58 100 04/22/16 04:00 53 04/22/16 02:00 64 04/22/16 00:00 35 04/22/16 00:00 53 04/22/16 00:00 97.5 53 12 114/55 100 04/21/16 22:00 56 04/21/16 21:31 100 35 04/21/16 20:04 100 35 04/21/16 20:00 68 04/21/16 20:00 96.7 66 12 100/54 100 04/21/16 20:00 35 04/21/16 18:00 74 04/21/16 17:07 100 35 04/21/16 16:00 98.0 89 12 112/66 100 04/21/16 16:00 84 04/21/16 16:00 40 04/21/16 14:00 70 04/21/16 14:00 40 04/21/16 12:36 100 35 04/21/16 12:00 97.8 74 12 106/56 100 04/21/16 12:00 40 04/21/16 12:00 74 04/21/16 10:00 40 04/21/16 10:00 80 04/21/16 04/21/16 04/22/16 15:00 23:00 07:00 Intake Total 2405 ml 1542 ml 1878 ml Output Total 1925 ml 1590 ml 1450 ml Balance 480 ml -48 ml 428 ml IV Total 1855 ml 1042 ml 1378 ml Lipid 50 ml Tube Irrigant 500 ml 500 ml 500 ml Output Urine Total 550 ml 600 ml 700 ml Stool Total 550 ml 120 ml 50 ml Gastric Drainage Total 500 ml 350 ml 250 ml Drainage Total 325 ml 520 ml 450 ml . Laboratory Tests Test 04/21/16 04/22/16 04:45 04:20 White Blood Count 24.0 TH/MM3 13.1 TH/MM3 Red Blood Count 3.23 MIL/MM3 3.27 MIL/MM3 Hemoglobin 8.9 GM/DL 9.1 GM/DL Hematocrit 27.8 % 27.9 % Mean Corpuscular Volume 86.0 FL 85.1 FL Mean Corpuscular Hemoglobin 27.6 PG 27.8 PG Mean Corpuscular Hemoglobin 32.0 % 32.7 % Concent Red Cell Distribution Width 19.2 % 18.9 % Platelet Count 576 TH/MM3 453 TH/MM3 Mean Platelet Volume 6.8 FL 7.1 FL Neutrophils (%) (Auto) 84.6 % 80.8 % Lymphocytes (%) (Auto) 6.0 % 10.0 % Monocytes (%) (Auto) 8.6 % 7.9 % Eosinophils (%) (Auto) 0.7 % 1.0 % Basophils (%) (Auto) 0.1 % 0.3 % Neutrophils # (Auto) 20.3 TH/MM3 10.6 TH/MM3 Lymphocytes # (Auto) 1.4 TH/MM3 1.3 TH/MM3 Monocytes # (Auto) 2.1 TH/MM3 1.0 TH/MM3 Eosinophils # (Auto) 0.2 TH/MM3 0.1 TH/MM3 Basophils # (Auto) 0.0 TH/MM3 0.0 TH/MM3 CBC Comment DIFF FINAL DIFF FINAL Differential Comment Laboratory Tests Test 04/20/16 04/21/16 04/22/16 15:51 04:45 04:20 Potassium Level 3.8 MEQ/L 3.7 MEQ/L 3.4 MEQ/L Phosphorus Level 2.6 MG/DL Magnesium Level 1.5 MG/DL Sodium Level 145 MEQ/L 145 MEQ/L Chloride Level 112 MEQ/L 112 MEQ/L Carbon Dioxide Level 23.3 MEQ/L 24.0 MEQ/L Anion Gap 10 MEQ/L 9 MEQ/L Blood Urea Nitrogen 1 MG/DL LESS THAN 1 MG/DL Creatinine 0.22 MG/DL 0.17 MG/DL Estimat Glomerular Filtration 415 ML/MIN 558 ML/MIN Rate Random Glucose 90 MG/DL 83 MG/DL Calcium Level 6.7 MG/DL 6.7 MG/DL Protein Corrected Calcium 8.0 MG/DL 8.1 MG/DL Total Protein 4.6 GM/DL 4.5 GM/DL Imaging Last Impressions Chest X-Ray 04/10/16 1045 Signed Impressions: Service Date/Time: Sunday, April 10, 2016 12:47 - CONCLUSION: Coarsened bronchovascular markings retrocardiac region consistent with minimal or early left lower lobe posterior basilar segment infiltrate Ulysses Cardenas MD Abdomen X-Ray 04/10/16 0000 Signed Impressions: Service Date/Time: Sunday, April 10, 2016 16:37 - CONCLUSION: Surgery stable abdomen. Large pelvic mass displacing bowel into the mid and upper abdomen without evidence of obstruction Ulysses Cardenas MD Physical Exam GENERAL: Sedated on the vent. Lips and tongue look swollen, not in resp distress SKIN: No rashes, ecchymoses or lesions. Cool and dry. HEENT: [place] conjunctiva. No scleral icterus. No injection or drainage. Slightly dry oral mucosa. NECK: Trachea midline. Supple, nontender, no meningeal signs. CARDIOVASCULAR: HS audible. RESPIRATORY: Coarse BS melba GASTROINTESTINAL: Abdomen distended, bowel sounds hypoactive, dressing in place. Has red robbin cath on R, has ileostomy, pink stoma and has some output. MUSCULOSKELETAL: Extremities with melba pitting pedal edema. Warm and no cyanosis NEUROLOGICAL: Sedated Psych: Unable to assess : Browne in place, urine looks ok IV line sites with no e/o infection. Assessment & Plan Remarks Severe Sepsis, due to C diff - on neosynephrine currently post-op C diff Colitis. Severe - increasing abdominal pain S/P diverting ileostomy and mucus fistula 1/ - colon viable Ileus Leukocytosis, better Uterine fibroids large. Last admission had mechanical obstruction and ileus. Respiratory failure Acute metabolic encephalopathy: seizures, sepsis. Acute renal failure: sepsis, prerenal. - resolved Recs Continue Flagyl IV Continue Vanco being given in mucus fistula nad as enema Monitor progress Monitor tomy D/W RN D/W Dr Navarro ([facility]) Sheila Rowland MD Apr 22, 2016 10:04
--- NOTE | 2016-04-22 13:15 | HHI.FPPN ---
Subjective Remarks on VENT COMATOSE ANASARCA PER RN INCR EDEMA STABLE REBEL OUTPUT Objective Vitals Vital Signs Date Time Temp Pulse Resp B/P Pulse Ox O2 Delivery O2 Flow Rate FiO2 04/22/16 12:55 35 04/22/16 12:53 100 35 04/22/16 10:50 40 04/22/16 09:01 100 35 04/22/16 06:00 66 04/22/16 04:12 98 35 04/22/16 04:00 35 04/22/16 04:00 97.5 53 12 121/58 100 04/22/16 04:00 53 04/22/16 02:00 64 04/22/16 00:00 35 04/22/16 00:00 53 04/22/16 00:00 97.5 53 12 114/55 100 04/21/16 22:00 56 04/21/16 21:31 100 35 04/21/16 20:04 100 35 04/21/16 20:00 68 04/21/16 20:00 96.7 66 12 100/54 100 04/21/16 20:00 35 04/21/16 18:00 74 04/21/16 17:07 100 35 04/21/16 16:00 98.0 89 12 112/66 100 04/21/16 16:00 84 04/21/16 16:00 40 04/21/16 14:00 70 04/21/16 14:00 40 I/O 04/21/16 04/21/16 04/21/16 04/22/16 04/22/16 04/22/16 07:00 15:00 23:00 07:00 15:00 23:00 Intake Total 1964 ml 2405 ml 1542 ml 1878 ml Output Total 1375 ml 1925 ml 1590 ml 1450 ml Balance 589 ml 480 ml -48 ml 428 ml IV Total 1464 ml 1855 ml 1042 ml 1378 ml Lipid 50 ml Tube Irrigant 500 ml 500 ml 500 ml 500 ml Output Urine Total 650 ml 550 ml 600 ml 700 ml Stool Total 475 ml 550 ml 120 ml 50 ml Gastric Drainage Total 0 ml 500 ml 350 ml 250 ml Drainage Total 250 ml 325 ml 520 ml 450 ml Result Diagram: 04/22/1641904/22/16419 Objective Remarks GENERAL: Calm, on vent SKIN: Warm and dry. HEAD: Atraumatic. Normocephalic. EYES: cloudy ENT: No nasal bleeding or discharge. Mucous membranes pink and moist. NECK: Trachea midline. No JVD. CARDIOVASCULAR: Regular rate and rhythm. RESPIRATORY: No accessory muscle use. Clear to auscultation. Breath sounds equal bilaterally. GASTROINTESTINAL: Abdomen soft, tender. mod distended. Hepatic and splenic margins not palpable. G-tube 18 [place] left upper quadrant to gravity, Ostomy draining, LL quad REBEL drain, MUSCULOSKELETAL: Extremities without clubbing, cyanosis. Two plus edema BLE's. NEUROLOGICAL: comatose Medications and IVs Current Medications Medications (Trade) Dose Ordered Sig/Rebeca Route Start Time Stop Time Status Last Admin (Compazine Supp) 25 mg Q12H PRN OR 04/10/16 12:30 (Narcan Inj) 0.4 mg UNSCH PRN IV 04/10/16 12:30 (Dulcolax Supp) 10 mg DAILY PRN OR 04/10/16 12:45 (Questran 4 Gm Pkt) 4 gm TID PO 04/10/16 13:00 04/22/16 12:02 (Lactinex) 1 tab TID PO 04/10/16 13:00 04/22/16 12:03 (Ativan) 0.5 mg Q6H PRN PO 04/10/16 12:45 (Citroma Liq) 300 ml DAILY PRN PO 04/10/16 12:45 (Milk Of Magnesia Liq) 30 ml HS PRN PO 04/10/16 12:45 Primidone 250 mg 250 mg TID PO 04/10/16 13:00 04/22/16 12:02 (Flagyl 500 Mg Inj) 100 ml @ 100 mls/hr Q8H IV 04/10/16 20:00 04/22/16 12:02 Lorazepam 1 mg 1 mg Q4HR PRN IV PUSH 04/10/16 12:45 Levetriacetam 100 ml @ 400 mls/hr Q12HR IV 04/10/16 21:00 04/22/16 08:28 (Vimpat Inj/NS Inj) 110 ml @ 110 mls/hr Q12HR IV 04/10/16 21:00 04/22/16 08:28 Miscellaneous Information Patient in critical care unit? Ass... Q361D XX 04/10/16 20:45 (TEGretol) 300 mg Q8HR PO 04/12/16 14:00 04/22/16 05:55 Vancomycin HCl 500 mg 500 mg Q6HR PO 04/15/16 18:00 Hold 04/20/16 12:00 (NS + KCl 20 Meq Inj) 1,000 ml @ 100 mls/hr Q10H IV 04/19/16 21:00 04/22/16 08:31 (NS Flush) 2 ml UNSCH PRN IV FLUSH 04/19/16 19:45 (NS Flush) 2 ml BID IV FLUSH 04/19/16 21:00 04/22/16 08:29 (Tears Naturale Opth Soln) 1 drop TID EACH EYE 04/20/16 09:00 04/22/16 12:03 (Zofran Inj) 4 mg Q6H PRN IV 04/19/16 21:00 Miscellaneous Information 1 Q361D XX 04/19/16 19:45 (Chlorhexidine 2% Cloth) 3 pack Taper DAILY@04 TOP 04/20/16 04:00 04/16/17 03:59 04/22/16 03:28 Chlorhexidine Gluconate 3 pack 3 pack UNSCH PRN TOP 04/19/16 19:45 Potassium Chloride 100 ml @ 50 mls/hr Q2H PRN IV 04/19/16 20:00 04/19/16 21:53 (KCl 20 Meq Premix Inj) 100 ml @ 50 mls/hr Q2H PRN IV 04/19/16 19:45 04/19/16 20:00 Potassium Chloride 40 meq 40 meq UNSCH PRN PO/TUBE 04/19/16 19:45 Potassium Chloride 100 ml @ 25 mls/hr UNSCH PRN IV 04/19/16 19:45 04/22/16 05:55 Potassium Chloride 100 ml @ 50 mls/hr Q2H PRN IV 04/19/16 19:45 (Magnesium Sulfate Inj/NS Inj) 100 ml @ 50 mls/hr UNSCH PRN IV 04/19/16 19:45 04/20/16 05:45 Magnesium Oxide 800 mg 800 mg UNSCH PRN PO 04/19/16 19:45 (Magnesium Sulfate Inj/NS Inj) 100 ml @ 50 mls/hr UNSCH PRN IV 04/19/16 19:45 04/20/16 17:15 Potassium Phosphate 2000 mg 2,000 mg Q4H PRN PO 04/19/16 19:45 (Sodium Phosphate Inj/NS 250 ml Inj) 250 ml @ 42 mls/hr UNSCH PRN IV 04/19/16 19:45 (KCl 40 Meq/30 ml Liq) 40 meq UNSCH PRN PO/TUBE 04/19/16 19:45 Potassium Phosphate 2000 mg 2,000 mg UNSCH PRN PO/TUBE 04/19/16 19:45 (Potassium Phosphate Inj/NS 250 ml Inj) 260 ml @ 42 mls/hr UNSCH PRN IV 04/19/16 19:45 04/20/16 05:45 Chlorhexidine Gluconate 15 ml 15 ml BID@08,20 MT 04/19/16 21:00 04/22/16 08:30 Valproate Sodium 750 mg/Sodium Chloride 107.5 ml @ 105 mls/hr Q6H IV 04/19/16 21:00 04/22/16 08:28 (Neosynephrine Inj/D5W 500 ml Inj) 500 ml @ 0 mls/hr TITRATE IV 04/20/16 13:00 04/22/16 05:56 Terbutaline Sulfate 1 mg 1 mg UNSCH PRN SQ 04/20/16 12:00 Vancomycin HCl 500 mg/Sodium Chloride 500 ml @ 0 mls/hr Q6H IRRIGATION 04/20/16 15:00 04/22/16 08:28 (fentaNYL DRIP) 250 ml @ 0 mls/hr TITRATE IV 04/20/16 15:15 04/21/16 21:33 Acetaminophen 500 mg 500 mg Q4H PRN PO 04/20/16 16:15 (Diprivan 1000 Mg/100ml Inj) 100 ml @ 0 mls/hr TITRATE IV 04/20/16 23:30 04/21/16 21:32 (Heparin Inj) 5,000 units Q12HR SQ 04/21/16 09:00 Hold (Protonix Inj) 40 mg Q24H IV PUSH 04/21/16 23:00 04/21/16 23:22 A/P Assessment and Plan VDRF ILEOSTOMY, PARACENTESIS APR 19, GT INSERTION APR 19, SEVERE SEPSIS LACTIC ACIDOSIS C DIF. COLITIS ON CT ABDOMEN. ILEUS DEHYDRATION HYPOKALEMIA SZ'S, INTRACTABLE UTI, LIKELY CONTAMINANT ON UA SBO RECENTLY ASPIRATION PNA UTERINE FIBROIDS TEGRETOL TOXICITY ARF, PRERENAL MR JAMIE HYPOKALEMIA HYPOMAGNESEMIA HYPOCALCEMIA HYPERAMMONEMIA PLAN: IV CALCIUM PROTONIX IV RESTART HEPARIN 5000 BID FOR PROPHYLAXIS IF OK WITH SURGERY. VANCOMYCIN ILEOSTOMY COLONIC IRRIGATION QD IVF IV ABX STOOL CULTURES VENT MGMT PER [facility] GI CONSULT FOR INTRACTABLE C DIF, INCR ABDOM PAIN ID CONSULT NEURO CONSULT. SURGERY CONSULT [facility] CONSULT ICU CARE. SEE ORDERS FOR MED AND LABS CHANGES. Romie Pelayo MD Apr 22, 2016 13:15
[2016-04-22] MEDS ORDERED: CALCIUM GLUCONATE INJ 1 GM in SODIUM CHLORIDE 0.9% INJ 100 ML IV ONE (14:00)
--- NOTE | 2016-04-22 17:22 | HHI.PR ---
Subjective Subjective Notes Intubated/Sedated Objective Vitals/I&O Vital Signs Date Time Temp Pulse Resp B/P Pulse Ox O2 Delivery O2 Flow Rate FiO2 04/22/16 16:29 99 35 04/22/16 16:00 91 04/22/16 16:00 98.0 14 114/62 04/20/16 19:10 Mechanical Ventilator Labs Laboratory Tests Test 04/22/16 04/22/16 04:20 09:49 White Blood Count 13.1 Red Blood Count 3.27 Hemoglobin 9.1 Hematocrit 27.9 Mean Corpuscular Volume 85.1 Mean Corpuscular Hemoglobin 27.8 Mean Corpuscular Hemoglobin 32.7 Concent Red Cell Distribution Width 18.9 Platelet Count 453 Mean Platelet Volume 7.1 Neutrophils (%) (Auto) 80.8 Lymphocytes (%) (Auto) 10.0 Monocytes (%) (Auto) 7.9 Eosinophils (%) (Auto) 1.0 Basophils (%) (Auto) 0.3 Neutrophils # (Auto) 10.6 Lymphocytes # (Auto) 1.3 Monocytes # (Auto) 1.0 Eosinophils # (Auto) 0.1 Basophils # (Auto) 0.0 CBC Comment DIFF FINAL Differential Comment Sodium Level 145 Potassium Level 3.4 Chloride Level 112 Carbon Dioxide Level 24.0 Anion Gap 9 Blood Urea Nitrogen LESS THAN 1 Creatinine 0.17 Estimat Glomerular Filtration 558 Rate Random Glucose 83 Calcium Level 6.7 Protein Corrected Calcium 8.1 Total Protein 4.5 Valproic Acid (Depakene) Level 38 Carbamazepine (Tegretol) Level 2.2 Cardiovascular: Regular Lungs: Clear Abdomen: Other (G tube in place; MF in place with red rubber tube for vanco irrigation; ileostomy in place with very minimal green/brown liquid stool ) Extremities: Other (gen edema ) A/P Problem List: (1) Urinary tract infection (2) Colitis presumed infectious (3) Candiduria (4) Leukocytosis (5) Seizure disorder (6) Small bowel obstruction (7) Hypotension (8) Mental retardation (9) Physical deconditioning (10) Dehydration, moderate (11) JAMIE (acute kidney injury) (12) C. difficile colitis (13) Severe sepsis Assessment and Plan 45 year old female with severe c-diff colitis -POD3 Laparoscopic gastrostomy tube placement; laparoscopic assisted diverting ileostomy with mucous fistula -Continue vancomycin irrigation via rectum and red rubber catheter -Start trickle feeds -Vent per SOFIA -RN Lincoln at bedside Attending Statement pt seen at bedside stable start tf at 10cc/hr Attestation The exam, history, and the medical decision-making described in the above note were completed with the assistance of the mid-level provider. I reviewed and agree with the findings presented. I attest that I had a [id number] encounter with the patient on the same day, and personally performed and documented my assessment and findings in the medical record. Maia Lee Apr 22, 2016 17:22 Jeremiah Lozada MD Apr 28, 2016 19:53
[2016-04-22] MEDS: ONDANSETRON HCL 4 MG/2 ML VIAL IV PRN (18:45)
[2016-04-22] MEDS: fentaNYL DRIP 250 ML IV SCH (19:36)
[2016-04-22] MEDS: PROPOFOL 1000 MG/100 ML IV SCH (19:36)
--- NOTE | 2016-04-22 23:00 | HHI.CCPN ---
Subjective Remarks/Hospital Course 45y AA female with history of mental delay, blindness, seizure d/o, and recent hospitalization for C. difficile colitis presents from SNF with diarrhea and two day history of seizures. Pt was recently hospitalized at [facility] for treatment C. diff colitis, dehydration, JAMIE, and seizures. Discharged to SNF with vancomycin 125mg PO x4 weeks total (completed 04/10/16) per ID (Dr Bower).Due to AMS, pt unable to provide details about symptoms. Per EMR and discussion with ED physician, pt had continued diarrhea, with suspected failure of outpatient treatment for C. difficile, and seizures 2 days which prompted her visit to ED. Seizures currently managed with Keppra 1500mg BID, valproic acid 650mg q6h, and Carbamazepine 400mg q8h. seizure medications were increased 03/31/16. The patient left hospital 04/05 , on oral vancomycin during her treatment for C. difficile colitis. The patient presented 5 days later 04/10 with abdominal pain fever sepsis and seizures and was admitted. For the previous 5 days it was noted that the patient began to have mental decline, alert and oriented to somnolent responding only to noxious stimuli. The patient today underwent surgery which included a diagnostic laparoscopy, laparoscopy assisted diverting ileostomy with mucous fistula, removal of 2 L of ascites via laparoscopic paracentesis. Intraoperatively the patient received 2500 cc of crystalloid, 7 50 cc albumin, urine output 150 cc, EBL 20 cc. The patient was transferred to PACU and continues on mechanical ventilation with initial ABGs 7.29/42/1:30/20/-5.2. The patient is not on any sedation and remains unresponsive. Subjective: 04/21 Remains on neosynephrine 70 mcg/min, weaned from 90 this morning. MAP is 80s when sedation held. Excellent UOP at ~ 70 mL/hr last shift. Afebrile. 04/22: Remains on mech vent. Still on neosynephrine. Objective Vital Signs Date Time Temp Pulse Resp B/P Pulse Ox O2 Delivery O2 Flow Rate FiO2 04/22/16 22:00 100 35 04/22/16 22:00 79 04/22/16 20:00 98.2 12 107/56 04/20/16 19:10 Mechanical Ventilator Intake and Output 04/21/16 04/21/16 04/22/16 08:00 16:00 00:00 Intake Total 1964 ml 2405 ml 1542 ml Output Total 1375 ml 1925 ml 1590 ml Balance 589 ml 480 ml -48 ml Result Diagram: 04/22/1641904/22/16 0420 Imaging Last 48 hours Impressions Chest X-Ray 04/19/16 0000 Signed Impressions: Service Date/Time: Tuesday, April 19, 2016 18:02 - CONCLUSION: 1. Endotracheal tube and right central line in satisfactory position. No pneumothorax. Left greater than right airspace disease and pleural effusion. Bruce Baez MD Objective Remarks Drips: Neosynephrine 80 mcg/min Propofol 20 g per KG per minute (9 mL per hour) Fentanyl 100 mcg/h (10 mL per hour) Temp 98 P 69 BP 118/61 MAP 83 Sats 100% on vent GENERAL: Frail -Spanish woman with congenital blindness, orotracheally intubated. HEENT: Chronic ocular changes related to blindness. slight scleral edema Mucous membranes moist. NECK: Trachea is midline. There is no JVD. RESP: Breath sounds present bilaterally without wheezes, rales or rhonchi, synchronous with vent. . CARDIOVASCULAR: rrr with sinus rhythm in 80s on monitor. No appreciable murmurs. ABDOMEN: G tube in place. ileostomy in place with green liquid output. Mucous fistula in place with red rubber catheter. There is a REBEL drain on left with serous output, noncloudy. Bowel sounds hypoactive. MUSCULOSKELETAL: 1-2+ edema of all extremities and edema of abdominal wall. . NEUROLOGICAL: No eye opening, move extremities but not following commands upon initial sedation vacation. A/P Assessment and Plan Assessment: 45-year-old female with history of ovarian mass and prior C. difficile who presents with refractory C. difficile colitis, that underwent surgical intervention. Neuro Seizure disorder Seizures Mental disability Congenital Blindness Propofol for sedation. Fentanyl drip for analgosedation. RASS target -2. Daily sedation vacation EEG improving per neurology note. EEG 04/15/16 showed a couple of sharps Continue on anticonvulsants per neurology, Dr. Bob. -Depakote 750 mg IV every 6 hours. - Keppra 1 g IV every 12 hours -Vimpat 100 g IV every 12 hours. -Tegretol 300 every 8 Cardiovascular Severe sepsis Hypotension, now in part sedative related. - Neosynephrine, wean to maintain MAP > 65mmHg Respiratory Acute respiratory failure L Lung atelectasis, (resolved) -Mechanical ventilation AC 12/450/5/0.45 -Bronchodilators every 4 hours scheduled -CXR 04/20 showed opacification of left lung field, improved on f/u CXR. -CPAP trial today and extubate if appropriate Gastrointestinal Abdominal distension Uterine fibroid C. diff colitis refractory Ascites Acute protein calorie malnutritionmoderate S/P lap assisted diverting ileostomy with mucous fistula, laparoscopic vancomycin irrigation, G-tube insertion, laparoscopic paracentesis POD #1 2 L ascites evacuated, REBEL drain left abdomen with serous drainage. , 2 trocar sites Steri-Stripped no erythema or drainage, Red rubber catheter in mucus fistula to to be irrigated with vancomycin daily. Also receiving rectal vanc enema. Plan start tube feeds via PEG. Infectious Disease H/O Septic Shock secondary to C. difficile colitis, failure of outpatient treatment with vancomycin PO H/O UTI -Infectious disease- Dr. Navarro. -Vancomycin irrigation via ileostomy and rectal per general surgery/ID recommendations daily Renal/FEN Acute kidney injuryresolving Hypokalemia ICU electronic protocol Continue Browne. UOP is appropriate. Monitor BMP Heme Normocytic anemialikely anemia of chronic disease Followup CBC Prophylaxis GI: Protonix IV DVT: SCD, subcut dvt prophylaxis when okay with surgery. Discussed with bedside RN. D/w Dr Rowland, D/W Dr. Godwin CCT 30 minutes exclusive of separately billable procedures. Michael Navarro MD Apr 22, 2016 23:00
[2016-04-23] VITALS (17 sets, daily range): BP systolic 102–121; BP diastolic 54–64; PULSE 51–108; RESP 11–14; TEMP 97.5–98.7; O2SAT 99–100
[2016-04-23] MEDS: PANTOPRAZOLE SODIUM 40 MG VIAL IV PUSH SCH ×2 (00:14→22:09)
[2016-04-23] MEDS: PROPOFOL 1000 MG/100 ML IV SCH ×2 (00:28→05:59)
[2016-04-23] MEDS: RESP: ALBUTEROL 2.5 MG/IPRATROPIUM 0.5 MG NEB (SCH) INH ×4 (03:08→20:34)
[2016-04-23] MEDS: VANCOMYCIN IRRIGATION SCH ×8 (04:31→20:00)
[2016-04-23] MEDS: VALPROATE INJ 750 MG in SODIUM CHLORIDE 0.9% INJ 100 ML IV SCH ×4 (04:31→21:00)
[2016-04-23] MEDS: CHLORHEXIDINE GLUCONATE 2 % 1 PACK (2 CLOTHS) TOP SCH (04:31)
[2016-04-23] MEDS: NS IRRIGATION SCH ×8 (04:31→20:00)
[2016-04-23] MEDS: metroNIDAZOLE 500 MG INJ 100 ML IV SCH ×3 (04:33→20:00)
[2016-04-23 05:06] LABS: AUTOMATED NEUTROPHIL # 13.8 TH/MM3 (1.8-7.7); BASOPHIL # 0.2 TH/MM3 (0-0.2); EOSINOPHIL # 0.1 TH/MM3 (0-0.4); EOSINOPHIL % 0.6 % (0.0-4.0); HEMATOCRIT 27.2 % (35.0-46.0); LYMPH % 10.6 % (9.0-44.0); LYMPHOCYTE # 1.8 TH/MM3 (1.0-4.8); MEAN CELL VOLUME 85.8 FL (80.0-100.0); MEAN CORPUSCULAR HEMOGLOBIN 27.9 PG (27.0-34.0); MEAN CORPUSCULAR HGB CONC 32.5 % (32.0-36.0); MONO % 5.3 % (0.0-8.0); NEUT % 82.5 % (16.0-70.0); PLATELET COUNT 340 TH/MM3 (150-450); RED BLOOD COUNT 3.17 MIL/MM3 (4.00-5.30); WHITE BLOOD COUNT 16.8 TH/MM3 (4.0-11.0)
[2016-04-23 05:09] LABS: HEMO FLAGS AUTO DIFF
[2016-04-23] MEDS: NS + KCL 20 MEQ INJ 1,000 ML IV SCH ×2 (05:24→15:00)
[2016-04-23] MEDS: carBAMazepine 200 MG TAB PO SCH ×3 (05:38→21:00)
[2016-04-23 05:40] LABS: ANION GAP 8 MEQ/L (5-15); BLOOD UREA NITROGEN LESS THAN 1 MG/DL (7-18); CHLORIDE 113 MEQ/L (98-107); GLOMERULAR FILTRATION RATE 375 ML/MIN (>89); POTASSIUM 3.9 MEQ/L (3.5-5.1); SODIUM (NA) 143 MEQ/L (136-145)
[2016-04-23 05:54] LABS: CALCIUM-PROTEIN CORRECTED 8.1 MG/DL (8.5-10.1)
[2016-04-23 07:02] LABS: BANDS 15 % (0-6); NEUTROPHIL # MANUAL DIFF 15.3 TH/MM3 (1.8-7.7); PLATELET ESTIMATE SMEAR NORMAL (NORMAL); PLATELET MORPHOLOGY NORMAL (NORMAL); POLYS (SEG NEUTROPHILS) 76 % (16-70); SCAN/DIFF FINAL DIFF MANUAL; WBC DIFF SAMPLE 100
[2016-04-23 07:06] LABS: KERATOCYTES OCC (NORMAL)
[2016-04-23] MEDS: PHENYLEPHRINE 40 MG/D5W 496 ML ADMIX IV SCH ×2 (08:51)
[2016-04-23] MEDS: LACOSAMIDE INJ 100 MG in SODIUM CHLORIDE 0.9% INJ 100 ML IV SCH ×2 (08:52→20:00)
[2016-04-23] MEDS: SODIUM CHLORIDE 0.9% FLUSH 5 ML FLUSH IV FLUSH SCH ×2 (08:52→20:00)
[2016-04-23] MEDS: CHLORHEXIDINE 0.12% (ORAL KIT) 15 ML CUP MT SCH ×2 (08:53→20:00)
[2016-04-23] MEDS: ARTIFICIAL TEARS OPTH SOLN 15 ML BTL EACH EYE SCH ×3 (08:54→18:00)
[2016-04-23] MEDS: PRIMIDONE 250 MG TAB PO SCH ×3 (08:54→18:00)
[2016-04-23] MEDS: LACTOBACILLUS ACIDOPHILUS TAB PO SCH ×3 (08:54→18:00)
[2016-04-23] MEDS: levETIRAcetam 1000 MG INJ 100 ML IV SCH ×2 (08:55→20:00)
[2016-04-23] MEDS: CHOLESTYRAMINE 4 GM PACKET PO SCH ×3 (09:00→18:00)
--- NOTE | 2016-04-23 11:57 | HHI.PR ---
Subjective Subjective Notes Intubated/Sedated; on CPAP Objective Vitals/I&O Vital Signs Date Time Temp Pulse Resp B/P Pulse Ox O2 Delivery O2 Flow Rate FiO2 04/23/16 10:00 95 04/23/16 09:36 35 04/23/16 08:53 100 04/23/16 08:00 97.5 12 110/54 04/20/16 19:10 Mechanical Ventilator Labs Laboratory Tests Test 04/23/16 04:40 White Blood Count 16.8 Red Blood Count 3.17 Hemoglobin 8.8 Hematocrit 27.2 Mean Corpuscular Volume 85.8 Mean Corpuscular Hemoglobin 27.9 Mean Corpuscular Hemoglobin 32.5 Concent Red Cell Distribution Width 19.0 Platelet Count 340 Mean Platelet Volume 7.2 Neutrophils (%) (Auto) 82.5 Lymphocytes (%) (Auto) 10.6 Monocytes (%) (Auto) 5.3 Eosinophils (%) (Auto) 0.6 Basophils (%) (Auto) 1.0 Neutrophils # (Auto) 13.8 Lymphocytes # (Auto) 1.8 Monocytes # (Auto) 0.9 Eosinophils # (Auto) 0.1 Basophils # (Auto) 0.2 CBC Comment AUTO DIFF Differential Total Cells 100 Counted Neutrophils % (Manual) 76 Band Neutrophils % 15 Lymphocytes % 6 Monocytes % 3 Neutrophils # (Manual) 15.3 Differential Comment FINAL DIFF MANUAL Platelet Estimate NORMAL Platelet Morphology Comment NORMAL Keratocytes OCC Sodium Level 143 Potassium Level 3.9 Chloride Level 113 Carbon Dioxide Level 22.0 Anion Gap 8 Blood Urea Nitrogen LESS THAN 1 Creatinine 0.24 Estimat Glomerular Filtration 375 Rate Random Glucose 97 Calcium Level 6.7 Protein Corrected Calcium 8.1 Total Protein 4.4 Cardiovascular: Regular Lungs: Clear Abdomen: Other (see below ) Extremities: Other (generalized edema ) Narrative Exam Abdomen soft; with ileostomy ---minimal brown liquid in bag; REBEL with SS drainage ; G tube with TF; MF A/P Problem List: (1) Urinary tract infection (2) Colitis presumed infectious (3) Candiduria (4) Leukocytosis (5) Seizure disorder (6) Small bowel obstruction (7) Hypotension (8) Mental retardation (9) Physical deconditioning (10) Dehydration, moderate (11) JAMIE (acute kidney injury) (12) C. difficile colitis (13) Severe sepsis Assessment and Plan 45 year old female with severe c-diff colitis -POD4 Laparoscopic gastrostomy tube placement; laparoscopic assisted diverting ileostomy with mucous fistula -Continue vancomycin irrigation via rectum and red rubber catheter -Trickle feeds started this AM---continue at 10 cc/hr for now -Vent per [facility] Serna at bedside Attending Statement pt seen at bedside still on vent cpap mode tf at 10cc/hr Attestation The exam, history, and the medical decision-making described in the above note were completed with the assistance of the mid-level provider. I reviewed and agree with the findings presented. I attest that I had a [id number] encounter with the patient on the same day, and personally performed and documented my assessment and findings in the medical record. Maia Lee Apr 23, 2016 11:57 Jeremiah Lozada MD Apr 28, 2016 19:55
--- NOTE | 2016-04-23 13:36 | HHI.FPPN ---
Subjective Remarks COMATOSE OUTPUT FROM GT REBEL DRAINING D/W RN ON PERI Objective Vitals Vital Signs Date Time Temp Pulse Resp B/P Pulse Ox O2 Delivery O2 Flow Rate FiO2 04/23/16 12:00 98.1 89 11 111/62 100 04/23/16 12:00 95 04/23/16 10:00 95 04/23/16 09:36 35 04/23/16 08:53 100 35 04/23/16 08:53 35 04/23/16 08:00 67 04/23/16 08:00 97.5 67 12 110/54 100 04/23/16 08:00 40 04/23/16 06:00 51 04/23/16 04:46 100 35 04/23/16 04:00 40 04/23/16 04:00 98.7 58 12 102/55 100 04/23/16 04:00 58 04/23/16 02:00 55 04/23/16 01:25 100 35 04/23/16 00:00 40 04/23/16 00:00 98.6 63 12 110/56 100 04/23/16 00:00 63 04/22/16 22:00 100 35 04/22/16 22:00 79 04/22/16 20:00 40 04/22/16 20:00 98.2 95 12 107/56 100 04/22/16 20:00 108 04/22/16 19:29 100 35 04/22/16 18:00 98 04/22/16 16:29 99 35 04/22/16 16:00 91 04/22/16 16:00 40 04/22/16 16:00 98.0 106 14 114/62 100 04/22/16 14:00 85 04/22/16 14:00 40 I/O 04/22/16 04/22/16 04/22/16 04/23/16 04/23/16 04/23/16 07:00 15:00 23:00 07:00 15:00 23:00 Intake Total 1878 ml 1655 ml 1606 ml 2049 ml Output Total 1450 ml 1175 ml 925 ml 1345 ml Balance 428 ml 480 ml 681 ml 704 ml IV Total 1378 ml 1155 ml 1106 ml 1549 ml Tube Irrigant 500 ml 500 ml 500 ml 500 ml Output Urine Total 700 ml 550 ml 400 ml 800 ml Stool Total 50 ml 100 ml 125 ml 45 ml Gastric Drainage Total 250 ml 100 ml Emesis 50 ml Drainage Total 450 ml 425 ml 350 ml 500 ml Result Diagram: 04/23/1643904/23/16439 Objective Remarks GENERAL: Calm, on vent SKIN: Warm and dry. HEAD: Atraumatic. Normocephalic. EYES: cloudy ENT: No nasal bleeding or discharge. Mucous membranes pink and moist. NECK: Trachea midline. No JVD. CARDIOVASCULAR: Regular rate and rhythm. RESPIRATORY: No accessory muscle use. Clear to auscultation. Breath sounds equal bilaterally. GASTROINTESTINAL: Abdomen soft, tender. mod distended. Hepatic and splenic margins not palpable. G-tube 18 Setswana left upper quadrant to gravity, Ostomy draining, LL quad REBEL drain, MUSCULOSKELETAL: Extremities without clubbing, cyanosis. Two plus edema BLE's. NEUROLOGICAL: comatose Medications and IVs Current Medications Medications (Trade) Dose Ordered Sig/Rebeca Route Start Time Stop Time Status Last Admin (Compazine Supp) 25 mg Q12H PRN NC 04/10/16 12:30 (Narcan Inj) 0.4 mg UNSCH PRN IV 04/10/16 12:30 (Dulcolax Supp) 10 mg DAILY PRN NC 04/10/16 12:45 (Questran 4 Gm Pkt) 4 gm TID PO 04/10/16 13:00 04/22/16 12:02 (Lactinex) 1 tab TID PO 04/10/16 13:00 04/23/16 08:54 (Ativan) 0.5 mg Q6H PRN PO 04/10/16 12:45 (Citroma Liq) 300 ml DAILY PRN PO 04/10/16 12:45 (Milk Of Magnesia Liq) 30 ml HS PRN PO 04/10/16 12:45 Primidone 250 mg 250 mg TID PO 04/10/16 13:00 04/23/16 08:54 (Flagyl 500 Mg Inj) 100 ml @ 100 mls/hr Q8H IV 04/10/16 20:00 04/23/16 04:33 Lorazepam 1 mg 1 mg Q4HR PRN IV PUSH 04/10/16 12:45 Levetriacetam 100 ml @ 400 mls/hr Q12HR IV 04/10/16 21:00 04/23/16 08:55 (Vimpat Inj/NS Inj) 110 ml @ 110 mls/hr Q12HR IV 04/10/16 21:00 04/23/16 08:52 Miscellaneous Information Patient in critical care unit? Ass... Q361D XX 04/10/16 20:45 (TEGretol) 300 mg Q8HR PO 04/12/16 14:00 04/23/16 05:38 Vancomycin HCl 500 mg 500 mg Q6HR PO 04/15/16 18:00 Hold 04/20/16 12:00 (NS + KCl 20 Meq Inj) 1,000 ml @ 100 mls/hr Q10H IV 04/19/16 21:00 04/23/16 05:24 (NS Flush) 2 ml UNSCH PRN IV FLUSH 04/19/16 19:45 (NS Flush) 2 ml BID IV FLUSH 04/19/16 21:00 04/23/16 08:52 (Tears Naturale Opth Soln) 1 drop TID EACH EYE 04/20/16 09:00 04/23/16 08:54 (Zofran Inj) 4 mg Q6H PRN IV 04/19/16 21:00 04/22/16 18:45 Miscellaneous Information 1 Q361D XX 04/19/16 19:45 (Chlorhexidine 2% Cloth) 3 pack Taper DAILY@04 TOP 04/20/16 04:00 04/16/17 03:59 04/23/16 04:31 Chlorhexidine Gluconate 3 pack 3 pack UNSCH PRN TOP 04/19/16 19:45 Potassium Chloride 100 ml @ 50 mls/hr Q2H PRN IV 04/19/16 20:00 04/19/16 21:53 (KCl 20 Meq Premix Inj) 100 ml @ 50 mls/hr Q2H PRN IV 04/19/16 19:45 04/19/16 20:00 Potassium Chloride 40 meq 40 meq UNSCH PRN PO/TUBE 04/19/16 19:45 Potassium Chloride 100 ml @ 25 mls/hr UNSCH PRN IV 04/19/16 19:45 04/22/16 05:55 Potassium Chloride 100 ml @ 50 mls/hr Q2H PRN IV 04/19/16 19:45 (Magnesium Sulfate Inj/NS Inj) 100 ml @ 50 mls/hr UNSCH PRN IV 04/19/16 19:45 04/20/16 05:45 Magnesium Oxide 800 mg 800 mg UNSCH PRN PO 04/19/16 19:45 (Magnesium Sulfate Inj/NS Inj) 100 ml @ 50 mls/hr UNSCH PRN IV 04/19/16 19:45 04/20/16 17:15 Potassium Phosphate 2000 mg 2,000 mg Q4H PRN PO 04/19/16 19:45 (Sodium Phosphate Inj/NS 250 ml Inj) 250 ml @ 42 mls/hr UNSCH PRN IV 04/19/16 19:45 (KCl 40 Meq/30 ml Liq) 40 meq UNSCH PRN PO/TUBE 04/19/16 19:45 Potassium Phosphate 2000 mg 2,000 mg UNSCH PRN PO/TUBE 04/19/16 19:45 (Potassium Phosphate Inj/NS 250 ml Inj) 260 ml @ 42 mls/hr UNSCH PRN IV 04/19/16 19:45 04/20/16 05:45 Chlorhexidine Gluconate 15 ml 15 ml BID@08,20 MT 04/19/16 21:00 04/23/16 08:53 Valproate Sodium 750 mg/Sodium Chloride 107.5 ml @ 105 mls/hr Q6H IV 04/19/16 21:00 04/23/16 09:06 (Neosynephrine Inj/D5W 500 ml Inj) 500 ml @ 0 mls/hr TITRATE IV 04/20/16 13:00 04/23/16 08:51 Terbutaline Sulfate 1 mg 1 mg UNSCH PRN SQ 04/20/16 12:00 Vancomycin HCl 500 mg/Sodium Chloride 500 ml @ 0 mls/hr Q6H IRRIGATION 04/20/16 15:00 04/23/16 08:53 (fentaNYL DRIP) 250 ml @ 0 mls/hr TITRATE IV 04/20/16 15:15 04/22/16 19:36 Acetaminophen 500 mg 500 mg Q4H PRN PO 04/20/16 16:15 (Diprivan 1000 Mg/100ml Inj) 100 ml @ 0 mls/hr TITRATE IV 04/20/16 23:30 04/23/16 05:59 (Heparin Inj) 5,000 units Q12HR SQ 04/21/16 09:00 Hold (Protonix Inj) 40 mg Q24H IV PUSH 04/21/16 23:00 04/23/16 00:14 Urinary Catheter: Yes Browne insert reason: Measure Accurate Output Vascular Central Line Catheter: Yes Assessment to: Continue A/P Assessment and Plan VDRF Laparoscopic assisted diverting ileostomy with mucous fistula, GT, & PARACENTESIS APR 19, SEVERE SEPSIS LACTIC ACIDOSIS C DIF. COLITIS ON CT ABDOMEN. ILEUS DEHYDRATION HYPOKALEMIA SZ'S, INTRACTABLE UTI, LIKELY CONTAMINANT ON UA SBO RECENTLY ASPIRATION PNA UTERINE FIBROIDS TEGRETOL TOXICITY ARF, PRERENAL MR JAMIE HYPOKALEMIA HYPOMAGNESEMIA HYPOCALCEMIA HYPERAMMONEMIA PLAN: ON NEOSYNEPHR Vancomycin irrigation via rectum and red rubber catheter Trickle feeds at 10 cc/hr PROTONIX IV RESTART HEPARIN 5000 BID FOR PROPHYLAXIS IF OK WITH SURGERY. IV ABX VENT MGMT PER [facility] FOR INTRACTABLE C DIF, INCR ABDOM PAIN ID CONSULT NEURO CONSULT. SURGERY CONSULT [facility] CONSULT AM LABS IV CA CHECK VIT D ICU CARE. SEE ORDERS FOR MED AND LABS CHANGES. Romie Pelayo MD Apr 23, 2016 13:36
[2016-04-23 13:42] LABS: PRIMDONE <2.5 mcg/mL (5.0 - 12.0)
[2016-04-23] MEDS ORDERED: CALCIUM GLUCONATE INJ 1 GM in SODIUM CHLORIDE 0.9% INJ 100 ML IV ONE (15:00)
--- NOTE | 2016-04-23 16:02 | HHI.IDPN ---
Subjective Subjective Remarks ID COVERAGE Notes reviewed D/W RN Temps ok Still on neosynephrine, dose being decreased Tolerating CPAP though she has had some apneic episodes Had surgery 04/19 - has diverting ileostomy and mucus fistula Current getting vanco solution in mucus fistula and vanco enema Sedated on the vent is a 45 y/o AAF with PMHx of mental delay, blindness, seizures, fibroid cyst for a long time (x20 years) who was brought in by her niece. Patient has prior known history of mental retardation and blindness. Patient was recently seen by me earlier this month at [facility]. During that admission patient had Small bowel obstruction from mechanical obstruction from uterine mass. She also diarrhea with severe colitis and Cdiff PCR positive. She underwent treatment with Oral Vanco, Vanco enema, Difficid during that admission. She continued to improve and now is readmitted due to uncontrolled seizures and new vs ongoing sepsis related to Cdiff. She was s/b GI during last admission and had Colonoscopy positive for pseudomembranes. Antibiotics Vanco oral Flagyl IV Lines Lines with no infection. Past Medical History reviewed Allergies: Coded Allergies: No Known Allergies (Unverified , 04/10/16) Objective . Vital Signs Date Time Temp Pulse Resp B/P Pulse Ox O2 Delivery O2 Flow Rate FiO2 04/23/16 14:00 101 04/23/16 12:00 98.1 89 11 111/62 100 04/23/16 12:00 95 04/23/16 10:00 95 04/23/16 09:36 35 04/23/16 08:53 100 35 04/23/16 08:53 35 04/23/16 08:00 67 04/23/16 08:00 97.5 67 12 110/54 100 04/23/16 08:00 40 04/23/16 06:00 51 04/23/16 04:46 100 35 04/23/16 04:00 40 04/23/16 04:00 98.7 58 12 102/55 100 04/23/16 04:00 58 04/23/16 02:00 55 04/23/16 01:25 100 35 04/23/16 00:00 40 04/23/16 00:00 98.6 63 12 110/56 100 04/23/16 00:00 63 04/22/16 22:00 100 35 04/22/16 22:00 79 04/22/16 20:00 40 04/22/16 20:00 98.2 95 12 107/56 100 04/22/16 20:00 108 04/22/16 19:29 100 35 04/22/16 18:00 98 04/22/16 16:29 99 35 04/22/16 16:00 91 04/22/16 16:00 40 04/22/16 16:00 98.0 106 14 114/62 100 04/22/16 04/22/16 04/23/16 15:00 23:00 07:00 Intake Total 1655 ml 1606 ml 2049 ml Output Total 1175 ml 925 ml 1345 ml Balance 480 ml 681 ml 704 ml IV Total 1155 ml 1106 ml 1549 ml Tube Irrigant 500 ml 500 ml 500 ml Output Urine Total 550 ml 400 ml 800 ml Stool Total 100 ml 125 ml 45 ml Gastric Drainage Total 100 ml Emesis 50 ml Drainage Total 425 ml 350 ml 500 ml . Laboratory Tests Test 04/22/16 04/23/16 04:20 04:40 White Blood Count 13.1 TH/MM3 16.8 TH/MM3 Red Blood Count 3.27 MIL/MM3 3.17 MIL/MM3 Hemoglobin 9.1 GM/DL 8.8 GM/DL Hematocrit 27.9 % 27.2 % Mean Corpuscular Volume 85.1 FL 85.8 FL Mean Corpuscular Hemoglobin 27.8 PG 27.9 PG Mean Corpuscular Hemoglobin 32.7 % 32.5 % Concent Red Cell Distribution Width 18.9 % 19.0 % Platelet Count 453 TH/MM3 340 TH/MM3 Mean Platelet Volume 7.1 FL 7.2 FL Neutrophils (%) (Auto) 80.8 % 82.5 % Lymphocytes (%) (Auto) 10.0 % 10.6 % Monocytes (%) (Auto) 7.9 % 5.3 % Eosinophils (%) (Auto) 1.0 % 0.6 % Basophils (%) (Auto) 0.3 % 1.0 % Neutrophils # (Auto) 10.6 TH/MM3 13.8 TH/MM3 Lymphocytes # (Auto) 1.3 TH/MM3 1.8 TH/MM3 Monocytes # (Auto) 1.0 TH/MM3 0.9 TH/MM3 Eosinophils # (Auto) 0.1 TH/MM3 0.1 TH/MM3 Basophils # (Auto) 0.0 TH/MM3 0.2 TH/MM3 CBC Comment DIFF FINAL AUTO DIFF Differential Comment FINAL DIFF MANUAL Differential Total Cells 100 Counted Neutrophils % (Manual) 76 % Band Neutrophils % 15 % Lymphocytes % 6 % Monocytes % 3 % Neutrophils # (Manual) 15.3 TH/MM3 Platelet Estimate NORMAL Platelet Morphology Comment NORMAL Keratocytes OCC Laboratory Tests Test 04/22/16 04/23/16 04:20 04:40 Sodium Level 145 MEQ/L 143 MEQ/L Potassium Level 3.4 MEQ/L 3.9 MEQ/L Chloride Level 112 MEQ/L 113 MEQ/L Carbon Dioxide Level 24.0 MEQ/L 22.0 MEQ/L Anion Gap 9 MEQ/L 8 MEQ/L Blood Urea Nitrogen LESS THAN 1 LESS THAN 1 MG/DL MG/DL Creatinine 0.17 MG/DL 0.24 MG/DL Estimat Glomerular Filtration 558 ML/MIN 375 ML/MIN Rate Random Glucose 83 MG/DL 97 MG/DL Calcium Level 6.7 MG/DL 6.7 MG/DL Protein Corrected Calcium 8.1 MG/DL 8.1 MG/DL Total Protein 4.5 GM/DL 4.4 GM/DL 25-Hydroxy Vitamin D Total 6.9 ng/ML Imaging Chest X-Ray 04/10/16 1045 Signed Impressions: Service Date/Time: Sunday, April 10, 2016 12:47 - CONCLUSION: Coarsened bronchovascular markings retrocardiac region consistent with minimal or early left lower lobe posterior basilar segment infiltrate Ulysses Cardenas MD Abdomen X-Ray 04/10/16 0000 Signed Impressions: Service Date/Time: Sunday, April 10, 2016 16:37 - CONCLUSION: Surgery stable abdomen. Large pelvic mass displacing bowel into the mid and upper abdomen without evidence of obstruction Ulysses Cardenas MD Physical Exam GENERAL: Sedated on the vent. Lips swollen, not in resp distress. On CPAP SKIN: No rashes, ecchymoses or lesions. Cool and dry. HEENT: [place] conjunctiva. No scleral icterus. No injection or drainage. Slightly dry oral mucosa. NECK: Trachea midline. Supple, nontender, no meningeal signs. CARDIOVASCULAR: HS audible. RESPIRATORY: Coarse BS melba GASTROINTESTINAL: Abdomen distended, bowel sounds hypoactive, dressing in place. Has red robbin cath on R, has ileostomy, pink stoma and has some output. MUSCULOSKELETAL: Extremities with melba pitting pedal edema. Warm and no cyanosis. Looks more edematous, generalized NEUROLOGICAL: Sedated Psych: Unable to assess : Browne in place, urine looks ok IV line sites with no e/o infection. Assessment & Plan Remarks Severe Sepsis, due to C diff - on neosynephrine currently post-op C diff Colitis. Severe S/P diverting ileostomy and mucus fistula 04/19 - colon viable Ileus Leukocytosis, up again Uterine fibroids large. Last admission had mechanical obstruction and ileus. Respiratory failure Acute metabolic encephalopathy: seizures, sepsis. Acute renal failure: sepsis, prerenal. - resolved Recs Continue Flagyl IV Continue Vanco solution - enema and thru mucus fistula Weaning per [facility] Monitor progress Follow CBC D/W Sheila Zuñiga MD Apr 23, 2016 16:02
--- NOTE | 2016-04-23 16:44 | HHI.CCPN ---
Subjective Remarks/Hospital Course 45y AA female with history of mental delay, blindness, seizure d/o, and recent hospitalization for C. difficile colitis presents from SNF with diarrhea and two day history of seizures. Pt was recently hospitalized at [place] for treatment C. diff colitis, dehydration, JAMIE, and seizures. Discharged to SNF with vancomycin 125mg PO x4 weeks total (completed 04/10/16) per ID (Dr Bower).Due to AMS, pt unable to provide details about symptoms. Per EMR and discussion with ED physician, pt had continued diarrhea, with suspected failure of outpatient treatment for C. difficile, and seizures 2 days which prompted her visit to ED. Seizures currently managed with Keppra 1500mg BID, valproic acid 650mg q6h, and Carbamazepine 400mg q8h. seizure medications were increased 03/31/16. The patient left hospital 04/05 , on oral vancomycin during her treatment for C. difficile colitis. The patient presented 5 days later 04/10 with abdominal pain fever sepsis and seizures and was admitted. For the previous 5 days it was noted that the patient began to have mental decline, alert and oriented to somnolent responding only to noxious stimuli. The patient today underwent surgery which included a diagnostic laparoscopy, laparoscopy assisted diverting ileostomy with mucous fistula, removal of 2 L of ascites via laparoscopic paracentesis. Intraoperatively the patient received 2500 cc of crystalloid, 7 50 cc albumin, urine output 150 cc, EBL 20 cc. The patient was transferred to PACU and continues on mechanical ventilation with initial ABGs 7.29/42/1:30/20/-5.2. The patient is not on any sedation and remains unresponsive. Subjective: 04/21 Remains on neosynephrine 70 mcg/min, weaned from 90 this morning. MAP is 80s when sedation held. Excellent UOP at ~ 70 mL/hr last shift. Afebrile. 04/22: Remains on mech vent. Still on neosynephrine. 04/23: Remains on mechanical ventilation. Betito-Synephrine being titrated down. Started on tube feeds via G-tube. Objective Vital Signs Date Time Temp Pulse Resp B/P Pulse Ox O2 Delivery O2 Flow Rate FiO2 04/23/16 16:08 100 35 04/23/16 16:00 94 04/23/16 16:00 98.1 12 119/64 04/20/16 19:10 Mechanical Ventilator Intake and Output 04/22/16 04/22/16 04/23/16 08:00 16:00 00:00 Intake Total 1878 ml 1655 ml 1606 ml Output Total 1450 ml 1175 ml 925 ml Balance 428 ml 480 ml 681 ml Result Diagram: 04/23/16 0440 04/23/16 0440 Imaging Last 48 hours Impressions Chest X-Ray 04/19/16 0000 Signed Impressions: Service Date/Time: Tuesday, April 19, 2016 18:02 - CONCLUSION: 1. Endotracheal tube and right central line in satisfactory position. No pneumothorax. Left greater than right airspace disease and pleural effusion. Bruce Baez MD Objective Remarks Drips: Neosynephrine Propofol 20 g per KG per minute (9 mL per hour) Fentanyl 100 mcg/h (10 mL per hour) GENERAL: Frail -Polish woman with congenital blindness, orotracheally intubated. HEENT: Chronic ocular changes related to blindness. slight scleral edema Mucous membranes moist. NECK: Trachea is midline. There is no JVD. RESP: Breath sounds present bilaterally without wheezes, rales or rhonchi, synchronous with vent. . CARDIOVASCULAR: rrr with sinus rhythm in 80s on monitor. No appreciable murmurs. ABDOMEN: G tube in place. ileostomy in place with green liquid output. Mucous fistula in place with red rubber catheter. There is a REBEL drain on left with serous output, noncloudy. Bowel sounds hypoactive. MUSCULOSKELETAL: 1-2+ edema of all extremities and edema of abdominal wall. . NEUROLOGICAL: No eye opening, move extremities but not following commands upon initial sedation vacation. A/P Assessment and Plan Assessment: 45-year-old female with history of ovarian mass and prior C. difficile who presents with refractory C. difficile colitis, that underwent surgical intervention. Neuro Seizure disorder Seizures Mental disability Congenital Blindness Propofol for sedation. Fentanyl drip for analgosedation. RASS target -2. Daily sedation vacation EEG improving per neurology note. EEG 04/15/16 showed a couple of sharps Continue on anticonvulsants per neurology, Dr. Bob. -Depakote 750 mg IV every 6 hours. - Keppra 1 g IV every 12 hours -Vimpat 100 g IV every 12 hours. -Tegretol 300 every 8 Cardiovascular Severe sepsis Hypotension, now in part sedative related. - Neosynephrine, wean to maintain MAP > 65mmHg Respiratory Acute respiratory failure L Lung atelectasis, (resolved) -Mechanical ventilation AC 12/450/5/0.45 -Bronchodilators every 4 hours scheduled -CXR 04/20 showed opacification of left lung field, improved on f/u CXR. -CPAP trial daily and extubate if appropriate Gastrointestinal Abdominal distension Uterine fibroid C. diff colitis refractory Ascites Acute protein calorie malnutritionmoderate S/P lap assisted diverting ileostomy with mucous fistula, laparoscopic vancomycin irrigation, G-tube insertion, laparoscopic paracentesis 2 L ascites evacuated, REBEL drain left abdomen with serous drainage. , 2 trocar sites Steri-Stripped no erythema or drainage, Red rubber catheter in mucus fistula to to be irrigated with vancomycin daily. Also receiving rectal vanc enema. Started tube feeds via PEG. Infectious Disease H/O Septic Shock secondary to C. difficile colitis, failure of outpatient treatment with vancomycin PO H/O UTI -Infectious disease- Dr. Navarro. -Vancomycin irrigation via ileostomy and rectal per general surgery/ID recommendations daily Renal/FEN Acute kidney injuryresolving Hypokalemia ICU electronic protocol Continue Browne. UOP is appropriate. Monitor BMP Heme Normocytic anemialikely anemia of chronic disease Followup CBC Prophylaxis GI: Protonix IV DVT: SCD, subcut dvt prophylaxis when okay with surgery. Discussed with bedside RN. CCT 30 minutes exclusive of separately billable procedures. Michael Navarro MD Apr 23, 2016 16:44
[2016-04-24] VITALS (18 sets, daily range): BP systolic 112–142; BP diastolic 58–73; PULSE 97–114; RESP 12–19; TEMP 97.5–98.5; O2SAT 99–100
[2016-04-24] MEDS: NS + KCL 20 MEQ INJ 1,000 ML IV SCH (00:56)
[2016-04-24] MEDS: ONDANSETRON HCL 4 MG/2 ML VIAL IV PRN (03:11)
[2016-04-24] MEDS: VALPROATE INJ 750 MG in SODIUM CHLORIDE 0.9% INJ 100 ML IV SCH ×4 (03:12→20:50)
[2016-04-24] MEDS: VANCOMYCIN IRRIGATION SCH ×8 (03:12→20:49)
[2016-04-24] MEDS: NS IRRIGATION SCH ×8 (03:12→20:49)
[2016-04-24] MEDS: metroNIDAZOLE 500 MG INJ 100 ML IV SCH ×3 (03:12→20:50)
[2016-04-24] MEDS: CHLORHEXIDINE GLUCONATE 2 % 1 PACK (2 CLOTHS) TOP SCH (04:05)
[2016-04-24 04:39] LABS: AUTOMATED NEUTROPHIL # 15.9 TH/MM3 (1.8-7.7); BASOPHIL # 0.1 TH/MM3 (0-0.2); BASOPHIL % 0.4 % (0.0-2.0); HEMATOCRIT 25.8 % (35.0-46.0); LYMPH % 6.5 % (9.0-44.0); LYMPHOCYTE # 1.2 TH/MM3 (1.0-4.8); MEAN CELL VOLUME 84.1 FL (80.0-100.0); MEAN CORPUSCULAR HEMOGLOBIN 27.9 PG (27.0-34.0); MEAN CORPUSCULAR HGB CONC 33.2 % (32.0-36.0); MONO % 4.3 % (0.0-8.0); NEUT % 88.8 % (16.0-70.0); PLATELET COUNT 231 TH/MM3 (150-450); RED BLOOD COUNT 3.07 MIL/MM3 (4.00-5.30); WHITE BLOOD COUNT 17.9 TH/MM3 (4.0-11.0)
[2016-04-24 04:52] LABS: HEMO FLAGS AUTO DIFF
--- NOTE | 2016-04-24 05:20 | RADRPT ---
EXAM DATE/TIME: 04/24/2016 04:01 [facility] COMPARISON: CHEST SINGLE AP, April 21, 2016, 21:03. INDICATIONS : Fever, sepsis, respiratory failure MEDICAL HISTORY : Unknown SURGICAL HISTORY : Unknown ENCOUNTER: Subsequent ACUITY: 3 days PAIN SCORE: Non-responsive. LOCATION: Bilateral chest FINDINGS: A single view of the chest demonstrates diffuse bilateral hazy opacities likely layering effusions gr eater on the left. Heart normal in size. Endotracheal tube and right jugular central line stable in p osition. The cardiomediastinal contours are unremarkable. Osseous structures are intact. CONCLUSION: 1. Bilateral hazy opacities greater the left likely layering pleural effusions. Increase in prominenc e on current study. 2. Support lines and tubes are stable. Dusty Knight MD on April 24, 2016 at 5:16 Board Certified Radiologist. This report was verified electronically.
[2016-04-24 05:22] LABS: ALKALINE PHOSPHATASE 72 U/L (45-117); ALT (GPT) 8 U/L (10-53); ANION GAP 7 MEQ/L (5-15); AST (GOT) 19 U/L (15-37); BICARBONATE 22.6 MEQ/L (21.0-32.0); BLOOD UREA NITROGEN LESS THAN 1 MG/DL (7-18); CALCIUM-PROTEIN CORRECTED 8.2 MG/DL (8.5-10.1); CHLORIDE 114 MEQ/L (98-107); GLOMERULAR FILTRATION RATE 463 ML/MIN (>89); MAGNESIUM 1.1 MG/DL (1.5-2.5); POTASSIUM 4.1 MEQ/L (3.5-5.1); SODIUM (NA) 144 MEQ/L (136-145); TOTAL BILIRUBIN ADULT 1.1 MG/DL (0.2-1.0)
[2016-04-24] MEDS: carBAMazepine 200 MG TAB PO SCH ×3 (05:29→20:50)
[2016-04-24] MEDS: MAGNESIUM SULFATE INJ 4 GM in SODIUM CHLORIDE 0.9% INJ 92 ML IV PRN (05:56)
[2016-04-24 08:49] LABS: BANDS 9 % (0-6); NEUTROPHIL # MANUAL DIFF 16.3 TH/MM3 (1.8-7.7); POLYS (SEG NEUTROPHILS) 82 % (16-70); WBC DIFF SAMPLE 100
[2016-04-24 08:50] LABS: PLATELET ESTIMATE SMEAR NORMAL (NORMAL); PLATELET MORPHOLOGY NORMAL (NORMAL); SCAN/DIFF FINAL DIFF MANUAL; TARGET CELLS 2+ (NORMAL)
[2016-04-24] MEDS: LACTOBACILLUS ACIDOPHILUS TAB PO SCH ×3 (08:58→17:48)
[2016-04-24] MEDS: PRIMIDONE 250 MG TAB PO SCH ×3 (08:58→17:48)
[2016-04-24] MEDS: SODIUM CHLORIDE 0.9% FLUSH 5 ML FLUSH IV FLUSH SCH ×2 (08:59→20:51)
[2016-04-24] MEDS: levETIRAcetam 1000 MG INJ 100 ML IV SCH ×2 (08:59→20:51)
[2016-04-24] MEDS: CHOLESTYRAMINE 4 GM PACKET PO SCH ×3 (08:59→17:49)
[2016-04-24] MEDS: LACOSAMIDE INJ 100 MG in SODIUM CHLORIDE 0.9% INJ 100 ML IV SCH ×2 (08:59→20:50)
[2016-04-24] MEDS: CHLORHEXIDINE 0.12% (ORAL KIT) 15 ML CUP MT SCH ×2 (09:00→20:51)
[2016-04-24] MEDS: ARTIFICIAL TEARS OPTH SOLN 15 ML BTL EACH EYE SCH ×3 (09:00→17:49)
[2016-04-24] MEDS ORDERED: ALBUMIN HUMAN 25% 25 GM/100 ML BAGP IV ONE (11:15)
--- NOTE | 2016-04-24 11:20 | HHI.FPPN ---
Subjective Remarks INCREASED EDEMA INCREASED REBEL OUTPUT ON CPAP OFF PRESSORS COMATOSE D/W RN Objective Vitals Vital Signs Date Time Temp Pulse Resp B/P Pulse Ox O2 Delivery O2 Flow Rate FiO2 04/24/16 11:09 100 35 04/24/16 10:00 104 04/24/16 08:00 107 04/24/16 08:00 40 04/24/16 08:00 97.5 107 17 142/72 100 04/24/16 07:50 35 04/24/16 07:50 99 35 04/24/16 06:00 106 04/24/16 04:11 100 35 04/24/16 04:00 107 04/24/16 04:00 98.2 107 12 134/73 100 04/24/16 04:00 40 04/24/16 02:00 106 04/24/16 00:39 100 35 04/24/16 00:00 107 04/24/16 00:00 98.5 107 16 139/72 100 04/24/16 00:00 40 04/23/16 22:00 106 04/23/16 20:35 99 35 04/23/16 20:00 40 04/23/16 20:00 98.4 108 14 121/64 100 04/23/16 20:00 103 04/23/16 18:00 94 04/23/16 16:08 100 35 04/23/16 16:00 94 04/23/16 16:00 98.1 94 12 119/64 100 04/23/16 16:00 40 04/23/16 14:00 101 04/23/16 12:00 98.1 89 11 111/62 100 04/23/16 12:00 95 I/O 04/23/16 04/23/16 04/23/16 04/24/16 04/24/16 04/24/16 07:00 15:00 23:00 07:00 15:00 23:00 Intake Total 2049 ml 2174 ml 1612 ml 1528 ml Output Total 1345 ml 1230 ml 1050 ml 825 ml Balance 704 ml 944 ml 562 ml 703 ml IV Total 1549 ml 1674 ml 1044 ml 950 ml Tube Feeding 68 ml 78 ml Tube Irrigant 500 ml 500 ml 500 ml 500 ml Output Urine Total 800 ml 850 ml 400 ml 400 ml Stool Total 45 ml 80 ml 50 ml 50 ml Drainage Total 500 ml 300 ml 600 ml 375 ml Result Diagram: 04/24/1642404/24/16424 Objective Remarks GENERAL: Calm, on vent SKIN: Warm and dry. HEAD: Atraumatic. Normocephalic. EYES: cloudy ENT: No nasal bleeding or discharge. Mucous membranes pink and moist. NECK: Trachea midline. No JVD. CARDIOVASCULAR: Regular rate and rhythm. RESPIRATORY: No accessory muscle use. Clear to auscultation. Breath sounds equal bilaterally. GASTROINTESTINAL: Abdomen soft, tender. mod distended. Hepatic and splenic margins not palpable. G-tube 18 [place] left upper quadrant to gravity, Ostomy draining, LL quad REBEL drain, MUSCULOSKELETAL: Extremities without clubbing, cyanosis. Two plus edema BLE's. NEUROLOGICAL: comatose Medications and IVs Current Medications Medications (Trade) Dose Ordered Sig/Rebeca Route Start Time Stop Time Status Last Admin (Compazine Supp) 25 mg Q12H PRN CA 04/10/16 12:30 (Narcan Inj) 0.4 mg UNSCH PRN IV 04/10/16 12:30 (Dulcolax Supp) 10 mg DAILY PRN CA 04/10/16 12:45 (Questran 4 Gm Pkt) 4 gm TID PO 04/10/16 13:00 04/22/16 12:02 (Lactinex) 1 tab TID PO 04/10/16 13:00 04/24/16 08:58 (Ativan) 0.5 mg Q6H PRN PO 04/10/16 12:45 (Citroma Liq) 300 ml DAILY PRN PO 04/10/16 12:45 (Milk Of Magnesia Liq) 30 ml HS PRN PO 04/10/16 12:45 Primidone 250 mg 250 mg TID PO 04/10/16 13:00 04/24/16 08:58 (Flagyl 500 Mg Inj) 100 ml @ 100 mls/hr Q8H IV 04/10/16 20:00 04/24/16 03:12 Lorazepam 1 mg 1 mg Q4HR PRN IV PUSH 04/10/16 12:45 Levetriacetam 100 ml @ 400 mls/hr Q12HR IV 04/10/16 21:00 04/24/16 08:59 (Vimpat Inj/NS Inj) 110 ml @ 110 mls/hr Q12HR IV 04/10/16 21:00 04/24/16 08:59 Miscellaneous Information Patient in critical care unit? Ass... Q361D XX 04/10/16 20:45 (TEGretol) 300 mg Q8HR PO 04/12/16 14:00 04/24/16 05:29 Vancomycin HCl 500 mg 500 mg Q6HR PO 04/15/16 18:00 Hold 04/20/16 12:00 (NS + KCl 20 Meq Inj) 1,000 ml @ 100 mls/hr Q10H IV 04/19/16 21:00 04/24/16 00:56 (NS Flush) 2 ml UNSCH PRN IV FLUSH 04/19/16 19:45 (NS Flush) 2 ml BID IV FLUSH 04/19/16 21:00 04/24/16 08:59 (Tears Naturale Opth Soln) 1 drop TID EACH EYE 04/20/16 09:00 04/24/16 09:00 (Zofran Inj) 4 mg Q6H PRN IV 04/19/16 21:00 04/24/16 03:11 Miscellaneous Information 1 Q361D XX 04/19/16 19:45 (Chlorhexidine 2% Cloth) 3 pack Taper DAILY@04 TOP 04/20/16 04:00 04/16/17 03:59 04/24/16 04:05 Chlorhexidine Gluconate 3 pack 3 pack UNSCH PRN TOP 04/19/16 19:45 Potassium Chloride 100 ml @ 50 mls/hr Q2H PRN IV 04/19/16 20:00 04/19/16 21:53 (KCl 20 Meq Premix Inj) 100 ml @ 50 mls/hr Q2H PRN IV 04/19/16 19:45 04/19/16 20:00 Potassium Chloride 40 meq 40 meq UNSCH PRN PO/TUBE 04/19/16 19:45 Potassium Chloride 100 ml @ 25 mls/hr UNSCH PRN IV 04/19/16 19:45 04/22/16 05:55 Potassium Chloride 100 ml @ 50 mls/hr Q2H PRN IV 04/19/16 19:45 (Magnesium Sulfate Inj/NS Inj) 100 ml @ 50 mls/hr UNSCH PRN IV 04/19/16 19:45 04/24/16 05:56 Magnesium Oxide 800 mg 800 mg UNSCH PRN PO 04/19/16 19:45 (Magnesium Sulfate Inj/NS Inj) 100 ml @ 50 mls/hr UNSCH PRN IV 04/19/16 19:45 04/20/16 17:15 Potassium Phosphate 2000 mg 2,000 mg Q4H PRN PO 04/19/16 19:45 (Sodium Phosphate Inj/NS 250 ml Inj) 250 ml @ 42 mls/hr UNSCH PRN IV 04/19/16 19:45 (KCl 40 Meq/30 ml Liq) 40 meq UNSCH PRN PO/TUBE 04/19/16 19:45 Potassium Phosphate 2000 mg 2,000 mg UNSCH PRN PO/TUBE 04/19/16 19:45 (Potassium Phosphate Inj/NS 250 ml Inj) 260 ml @ 42 mls/hr UNSCH PRN IV 04/19/16 19:45 04/20/16 05:45 Chlorhexidine Gluconate 15 ml 15 ml BID@08,20 MT 04/19/16 21:00 04/24/16 09:00 Valproate Sodium 750 mg/Sodium Chloride 107.5 ml @ 105 mls/hr Q6H IV 04/19/16 21:00 04/24/16 08:59 (Neosynephrine Inj/D5W 500 ml Inj) 500 ml @ 0 mls/hr TITRATE IV 04/20/16 13:00 04/23/16 08:51 Terbutaline Sulfate 1 mg 1 mg UNSCH PRN SQ 04/20/16 12:00 Vancomycin HCl 500 mg/Sodium Chloride 500 ml @ 0 mls/hr Q6H IRRIGATION 04/20/16 15:00 04/24/16 09:00 (fentaNYL DRIP) 250 ml @ 0 mls/hr TITRATE IV 04/20/16 15:15 04/22/16 19:36 Acetaminophen 500 mg 500 mg Q4H PRN PO 04/20/16 16:15 (Diprivan 1000 Mg/100ml Inj) 100 ml @ 0 mls/hr TITRATE IV 04/20/16 23:30 04/23/16 05:59 (Heparin Inj) 5,000 units Q12HR SQ 04/21/16 09:00 Hold (Protonix Inj) 40 mg Q24H IV PUSH 04/21/16 23:00 04/23/16 22:09 A/P Assessment and Plan VDRF Laparoscopic assisted diverting ileostomy with mucous fistula, GT, & PARACENTESIS APR 19, SEVERE SEPSIS LACTIC ACIDOSIS C DIF. COLITIS ON CT ABDOMEN. ILEUS DEHYDRATION HYPOKALEMIA SZ'S, INTRACTABLE FLUID OVERLOAD THIRD SPACING UTI, LIKELY CONTAMINANT ON UA SBO RECENTLY ASPIRATION PNA UTERINE FIBROIDS TEGRETOL TOXICITY ARF, PRERENAL MR JAMIE HYPOKALEMIA HYPOMAGNESEMIA HYPOCALCEMIA HYPOVITAMINOSIS D HYPERAMMONEMIA PLAN: CPAP, HOPEFULLY EXTUBATE IV ALBUMIN X ONE NOW IV LASIX X ONE NOW STOP IVF'S IV CALCIUM X ONE NOW Vancomycin irrigation via rectum and red rubber catheter Trickle feeds at 10 cc/hr PROTONIX IV RESTART HEPARIN 5000 BID FOR PROPHYLAXIS IF OK WITH SURGERY. IV ABX VENT MGMT PER [facility] GI CONSULT ID CONSULT NEURO CONSULT. SURGERY CONSULT AM LABS ICU CARE. SEE ORDERS FOR MED AND LABS CHANGES. Romie Pelayo MD Apr 24, 2016 11:20
[2016-04-24] MEDS ORDERED: FUROSEMIDE 40 MG/4 ML VIAL IV PUSH ONE (11:30)
[2016-04-24] MEDS ORDERED: CALCIUM GLUCONATE INJ 1 GM in SODIUM CHLORIDE 0.9% INJ 100 ML IV ONE (13:00)
--- NOTE | 2016-04-24 13:57 | HHI.CCPN ---
Subjective Remarks/Hospital Course 45y AA female with history of mental delay, blindness, seizure d/o, and recent hospitalization for C. difficile colitis presents from SNF with diarrhea and two day history of seizures. Pt was recently hospitalized at [place] for treatment C. diff colitis, dehydration, JAMIE, and seizures. Discharged to SNF with vancomycin 125mg PO x4 weeks total (completed 04/10/16) per ID (Dr Bower).Due to AMS, pt unable to provide details about symptoms. Per EMR and discussion with ED physician, pt had continued diarrhea, with suspected failure of outpatient treatment for C. difficile, and seizures 2 days which prompted her visit to ED. Seizures currently managed with Keppra 1500mg BID, valproic acid 650mg q6h, and Carbamazepine 400mg q8h. seizure medications were increased 03/31/16. The patient left hospital 04/05 , on oral vancomycin during her treatment for C. difficile colitis. The patient presented 5 days later 04/10 with abdominal pain fever sepsis and seizures and was admitted. For the previous 5 days it was noted that the patient began to have mental decline, alert and oriented to somnolent responding only to noxious stimuli. The patient today underwent surgery which included a diagnostic laparoscopy, laparoscopy assisted diverting ileostomy with mucous fistula, removal of 2 L of ascites via laparoscopic paracentesis. Intraoperatively the patient received 2500 cc of crystalloid, 7 50 cc albumin, urine output 150 cc, EBL 20 cc. The patient was transferred to PACU and continues on mechanical ventilation with initial ABGs 7.29/42/1:30/20/-5.2. The patient is not on any sedation and remains unresponsive. Subjective: 04/21 Remains on neosynephrine 70 mcg/min, weaned from 90 this morning. MAP is 80s when sedation held. Excellent UOP at ~ 70 mL/hr last shift. Afebrile. 04/22: Remains on mech vent. Still on neosynephrine. 04/23: Remains on mechanical ventilation. Betito-Synephrine being titrated down. Started on tube feeds via G-tube. 04/24 Patient remains intubated off Neosyn, afebrile. Objective Vital Signs Date Time Temp Pulse Resp B/P Pulse Ox O2 Delivery O2 Flow Rate FiO2 04/24/16 11:09 100 35 04/24/16 10:00 104 1/11/17 08:00 97.5 17 142/72 04/20/16 19:10 Mechanical Ventilator Intake and Output 04/23/16 04/23/16 04/24/16 08:00 16:00 00:00 Intake Total 2049 ml 2174 ml 1612 ml Output Total 1345 ml 1230 ml 1050 ml Balance 704 ml 944 ml 562 ml Result Diagram: 04/24/16 0425 04/24/16 0425 Other Results Laboratory Tests Test 04/24/16 04:25 White Blood Count 17.9 TH/MM3 Red Blood Count 3.07 MIL/MM3 Hemoglobin 8.6 GM/DL Hematocrit 25.8 % Mean Corpuscular Volume 84.1 FL Mean Corpuscular Hemoglobin 27.9 PG Mean Corpuscular Hemoglobin 33.2 % Concent Red Cell Distribution Width 19.0 % Platelet Count 231 TH/MM3 Mean Platelet Volume 7.4 FL Neutrophils (%) (Auto) 88.8 % Lymphocytes (%) (Auto) 6.5 % Monocytes (%) (Auto) 4.3 % Eosinophils (%) (Auto) 0.0 % Basophils (%) (Auto) 0.4 % Neutrophils # (Auto) 15.9 TH/MM3 Lymphocytes # (Auto) 1.2 TH/MM3 Monocytes # (Auto) 0.8 TH/MM3 Eosinophils # (Auto) 0.0 TH/MM3 Basophils # (Auto) 0.1 TH/MM3 CBC Comment AUTO DIFF Differential Total Cells 100 Counted Neutrophils % (Manual) 82 % Band Neutrophils % 9 % Lymphocytes % 5 % Monocytes % 4 % Neutrophils # (Manual) 16.3 TH/MM3 Differential Comment FINAL DIFF MANUAL Platelet Estimate NORMAL Platelet Morphology Comment NORMAL Target Cells 2+ Sodium Level 144 MEQ/L Potassium Level 4.1 MEQ/L Chloride Level 114 MEQ/L Carbon Dioxide Level 22.6 MEQ/L Anion Gap 7 MEQ/L Blood Urea Nitrogen LESS THAN 1 MG/DL Creatinine 0.20 MG/DL Estimat Glomerular Filtration 463 ML/MIN Rate Random Glucose 89 MG/DL Lactic Acid Level 0.7 mmol/L Calcium Level 6.9 MG/DL Protein Corrected Calcium 8.2 MG/DL Magnesium Level 1.1 MG/DL Total Bilirubin 1.1 MG/DL Aspartate Amino Transf 19 U/L (AST/SGOT) Alanine Aminotransferase 8 U/L (ALT/SGPT) Alkaline Phosphatase 72 U/L Total Protein 4.6 GM/DL Albumin 1.1 GM/DL Imaging Last Impressions Chest X-Ray 04/24/16 0600 Signed Impressions: Service Date/Time: Sunday, April 24, 2016 04:01 - CONCLUSION: 1. Bilateral hazy opacities greater the left likely layering pleural effusions. Increase in prominence on current study. 2. Support lines and tubes are stable. Dusty Knight MD Abdomen/Pelvis CT 04/17/16 0000 Signed Impressions: Service Date/Time: April 01:10 - CONCLUSION: 1. No abscess or free air. 2. Diffuse inflammatory process involving the entire colon is unchanged. 3. Slight increase in volume of ascites. 4. Unchanged bilateral pleural effusions and bibasilar atelectasis/infiltrates. 5. Anasarca 6. Enlarged fibroid uterus Jordan Up Jr., MD Abdomen X-Ray 04/17/16 0000 Signed Impressions: Service Date/Time: Sunday, April 17, 2016 13:29 - CONCLUSION: 1. Mild ileus. Findings similar to April 10. No free air. No evidence for obstruction. Thumbprinting and mucosal thickening suspected in the colon. Bruce Baez MD Objective Remarks GENERAL: Frail -Turkish woman with congenital blindness, orotracheally intubated. HEENT: Chronic ocular changes related to blindness. slight scleral edema Mucous membranes moist. NECK: Trachea is midline. There is no JVD. RESP: Breath sounds present bilaterally without wheezes, rales or rhonchi, synchronous with vent. . CARDIOVASCULAR: rrr with sinus rhythm in 80s on monitor. No appreciable murmurs. ABDOMEN: G tube in place. ileostomy in place with green liquid output. Mucous fistula in place with red rubber catheter. There is a REBEL drain on left with serous output, noncloudy. Bowel sounds hypoactive. MUSCULOSKELETAL: 1-2+ edema of all extremities and edema of abdominal wall. . NEUROLOGICAL: No eye opening, move extremities but not following commands upon initial sedation vacation. A/P Assessment and Plan Assessment: 45-year-old female with history of ovarian mass and prior C. difficile who presents with refractory C. difficile colitis, that underwent surgical intervention. Neuro Seizure disorder Seizures Mental disability Congenital Blindness Fentanyl drip for analgosedation. RASS target -2. Daily sedation vacation EEG improving per neurology note. EEG 04/15/16 showed a couple of sharps Continue on anticonvulsants per neurology, Dr. Bob. -Depakote 750 mg IV every 6 hours. - Keppra 1 g IV every 12 hours -Vimpat 100 g IV every 12 hours. -Tegretol 300 every 8 Cardiovascular Monitor HR and BP maintain MAP > 65mmHg Respiratory Acute respiratory failure L Lung atelectasis, (resolved) -Continue with vent support keep sat >92% -Bronchodilators every 4 hours scheduled -CPAP trial daily and extubate if appropriate Gastrointestinal Abdominal distension Uterine fibroid C. diff colitis refractory Ascites Acute protein calorie malnutritionmoderate S/P lap assisted diverting ileostomy with mucous fistula, laparoscopic vancomycin irrigation, G-tube insertion, laparoscopic paracentesis 2 L ascites evacuated, REBEL drain left abdomen with serous drainage. Red rubber catheter in mucus fistula to to be irrigated with vancomycin daily. Also receiving rectal vanc enema. On Vital 1.5@10ml/hr trickle feeds per surgery Infectious Disease H/O Septic Shock secondary to C. difficile colitis, failure of outpatient treatment with vancomycin PO H/O UTI -Infectious disease- Dr. Navarro. -Vancomycin irrigation via ileostomy and rectal per general surgery/ID recommendations daily -On IV Flagyl. Renal/FEN Acute kidney injuryresolved ICU electronic protocol Moniutor renal function, I/O's, diurese with Bumex 1mg x1 Heme Normocytic anemialikely anemia of chronic disease Monitor CBC Prophylaxis GI: Protonix IV DVT: SCD, subcut dvt prophylaxis when okay with surgery. CCT 30 minutes exclusive of separately billable procedures. Kerline Caputo MD Apr 24, 2016 13:57
[2016-04-24] MEDS ORDERED: BUMETANIDE INJ 1 MG/4 ML VIAL IV PUSH ONE (14:00)
--- NOTE | 2016-04-24 16:58 | HHI.PR ---
Subjective Subjective Notes Intubated/Sedated Objective Vitals/I&O Vital Signs Date Time Temp Pulse Resp B/P Pulse Ox O2 Delivery O2 Flow Rate FiO2 04/24/16 15:34 100 35 04/24/16 14:00 102 04/24/16 12:00 97.9 16 116/60 04/20/16 19:10 Mechanical Ventilator Labs Laboratory Tests Test 04/24/16 04:25 White Blood Count 17.9 Red Blood Count 3.07 Hemoglobin 8.6 Hematocrit 25.8 Mean Corpuscular Volume 84.1 Mean Corpuscular Hemoglobin 27.9 Mean Corpuscular Hemoglobin 33.2 Concent Red Cell Distribution Width 19.0 Platelet Count 231 Mean Platelet Volume 7.4 Neutrophils (%) (Auto) 88.8 Lymphocytes (%) (Auto) 6.5 Monocytes (%) (Auto) 4.3 Eosinophils (%) (Auto) 0.0 Basophils (%) (Auto) 0.4 Neutrophils # (Auto) 15.9 Lymphocytes # (Auto) 1.2 Monocytes # (Auto) 0.8 Eosinophils # (Auto) 0.0 Basophils # (Auto) 0.1 CBC Comment AUTO DIFF Differential Total Cells 100 Counted Neutrophils % (Manual) 82 Band Neutrophils % 9 Lymphocytes % 5 Monocytes % 4 Neutrophils # (Manual) 16.3 Differential Comment FINAL DIFF MANUAL Platelet Estimate NORMAL Platelet Morphology Comment NORMAL Target Cells 2+ Sodium Level 144 Potassium Level 4.1 Chloride Level 114 Carbon Dioxide Level 22.6 Anion Gap 7 Blood Urea Nitrogen LESS THAN 1 Creatinine 0.20 Estimat Glomerular Filtration 463 Rate Random Glucose 89 Lactic Acid Level 0.7 Calcium Level 6.9 Protein Corrected Calcium 8.2 Magnesium Level 1.1 Total Bilirubin 1.1 Aspartate Amino Transf 19 (AST/SGOT) Alanine Aminotransferase 8 (ALT/SGPT) Alkaline Phosphatase 72 Total Protein 4.6 Albumin 1.1 Cardiovascular: Regular Lungs: Clear Abdomen: Other (see below ) Extremities: Other (generalized edema ) Narrative Exam Abdomen soft; with ileostomy ---minimal brown liquid in bag; REBEL with SS drainage ; G tube with TF; MF A/P Problem List: (1) Urinary tract infection (2) Colitis presumed infectious (3) Candiduria (4) Leukocytosis (5) Seizure disorder (6) Small bowel obstruction (7) Hypotension (8) Mental retardation (9) Physical deconditioning (10) Dehydration, moderate (11) JAMIE (acute kidney injury) (12) C. difficile colitis (13) Severe sepsis Assessment and Plan 45 year old female with severe c-diff colitis -POD5 Laparoscopic gastrostomy tube placement; laparoscopic assisted diverting ileostomy with mucous fistula -Continue vancomycin irrigation via rectum and red rubber catheter -Tolerating trickle feeds---continue at 10 cc/hr for now -Vent per CCM -Plan discussed with Dr. Lozada Attending Statement pt seen at bedside possible d/c to rehab soon Attestation The exam, history, and the medical decision-making described in the above note were completed with the assistance of the mid-level provider. I reviewed and agree with the findings presented. I attest that I had a [id number]-[id number] encounter with the patient on the same day, and personally performed and documented my assessment and findings in the medical record. Maia Lee Apr 24, 2016 16:57 Jeremiah Lozada MD Apr 28, 2016 20:01
[2016-04-24] MEDS: PANTOPRAZOLE SODIUM 40 MG VIAL IV PUSH SCH (23:29)
[2016-04-25] VITALS (11 sets, daily range): BP systolic 104–139; BP diastolic 62–72; PULSE 98–107; RESP 15–18; TEMP 97.6–98.7; O2SAT 100
[2016-04-25] MEDS: NS IRRIGATION SCH ×6 (02:20→14:18)
[2016-04-25] MEDS: VALPROATE INJ 750 MG in SODIUM CHLORIDE 0.9% INJ 100 ML IV SCH ×3 (02:20→14:19)
[2016-04-25] MEDS: VANCOMYCIN IRRIGATION SCH ×6 (02:20→14:18)
[2016-04-25] MEDS: CHLORHEXIDINE GLUCONATE 2 % 1 PACK (2 CLOTHS) TOP SCH (04:00)
[2016-04-25] MEDS: metroNIDAZOLE 500 MG INJ 100 ML IV SCH ×2 (04:22→11:57)
[2016-04-25 06:21] LABS: AUTOMATED NEUTROPHIL # 15.1 TH/MM3 (1.8-7.7); BASOPHIL % 0.1 % (0.0-2.0); EOSINOPHIL % 0.1 % (0.0-4.0); HEMATOCRIT 25.2 % (35.0-46.0); HEMO FLAGS DIFF FINAL; LYMPH % 7.5 % (9.0-44.0); LYMPHOCYTE # 1.3 TH/MM3 (1.0-4.8); MEAN CELL VOLUME 84.2 FL (80.0-100.0); MEAN CORPUSCULAR HEMOGLOBIN 27.6 PG (27.0-34.0); MEAN CORPUSCULAR HGB CONC 32.8 % (32.0-36.0); MONO % 4.8 % (0.0-8.0); NEUT % 87.5 % (16.0-70.0); PLATELET COUNT 168 TH/MM3 (150-450); RED BLOOD COUNT 2.99 MIL/MM3 (4.00-5.30); RED CELL DISTRIBUTION WIDTH 18.9 % (11.6-17.2); WHITE BLOOD COUNT 17.2 TH/MM3 (4.0-11.0)
[2016-04-25 06:29] LABS: INTERNATIONAL NORMALIZED RATIO 1.4 RATIO; PROTHROMBIN TIME - PATIENT 16.1 SEC (9.8-11.6)
[2016-04-25] MEDS: carBAMazepine 200 MG TAB PO SCH ×2 (06:49→14:18)
[2016-04-25 07:01] LABS: ALKALINE PHOSPHATASE 72 U/L (45-117); ALT (GPT) 8 U/L (10-53); ANION GAP 9 MEQ/L (5-15); AST (GOT) 23 U/L (15-37); BICARBONATE 23.3 MEQ/L (21.0-32.0); BLOOD UREA NITROGEN LESS THAN 1 MG/DL (7-18); CALCIUM-PROTEIN CORRECTED 8.3 MG/DL (8.5-10.1); CHLORIDE 113 MEQ/L (98-107); GLOMERULAR FILTRATION RATE 358 ML/MIN (>89); MAGNESIUM 1.3 MG/DL (1.5-2.5); POTASSIUM 3.9 MEQ/L (3.5-5.1); SODIUM (NA) 145 MEQ/L (136-145); TOTAL BILIRUBIN ADULT 1.7 MG/DL (0.2-1.0)
[2016-04-25] MEDS: CHLORHEXIDINE 0.12% (ORAL KIT) 15 ML CUP MT SCH (08:56)
[2016-04-25] MEDS: ARTIFICIAL TEARS OPTH SOLN 15 ML BTL EACH EYE SCH ×2 (08:56→11:58)
[2016-04-25] MEDS: levETIRAcetam 1000 MG INJ 100 ML IV SCH (08:57)
[2016-04-25] MEDS: PRIMIDONE 250 MG TAB PO SCH ×2 (08:58→11:57)
[2016-04-25] MEDS: LACTOBACILLUS ACIDOPHILUS TAB PO SCH ×2 (08:58→11:57)
[2016-04-25] MEDS: SODIUM CHLORIDE 0.9% FLUSH 5 ML FLUSH IV FLUSH SCH (08:58)
[2016-04-25] MEDS: CHOLESTYRAMINE 4 GM PACKET PO SCH ×2 (08:58→11:57)
[2016-04-25] MEDS: LACOSAMIDE INJ 100 MG in SODIUM CHLORIDE 0.9% INJ 100 ML IV SCH (09:02)
--- NOTE | 2016-04-25 12:10 | HHI.FPPN ---
Subjective Remarks calm on VENT D/W RN Objective Vitals Vital Signs Date Time Temp Pulse Resp B/P Pulse Ox O2 Delivery O2 Flow Rate FiO2 04/25/16 10:00 102 04/25/16 08:00 35 04/25/16 08:00 102 04/25/16 08:00 98.7 102 16 104/72 100 Arterial Line 04/25/16 07:35 35 04/25/16 07:22 100 35 04/25/16 06:00 105 04/25/16 04:08 100 35 04/25/16 04:00 40 04/25/16 04:00 105 15 122/62 100 04/25/16 04:00 105 04/25/16 02:00 107 04/25/16 01:06 100 35 04/25/16 00:00 97.6 105 15 139/68 100 04/25/16 00:00 105 04/25/16 00:00 40 04/24/16 22:00 114 04/24/16 20:13 100 35 04/24/16 20:00 97.8 100 17 123/60 100 04/24/16 20:00 97 04/24/16 20:00 40 04/24/16 18:00 97 04/24/16 18:00 97.8 100 19 112/58 100 04/24/16 16:00 40 04/24/16 16:00 102 04/24/16 15:34 100 35 04/24/16 14:00 102 I/O 04/24/16 04/24/16 04/24/16 04/25/16 04/25/16 04/25/16 07:00 15:00 23:00 07:00 15:00 23:00 Intake Total 1528 ml 1777 ml 656 ml 158 ml Output Total 825 ml 1500 ml 5250 ml 1920 ml Balance 703 ml 277 ml -4594 ml -1762 ml IV Total 950 ml 1185 ml 575 ml 100 ml Tube Feeding 78 ml 92 ml 81 ml 58 ml Tube Irrigant 500 ml 500 ml Output Urine Total 400 ml 400 ml 5100 ml 1700 ml Stool Total 50 ml 50 ml 0 ml 0 ml Drainage Total 375 ml 1050 ml 150 ml 220 ml Result Diagram: 04/25/16 0600 04/25/16 0600 Objective Remarks GENERAL: Calm, on vent SKIN: Warm and dry. HEAD: Atraumatic. Normocephalic. EYES: cloudy ENT: No nasal bleeding or discharge. Mucous membranes pink and moist. NECK: Trachea midline. No JVD. CARDIOVASCULAR: Regular rate and rhythm. RESPIRATORY: No accessory muscle use. Clear to auscultation. Breath sounds equal bilaterally. GASTROINTESTINAL: Abdomen soft, tender. mod distended. Hepatic and splenic margins not palpable. G-tube 18 Citizen Of [place] left upper quadrant to gravity, Ostomy draining, LL quad REBEL drain, MUSCULOSKELETAL: Extremities without clubbing, cyanosis. Two plus edema BLE's. NEUROLOGICAL: comatose Medications and IVs Current Medications Medications (Trade) Dose Ordered Sig/Rebeca Route Start Time Stop Time Status Last Admin (Compazine Supp) 25 mg Q12H PRN LA 04/10/16 12:30 (Narcan Inj) 0.4 mg UNSCH PRN IV 04/10/16 12:30 (Dulcolax Supp) 10 mg DAILY PRN LA 04/10/16 12:45 (Questran 4 Gm Pkt) 4 gm TID PO 04/10/16 13:00 04/25/16 11:57 (Lactinex) 1 tab TID PO 04/10/16 13:00 04/25/16 11:57 (Ativan) 0.5 mg Q6H PRN PO 04/10/16 12:45 (Citroma Liq) 300 ml DAILY PRN PO 04/10/16 12:45 (Milk Of Magnesia Liq) 30 ml HS PRN PO 04/10/16 12:45 Primidone 250 mg 250 mg TID PO 04/10/16 13:00 04/25/16 11:57 (Flagyl 500 Mg Inj) 100 ml @ 100 mls/hr Q8H IV 04/10/16 20:00 04/25/16 11:57 Lorazepam 1 mg 1 mg Q4HR PRN IV PUSH 04/10/16 12:45 Levetriacetam 100 ml @ 400 mls/hr Q12HR IV 04/10/16 21:00 04/25/16 08:57 (Vimpat Inj/NS Inj) 110 ml @ 110 mls/hr Q12HR IV 04/10/16 21:00 04/25/16 09:02 Miscellaneous Information Patient in critical care unit? Ass... Q361D XX 04/10/16 20:45 (TEGretol) 300 mg Q8HR PO 04/12/16 14:00 04/25/16 06:49 (VANCOMYCIN for oral use only) 500 mg Q6HR PO 04/15/16 18:00 Hold 04/20/16 12:00 (NS Flush) 2 ml UNSCH PRN IV FLUSH 04/19/16 19:45 (NS Flush) 2 ml BID IV FLUSH 04/19/16 21:00 04/25/16 08:58 (Tears Naturale Opth Soln) 1 drop TID EACH EYE 04/20/16 09:00 04/25/16 11:58 (Zofran Inj) 4 mg Q6H PRN IV 04/19/16 21:00 04/24/16 03:11 Miscellaneous Information 1 Q361D XX 04/19/16 19:45 (Chlorhexidine 2% Cloth) Taper DAILY@04 TOP 04/20/16 04:00 04/16/17 03:59 04/24/16 04:05 Chlorhexidine Gluconate 3 pack 3 pack UNSCH PRN TOP 04/19/16 19:45 Potassium Chloride 100 ml @ 50 mls/hr Q2H PRN IV 04/19/16 20:00 04/19/16 21:53 (KCl 20 Meq Premix Inj) 100 ml @ 50 mls/hr Q2H PRN IV 04/19/16 19:45 04/19/16 20:00 Potassium Chloride 40 meq 40 meq UNSCH PRN PO/TUBE 04/19/16 19:45 Potassium Chloride 100 ml @ 25 mls/hr UNSCH PRN IV 04/19/16 19:45 04/22/16 05:55 Potassium Chloride 100 ml @ 50 mls/hr Q2H PRN IV 04/19/16 19:45 (Magnesium Sulfate Inj/NS Inj) 100 ml @ 50 mls/hr UNSCH PRN IV 04/19/16 19:45 04/24/16 05:56 Magnesium Oxide 800 mg 800 mg UNSCH PRN PO 04/19/16 19:45 (Magnesium Sulfate Inj/NS Inj) 100 ml @ 50 mls/hr UNSCH PRN IV 04/19/16 19:45 04/20/16 17:15 Potassium Phosphate 2000 mg 2,000 mg Q4H PRN PO 04/19/16 19:45 (Sodium Phosphate Inj/NS 250 ml Inj) 250 ml @ 42 mls/hr UNSCH PRN IV 04/19/16 19:45 (KCl 40 Meq/30 ml Liq) 40 meq UNSCH PRN PO/TUBE 04/19/16 19:45 Potassium Phosphate 2000 mg 2,000 mg UNSCH PRN PO/TUBE 04/19/16 19:45 (Potassium Phosphate Inj/NS 250 ml Inj) 260 ml @ 42 mls/hr UNSCH PRN IV 04/19/16 19:45 04/20/16 05:45 Chlorhexidine Gluconate 15 ml 15 ml BID@08,20 MT 04/19/16 21:00 04/25/16 08:56 Valproate Sodium 750 mg/Sodium Chloride 107.5 ml @ 105 mls/hr Q6H IV 04/19/16 21:00 04/25/16 08:57 (Neosynephrine Inj/D5W 500 ml Inj) 500 ml @ 0 mls/hr TITRATE IV 04/20/16 13:00 04/23/16 08:51 Terbutaline Sulfate 1 mg 1 mg UNSCH PRN SQ 04/20/16 12:00 Vancomycin HCl 500 mg/Sodium Chloride 500 ml @ 0 mls/hr Q6H IRRIGATION 04/20/16 15:00 04/25/16 08:56 (fentaNYL DRIP) 250 ml @ 0 mls/hr TITRATE IV 04/20/16 15:15 04/22/16 19:36 Acetaminophen 500 mg 500 mg Q4H PRN PO 04/20/16 16:15 (Diprivan 1000 Mg/100ml Inj) 100 ml @ 0 mls/hr TITRATE IV 04/20/16 23:30 04/23/16 05:59 (Heparin Inj) 5,000 units Q12HR SQ 04/21/16 09:00 Hold (Protonix Inj) 40 mg Q24H IV PUSH 04/21/16 23:00 04/24/16 23:29 Urinary Catheter: Yes Browne insert reason: Measure Accurate Output Vascular Central Line Catheter: Yes Assessment to: Continue A/P Assessment and Plan VDRF Laparoscopic assisted diverting ileostomy with mucous fistula, GT, & PARACENTESIS OSMAR 6, SEVERE SEPSIS LACTIC ACIDOSIS C DIF. COLITIS ON CT ABDOMEN. ILEUS DEHYDRATION HYPOKALEMIA SZ'S, INTRACTABLE FLUID OVERLOAD THIRD SPACING UTI, LIKELY CONTAMINANT ON UA SBO RECENTLY ASPIRATION PNA UTERINE FIBROIDS TEGRETOL TOXICITY ARF, PRERENAL MR JAMIE HYPOKALEMIA HYPOMAGNESEMIA HYPOCALCEMIA HYPOVITAMINOSIS D HYPERAMMONEMIA PLAN: Vancomycin irrigation via rectum and red rubber catheter Trickle feeds at 10 cc/hr PROTONIX IV RESTART HEPARIN 5000 BID FOR PROPHYLAXIS IF OK WITH SURGERY. IV ABX VENT MGMT PER CCM GI CONSULT ID CONSULT NEURO CONSULT. SURGERY CONSULT AM LABS ICU CARE. SEE ORDERS FOR MED AND LABS CHANGES. Romie Pelayo MD Apr 25, 2016 12:10
--- NOTE | 2016-04-25 14:47 | HHI.DS ---
Discharge Summary Admission Date Apr 10, 2016 at 12:20 Admitting Diagnosis Severe Sepsis CBC/BMP: 04/25/16 0600 04/25/16 0600 Significant Findings Laboratory Tests Test 04/23/16 04/24/16 04/25/16 04:40 04:25 06:00 White Blood Count 16.8 TH/MM3 17.9 TH/MM3 17.2 TH/MM3 (4.0-11.0) (4.0-11.0) (4.0-11.0) Red Blood Count 3.17 MIL/MM3 3.07 MIL/MM3 2.99 MIL/MM3 (4.00-5.30) (4.00-5.30) (4.00-5.30) Hemoglobin 8.8 GM/DL 8.6 GM/DL 8.3 GM/DL (11.6-15.3) (11.6-15.3) (11.6-15.3) Hematocrit 27.2 % 25.8 % 25.2 % (35.0-46.0) (35.0-46.0) (35.0-46.0) Red Cell Distribution Width 19.0 % 19.0 % 18.9 % (11.6-17.2) (11.6-17.2) (11.6-17.2) Neutrophils (%) (Auto) 82.5 % 88.8 % 87.5 % (16.0-70.0) (16.0-70.0) (16.0-70.0) Neutrophils # (Auto) 13.8 TH/MM3 15.9 TH/MM3 15.1 TH/MM3 (1.8-7.7) (1.8-7.7) (1.8-7.7) Neutrophils % (Manual) 76 % (16-70) 82 % (16-70) Band Neutrophils % 15 % (0-6) 9 % (0-6) Lymphocytes % 6 % (9-44) 5 % (9-44) Neutrophils # (Manual) 15.3 TH/MM3 16.3 TH/MM3 (1.8-7.7) (1.8-7.7) Keratocytes OCC (NORMAL) Chloride Level 113 MEQ/L 114 MEQ/L 113 MEQ/L (98-107) (98-107) (98-107) Blood Urea Nitrogen LESS THAN 1 LESS THAN 1 LESS THAN 1 MG/DL (7-18) MG/DL (7-18) MG/DL (7-18) Creatinine 0.24 MG/DL 0.20 MG/DL 0.25 MG/DL (0.50-1.00) (0.50-1.00) (0.50-1.00) Calcium Level 6.7 MG/DL 6.9 MG/DL 7.2 MG/DL (8.5-10.1) (8.5-10.1) (8.5-10.1) Protein Corrected Calcium 8.1 MG/DL 8.2 MG/DL 8.3 MG/DL (8.5-10.1) (8.5-10.1) (8.5-10.1) Total Protein 4.4 GM/DL 4.6 GM/DL 5.1 GM/DL (6.4-8.2) (6.4-8.2) (6.4-8.2) 25-Hydroxy Vitamin D Total 6.9 ng/ML (30-100) Lymphocytes (%) (Auto) 6.5 % 7.5 % (9.0-44.0) (9.0-44.0) Target Cells 2+ (NORMAL) Magnesium Level 1.1 MG/DL 1.3 MG/DL (1.5-2.5) (1.5-2.5) Total Bilirubin 1.1 MG/DL 1.7 MG/DL (0.2-1.0) (0.2-1.0) Alanine Aminotransferase 8 U/L (10-53) 8 U/L (10-53) (ALT/SGPT) Albumin 1.1 GM/DL 1.6 GM/DL (3.4-5.0) (3.4-5.0) Prothrombin Time 16.1 SEC (9.8-11.6) Phosphorus Level 2.1 MG/DL (2.5-4.9) PE at Discharge GENERAL: Chronically ill patient on ventilator SKIN: Warm and dry. HEAD: Normocephalic. EYES: No scleral icterus. No injection or drainage. NECK: Supple, trachea midline. No JVD or lymphadenopathy. CARDIOVASCULAR: Regular rate and rhythm without murmurs, gallops, or rubs. RESPIRATORY: Breath sounds equal bilaterally. No accessory muscle use. GASTROINTESTINAL: Abdomen soft, non-tender, nondistended. MUSCULOSKELETAL: No cyanosis, or edema. BACK: Nontender without obvious deformity. No CVA tenderness. Hospital Course 45y AA female with history of mental delay, blindness, seizure d/o, and recent hospitalization for C. difficile colitis presents from SNF with diarrhea and two day history of seizures. Pt was recently hospitalized at [facility] for treatment C. diff colitis, dehydration, JAMIE, and seizures. Discharged to SNF with vancomycin 125mg PO x4 weeks total (completed 04/10/16) per ID (Dr Bower).Due to AMS, pt unable to provide details about symptoms. Per EMR and discussion with ED physician, pt had continued diarrhea, with suspected failure of outpatient treatment for C. difficile, and seizures 2 days which prompted her visit to ED. Seizures currently managed with Keppra 1500mg BID, valproic acid 650mg q6h, and Carbamazepine 400mg q8h. seizure medications were increased 03/31/16. The patient left hospital 04/05 , on oral vancomycin during her treatment for C. difficile colitis. The patient presented 5 days later 04/10 with abdominal pain fever sepsis and seizures and was admitted. For the previous 5 days it was noted that the patient began to have mental decline, alert and oriented to somnolent responding only to noxious stimuli. The patient today underwent surgery which included a diagnostic laparoscopy, laparoscopy assisted diverting ileostomy with mucous fistula, removal of 2 L of ascites via laparoscopic paracentesis. Intraoperatively the patient received 2500 cc of crystalloid, 7 50 cc albumin, urine output 150 cc, EBL 20 cc. The patient was transferred to PACU and continues on mechanical ventilation with initial ABGs 7.29/42/1:30/20/-5.2. The patient is not on any sedation and remains unresponsive. Subjective: 04/21 Remains on norsynephrine 70 mcg/min, weaned from 90 this morning. MAP is 80s when sedation held. Excellent UOP at ~ 70 mL/hr last shift. Afebrile. 04/22-: Remains on mech vent. off norsynephrine. Pt Condition on Discharge: Stable Discharge Disposition: ACLF/LONG-TERM Discharge Instructions DIET: Follow Instructions for: On Tube Feeding Activities you can perform: Continue Bedrest Continued Medications: Acetaminophen (Acetaminophen) 325 Mg Tab 650 MG PO Q4H PRN TEMP > 100.4, headache #90 TAB Bisacodyl Supp (Dulcolax Supp) 10 Mg Supp 10 MG UT IN AM PRN NO RESULTS FROM MILK OF MAG Ref 0 SUPP Carbamazepine (Carbamazepine) 200 Mg Tab 400 MG PO Q8HR seizures Days 30 TAB Cholestyramine (Questran) 4 Gm/Pkt Powd 4 GM PO TID 1 packet contains 4gm of cholestyramine. Diarrhea #1 Ref 0 BOX Lactobacillus Acidophilus (Acidophilus/l-Sporogenes) 1 Tab Tab 1 TAB PO TID build gut brii #15 TAB Levetiracetam (Keppra) 500 Mg Tab 1500 MG PO Q12HR seizure Days 30 TAB Lorazepam (Ativan) 0.5 Mg Tab 0.5 MG PO Q6H PRN AGITATION Ref 0 TAB Magnesium Citrate Liq (Citroma Liq) 300 Ml Liq 300 ML PO IN THE AM PRN IF NO RESULTS AFTER ENEMA #1 Ref 0 BOTTLE Magnesium Hydroxide Liq (Milk of Magnesia Liq) 400 Mg/5 Ml Susp 30 ML PO HS PRN NO BM FOR 3 DAYS #1 Ref 0 BOTTLE Metronidazole (Flagyl) 500 Mg Tab 500 MG PO TID Infection Days 10 Ref 0 TAB Primidone (Primidone) 250 Mg Tab 250 MG PO TID Control Seizures Ref 0 TAB Sodium Phosphates (Enema Disposable) 1 Kellie Kellie 1 APPLIC UT DIRECTED PRN NO RESULTS AFTER DULCOLAX Valproic Acid (Depakene) 250 Mg Cap 500 MG PO Q6HR Seizure Control #90 Ref 0 CAP Vancomycin Liq (First-Vancomycin 50 Liq) 50 Mg/Ml [place] 125 MG PO Q6HR Infection Ref 0 ML Andres Motley MD Apr 25, 2016 14:47
--- NOTE | 2016-04-25 20:31 | HHI.PR ---
Subjective Subjective Notes remains intubated, no acute issues, still with leukocytosis Objective Vitals/I&O Vital Signs Date Time Temp Pulse Resp B/P Pulse Ox O2 Delivery O2 Flow Rate FiO2 04/25/16 14:00 98 04/25/16 12:00 98.3 18 108/70 100 04/25/16 12:00 35 Labs Laboratory Tests Test 04/25/16 06:00 White Blood Count 17.2 Red Blood Count 2.99 Hemoglobin 8.3 Hematocrit 25.2 Mean Corpuscular Volume 84.2 Mean Corpuscular Hemoglobin 27.6 Mean Corpuscular Hemoglobin 32.8 Concent Red Cell Distribution Width 18.9 Platelet Count 168 Mean Platelet Volume 8.0 Neutrophils (%) (Auto) 87.5 Lymphocytes (%) (Auto) 7.5 Monocytes (%) (Auto) 4.8 Eosinophils (%) (Auto) 0.1 Basophils (%) (Auto) 0.1 Neutrophils # (Auto) 15.1 Lymphocytes # (Auto) 1.3 Monocytes # (Auto) 0.8 Eosinophils # (Auto) 0.0 Basophils # (Auto) 0.0 CBC Comment DIFF FINAL Differential Comment Prothrombin Time 16.1 Prothromb Time International 1.4 Ratio Sodium Level 145 Potassium Level 3.9 Chloride Level 113 Carbon Dioxide Level 23.3 Anion Gap 9 Blood Urea Nitrogen LESS THAN 1 Creatinine 0.25 Estimat Glomerular Filtration 358 Rate Random Glucose 93 Calcium Level 7.2 Protein Corrected Calcium 8.3 Phosphorus Level 2.1 Magnesium Level 1.3 Total Bilirubin 1.7 Aspartate Amino Transf 23 (AST/SGOT) Alanine Aminotransferase 8 (ALT/SGPT) Alkaline Phosphatase 72 Total Protein 5.1 Albumin 1.6 Cardiovascular: Regular Lungs: Upper airway course sound Abdomen: Other (ostomy pink, viable, REBEL serous, g tube intact) A/P Problem List: (1) Urinary tract infection (2) Colitis presumed infectious (3) Candiduria (4) Leukocytosis (5) Seizure disorder (6) Small bowel obstruction (7) Hypotension (8) Mental retardation (9) Physical deconditioning (10) Dehydration, moderate (11) JAMIE (acute kidney injury) (12) C. difficile colitis (13) Severe sepsis Assessment and Plan 45 year old female with severe c-diff colitis -POD6 Laparoscopic gastrostomy tube placement; laparoscopic assisted diverting ileostomy with mucous fistula -Continue vancomycin irrigation via rectum and red rubber catheter -Tolerating trickle feeds---increase at tolerated -Vent per CCM -Plan to transfer to [facility] Jeremiah Lozada MD Apr 25, 2016 20:31
[2016-05-01 07:07] LABS: STAT YES
[2016-05-01 07:08] LABS: STAT YES
--- NOTE | 2016-05-01 07:35 | MP ---
cc: MARIUM LOZADA MD DATE OF SURGERY 04/19/2016 PREOPERATIVE DIAGNOSIS Medically refractory Clostridium difficile colitis. POSTOPERATIVE DIAGNOSIS Medically refractory Clostridium difficile colitis. PROCEDURE PERFORMED 1. Diagnostic laparoscopy. 2. Laparoscopic gastrostomy tube. 3. Laparoscopic ileostomy with mucous fistula. 4. Vancomycin irrigation of colon. 5. Laparoscopic paracentesis of greater than [address] Marium Lozada RADIO [employer] Zaheer Godwin, needed for the complexity of the laparoscopic case. Dr. Godwin assisted in retraction and camera control. ANESTHESIA GETA. IV FLUIDS 2500 cc. ESTIMATED BLOOD LOSS 40 cc. URINE OUTPUT 100 cc. DRAINS 10-Russian REBEL drain. SPECIMENS None. COMPLICATIONS None. WOUND CLASSIFICATION Clean, contaminated. FINDINGS Ascites. Viable colon. Adequate placement of G-tube. INDICATION The patient is 45-year-old female who presents with multiple admissions due to C. diff colitis. On the patient's recent admission noted to being worse clinically, the patient with medically refractory C. difficile colitis and attempts for antibiotic medical treatment were unsuccessful. Therefore, discussion was made for feeding tube placement and facilitating rectal irrigation of colon with antibiotics. Discussed with the family in detail who understood and would like to proceed with the procedure. DETAILS OF PROCEDURE The patient was taken to the operating suite, placed in supine position. She was prepped and draped in the usual sterile fashion after induction of general endotracheal anesthesia. Brief time-out done stating correct patient, procedure and surgical site; we were all in agreement with this. Attention directed to the umbilicus. A small stab/vee incision was made with a #11 blade. Further dissection with Bovie electrocautery down to fascia. The fascia was incised with Bovie electrocautery. Open Avelino technique done, port placed, abdomen insufflated to 15-mm pneumoperitoneum. On cursory inspection there was no evidence of injury. There was noted to be marked ascites. Two other ports were placed, one in the right upper quadrant, a 5-mm port, followed by a left mid-quadrant 5-mm port. Paracentesis was done and draining of 2000 cc of gilberto ascites. On evaluation of the colon, the colon was noted to be viable, distended. No evidence of necrotic areas. Minimal adhesions noted. Once we were satisfied with this, attention directed to the stomach and left upper quadrant. The stomach was grasped and brought into view after retracting the somewhat dilated colon out of the way. NG tube was placed for gastric decompression. An adequate place on the mid-distal stomach was obtained and chosen for gastrostomy tube placement. Harmonic scalpel was used to make a small incision in the stomach. Next, a stab/vee incision made in the left upper quadrant, skin with a 15 blade, a spinal needle used for marking and assessment of placement. Next, Seldinger technique used to introduce a wire, advanced down through the skin, subcutaneous tissues, peritoneum and into the stomach. Laparoscopic graspers were used to assist and opposed the stomach to the peritoneal wall. Next, the gastrostomy tube was obtained and introduced after introducer dilator sheath was advanced over the guidewire. The sheath was removed facilitating gastrostomy tube placement. Gastrostomy tube balloon was filled with 7 cc of normal saline. T-fasteners obtained and placed at 12, 3, 6 and 9 o'clock positions to the abdominal wall and to the stomach. T-fasteners locked in place with good apposition of the stomach to the peritoneum and secure fastening. Once we were satisfied with gastrostomy tube placement, attention directed down to the right lower quadrant. The terminal ileum and ileocecal valve was identified. We marched proximally to this, approximately 7 cm to identified an area of transection. A Aristeo graspers was used to grasp this. Next, a 5-cm transverse incision was made in the right lower quadrant. This was done with a 15 blade. Further dissection with Bovie electrocautery down to the subcutaneous fascia and to muscle and peritoneum. Two fingerbreadths were noted to dilate this tract. The ileum was grasped and brought into the abdominal wound. Endo-KATRIN blue load staple was done to transect the terminal ileum. Harmonic scalpel used for further extension in the mesentery. Next, the proximal portion end-colostomy was fashioned. This was done in a Anabella ileostomy technique. The four corners/points of the ileostomy were attached to the fascia and seromuscular layer. Next, four more points were attached more distally after removal of the staple line off the ileum. Again, done in a [place] technique. 3-0 Vicryl was used to do this and 3-0 Vicryl was placed radially with subcutaneous sutures to place the ileostomy in place. Next, the distal portion was obtained and a spot approximately 8 cm lateral and superior to the ileostomy was marked and 15 blade scalpel used, transverse incision made 5 cm. Further dissection with Bovie electrocautery. This distal portion AKA the mucous fistula was brought through the wound in a similar fashion and doing a Anabella ileostomy and zaria-budding in order to fashion the distal mucous fistula to the fascia and skin. Once we were content with this, a red rubber catheter was placed and sutured and secured. The colon was then irrigated with 500 cc of vancomycin antibiotic solution. Next, REBEL drain was placed, a 10-Russian [place] intraabdominally. This was sutured in place through the port site with a 2-0 nylon suture. Once we were satisfied with this, the abdomen was then desufflated. All lap and instrument counts were correct at the end of the procedure. No complications. Dr. Lozada and Dr. Godwin were present for the entire procedure. The patient was extubated and taken stable to PACU. Prior to this the ostomy appliance was placed and port sites were closed with suture and sterile dressings placed. G-tube was fashioned and 3-0 silk used to secure G-tube foot to itself. MD IGNACIO Raymond/JENNIFER /11:14 AM /7:04 AM
== END 2016-04-25 15:28 | DRG 853 ==
LOC: NEPA 10:38 → MERGE 12:20 → NEDA 12:20 → HIMW 16:10 → N05A 04-16 10:47 → N03B 04-19 17:16
PROVIDERS: ADMIT Family Medicine; ATTEND Family Medicine
PROC: 0D1B0Z4 Bypass Ileum to Cutaneous, Open Approach (ICD-10-PCS; 2016-04-19)
PROC: 0W9G4ZX Drainage of Peritoneal Cavity, Percutaneous Endoscopic Approach, Diagnostic (ICD-10-PCS; 2016-04-19)
PROC: 0DH64UZ Insertion of Feeding Device into Stomach, Percutaneous Endoscopic Approach (ICD-10-PCS; 2016-04-19)
PROC: 3E1H78Z Irrigation of Lower GI using Irrigating Substance, Via Natural or Artificial Opening (ICD-10-PCS; 2016-04-19)
PROC: 5A1955Z Respiratory Ventilation, Greater than 96 Consecutive Hours (ICD-10-PCS; principal; 2016-04-19 13:44)
DX: A41.9 Sepsis, unspecified organism (principal); J96.00 Acute respiratory failure, unspecified whether with hypoxia or hypercapnia; J69.0 Pneumonitis due to inhalation of food and vomit; G93.41 Metabolic encephalopathy; Z99.11 Dependence on respirator [ventilator] status; K56.60 Unspecified intestinal obstruction; N17.9 Acute kidney failure, unspecified; E87.2 Acidosis; A04.7 Enterocolitis due to Clostridium difficile; E72.20 Disorder of urea cycle metabolism, unspecified; K56.7 Ileus, unspecified; E44.0 Moderate protein-calorie malnutrition; R18.8 Other ascites; E86.0 Dehydration; R65.20 Severe sepsis without septic shock; F79 Unspecified intellectual disabilities; G40.909 Epilepsy, unspecified, not intractable, without status epilepticus; E87.6 Hypokalemia; E83.42 Hypomagnesemia; E83.51 Hypocalcemia; H54.0 Blindness, both eyes; I10 Essential (primary) hypertension; Z68.32 Body mass index [BMI] 32.0-32.9, adult; D25.9 Leiomyoma of uterus, unspecified; R13.10 Dysphagia, unspecified; T42.1X5A Adverse effect of iminostilbenes, initial encounter; Y92.239 Unspecified place in hospital as the place of occurrence of the external cause
CPT/HCPCS: 71010; 74000; 74176; 74177; 76937; 80048; 80053; 80076; 80156; 80164; 80184; 80185; 80188; 81001; 82306; 82550; 82805; 82948; 83605; 83690; 83735; 84100; 84132; 84134; 84155; 84484; 85007; 85025; 85027; 85610; 85730; 86850; 86900; 86901; 87040; 87077; 87086; 87186; 87493; 87641; 87804; 93005; 94002; 94003; 94640; 94664; 95819; 96360; 96374; C1765; C9113; C9254; J0131; J0610; J1644; J1940; J1953; J2250; J2270; J2370; J2405; J2543; J3010; J3370; J3475; J3480; J7030; J7040; J7042; J7050; J7060; J7120; P9045; P9047; Q9963; Q9967

== ENCOUNTER 2016-05-27 15:13 | Emergency (ER) | payer MEDICARE, OTHER ==
[~2016-05-27 15:13] MED LIST changes: +CITRSOL4 PO; +DULC10SU3 PR; +ENEMENE5 PR; +LORA-392 PO; +METR-1 PO; +MILKSUS PO; +QUES4POW PO; +VANC1SOL3 PO; -VANC500I3 PO
[2016-05-27 15:19] VITALS: BP 107/71; PULSE 87; RESP 14; TEMP 98.1; O2SAT 98
[2016-05-27 15:35] VITALS: PULSE 80; RESP 16; TEMP 98.2; O2SAT 100
--- NOTE | 2016-05-27 15:46 | PD ---
HPI Chief Complaint: Respiratory Symptoms Time Seen by Provider: 15:46 Travel History International Travel<30 days: No Contact w/Intl Traveler<30days: No Traveled to known affect area: No History of Present Illness HPI 45-year-old Afro-Niuean female brought in from the nursing facility with vague report that the patient was recently admitted for sepsis for C. difficile colitis with resultant surgical intervention requiring ileostomy and drainage from ascites that had collected due to her illness. This is taken from her previous medical history. Patient does not verbalize, and appears somewhat mentally challenged at baseline. Patient's vitals are stable upon arrival. My nursing staff question the custodial and it appears that the patient had a drain near her ileostomy that the patient pulled out. After reviewing her postop note it is felt the patient had a mucous fistula with a red rubber drain in place As for vancomycin irrigation of the colon and small intestine. It appears the patient pulled out her red rubber drain. Patient has no known drug allergies. PFSH Past Medical History Medical History: Unable to Obtain Hx Anticoagulant Therapy: No Cardiovascular Problems: Yes Developmental Delay: Yes (HX MENTAL RETARDATION) Diminished Hearing: No Gastrointestinal Disorders: Yes (C.DIFF) Genitourinary: Yes (UTI) Hypertension: Yes Medical other: Yes (ACUTE KIDNEY INJURY) Neurologic: Yes Psychiatric: Yes (MENTAL RETARDATION ) Reproductive: Yes Immunizations Current: No Seizures: Yes Tetanus Vaccination: Unknown Influenza Vaccination: No ?: Not Past Surgical History Abdominal Surgery: Yes (PEG TUBE PLACEMENT, COLOSTOMY ) Neurologic Surgery: Yes (HEAD INJURY) Other Surgery: Yes Social History Alcohol Use: No (UNABLE TO OBTAIN) Tobacco Use: No (UNABLE TO OBTAIN) Substance Use: No Allergies-Medications (Allergen,Severity, Reaction): Coded Allergies: No Known Allergies (Unverified , 05/27/16) Reported Meds & Prescriptions Reported Meds & Active Scripts Active Acetaminophen 325 Mg Tab 650 Mg PO Q4H PRN Acidophilus/l-Sporogenes (Lactobacillus Acidophilus) 1 Tab Tab 1 Tab PO TID Keppra (Levetiracetam) 500 Mg Tab 1,500 Mg PO Q12HR 30 Days Carbamazepine 200 Mg Tab 400 Mg PO Q8HR 30 Days Reported First-Vancomycin 50 Liq (Vancomycin HCl) 50 Mg/Ml Key[place] 125 Mg PO Q6HR Questran (Cholestyramine) 4 Gm/Pkt Powd 4 Gm PO TID 1 packet contains 4gm of cholestyramine. Milk of Magnesia Liq (Magnesium Hydroxide) 400 Mg/5 Ml Susp 30 Ml PO HS PRN Flagyl (Metronidazole) 500 Mg Tab 500 Mg PO TID 10 Days Enema Disposable (Sodium Phosphates) 1 Kellie Kellie 1 Applic [place] DIRECTED PRN Dulcolax Supp (Bisacodyl) 10 Mg Supp 10 Mg PA IN AM PRN Depakene (Valproic Acid) 250 Mg Cap 500 Mg PO Q6HR Citroma Liq (Magnesium Citrate) 300 Ml Liq 300 Ml PO IN THE AM PRN Ativan (Lorazepam) 0.5 Mg Tab 0.5 Mg PO Q6H PRN Primidone 250 Mg Tab 250 Mg PO TID Review of Systems ROS Limitations: Speech Impaired Except as stated in HPI: all other systems reviewed are Neg General / Constitutional: No: Fever Eyes: No: Visual changes HENT: No: Headaches Cardiovascular: No: Chest Pain or Discomfort Respiratory: No: Shortness of Breath Gastrointestinal: No: Abdominal Pain Genitourinary: No: Dysuria Musculoskeletal: No: Pain Skin: No Rash Neurologic: No: Weakness Psychiatric: No: Depression Endocrine: No: Polydipsia Hematologic/Lymphatic: No: Easy Bruising Physical Exam Narrative GENERAL: Patient appears in no acute distress. Vital signs are stable. SKIN: Warm and dry. Normal color. Normal turgor. HEAD: Atraumatic. Normocephalic. EYES: Pupils equal and round. No scleral icterus. No injection or drainage. ENT: No nasal bleeding or discharge. Mucous membranes pink and moist. Pharynx appears clear. NECK: Trachea midline. Neck is supple nontender. CARDIOVASCULAR: Regular rate and rhythm. No murmurs gallops or rubs. RESPIRATORY: No accessory muscle use. Clear to auscultation. Breath sounds equal bilaterally. GASTROINTESTINAL: Abdomen soft, non-tender, nondistended. Hepatic and splenic margins not palpable. Patient's ileostomy appears in good order. There is a fistula to the upper lateral edge of the ileostomy which is pink, non-painful and appears well-healed. I believe this is where he drained may have been previously. MUSCULOSKELETAL: Extremities without clubbing, cyanosis, or edema. No obvious deformities. NEUROLOGICAL: Awake and alert. No obvious cranial nerve deficits. Motor grossly within normal limits. Five out of 5 muscle strength in the arms and legs. Data Data Last Documented VS Vital Signs Date Time Temp Pulse Resp B/P Pulse Ox O2 Delivery O2 Flow Rate FiO2 05/27/16 18:03 77 17 118/65 100 Room Air 05/27/16 15:35 98.2 Orders Abdomen, Single View (05/27/16 18:02) MDM Medical Decision Making Medical Screen Exam Complete: Yes Emergency Medical Condition: Yes Differential Diagnosis Medical devices issue. Need for drain replacement. History of C. difficile colitis. History of sepsis. Narrative Course Patient appears medically stable at time of exam. Call was placed to Dr. Tara Dean, who attended to the patient while she was hospitalized in April. As referred to Dr. Lozada the surgeon who performed injury. Call was placed to him by Dr. Garza At 1720 hrs. Call was returned at 1740 hrs. and the patient was discussed with Dr. Lozada. Dr. Lozada recommended replacing the the drain was a 18 Finnish coud catheter. This was performed with Dr. Garza without difficulty. Catheter was secured with catheter bag tape and clip. KUB was performed with Gastrografin through the catheter to ensure proper placement. KUB shows good placement of catheter. This was verified by radiology. Patient felt to be stable to return to her nursing facility. Patient discharged with no change to her current medication regimen. Diagnosis Primary Impression: Ileostomy care Additional Impression: Colitis presumed infectious Referrals: Primary Care Physician Patient Instructions: General Instructions Additional Instructions: Dr. Lozada recommended replacing the the drain was a 18 Finnish coud catheter. This was performed with Dr. Garza without difficulty. Catheter was secured with catheter bag tape and clip. KUB was performed with Gastrografin through the catheter to ensure proper placement. KUB shows good placement of catheter. This was verified by radiology. Patient felt to be stable to return to her nursing facility. Patient discharged with no change to her current medication regimen. Med/Other Pt SpecificInfo: No Change to Meds Disposition: 03 DISCHARGE TO SNF Condition: Stable Vijay Sandoval May 27, 2016 15:46
[2016-05-27 16:00] VITALS: BP 122/66; PULSE 77; RESP 18; O2SAT 100
[2016-05-27 17:00] VITALS: BP 121/72; PULSE 83; RESP 15; O2SAT 100
[2016-05-27 18:03] VITALS: BP 118/65; PULSE 77; RESP 17; O2SAT 100
[2016-05-27] MEDS ORDERED: DIATRIZOATE MEGLUM/DIATRIZOATE SOD 120 ML BTL (for RAD DIAG) PEG ONE (18:40)
--- NOTE | 2016-05-27 18:49 | RADRPT ---
EXAM DATE/TIME: 05/27/2016 18:35 [facility] COMPARISON: No previous studies available for comparison. INDICATIONS : Evaluate PEG tube placement. MEDICAL HISTORY : Sepsis. SURGICAL HISTORY : Colostomy. PEG tube ENCOUNTER: Initial ACUITY: 1 day PAIN SCORE: Non-responsive. LOCATION: Left abdomen FINDINGS: Contrast has been instilled through a G tube. The G tube appears to be in the stomach. Contrast is s een within the stomach and the proximal small bowel. Free extraluminal contrast is not seen. There is also a drainage catheter seen in the right lower quadrant. CONCLUSION: G tube in the stomach. Jesus Orozco MD on May 27, 2016 at 18:40 Board Certified Radiologist. This report was verified electronically.
--- NOTE | 2016-07-03 11:04 | PD ---
Data Data Orders Abdomen, Single View (05/27/16 18:02) Diatrizoate Liq ( Gastroadela Liq) (05/27/16 18:40) MDM Supervised Visit with RICKEY: Yes Procedures Procedure Narrative 18 Jamaican coud catheter was placed and the patient's right-sided abdominal wall fistula at the request of general surgeon Dr. Lozada. Tolerated well. No complications. Diagnosis Primary Impression: Ileostomy care Additional Impression: Colitis presumed infectious Referrals: Primary Care Physician Patient Instructions: General Instructions, Ileostomy Care (ED), Infectious Colitis (ED) Departure Forms: Tests/Procedures Additional Instruction: Dr. Lozada recommended replacing the the drain was a 18 Jamaican coud catheter. This was performed with Dr. Garza without difficulty. Catheter was secured with catheter bag tape and clip. KUB was performed with Gastrografin through the catheter to ensure proper placement. KUB shows good placement of catheter. This was verified by radiology. Patient felt to be stable to return to her nursing facility. Patient discharged with no change to her current medication regimen. Disposition: 03 DISCHARGE TO SNF Condition: Stable Turner Garza MD Jul 03, 2016 11:03
== END 2016-05-27 19:40 ==
LOC: NEPA 15:13 → MERGE 15:13 → NEPA 19:40
DX: Z46.82 Encounter for fitting and adjustment of non-vascular catheter (principal); K52.9 Noninfective gastroenteritis and colitis, unspecified; F79 Unspecified intellectual disabilities; I10 Essential (primary) hypertension
CPT/HCPCS: 74000; 99283; Q9963

== ENCOUNTER 2016-05-29 19:00 | Inpatient (IN) | payer MEDICARE, OTHER ==
[~2016-05-29] VITALS: Ht 167.6 cm; Wt 59.1 kg
[2016-05-29 19:05] VITALS: BP 113/71; PULSE 75; RESP 18; TEMP 97.8; O2SAT 99
--- NOTE | 2016-05-29 19:29 | PD ---
HPI Chief Complaint: Ileostomy tube pulled out Time Seen by Provider: 19:06 Travel History International Travel<30 days: No Contact w/Intl Traveler<30days: No History of Present Illness HPI 45yo F with PMH of bilateral blindness, fistula of intestine, colostomy was sent from [facility] because she pulled out her ileostomy tube. Pt is AAOx2 and denies any vomiting, chest pain, sob. Pt states she has abdominal pain for a long time. Pt was just here 2 days ago for the same thing and had 18 F caude catheter placed and sent back to [facility] after discussing with Dr. Lozada. [facility] Past Medical History Hx Anticoagulant Therapy: No Cardiovascular Problems: Yes Developmental Delay: Yes (HX MENTAL RETARDATION) Diminished Hearing: No Gastrointestinal Disorders: Yes (C.DIFF) Genitourinary: Yes (UTI) Hypertension: Yes Neurologic: Yes Psychiatric: Yes (MENTAL RETARDATION ) Reproductive: Yes Immunizations Current: No Seizures: Yes Past Surgical History Abdominal Surgery: Yes (PEG TUBE PLACEMENT, COLOSTOMY ) Neurologic Surgery: Yes (HEAD INJURY) Other Surgery: Yes Social History Alcohol Use: No (UNABLE TO OBTAIN) Tobacco Use: No (UNABLE TO OBTAIN) Substance Use: No Allergies-Medications (Allergen,Severity, Reaction): Coded Allergies: No Known Allergies (Unverified , 05/29/16) Reported Meds & Prescriptions Reported Meds & Active Scripts Active Acetaminophen 325 Mg Tab 650 Mg PO Q4H PRN Acidophilus/l-Sporogenes (Lactobacillus Acidophilus) 1 Tab Tab 1 Tab PO TID Reported Warfarin 10 Mg Tab 15 Mg PEG DAILY Vimpat (Lacosamide) 200 Mg Tab 200 Mg PEG Q12HR Depakene Liq (Valproic Acid) 250 Mg/5 Ml Syp 750 Mg PEG Q12HR Trazodone (Trazodone HCl) 50 Mg Tab 50 Mg PO Q6HR Protonix (Pantoprazole Sodium) 40 Mg Tab 40 Mg PEG BID Firestone (Hydrocodone-Acetaminophen) 5-325 mg Tab 1 Tab PEG Q4H PRN Lotrimin AF Deodorant Powder (Miconazole Nitrate Powder) 2 % Aerp Unknown Dose TOP Q12HR Levetiracetam 1,000 Mg Tab 1,500 Mg PEG BID Lamictal (Lamotrigine) 25 Mg Tab 25 Mg PEG BID Gabapentin 100 Mg Cap 100 Mg PEG Q8HR Lovenox Inj (Enoxaparin Sodium) 80 mg/0.8 ML Syr 80 Mg SQ Q12HR Carbamazepine 100 Mg Chew 300 Mg CHEW TID Milk of Magnesia Liq (Magnesium Hydroxide) 400 Mg/5 Ml Susp 30 Ml PO HS PRN Enema Disposable (Sodium Phosphates) 1 Kellie Kellie 1 Applic [place] DIRECTED PRN Dulcolax Supp (Bisacodyl) 10 Mg Supp 10 Mg [place] IN AM PRN Citroma Liq (Magnesium Citrate) 300 Ml Liq 300 Ml PO IN THE AM PRN Primidone 250 Mg Tab 250 Mg PO TID Review of Systems Except as stated in HPI: all other systems reviewed are Neg Physical Exam Narrative GENERAL: 45yo F not in distress. SKIN: Warm and dry. HEAD: Atraumatic. Normocephalic. EYES: Pupils equal and round. No scleral icterus. No injection or drainage. ENT: No nasal bleeding or discharge. Mucous membranes pink and moist. NECK: Trachea midline. No JVD. CARDIOVASCULAR: Regular rate and rhythm. No murmur appreciated. RESPIRATORY: No accessory muscle use. Clear to auscultation. Breath sounds equal bilaterally. GASTROINTESTINAL: Abdomen soft, ileostomy bag, colostomy bag. G tube in place. Mild ttp. No rebound tenderness or guarding. MUSCULOSKELETAL: No obvious deformities. No clubbing. No cyanosis. No edema. NEUROLOGICAL: AAOx2. Data Data Last Documented VS Vital Signs Date Time Temp Pulse Resp B/P Pulse Ox O2 Delivery O2 Flow Rate FiO2 05/29/16 22:00 64 18 109/64 97 Room Air 05/29/16 19:05 97.8 Orders Complete Blood Count With Diff (05/29/16 19:29) Comprehensive Metabolic Panel (05/29/16 19:29) Lipase (05/29/16 19:29) Electrocardiogram (05/29/16 ) Sodium Chlor 0.9% 1000 Ml Inj (Ns 1000 M (05/29/16 22:15) Potassium, Serum (K) (05/29/16 22:04) Abdomen, Kub Only (05/29/16 ) Acetamin-Hydrocod 325-5 Mg (Firestone 5-325 (05/30/16 01:00) Calcium Gluconate Inj (Calcium Gluconate (05/30/16 01:30) Albuterol Concentrated Neb (Albuterol Co (05/30/16 01:30) Sodium Polysty Sulfate Liq (Kayexalate L (05/30/16 01:30) Admit Order (Ed Use Only) (05/30/16 01:46) Labs Laboratory Tests Test 05/29/16 05/30/16 20:10 00:30 White Blood Count 4.3 TH/MM3 Red Blood Count 3.96 MIL/MM3 Hemoglobin 11.2 GM/DL Hematocrit 34.3 % Mean Corpuscular Volume 86.7 FL Mean Corpuscular Hemoglobin 28.2 PG Mean Corpuscular Hemoglobin 32.6 % Concent Red Cell Distribution Width 15.6 % Platelet Count 320 TH/MM3 Mean Platelet Volume 7.9 FL Neutrophils (%) (Auto) 49.5 % Lymphocytes (%) (Auto) 42.7 % Monocytes (%) (Auto) 6.8 % Eosinophils (%) (Auto) 0.7 % Basophils (%) (Auto) 0.3 % Neutrophils # (Auto) 2.1 TH/MM3 Lymphocytes # (Auto) 1.8 TH/MM3 Monocytes # (Auto) 0.3 TH/MM3 Eosinophils # (Auto) 0.0 TH/MM3 Basophils # (Auto) 0.0 TH/MM3 CBC Comment DIFF FINAL Differential Comment Sodium Level 128 MEQ/L Potassium Level 5.9 MEQ/L 5.7 MEQ/L Chloride Level 100 MEQ/L Carbon Dioxide Level 21.1 MEQ/L Anion Gap 7 MEQ/L Blood Urea Nitrogen 35 MG/DL Creatinine 0.69 MG/DL Estimat Glomerular Filtration 111 ML/MIN Rate Random Glucose 86 MG/DL Calcium Level 9.4 MG/DL Total Bilirubin 0.3 MG/DL Aspartate Amino Transf 42 U/L (AST/SGOT) Alanine Aminotransferase 28 U/L (ALT/SGPT) Alkaline Phosphatase 127 U/L Total Protein 9.6 GM/DL Albumin 3.1 GM/DL Lipase 227 U/L [facility] Medical Decision Making Medical Screen Exam Complete: Yes Emergency Medical Condition: Yes Interpretation(s) EKG: NSR 74bpm. Normal axis. TWI V3. No peaked T waves. Differential Diagnosis Dislodgement of ileostomy tube vs. electrolyte abnormality vs. perforation vs. obstruction Narrative Course 45yo F sent here after she pulled her ileostomy tube. Discussed with surgeon instrumentation and control technician Dr. Araiza and he states that I can just put the 18 F caude in. Labs reviewed, no leukocytosis. Pt is very dehydrated with BUN/creatinine 35/0.69. Na low at 128, given NS IVF. K elevated at 5.9 but it is slightly hemolyzed so ordered repeat potassium. Repeat potassium still 5.7 so given kayexylate, albuterol neb and calcium gluconate. EKG did not show any peak T waves. Placed 18F [address] in ileostomy as instructed by surgery. Xray abdomen showed intraluminal position of ileostomy tube. Will admit for observation for dehydration and hyperkalemia. Discussed with Dr. Pelayo and accepted. Diagnosis Primary Impression: Dehydration, moderate Additional Impression: Hyperkalemia Admitting Information Admitting Physician Requests: Observation Mary Patel DO May 29, 2016 19:29
[2016-05-29] MEDS ORDERED: VIMP200T PEG (19:54)
[2016-05-29] MEDS ORDERED: PROT40TA PEG (19:54)
[2016-05-29] MEDS ORDERED: VALP250S18 PEG (19:54)
[2016-05-29] MEDS ORDERED: LOTR2AER2 TOP (19:54)
[2016-05-29] MEDS ORDERED: LEVE10003 PEG (19:54)
[2016-05-29] MEDS ORDERED: ENOX80P SQ (19:54)
[2016-05-29] MEDS ORDERED: GABA100C4 PEG (19:54)
[2016-05-29] MEDS ORDERED: WARF-22 PEG (19:54)
[2016-05-29] MEDS ORDERED: TRAZ50TA12 PO (19:54)
[2016-05-29] MEDS ORDERED: NORC5TAB PEG (19:54)
[2016-05-29] MEDS ORDERED: LAMO25 PEG (19:54)
[2016-05-29] MEDS ORDERED: CARB100C CHEW (19:54)
[2016-05-29 20:39] LABS: AUTOMATED NEUTROPHIL # 2.1 TH/MM3 (1.8-7.7); BASOPHIL % 0.3 % (0.0-2.0); EOSINOPHIL % 0.7 % (0.0-4.0); HEMATOCRIT 34.3 % (35.0-46.0); HEMO FLAGS DIFF FINAL; LYMPH % 42.7 % (9.0-44.0); LYMPHOCYTE # 1.8 TH/MM3 (1.0-4.8); MEAN CELL VOLUME 86.7 FL (80.0-100.0); MEAN CORPUSCULAR HEMOGLOBIN 28.2 PG (27.0-34.0); MEAN CORPUSCULAR HGB CONC 32.6 % (32.0-36.0); MONO % 6.8 % (0.0-8.0); NEUT % 49.5 % (16.0-70.0); PLATELET COUNT 320 TH/MM3 (150-450); RED BLOOD COUNT 3.96 MIL/MM3 (4.00-5.30); RED CELL DISTRIBUTION WIDTH 15.6 % (11.6-17.2); WHITE BLOOD COUNT 4.3 TH/MM3 (4.0-11.0)
[2016-05-29 21:16] LABS: ALKALINE PHOSPHATASE 127 U/L (45-117); ALT (GPT) 28 U/L (10-53); ANION GAP 7 MEQ/L (5-15); AST (GOT) 42 U/L (15-37); BICARBONATE 21.1 MEQ/L (21.0-32.0); BLOOD UREA NITROGEN 35 MG/DL (7-18); CHLORIDE 100 MEQ/L (98-107); GLOMERULAR FILTRATION RATE 111 ML/MIN (>89); SODIUM (NA) 128 MEQ/L (136-145); TOTAL BILIRUBIN ADULT 0.3 MG/DL (0.2-1.0)
[2016-05-29 21:17] LABS: POTASSIUM 5.9 MEQ/L (3.5-5.1)
[2016-05-29 22:00] VITALS: BP 109/64; PULSE 64; RESP 18; O2SAT 97
[2016-05-29] MEDS ORDERED: SODIUM CHLOR 0.9% 1000 ML INJ 1,000 ML IV ONE (22:15)
--- NOTE | 2016-05-29 23:43 | RADRPT ---
EXAM DATE/TIME: 05/29/2016 23:04 [facility] COMPARISON: ABDOMEN KUB ONLY, April 17, 2016, 13:29. INDICATIONS : Evalute the placment of ileostomy tube in right lower abdomen. MEDICAL HISTORY : NG tube SURGICAL HISTORY : None. ENCOUNTER: Initial ACUITY: 1 day PAIN SCORE: Non-responsive. LOCATION: Right lower quadrant FINDINGS: An ostomy is present in the right lower quadrant. A gastrostomy tube is in place overlying the region of the stomach. The bowel gas pattern appears normal. No free air is identified. No organomegaly is evident. Injection of contrast in the ileostomy tube demonstrates intraluminal position CONCLUSION: 1. Intraluminal position of ileostomy tube Narendra Rodriges MD on May 29, 2016 at 23:40 Board Certified Radiologist. This report was verified electronically.
[2016-05-30] MEDS ORDERED: ACETAMINOPHEN/HYDROcodone 325 MG/5 MG TAB G-TUBE ONE (01:00)
[2016-05-30] MEDS ORDERED: SODIUM POLYSTYRENE SULFONATE SUSP 15 GM/60 ML CUP PO ONE (01:30)
[2016-05-30] MEDS ORDERED: RESP: ALBUTEROL CONC 2.5 MG/0.5 ML NEB INH ONE (01:30)
[2016-05-30] MEDS ORDERED: CALCIUM GLUCONATE 10% 1 GM/10 ML VIAL SLOW IVP ONE (01:30)
[2016-05-30 02:00] VITALS: BP 108/66; PULSE 66; RESP 18; O2SAT 98
[2016-05-30] MEDS: SODIUM CHLOR 0.9% 1000 ML INJ 1,000 ML IV SCH ×2 (02:50→15:24)
[2016-05-30 04:00] VITALS: BP 100/63; PULSE 71; RESP 16; TEMP 98.2; O2SAT 97
[2016-05-30] MEDS ORDERED: ACETAMINOPHEN 325 MG TAB PO PRN (07:00)
[2016-05-30] MEDS ORDERED: ONDANSETRON HCL 4 MG/2 ML VIAL IVP PRN (07:15)
[2016-05-30] MEDS ORDERED: NALOXONE HCL 0.4 MG/ML AMP IV PRN (07:15)
[2016-05-30] MEDS ORDERED: SODIUM CHLORIDE 0.9% FLUSH 5 ML FLUSH FLUSH PRN (07:15)
--- NOTE | 2016-05-30 07:16 | HHI.HP ---
History of Present Illness Primary Care Physician Romie Pelayo MD Admission Diagnosis Dehydration, hyperkalemia Diagnoses: (1) Seizures (2) Small bowel obstruction (3) Mental retardation (4) Physical deconditioning (5) Dehydration, moderate (6) JAMIE (acute kidney injury) (7) C. difficile colitis (8) Ileostomy care History of Present Illness 45 Y AAF, RECENT ADMIT AND DC FROM [facility] WITH VDRF, SEPSIS, C DIF AND SUBSEQUENT COLECTOMY, OSTOMY AND MUCUS FISTULA PLACEMENT. PT SENT TO [facility], AND DISCHARGED BACK TO [facility]. PT PULLED OUT MUCUS FISTULA THIS WEEK AND SENT TO ER, PT SENT BACK TO SNF FROM ER AFTER PLACEMENT OF HARDY TO THE FISTULA SITE. PT PULLED FISTULA OUT AGAIN AND SENT BACK TO ER AGAIN. I WAS CALLED FOR ADMISSION FOR HYPERKALEMIA AND DEHYDRATION AND PT IN NEED OF SURGICAL CONSULT. ER MD SPOKE WITH SURGEON. Review of Systems ROS Limitations: Clinical Condition, Altered Mental Status, Uncooperative, Hearing Impaired, Poor Historian Past Family Social History Allergies: Coded Allergies: No Known Allergies (Unverified , 05/29/16) Past Medical History C DIF SZ Past Surgical History OSTOMY GT Reported Medications Current Medications Medications (Trade) Dose Ordered Sig/Rebeca Route Start Time Stop Time Status Last Admin (NS 1000 ml Inj) 1,000 ml @ 75 mls/hr [id number] IV 05/30/16 02:30 05/30/16 02:50 (Tylenol) 650 mg Q4H PRN PO 05/30/16 07:00 (TEGretol CHEW) 300 mg TID CHEW 05/30/16 09:00 (Lovenox Inj) 80 mg Q12HR SQ 05/30/16 09:00 (Neurontin Liq) 100 mg Q8HR PEG 05/30/16 14:00 ([place] 5-325 Mg) 1 tab Q4H PRN PEG 05/30/16 07:00 (Vimpat Liq) 200 mg Q12HR G-TUBE 05/30/16 09:00 (LaMICtal) 25 mg BID PEG 05/30/16 09:00 (Keppra Liq) 1,500 mg BID PEG 05/30/16 09:00 (Milk Of Magnesia Liq) 30 ml HS PRN PO 05/30/16 21:00 (Mysoline) 250 mg TID PO 05/30/16 09:00 (Depakene Liq) 750 mg Q12HR PEG 05/30/16 09:00 (NS Flush) 2 ml UNSCH PRN FLUSH 05/30/16 07:15 (NS Flush) 2 ml BID FLUSH 05/30/16 09:00 (Zofran Inj) 4 mg Q6H PRN IVP 05/30/16 07:15 Naloxone HCl 0.4 mg 0.4 mg UNSCH PRN IV 05/30/16 07:15 (Coumadin Consult Pharmacy) 0 ml @ 0 mls/hr UNSCH OTHER 05/30/16 07:15 Miscellaneous Information ALL NURSING DEPARTME... UNSCH PRN XX 05/30/16 08:00 05/31/16 07:59 (Coumadin Booklet) 1 ONCE ONCE XX 05/30/16 16:00 05/30/16 16:01 Family History NC Social History DISABLED, NO E/T/D, BLIND Physical Exam Vital Signs Vital Signs Date Time Temp Pulse Resp B/P Pulse Ox O2 Delivery O2 Flow Rate FiO2 05/30/16 04:00 98.2 71 16 100/63 97 Room Air 05/30/16 02:00 66 18 108/66 98 Room Air 05/29/16 22:00 64 18 109/64 97 Room Air 05/29/16 19:05 97.8 75 18 113/71 99 Physical Exam GENERAL: Frail, chronically ill appearing, eyes are cloudy SKIN: No rashes, ecchymoses or lesions. Cool and dry. HEAD: Atraumatic. Normocephalic. No temporal or scalp tenderness. EYES: Extraocular motions intact. No scleral icterus. No injection or drainage. ENT: Nose without bleeding, purulent drainage or septal hematoma. Throat without erythema, tonsillar hypertrophy or exudate. Uvula midline. Airway patent. NECK: Trachea midline. No JVD or lymphadenopathy. Supple, nontender, no meningeal signs. CARDIOVASCULAR: Regular rate and rhythm without murmurs, gallops, or rubs. RESPIRATORY: Clear to auscultation. Breath sounds equal bilaterally. No wheezes , rales, or rhonchi. GASTROINTESTINAL: RLQ OSTOMY W NL STOOL, FISTULA DRAINING STOOL TO HARDY, GT CDI MUSCULOSKELETAL: Extremities without clubbing, cyanosis, or edema. No joint tenderness, effusion, or edema noted. No calf tenderness. Negative Homans sign bilaterally. NEUROLOGICAL: Awake and alert. Cranial nerves II through XII intact. Motor and sensory grossly within normal limits. 1 out of 5 muscle strength in all muscle groups. Normal speech. Laboratory Laboratory Tests Test 05/29/16 05/30/16 20:10 00:30 White Blood Count 4.3 Red Blood Count 3.96 Hemoglobin 11.2 Hematocrit 34.3 Mean Corpuscular Volume 86.7 Mean Corpuscular Hemoglobin 28.2 Mean Corpuscular Hemoglobin 32.6 Concent Red Cell Distribution Width 15.6 Platelet Count 320 Mean Platelet Volume 7.9 Neutrophils (%) (Auto) 49.5 Lymphocytes (%) (Auto) 42.7 Monocytes (%) (Auto) 6.8 Eosinophils (%) (Auto) 0.7 Basophils (%) (Auto) 0.3 Neutrophils # (Auto) 2.1 Lymphocytes # (Auto) 1.8 Monocytes # (Auto) 0.3 Eosinophils # (Auto) 0.0 Basophils # (Auto) 0.0 CBC Comment DIFF FINAL Differential Comment Sodium Level 128 Potassium Level 5.9 5.7 Chloride Level 100 Carbon Dioxide Level 21.1 Anion Gap 7 Blood Urea Nitrogen 35 Creatinine 0.69 Estimat Glomerular Filtration 111 Rate Random Glucose 86 Calcium Level 9.4 Total Bilirubin 0.3 Aspartate Amino Transf 42 (AST/SGOT) Alanine Aminotransferase 28 (ALT/SGPT) Alkaline Phosphatase 127 Total Protein 9.6 Albumin 3.1 Lipase 227 Result Diagram: 05/29/16200905/30/16 0030 Assessment and Plan Assessment and Plan Laparoscopic assisted diverting ileostomy with mucous fistula, GT, & PARACENTESIS APR 6, C DIF, HISTORY OF ILEUS, RECURRENT DEHYDRATION HYPERKALEMIA SZ'S, INTRACTABLE FLUID OVERLOAD THIRD SPACING HX ASPIRATION PNA UTERINE FIBROIDS TEGRETOL TOXICITY ARF, PRERENAL MR JAMIE HYPOMAGNESEMIA HYPOCALCEMIA HYPOVITAMINOSIS D HYPERAMMONEMIA PLAN: SURGICAL CONSULT IVF GTF'S OBS ADMIT AM LABS LOVENOX BID FOR RLE DVT COUMADIN, FOLLOWUP INR'S Romie Pelayo MD May 30, 2016 07:16
[2016-05-30] MEDS ORDERED: DO NOT ADM ANY ANTICOAGULANT DRUGS XX PRN (08:00)
--- NOTE | 2016-05-30 08:37 | EKG ---
Date Performed: 05/30/2016 Time Performed: 00:02:42 PTAGE: 45 years EKG: Sinus rhythm NORMAL ECG NO PREVIOUS TRACING DOCTOR: Vaughn Ernst Interpretating Date/Time 05/30/2016 08:34:34
[2016-05-30] MEDS: SODIUM CHLORIDE 0.9% FLUSH 5 ML FLUSH FLUSH SCH ×2 (09:00→21:00)
[2016-05-30 10:15] VITALS: BP 105/68; PULSE 74; RESP 20; O2SAT 99
[2016-05-30] MEDS: VALPROIC ACID SYRUP 250 MG/5 ML UDC PEG SCH ×2 (12:17→23:30)
[2016-05-30] MEDS: levETIRAcetam 500 MG/5 ML UDC PEG SCH ×2 (12:20→23:31)
[2016-05-30] MEDS: LACOSAMIDE 100 MG/10 ML UDC G-TUBE SCH ×2 (12:23→23:31)
[2016-05-30] MEDS: PRIMIDONE 250 MG TAB PO SCH ×3 (12:24→23:30)
[2016-05-30] MEDS: ENOXAPARIN SODIUM 80 MG/0.8 ML SYRINGE SQ SCH ×2 (12:24→23:31)
[2016-05-30] MEDS: lamoTRIgine 25 MG TAB PEG SCH ×2 (12:24→23:27)
[2016-05-30 12:28] VITALS: BP 125/76; PULSE 86; RESP 20
[2016-05-30 14:28] LABS: INTERNATIONAL NORMALIZED RATIO 1.2 RATIO; PROTHROMBIN TIME - PATIENT 13.3 SEC (9.8-11.6)
[2016-05-30] MEDS: GABAPENTIN 250 MG/5 ML UDC PEG SCH ×2 (15:24→23:31)
[2016-05-30 16:57] VITALS: BP 106/62; PULSE 72; RESP 16; O2SAT 99
[2016-05-30] MEDS ORDERED: MAGNESIUM HYDROXIDE SUSP 30 ML CUP PO PRN (21:00)
[2016-05-30 21:55] VITALS: BP 105/58; PULSE 67; RESP 19; TEMP 98.4; O2SAT 97
[2016-05-30] MEDS ORDERED: DIATRIZOATE MEGLUM/DIATRIZOATE SOD 120 ML BTL (for RAD DIAG) TUBE ONE (23:00)
[2016-05-31] VITALS (7 sets, daily range): BP systolic 90–104; BP diastolic 54–60; PULSE 63–72; RESP 18–19; TEMP 97.2–98.2; O2SAT 95–100
[2016-05-31] MEDS: GABAPENTIN 250 MG/5 ML UDC PEG SCH ×3 (06:25→22:02)
[2016-05-31] MEDS: SODIUM CHLOR 0.9% 1000 ML INJ 1,000 ML IV SCH ×3 (06:25→22:01)
--- NOTE | 2016-05-31 08:53 | MB ---
cc: MARIUM RIDDLE MD DATE OF CONSULTATION 05/30/16 REASON FOR CONSULTATION Ostomy tube fell out HISTORY OF PRESENT ILLNESS The patient is a 45-year-old female who presented with multiple medical issues. She is a very poor historian and somewhat nonverbal. She has a history of seizures and neurologic impairment. The patient is known to service due to history of C diff colitis diagnosed on multiple occasions. She had a diagnosis on March 15, underwent medical management with the hospital short stay and recovery from this. She was readmitted, placed in Intensive Care Unit having significant issue worsening C-difficile colitis. She underwent surgical intervention in April with double barrel ileostomy creation. She had an end ileostomy with a mucous fistula creation. This was done in order to facilitate rectal irrigations with vancomycin antibiotic due to refractory C difficile colitis. She also underwent a G tube placement for assistance in nutrition and feeding. Since then, she has improved She had where she had a red rubber catheter for assistance in antibiotic irrigation. This too had subsequently fallen out and has done so several times. First she was transferred back to the hospital for further evaluation. A surgical consult was placed for management of potential placement of red rubber catheter. On my exam, the patient is resting. She is noted to have a full ileostomy bag and some feces saturations and soiling. Her tube that was placed in her mucous fistula has dislodged. PAST MEDICAL HISTORY 1. C diff colitis, 2. Refractory medical treatment 3. Seizure disorder. 4. Development delay 5. Blindness. PAST SURGICAL HISTORY Difficult to obtain due to poor historian, however, as mentioned laparoscopic end ileostomy creation with mucous fistula creation. ALLERGIES Documented, see EMR. FAMILY HISTORY Unable to obtain. SOCIAL HISTORY Unable to obtain. REVIEW OF SYSTEMS Unable to obtain General: Unable to obtain. Head, eyes, ears, nose and Throat: Unable to obtain. CARDIOVASCULAR: Unable to obtain. RESPIRATORY: Unable to obtain EXTREMITIES: Unable to obtain. INTEGUMENT: Unable to obtain. NEUROLOGIC: Unable to obtain. PSYCHIATRIC: Unable to obtain. : Unable to obtain. PHYSICAL EXAMINATION GENERAL: The patient in no acute distress. VITAL SIGNS: Temperature 98.2, pulse 71, respirations 16, blood pressure 100/63, saturation 97% on room air. HEENT: Eyes partially closed, not able to follow exam. NECK: Supple. Trachea midline. LUNGS: Bilateral expansion. Clear. HEART: S1, S2 regular. ABDOMEN: Soft, nontender, double barrel ileostomy well healing without evidence of infection as soil saturation and stooling. Ileostomy bag extremely tense and full. G tube in place clean, dry, intact. EXTREMITIES: Cachectic. Warm. NEUROLOGIC: As above. LABORATORY AND DIAGNOSTIC DATA WBC 4.3, hemoglobin 11.2, hematocrit 34.3, platelets 320. Sodium 128, potassium 5.9, chloride 100, BUN 35, creatinine 0.69, AST 42, ALT 28, alkaline phos is 127, albumin 3.1, lipase 227. Coagulation INR 1.2 IMAGING STUDIES Reviewed by myself - abdominal x-ray ileostomy to the intraluminal position. ASSESSMENT The patient is a 35-year-old female presents with severe developmental delay and neurologic impairment and displacement of ileostomy mucous fistula irrigation tube. PLAN After full clinical radiologic workup, the patient with the above-named issue including displacement and dislodgement of ileostomy and mucous fistula tube. At this point in time, I recommend recheck of C diff to see if the patient has active infection. The patient clinically seems actually very well. Her acute active infection seems stabilized. She is afebrile. Her white count is normal and vital signs are also normal as well. The patient likely no longer would be in need of mucus fistula irrigation with vancomycin. Therefore, the ostomy appliance was replaced. A red rubber tube was cannulated through the mucous fistula and ileostomy. This was done connected to [place]ne drainage and leg bag. I think at this time after 24 hours the bag could be replaced with just a normal ileostomy bag. If no further drainage noted from mucous fistula then at this point we could remove the bag to the lateral superior mucous fistula ileostomy and place a Xeroform and Tegaderm in order to occlude it as patient would be able to drain distally. Again, it does not appear to be actively infected with C difficile and seems to be stable at this time. I would recommend again covering the lateral ileostomy with a Tegaderm and the patient would no longer need the cannulation and tube. We could just leave this out at this time. The patient is no longer in need of vancomycin irrigations. From surgery standpoint, the patient would be able to transfer back to [facility]. We will continue to follow as needed and make further recommendations as needed. Further medicine to admit for potential electrolyte improvement and replacement. MD GAL Raymond /10:21 PM /8:31 AM KASI
--- NOTE | 2016-05-31 09:38 | HHI.FPPN ---
Subjective Remarks CALM C/O ABDOMINAL PAIN INCR DIARRHEAL STOOLS D/W RN Objective Vitals Vital Signs Date Time Temp Pulse Resp B/P Pulse Ox O2 Delivery O2 Flow Rate FiO2 05/31/16 08:34 97.2 68 18 90/55 100 05/31/16 03:54 98.2 65 18 104/60 95 05/31/16 02:25 66 05/30/16 21:55 98.4 67 19 105/58 97 05/30/16 16:57 72 16 106/62 99 Room Air 05/30/16 12:28 86 20 125/76 Room Air 05/30/16 10:15 74 20 105/68 99 Room Air I/O 05/30/16 05/30/16 05/30/16 05/31/16 05/31/16 05/31/16 07:00 15:00 23:00 07:00 15:00 23:00 Intake Total 240 ml Output Total 125 ml 350 ml Balance 115 ml -350 ml Other 240 ml Output Stool Total 125 ml 350 ml # Voids 2 Result Diagram: 05/29/16200905/30/16 0030 Objective Remarks GENERAL: SKIN: Warm and dry. HEAD: Atraumatic. Normocephalic. EYES: No scleral icterus. No injection or drainage. ENT: No nasal bleeding or discharge. Mucous membranes pink and moist. NECK: Trachea midline. No JVD. CARDIOVASCULAR: Regular rate and rhythm. RESPIRATORY: No accessory muscle use. Clear to auscultation. Breath sounds equal bilaterally. GASTROINTESTINAL: Abdomen soft, non-tender, nondistended. Hepatic and splenic margins not palpable. OSTOMY W NL STOOL, R MUCUS FISTULA W SLIGHT AMOUNT OF STOOL INTO HARDY TUBE, L GT CDI MUSCULOSKELETAL: Extremities without clubbing, cyanosis, or edema. No obvious deformities. NEUROLOGICAL: Awake and alert. No obvious cranial nerve deficits. Motor grossly within normal limits. 1 out of 5 muscle strength in the arms and legs. Normal speech. PSYCHIATRIC: Appropriate mood and affect; insight and judgment normal. Medications and IVs Current Medications Medications (Trade) Dose Ordered Sig/Rebeca Route Start Time Stop Time Status Last Admin (NS 1000 ml Inj) 1,000 ml @ 75 mls/hr [id number] IV 05/30/16 02:30 05/31/16 06:25 (Tylenol) 650 mg Q4H PRN PO 05/30/16 07:00 (TEGretol CHEW) 300 mg TID CHEW 05/30/16 09:00 05/30/16 23:30 (Lovenox Inj) 80 mg Q12HR SQ 05/30/16 09:00 05/30/16 23:31 (Neurontin Liq) 100 mg Q8HR PEG 05/30/16 14:00 05/31/16 06:25 ([place] 5-325 Mg) 1 tab Q4H PRN PEG 05/30/16 07:00 (Vimpat Liq) 200 mg Q12HR G-TUBE 05/30/16 09:00 05/30/16 23:31 (LaMICtal) 25 mg BID PEG 05/30/16 09:00 05/30/16 23:27 (Keppra Liq) 1,500 mg BID PEG 05/30/16 09:00 05/30/16 23:31 (Milk Of Magnesia Liq) 30 ml HS PRN PO 05/30/16 21:00 (Mysoline) 250 mg TID PO 05/30/16 09:00 05/30/16 23:30 (Depakene Liq) 750 mg Q12HR PEG 05/30/16 09:00 05/30/16 23:30 (NS Flush) 2 ml UNSCH PRN FLUSH 05/30/16 07:15 (NS Flush) 2 ml BID FLUSH 05/30/16 09:00 (Zofran Inj) 4 mg Q6H PRN IVP 05/30/16 07:15 Naloxone HCl 0.4 mg 0.4 mg UNSCH PRN IV 05/30/16 07:15 (Coumadin Consult Pharmacy) 0 ml @ 0 mls/hr UNSCH OTHER 05/30/16 07:15 (Coumadin) 5 mg DAILY@16 PO 05/31/16 16:00 A/P Assessment and Plan Laparoscopic assisted diverting ileostomy with mucous fistula, GT, & PARACENTESIS OSMAR 6, C DIF ILEUS, RECURRENT DEHYDRATION HYPERKALEMIA SZ'S, INTRACTABLE FLUID OVERLOAD THIRD SPACING HX ASPIRATION PNA UTERINE FIBROIDS TEGRETOL TOXICITY ARF, PRERENAL MR JAMIE HYPOMAGNESEMIA HYPOCALCEMIA HYPOVITAMINOSIS D HYPERAMMONEMIA PLAN: C DIF CHECK SURGICAL CONSULT IVF GTF'S AM LABS LOVENOX BID FOR RLE DVT COUMADIN, FOLLOWUP INR'S LABS PENDING TODAY [facility] PT HAS BEEN OBS FOR TWO MN, EXPECT 2 MORE DAYS INPT STAY. PT WOULD DEVELOP SUGICAL SITE COMPLICATIONS AGAIN IF D/C'D, AND REQUIRES ELECTROLYTE CORRECTION. DC BACK TO [facility]. Romie Pelayo MD May 31, 2016 09:38
[2016-05-31] MEDS: VALPROIC ACID SYRUP 250 MG/5 ML UDC PEG SCH ×2 (10:18→22:02)
[2016-05-31] MEDS: ENOXAPARIN SODIUM 80 MG/0.8 ML SYRINGE SQ SCH ×2 (10:18→22:02)
[2016-05-31] MEDS: lamoTRIgine 25 MG TAB PEG SCH ×2 (10:18→22:02)
[2016-05-31] MEDS: levETIRAcetam 500 MG/5 ML UDC PEG SCH ×2 (10:19→22:02)
[2016-05-31] MEDS: LACOSAMIDE 100 MG/10 ML UDC G-TUBE SCH ×2 (10:19→22:02)
[2016-05-31] MEDS: SODIUM CHLORIDE 0.9% FLUSH 5 ML FLUSH FLUSH SCH ×2 (10:19→21:00)
[2016-05-31] MEDS: PRIMIDONE 250 MG TAB PO SCH ×3 (10:20→17:59)
[2016-05-31 12:09] LABS: INTERNATIONAL NORMALIZED RATIO 1.2 RATIO; PROTHROMBIN TIME - PATIENT 13.8 SEC (9.8-11.6)
[2016-05-31 12:13] LABS: AUTOMATED NEUTROPHIL # 1.9 TH/MM3 (1.8-7.7); BASOPHIL % 0.4 % (0.0-2.0); EOSINOPHIL % 0.6 % (0.0-4.0); HEMATOCRIT 30.6 % (35.0-46.0); HEMO FLAGS DIFF FINAL; LYMPH % 43.7 % (9.0-44.0); LYMPHOCYTE # 1.7 TH/MM3 (1.0-4.8); MEAN CELL VOLUME 86.9 FL (80.0-100.0); MEAN CORPUSCULAR HEMOGLOBIN 28.5 PG (27.0-34.0); MEAN CORPUSCULAR HGB CONC 32.8 % (32.0-36.0); MONO % 6.7 % (0.0-8.0); NEUT % 48.6 % (16.0-70.0); PLATELET COUNT 330 TH/MM3 (150-450); RED BLOOD COUNT 3.53 MIL/MM3 (4.00-5.30); RED CELL DISTRIBUTION WIDTH 15.1 % (11.6-17.2); WHITE BLOOD COUNT 3.9 TH/MM3 (4.0-11.0)
[2016-05-31 12:21] LABS: ANION GAP 7 MEQ/L (5-15); AST (GOT) 37 U/L (15-37); BICARBONATE 21.6 MEQ/L (21.0-32.0); BLOOD UREA NITROGEN 19 MG/DL (7-18); CHLORIDE 109 MEQ/L (98-107); GLOMERULAR FILTRATION RATE 173 ML/MIN (>89); POTASSIUM 4.4 MEQ/L (3.5-5.1); SODIUM (NA) 138 MEQ/L (136-145)
[2016-05-31 12:22] LABS: ALKALINE PHOSPHATASE 118 U/L (45-117); ALT (GPT) 30 U/L (10-53); TOTAL BILIRUBIN ADULT 0.3 MG/DL (0.2-1.0)
[2016-05-31] MEDS ORDERED: WARFARIN SOD 7.5 MG TAB PO SCH (16:00)
[2016-05-31] MEDS ORDERED: WARFARIN SOD 5 MG TAB PO SCH (16:00)
--- NOTE | 2016-05-31 18:20 | HHI.PR ---
Subjective Subjective Notes Asking for peaches with dinner No pain Objective Vitals/I&O Vital Signs Date Time Temp Pulse Resp B/P Pulse Ox O2 Delivery O2 Flow Rate FiO2 05/31/16 16:10 72 18 101/55 96 05/31/16 08:34 97.2 05/30/16 16:57 Room Air Labs Laboratory Tests Test 05/31/16 11:39 White Blood Count 3.9 Red Blood Count 3.53 Hemoglobin 10.0 Hematocrit 30.6 Mean Corpuscular Volume 86.9 Mean Corpuscular Hemoglobin 28.5 Mean Corpuscular Hemoglobin 32.8 Concent Red Cell Distribution Width 15.1 Platelet Count 330 Mean Platelet Volume 7.9 Neutrophils (%) (Auto) 48.6 Lymphocytes (%) (Auto) 43.7 Monocytes (%) (Auto) 6.7 Eosinophils (%) (Auto) 0.6 Basophils (%) (Auto) 0.4 Neutrophils # (Auto) 1.9 Lymphocytes # (Auto) 1.7 Monocytes # (Auto) 0.3 Eosinophils # (Auto) 0.0 Basophils # (Auto) 0.0 CBC Comment DIFF FINAL Differential Comment Prothrombin Time 13.8 Prothromb Time International 1.2 Ratio Sodium Level 138 Potassium Level 4.4 Chloride Level 109 Carbon Dioxide Level 21.6 Anion Gap 7 Blood Urea Nitrogen 19 Creatinine 0.47 Estimat Glomerular Filtration 173 Rate Random Glucose 87 Calcium Level 9.3 Total Bilirubin 0.3 Aspartate Amino Transf 37 (AST/SGOT) Alanine Aminotransferase 30 (ALT/SGPT) Alkaline Phosphatase 118 Total Protein 8.3 Albumin 2.8 Cardiovascular: Regular Lungs: Clear Abdomen: Other (ileostomy in place with stool; MF with colostomy bag in place with drainage; G tube in place ) Extremities: No edema A/P Assessment and Plan 45 year old female s/p ileostomy placement with creation of mucus fistula for c- dff colitis -Continue MF to drainage bag -Tolerating regular diet -No acute surgical needs at this time Attending Note - Dr. Godwin Abdomen benign; both appliances intact and skin dry. Ready for transfer back to [facility] from standpoint The exam, history, and the medical decision-making described in the above note were completed with the assistance of the mid-level provider. I reviewed and agree with the findings presented. I attest that I had a [id number] encounter with the patient on the same day, and personally performed and documented my assessment and findings in the medical record. Maia Lee May 31, 2016 18:20 Zaheer Godwin MD Jun 06, 2016 18:18
[2016-06-01 00:41] VITALS: PULSE 74
[2016-06-01 01:33] VITALS: BP 100/55; PULSE 68; RESP 18; TEMP 97.2; O2SAT 95
[2016-06-01 04:21] VITALS: BP 95/51; PULSE 65; RESP 18; TEMP 97; O2SAT 95
[2016-06-01] MEDS: GABAPENTIN 250 MG/5 ML UDC PEG SCH ×3 (05:05→21:12)
[2016-06-01] MEDS: PRIMIDONE 250 MG TAB PO SCH ×3 (10:18→18:25)
[2016-06-01] MEDS: lamoTRIgine 25 MG TAB PEG SCH ×2 (10:18→21:00)
[2016-06-01] MEDS: levETIRAcetam 500 MG/5 ML UDC PEG SCH ×2 (10:19→21:00)
[2016-06-01] MEDS: SODIUM CHLORIDE 0.9% FLUSH 5 ML FLUSH FLUSH SCH ×2 (10:19→21:00)
[2016-06-01] MEDS: ENOXAPARIN SODIUM 80 MG/0.8 ML SYRINGE SQ SCH ×2 (10:19→21:00)
[2016-06-01] MEDS: VALPROIC ACID SYRUP 250 MG/5 ML UDC PEG SCH ×2 (10:19→21:00)
[2016-06-01] MEDS: LACOSAMIDE 100 MG/10 ML UDC G-TUBE SCH ×2 (10:19→21:00)
--- NOTE | 2016-06-01 10:45 | HHI.PR ---
Subjective Remarks Follow up for C diff colitis. The patient denies any abdominal pain, nausea/ vomiting, or fever/chills overnight. Tolerating tube feeds and oral intake. RN reports every 2 hours overnight they were emptying her ileostomy bag, full of liquid brown stool. She has no other medical complaints at this time. Objective Vitals Vital Signs Date Time Temp Pulse Resp B/P Pulse Ox O2 Delivery O2 Flow Rate FiO2 06/01/16 04:21 97.0 65 18 95/51 95 06/01/16 01:33 97.2 68 18 100/55 95 06/01/16 00:41 74 05/31/16 20:43 98.2 70 19 100/54 96 05/31/16 16:10 72 18 101/55 96 05/31/16 12:05 70 18 100/55 95 I/O 05/31/16 05/31/16 05/31/16 06/01/16 06/01/16 06/01/16 06:59 14:59 22:59 06:59 14:59 22:59 Intake Total 1100 ml Output Total 850 ml 870 ml Balance 250 ml -870 ml IV Total 700 ml Tube Feeding 400 ml Output Stool Total 850 ml 870 ml # Voids 3 2 Result Diagram: 05/31/16 1139 05/31/16 1139 Imaging Last Impressions Abdomen X-Ray 05/29/16 0000 Signed Impressions: Service Date/Time: Sunday, May 29, 2016 23:04 - CONCLUSION: 1. Intraluminal position of ileostomy tube Narendra Rodriges MD Objective Remarks GENERAL: Well-nourished, well-developed middle aged intellectually disabled female patient in [facility]. SKIN: Warm and dry. No rash. HEENT: Normocephalic. Atraumatic. Pupils equal and round. Mucous membranes pink and moist. NECK: Supple. Trachea midline. CARDIOVASCULAR: Regular rate and rhythm. S1, S2 noted. No murmur appreciated. RESPIRATORY: No accessory muscle use. Clear to auscultation. Breath sounds equal bilaterally. GASTROINTESTINAL: Abdomen soft, non-tender, nondistended. Normoactive bowel sounds x4. G-tube and ileostomy in place. MUSCULOSKELETAL: No obvious deformities. Extremities without clubbing, cyanosis , or edema. NEUROLOGICAL: Awake and alert. No obvious cranial nerve deficits. Normal speech. Medications and IVs Current Medications Medications (Trade) Dose Ordered Sig/Rebeca Route Start Time Stop Time Status Last Admin (NS 1000 ml Inj) 1,000 ml @ 75 mls/hr [id number] IV 05/30/16 02:30 05/31/16 22:01 (Tylenol) 650 mg Q4H PRN PO 05/30/16 07:00 (TEGretol CHEW) 300 mg TID CHEW 05/30/16 09:00 06/01/16 10:18 (Lovenox Inj) 80 mg Q12HR SQ 05/30/16 09:00 06/01/16 10:19 (Neurontin Liq) 100 mg Q8HR PEG 05/30/16 14:00 06/01/16 05:05 ([place] 5-325 Mg) 1 tab Q4H PRN PEG 05/30/16 07:00 (Vimpat Liq) 200 mg Q12HR G-TUBE 05/30/16 09:00 06/01/16 10:19 (LaMICtal) 25 mg BID PEG 05/30/16 09:00 06/01/16 10:18 (Keppra Liq) 1,500 mg BID PEG 05/30/16 09:00 06/01/16 10:19 (Milk Of Magnesia Liq) 30 ml HS PRN PO 05/30/16 21:00 (Mysoline) 250 mg TID PO 05/30/16 09:00 06/01/16 10:18 (Depakene Liq) 750 mg Q12HR PEG 05/30/16 09:00 06/01/16 10:19 (NS Flush) 2 ml UNSCH PRN FLUSH 05/30/16 07:15 (NS Flush) 2 ml BID FLUSH 05/30/16 09:00 06/01/16 10:19 (Zofran Inj) 4 mg Q6H PRN IVP 05/30/16 07:15 Naloxone HCl 0.4 mg 0.4 mg UNSCH PRN IV 05/30/16 07:15 (Coumadin Consult Pharmacy) 0 ml @ 0 mls/hr UNSCH OTHER 05/30/16 07:15 (Coumadin) 7.5 mg DAILY@16 PO 05/31/16 16:00 05/31/16 15:52 A/P Assessment and Plan 45-year-old female from [facility] with hx of intellectual disability, head injury, bilateral blindness, presents with ileostomy tube dislodgment and ongoing C.difficile colitis Dislodgment of Ileostomy Mucous Fistula Irrigation Tube, with hx of Cdifficile Colitis s/p Colectomy: s/p replacement done in ER by gen surg Dr. Lozada on . Gen surg following. Supportive treatment with IVF, antiemetics, pain control prn. Restarted diet with tube feed supplementation. Cleared by general surgery for discharge back to SNF. With multiple BMs, recheck stool for C.diff. Hyperkalemia/Dehydration/JAMIE with elevated BUN: secondary to poor oral intake prior to arrival. Given supportive treatment with IVF. Now K 4.3, BUN decreased from 35 to 16. Resolved. All other medical conditions stable, continue home medications as appropriate. DVT Prophylaxis: Lovenox. Written by Raya Polanco, acting as scribe for Dr. Jarquin on 06/01/16 at 10:45. The documentation accurately reflects the work performed [id number] by me on at 10:45. Raya Polanco PA-C Jun 01, 2016 10:45 Enid Jarquin DO Jun 01, 2016 21:13
[2016-06-01 11:12] VITALS: BP 100/55; PULSE 75; RESP 18; TEMP 97.7; O2SAT 95
[2016-06-01 12:44] LABS: AUTOMATED NEUTROPHIL # 2.3 TH/MM3 (1.8-7.7); BASOPHIL % 0.4 % (0.0-2.0); EOSINOPHIL % 0.4 % (0.0-4.0); HEMATOCRIT 30.6 % (35.0-46.0); HEMO FLAGS DIFF FINAL; LYMPH % 36.8 % (9.0-44.0); LYMPHOCYTE # 1.5 TH/MM3 (1.0-4.8); MEAN CORPUSCULAR HGB CONC 32.5 % (32.0-36.0); MONO % 6.4 % (0.0-8.0); PLATELET COUNT 274 TH/MM3 (150-450); RED BLOOD COUNT 3.56 MIL/MM3 (4.00-5.30); RED CELL DISTRIBUTION WIDTH 15.2 % (11.6-17.2); WHITE BLOOD COUNT 4.1 TH/MM3 (4.0-11.0)
[2016-06-01 12:51] LABS: INTERNATIONAL NORMALIZED RATIO 1.2 RATIO; PROTHROMBIN TIME - PATIENT 13.6 SEC (9.8-11.6)
[2016-06-01 13:03] LABS: ALKALINE PHOSPHATASE 109 U/L (45-117); ALT (GPT) 27 U/L (10-53); ANION GAP 8 MEQ/L (5-15); AST (GOT) 27 U/L (15-37); BICARBONATE 21.7 MEQ/L (21.0-32.0); BLOOD UREA NITROGEN 16 MG/DL (7-18); CHLORIDE 110 MEQ/L (98-107); GLOMERULAR FILTRATION RATE 202 ML/MIN (>89); POTASSIUM 4.3 MEQ/L (3.5-5.1); SODIUM (NA) 140 MEQ/L (136-145); TOTAL BILIRUBIN ADULT 0.2 MG/DL (0.2-1.0)
--- NOTE | 2016-06-01 13:41 | HHI.PR ---
Subjective Subjective Notes Spoke with patient's mother at bedside. Tolerating PO's Objective Vitals/I&O Vital Signs Date Time Temp Pulse Resp B/P Pulse Ox O2 Delivery O2 Flow Rate FiO2 06/01/16 11:12 97.7 75 18 100/55 95 05/30/16 16:57 Room Air Labs Laboratory Tests Test 06/01/16 12:06 White Blood Count 4.1 Red Blood Count 3.56 Hemoglobin 10.0 Hematocrit 30.6 Mean Corpuscular Volume 86.0 Mean Corpuscular Hemoglobin 28.0 Mean Corpuscular Hemoglobin 32.5 Concent Red Cell Distribution Width 15.2 Platelet Count 274 Mean Platelet Volume 8.3 Neutrophils (%) (Auto) 56.0 Lymphocytes (%) (Auto) 36.8 Monocytes (%) (Auto) 6.4 Eosinophils (%) (Auto) 0.4 Basophils (%) (Auto) 0.4 Neutrophils # (Auto) 2.3 Lymphocytes # (Auto) 1.5 Monocytes # (Auto) 0.3 Eosinophils # (Auto) 0.0 Basophils # (Auto) 0.0 CBC Comment DIFF FINAL Differential Comment Prothrombin Time 13.6 Prothromb Time International 1.2 Ratio Sodium Level 140 Potassium Level 4.3 Chloride Level 110 Carbon Dioxide Level 21.7 Anion Gap 8 Blood Urea Nitrogen 16 Creatinine 0.41 Estimat Glomerular Filtration 202 Rate Random Glucose 96 Calcium Level 8.8 Total Bilirubin 0.2 Aspartate Amino Transf 27 (AST/SGOT) Alanine Aminotransferase 27 (ALT/SGPT) Alkaline Phosphatase 109 Total Protein 7.7 Albumin 2.5 Narrative Exam appliances in place; red rubber tube still present A/P Assessment and Plan C diff colitis, controlled/treated. Patient stable Plan: Remove red rubber tube; irrigation no longer needed Ok for transfer back to [facility] Zaheer Godwin MD Jun 01, 2016 13:40
[2016-06-01] MEDS ORDERED: WARFARIN SOD 4 MG TAB PO SCH (16:00)
[2016-06-01 16:05] VITALS: PULSE 75
[2016-06-01 19:40] VITALS: BP 102/57; PULSE 75; RESP 20; TEMP 98; O2SAT 100
[2016-06-01] MEDS: SODIUM CHLOR 0.9% 1000 ML INJ 1,000 ML IV SCH (21:10)
[2016-06-01 22:02] LABS: C. DIFF EPI 027 PRESUMPTIVE POSITIVE (NEGATIVE)
[2016-06-01 22:03] LABS: C. DIFF TOXIN PCR POSITIVE (NEGATIVE)
[2016-06-02] VITALS (7 sets, daily range): BP systolic 87–100; BP diastolic 51–60; PULSE 64–77; RESP 18–20; TEMP 96.8–98.4; O2SAT 93–100
[2016-06-02] MEDS: ACETAMINOPHEN/HYDROcodone 325 MG/5 MG TAB PEG PRN ×2 (02:03→06:19)
[2016-06-02] MEDS: GABAPENTIN 250 MG/5 ML UDC PEG SCH ×2 (06:20→14:06)
[2016-06-02] MEDS: SODIUM CHLORIDE 0.9% FLUSH 5 ML FLUSH FLUSH SCH ×2 (09:00→21:00)
[2016-06-02] MEDS: VALPROIC ACID SYRUP 250 MG/5 ML UDC PEG SCH (09:38)
[2016-06-02] MEDS: levETIRAcetam 500 MG/5 ML UDC PEG SCH (09:38)
[2016-06-02] MEDS: metroNIDAZOLE 500 MG TAB PO SCH ×2 (09:38→18:07)
[2016-06-02] MEDS: PRIMIDONE 250 MG TAB PO SCH ×3 (09:39→18:07)
[2016-06-02] MEDS: ENOXAPARIN SODIUM 80 MG/0.8 ML SYRINGE SQ SCH (09:39)
[2016-06-02] MEDS: lamoTRIgine 25 MG TAB PEG SCH (09:39)
[2016-06-02] MEDS: LACOSAMIDE 100 MG/10 ML UDC G-TUBE SCH (09:39)
[2016-06-02] MEDS: SODIUM CHLOR 0.9% 1000 ML INJ 1,000 ML IV SCH (09:40)
--- NOTE | 2016-06-02 12:48 | HHI.PR ---
Subjective Remarks Follow up for C diff colitis. Patient complaining of some mild diffuse abdominal pain today. Still having brown liquid stool output into ileostomy bag. No fevers overnight. Denies nausea/vomiting. She's tolerating oral intake. She has no other medical complaints at this time. Objective Vitals Vital Signs Date Time Temp Pulse Resp B/P Pulse Ox O2 Delivery O2 Flow Rate FiO2 06/02/16 12:02 98.1 76 18 87/60 100 06/02/16 08:26 98.4 64 20 87/55 98 06/02/16 04:16 97.6 77 20 100/58 99 06/02/16 03:03 18 06/02/16 00:18 97.6 69 20 100/53 98 06/01/16 19:40 98.0 75 20 102/57 100 06/01/16 16:05 75 I/O 06/01/16 06/01/16 06/01/16 06/02/16 06/02/16 06/02/16 07:00 15:00 23:00 07:00 15:00 23:00 Output Total 870 ml 400 ml Balance -870 ml -400 ml Output Stool Total 870 ml 400 ml # Voids 2 1 Result Diagram: 06/01/16 1206 06/01/16 1206 Imaging Last Impressions Abdomen X-Ray 05/29/16 0000 Signed Impressions: Service Date/Time: Sunday, May 29, 2016 23:04 - CONCLUSION: 1. Intraluminal position of ileostomy tube Narendra Rodriges MD Objective Remarks GENERAL: Well-nourished, well-developed middle aged intellectually disabled female patient in [facility]. SKIN: Warm and dry. No rash. HEENT: Normocephalic. Atraumatic. Pupils equal and round. Mucous membranes pink and moist. NECK: Supple. Trachea midline. CARDIOVASCULAR: Regular rate and rhythm. S1, S2 noted. No murmur appreciated. RESPIRATORY: No accessory muscle use. Clear to auscultation. Breath sounds equal bilaterally. GASTROINTESTINAL: Abdomen soft, non-tender, nondistended. Normoactive bowel sounds x4. G-tube and ileostomy in place with brown liquid stool output. MUSCULOSKELETAL: No obvious deformities. Extremities without clubbing, cyanosis , or edema. NEUROLOGICAL: Awake and alert. No obvious cranial nerve deficits. Normal speech. Medications and IVs Current Medications Medications (Trade) Dose Ordered Sig/Rebeca Route Start Time Stop Time Status Last Admin (NS 1000 ml Inj) 1,000 ml @ 75 mls/hr [id number] IV 05/30/16 02:30 06/02/16 09:40 (Tylenol) 650 mg Q4H PRN PO 05/30/16 07:00 (TEGretol CHEW) 300 mg TID CHEW 05/30/16 09:00 06/02/16 09:39 (Lovenox Inj) 80 mg Q12HR SQ 05/30/16 09:00 06/02/16 09:39 (Neurontin Liq) 100 mg Q8HR PEG 05/30/16 14:00 06/02/16 06:20 ([place] 5-325 Mg) 1 tab Q4H PRN PEG 05/30/16 07:00 06/02/16 06:19 (Vimpat Liq) 200 mg Q12HR G-TUBE 05/30/16 09:00 06/02/16 09:39 (LaMICtal) 25 mg BID PEG 05/30/16 09:00 06/02/16 09:39 (Keppra Liq) 1,500 mg BID PEG 05/30/16 09:00 06/02/16 09:38 (Milk Of Magnesia Liq) 30 ml HS PRN PO 05/30/16 21:00 (Mysoline) 250 mg TID PO 05/30/16 09:00 06/02/16 09:39 (Depakene Liq) 750 mg Q12HR PEG 05/30/16 09:00 06/02/16 09:38 (NS Flush) 2 ml UNSCH PRN FLUSH 05/30/16 07:15 (NS Flush) 2 ml BID FLUSH 05/30/16 09:00 06/01/16 10:19 (Zofran Inj) 4 mg Q6H PRN IVP 05/30/16 07:15 Naloxone HCl 0.4 mg 0.4 mg UNSCH PRN IV 05/30/16 07:15 (Coumadin Consult Pharmacy) 0 ml @ 0 mls/hr UNSCH OTHER 05/30/16 07:15 (Coumadin) 8 mg DAILY@16 PO 06/01/16 16:00 06/01/16 18:25 (Flagyl) 500 mg Q8H PO 06/02/16 08:00 06/16/16 07:59 06/02/16 09:38 A/P Assessment and Plan 45-year-old female from [facility] with hx of intellectual disability, head injury, bilateral eye blindness, presents with ileostomy irrigation tube dislodgment and ongoing C.difficile colitis Dislodgment of Ileostomy Mucous Fistula Irrigation Tube, with hx of Cdifficile Colitis s/p Colectomy: s/p replacement done in ER by gen surg Dr. Lozada on . Gen surg following. Supportive treatment with IVF, antiemetics, pain control prn. Restarted diet with tube feed supplementation. Cleared by general surgery for discharge back to [facility]. C.difficile Colitis: patient with ongoing multiple BMs, repeat stool positive for C.diff. Appears this is first relapse, will start on Flagyl 500mg q8h po [id number]. Consider ID consult if no improvement. Hyperkalemia/Dehydration/JAMIE with elevated BUN: secondary to poor oral intake prior to arrival. Given supportive treatment with IVF. Now K 4.3, BUN decreased from 35 to 16. Resolved. All other medical conditions stable, continue home medications as appropriate. DVT Prophylaxis: Lovenox. Discussed with Dr. Jarquin. Discharge Planning Possible discharge in the next 1-2 days if patient's diarrhea improves. Raya Polanco PA-C Jun 02, 2016 12:48 Enid Jarquin DO Jun 02, 2016 23:04
[2016-06-02 15:17] LABS: INTERNATIONAL NORMALIZED RATIO 1.1 RATIO; PROTHROMBIN TIME - PATIENT 12.7 SEC (9.8-11.6)
[2016-06-02] MEDS: WARFARIN SOD 6 MG TAB PO SCH (18:07)
[2016-06-03] VITALS (7 sets, daily range): BP systolic 89–131; BP diastolic 47–72; PULSE 66–82; RESP 16–18; TEMP 95.7–98.1; O2SAT 92–97
[2016-06-03] MEDS: levETIRAcetam 500 MG/5 ML UDC PEG SCH ×3 (00:33→23:09)
[2016-06-03] MEDS: ENOXAPARIN SODIUM 80 MG/0.8 ML SYRINGE SQ SCH ×3 (00:34→23:09)
[2016-06-03] MEDS: lamoTRIgine 25 MG TAB PEG SCH ×3 (00:34→23:09)
[2016-06-03] MEDS: GABAPENTIN 250 MG/5 ML UDC PEG SCH ×4 (00:34→23:09)
[2016-06-03] MEDS: VALPROIC ACID SYRUP 250 MG/5 ML UDC PEG SCH ×3 (00:34→23:10)
[2016-06-03] MEDS: SODIUM CHLOR 0.9% 1000 ML INJ 1,000 ML IV SCH ×3 (00:35→23:10)
[2016-06-03] MEDS: LACOSAMIDE 100 MG/10 ML UDC G-TUBE SCH ×3 (00:35→23:08)
[2016-06-03] MEDS: metroNIDAZOLE 500 MG TAB PO SCH ×4 (00:37→23:09)
[2016-06-03] MEDS: SODIUM CHLORIDE 0.9% FLUSH 5 ML FLUSH FLUSH SCH ×2 (09:00→23:08)
--- NOTE | 2016-06-03 09:51 | HHI.FPPN ---
Subjective Remarks incr DIARRHEA C/O ABDOM PAIN D/W RN Objective Vitals Vital Signs Date Time Temp Pulse Resp B/P Pulse Ox O2 Delivery O2 Flow Rate FiO2 06/03/16 09:26 98.1 71 16 89/57 96 06/03/16 06:30 97.9 69 18 93/47 93 06/03/16 01:12 96.8 74 18 101/59 93 06/02/16 22:39 69 06/02/16 21:50 96.8 70 18 92/51 93 06/02/16 16:14 98.2 72 20 91/57 97 06/02/16 12:02 98.1 76 18 87/60 100 I/O 06/02/16 06/02/16 06/02/16 06/03/16 06/03/16 06/03/16 07:00 15:00 23:00 07:00 15:00 23:00 Output Total 400 ml Balance -400 ml Output Stool Total 400 ml # Voids 1 2 Result Diagram: 06/01/16 1206 06/01/16 1206 Objective Remarks GENERAL: SKIN: Warm and dry. HEAD: Atraumatic. Normocephalic. EYES: No scleral icterus. No injection or drainage. ENT: No nasal bleeding or discharge. Mucous membranes pink and moist. NECK: Trachea midline. No JVD. CARDIOVASCULAR: Regular rate and rhythm. RESPIRATORY: No accessory muscle use. Clear to auscultation. Breath sounds equal bilaterally. GASTROINTESTINAL: Abdomen soft, non-tender, nondistended. Hepatic and splenic margins not palpable. OSTOMY W NL STOOL, R MUCUS FISTULA W SLIGHT AMOUNT OF STOOL INTO HARDY TUBE, L GT CDI MUSCULOSKELETAL: Extremities without clubbing, cyanosis, or edema. No obvious deformities. NEUROLOGICAL: Awake and alert. No obvious cranial nerve deficits. Motor grossly within normal limits. 1 out of 5 muscle strength in the arms and legs. Normal speech. PSYCHIATRIC: Appropriate mood and affect; insight and judgment normal. Medications and IVs Current Medications Medications (Trade) Dose Ordered Sig/Rebeca Route Start Time Stop Time Status Last Admin (NS 1000 ml Inj) 1,000 ml @ 75 mls/hr [id number] IV 05/30/16 02:30 06/03/16 00:35 (Tylenol) 650 mg Q4H PRN PO 05/30/16 07:00 (TEGretol CHEW) 300 mg TID CHEW 05/30/16 09:00 06/02/16 18:07 (Lovenox Inj) 80 mg Q12HR SQ 05/30/16 09:00 06/03/16 00:34 (Neurontin Liq) 100 mg Q8HR PEG 05/30/16 14:00 06/03/16 05:54 ([place] 5-325 Mg) 1 tab Q4H PRN PEG 05/30/16 07:00 06/02/16 06:19 (Vimpat Liq) 200 mg Q12HR G-TUBE 05/30/16 09:00 06/03/16 00:35 (LaMICtal) 25 mg BID PEG 05/30/16 09:00 06/03/16 00:34 (Keppra Liq) 1,500 mg BID PEG 05/30/16 09:00 06/03/16 00:33 (Milk Of Magnesia Liq) 30 ml HS PRN PO 05/30/16 21:00 (Mysoline) 250 mg TID PO 05/30/16 09:00 06/02/16 18:07 (Depakene Liq) 750 mg Q12HR PEG 05/30/16 09:00 06/03/16 00:34 (NS Flush) 2 ml UNSCH PRN FLUSH 05/30/16 07:15 (NS Flush) 2 ml BID FLUSH 05/30/16 09:00 06/01/16 10:19 (Zofran Inj) 4 mg Q6H PRN IVP 05/30/16 07:15 Naloxone HCl 0.4 mg 0.4 mg UNSCH PRN IV 05/30/16 07:15 (Coumadin Consult Pharmacy) 0 ml @ 0 mls/hr UNSCH OTHER 05/30/16 07:15 (Flagyl) 500 mg Q8H PO 06/02/16 08:00 06/16/16 07:59 06/03/16 00:37 (Coumadin) 12 mg DAILY@16 PO 06/02/16 16:00 06/02/16 18:07 A/P Assessment and Plan Laparoscopic assisted diverting ileostomy with mucous fistula, GT, & PARACENTESIS OSMAR 6, C DIF ILEUS, RECURRENT DEHYDRATION HYPERKALEMIA SZ'S, INTRACTABLE FLUID OVERLOAD THIRD SPACING HX ASPIRATION PNA UTERINE FIBROIDS TEGRETOL TOXICITY ARF, PRERENAL MR JAMIE HYPOMAGNESEMIA HYPOCALCEMIA HYPOVITAMINOSIS D HYPERAMMONEMIA PLAN: ID CONSULT SURGICAL CONSULT IVF STARTING PO GTF'S AM LABS LOVENOX BID FOR RLE DVT COUMADIN, FOLLOWUP INR'S LABS PENDING TODAY AM LABS PT HAS BEEN OBS FOR TWO MN, EXPECT 2 MORE DAYS INPT STAY. PT WOULD DEVELOP SUGICAL SITE COMPLICATIONS AGAIN IF D/C'D, AND REQUIRES ELECTROLYTE CORRECTION. DC BACK TO [facility]. Romie Pelayo MD Jun 03, 2016 09:51
[2016-06-03] MEDS: PRIMIDONE 250 MG TAB PO SCH ×3 (10:27→17:07)
--- NOTE | 2016-06-03 10:33 | HHI.PR ---
Subjective Subjective Notes Asking myself and Gibson [place] to ask nurse to call her mother Otherwise no pain; had a good weekend Objective Vitals/I&O Vital Signs Date Time Temp Pulse Resp B/P Pulse Ox O2 Delivery O2 Flow Rate FiO2 06/03/16 09:26 98.1 71 16 89/57 96 05/30/16 16:57 Room Air Labs Laboratory Tests Test 06/02/16 14:51 Prothrombin Time 12.7 Prothromb Time International 1.1 Ratio Cardiovascular: Regular Lungs: Clear Abdomen: Other (ileostomy in place with liquid stool---appliance in place; MF with drainage collection bag ) Extremities: No edema A/P Assessment and Plan 45 year old female s/p ileostomy placement with creation of mucus fistula for c- dff colitis -Continue MF to drainage bag -Tolerating regular diet -No acute surgical needs at this time -Okay to return to SNF from GS standpoint Attending Note - Dr. Godwin Abdomen benign. Will leave bowel discontinuous and keep ileostomy for now; easier to care for, given patient's disability. She has not had any episodes dehydration since creation of ileostomy, so it has not been problematic for her. The exam, history, and the medical decision-making described in the above note were completed with the assistance of the mid-level provider. I reviewed and agree with the findings presented. I attest that I had a [id number] encounter with the patient on the same day, and personally performed and documented my assessment and findings in the medical record. Maia Lee Jun 03, 2016 10:33 Zaheer Godwin MD Jun 03, 2016 23:15
[2016-06-03] MEDS: ACETAMINOPHEN/HYDROcodone 325 MG/5 MG TAB PEG PRN (10:35)
--- NOTE | 2016-06-03 11:02 | PD.CONS ---
History of Present Illness Service Infectious Disease Consult Requested By Dr Tim Pelayo Reason for Consult Eval patient with C diff colitis Primary Care Physician Romie Pelayo MD Diagnoses: History of Present Illness Patient seen and examined. Records reviewed. Patient is a 45-year-old female, but into the hospital for evaluation of her mucous fistula. Patient had an admission back in March for C. difficile colitis. She was in the hospital from March 14 2 April 05. She was discharged to home and readmitted April 10 with seizures, and she had episode of sepsis, and recurrent C. difficile colitis. She underwent surgery on April 19 for possible total colectomy, but it was found that her bowels were viable, so she had laparoscopic placement of a G-tube, laparoscopic ileostomy with mucous fistula, vancomycin irrigation of the colon, and paracenteses and removal of 2 L of fluid. She did well and she went to [facility] and from there she was discharged to a local prison. Patient apparently pulled out her mucous fistula and she went to the emergency room on June 06, and a new red rubber drain was placed in her mucous fistula. In the prison she was getting vancomycin irrigation of her colon. This time apparently the mucous fistula fell out again, so the patient was admitted back to the hospital. She was afebrile. Her WBC was normal. The drain to her mucous fistula was eventually removed, and it was felt that she did not need any further vancomycin irrigation of her colon. Patient's ileostomy has been working, and she had some increased output yesterday. C. difficile was sent, and it's unclear word they got the specimen, but it was probably from the ileostomy, and that came back positive. Aspiration still complains of diffuse abdominal pain. She has been tolerating her tube feeding through her G-tube. Patient also was evaluated by nutrition, and she was placed on mechanical soft diet. As mentioned earlier she remains afebrile, and her WBC is normal. Patient was started on by mouth Flagyl. Infectious disease consultation has been requested to evaluate the patient. Review of Systems ROS Limitations: Clinical Condition, Altered Mental Status Past Family Social History Allergies: Coded Allergies: No Known Allergies (Unverified , 05/29/16) Past Medical History Mental retardation Seizure disorder Blindness Uterine fibroid Past Surgical History Recent laparoscopy with G-tube placement, ileostomy and mucous fistula Paracenteses Active Ordered Medications Tylenol [place] Tegretol Lovenox Neurontin Vimpat Lamictal Keppra MOM Flagyl Zofran Mysoline Valproic acid Coumadin Social History Came from the rehabilitation facility No smoking Alcohol abuse No drug use Physical Exam Vital Signs Vital Signs Date Time Temp Pulse Resp B/P Pulse Ox O2 Delivery O2 Flow Rate FiO2 06/03/16 09:26 98.1 71 16 89/57 96 06/03/16 06:30 97.9 69 18 93/47 93 06/03/16 01:12 96.8 74 18 101/59 93 06/02/16 22:39 69 06/02/16 21:50 96.8 70 18 92/51 93 06/02/16 16:14 98.2 72 20 91/57 97 06/02/16 12:02 98.1 76 18 87/60 100 Physical Exam GENERAL: This is a thin, well-developed female, awake, following commands, in no apparent distress. SKIN: Warm and dry, no generalized rash, no ecchymosis or embolic lesions. HEAD: Atraumatic. Normocephalic. No temporal or scalp tenderness. EYES: Pale conjunctivae. She has opaque sclera. No injection or drainage. ENT: Nose without bleeding, or purulent drainage. Moist oral mucosa. Throat without erythema, or exudate. Uvula midline. Airway patent. NECK: Trachea midline. No JVD or lymphadenopathy. Supple, nontender, no meningeal signs. CARDIOVASCULAR: Regular rate and rhythm without murmurs, gallops, or rubs. RESPIRATORY: Clear to auscultation. Breath sounds equal bilaterally. No wheezes , rales, or rhonchi. Decreased breath sounds at the bases. GASTROINTESTINAL: Abdomen mildly distended, has diffuse abdominal tenderness, but no guarding or rebound. Ileostomy pink with a lot of output. Mucous fistula has a wafer in place and there is no output. PEG site looks okay. All sounds are present and hypoactive. MUSCULOSKELETAL: Extremities without clubbing, cyanosis, or edema. No joint tenderness, or effusion. No calf tenderness. Negative Homans sign bilaterally. NEUROLOGICAL: Awake and alert. No Babinski or ankle clonus. PSYCH: CAlm and cooperative LINE: PIV with no evidence of infection Laboratory Laboratory Tests Test 06/02/16 14:51 Prothrombin Time 12.7 Prothromb Time International 1.1 Ratio Result Diagram: 06/01/16 1206 06/01/16 1206 Imaging Abdomen X-Ray 05/29/16 0000 Signed Impressions: Service Date/Time: Sunday, May 29, 2016 23:04 - CONCLUSION: 1. Intraluminal position of ileostomy tube Narendra Rodriges MD Assessment and Plan Assessment and Plan IMPRESSION C diff (+) ?from ileostomy - currently no fever, no leukocytosis - ?if C diff affects SB, or likely colonization of her GIT Episode of severe C diff colitis, has mucus fistula and has received long course of colon irrigation with vancomycin solution Hx MR and blindness Hx SZ disorder RECOMMENDATION Continue po Flagyl for now CT A/P to eval abdominal pain, if bowel mason ok,will D/C flagyl Follow output from her ileostomy Monitor progress I will make further recommendations once work-up is completed Thank you for this consultation Discussed Condition With D/W Sheila Zuñiga MD Jun 03, 2016 11:01
[2016-06-03 11:39] LABS: AUTOMATED NEUTROPHIL # 1.8 TH/MM3 (1.8-7.7); BASOPHIL % 0.5 % (0.0-2.0); HEMATOCRIT 30.9 % (35.0-46.0); HEMO FLAGS DIFF FINAL; LYMPH % 40.3 % (9.0-44.0); LYMPHOCYTE # 1.4 TH/MM3 (1.0-4.8); MEAN CELL VOLUME 85.7 FL (80.0-100.0); MEAN CORPUSCULAR HEMOGLOBIN 28.4 PG (27.0-34.0); MEAN CORPUSCULAR HGB CONC 33.1 % (32.0-36.0); MONO % 6.8 % (0.0-8.0); NEUT % 51.4 % (16.0-70.0); PLATELET COUNT 245 TH/MM3 (150-450); RED CELL DISTRIBUTION WIDTH 14.9 % (11.6-17.2); WHITE BLOOD COUNT 3.4 TH/MM3 (4.0-11.0)
[2016-06-03 11:49] LABS: INTERNATIONAL NORMALIZED RATIO 1.2 RATIO; PROTHROMBIN TIME - PATIENT 13.3 SEC (9.8-11.6)
[2016-06-03] MEDS ORDERED: DIATRIZOATE MEGLUM/DIATRIZOATE SOD 9 ML CUP PO ONE (12:00)
[2016-06-03 12:10] LABS: BICARBONATE 24.2 MEQ/L (21.0-32.0); MAGNESIUM 1.4 MG/DL (1.5-2.5); POTASSIUM 4.6 MEQ/L (3.5-5.1)
[2016-06-03] MEDS: WARFARIN SOD 6 MG TAB PO SCH (17:07)
[2016-06-03] MEDS ORDERED: IOHEXOL 350 MG/ML 10 ML VIAL (for RAD DIAG) IV ONE (18:04)
--- NOTE | 2016-06-03 18:27 | RADRPT ---
EXAM DATE/TIME: 06/03/2016 18:00 [place] COMPARISON: CT ABDOMEN & PELVIS W/O CONTRAST, April 18, 2016, 1:10. INDICATIONS : Abdomen pain. IV CONTRAST: 76 cc Omnipaque 350 (iohexol) IV ORAL CONTRAST: Prescribed oral contrast ingested. RADIATION DOSE: 5.57 CTDIvol (mGy) MEDICAL HISTORY : Cardiovascular disease. Hypertension. C-Diff SURGICAL HISTORY : Colostomy. Peg Tube ENCOUNTER: Initial ACUITY: 1 day PAIN SCALE: Non-responsive LOCATION: abdomen TECHNIQUE: Volumetric scanning of the abdomen and pelvis was performed. Using automated exposure control and ad justment of the mA and/or kV according to patient size, radiation dose was kept as low as reasonably achievable to obtain optimal diagnostic quality images. FINDINGS: No abscess or free air demonstrated. There is mild, generalized colonic wall thickening, considerably improved from prior CTs. There are 2 ostomies now seen in the right lower quadrant one presumably co yessica and the other small bowel. No obstruction is seen. There is body wall edema/anasarca. Patchy foci of edema are seen in the left lower quadrant anterior abdominal wall and small bubbles of gas, etiology uncertain but perhaps related to subcutaneous injec tions. There is a PEG tube with distal tip clearly in the stomach. Enlarged fibroid uterus again seen. CONCLUSION: 1. No abscess, obstruction or free air. 2. However, small bubbles of gas are seen in the anterior abdominal wall, mainly left lower quadrant. Please see above. 3. Mild colitis, considerably improved. 2 right lower quadrant ostomies are now seen. No obstruction. 4. Anasarca/body wall edema, better than before. 5. Enlarged fibroid uterus again noted. Jesus Merrill MD on June 03, 2016 at 18:20 Board Certified Radiologist. This report was verified electronically.
[2016-06-04] VITALS (8 sets, daily range): BP systolic 94–106; BP diastolic 46–60; PULSE 68–79; RESP 16–18; TEMP 97.5–98.1; O2SAT 98–100
[2016-06-04] MEDS: GABAPENTIN 250 MG/5 ML UDC PEG SCH ×3 (05:51→22:31)
[2016-06-04 07:22] LABS: AUTOMATED NEUTROPHIL # 1.2 TH/MM3 (1.8-7.7); BASOPHIL % 0.2 % (0.0-2.0); EOSINOPHIL % 1.4 % (0.0-4.0); HEMATOCRIT 27.3 % (35.0-46.0); HEMO FLAGS DIFF FINAL; LYMPH % 51.2 % (9.0-44.0); LYMPHOCYTE # 1.4 TH/MM3 (1.0-4.8); MEAN CELL VOLUME 85.9 FL (80.0-100.0); MEAN CORPUSCULAR HEMOGLOBIN 28.1 PG (27.0-34.0); MEAN CORPUSCULAR HGB CONC 32.7 % (32.0-36.0); NEUT % 42.2 % (16.0-70.0); PLATELET COUNT 231 TH/MM3 (150-450); RED BLOOD COUNT 3.18 MIL/MM3 (4.00-5.30); RED CELL DISTRIBUTION WIDTH 14.7 % (11.6-17.2); WHITE BLOOD COUNT 2.8 TH/MM3 (4.0-11.0)
[2016-06-04 07:26] LABS: INTERNATIONAL NORMALIZED RATIO 1.3 RATIO
[2016-06-04 07:34] LABS: ALT (GPT) 40 U/L (10-53); ANION GAP 8 MEQ/L (5-15); AST (GOT) 34 U/L (15-37); BICARBONATE 22.6 MEQ/L (21.0-32.0); BLOOD UREA NITROGEN 14 MG/DL (7-18); CHLORIDE 108 MEQ/L (98-107); GLOMERULAR FILTRATION RATE 221 ML/MIN (>89); POTASSIUM 4.1 MEQ/L (3.5-5.1); SODIUM (NA) 139 MEQ/L (136-145)
[2016-06-04 07:37] LABS: ALKALINE PHOSPHATASE 91 U/L (45-117); TOTAL BILIRUBIN ADULT 0.2 MG/DL (0.2-1.0)
[2016-06-04] MEDS: SODIUM CHLORIDE 0.9% FLUSH 5 ML FLUSH FLUSH SCH ×2 (08:22→20:46)
[2016-06-04] MEDS: levETIRAcetam 500 MG/5 ML UDC PEG SCH ×2 (08:22→20:46)
[2016-06-04] MEDS: metroNIDAZOLE 500 MG TAB PO SCH ×3 (08:22→23:48)
[2016-06-04] MEDS: ENOXAPARIN SODIUM 80 MG/0.8 ML SYRINGE SQ SCH (08:23)
[2016-06-04] MEDS: lamoTRIgine 25 MG TAB PEG SCH ×2 (08:23→20:45)
[2016-06-04] MEDS: ACETAMINOPHEN/HYDROcodone 325 MG/5 MG TAB PEG PRN ×2 (09:44→20:45)
[2016-06-04] MEDS: VALPROIC ACID SYRUP 250 MG/5 ML UDC PEG SCH ×2 (09:44→20:46)
[2016-06-04] MEDS: PRIMIDONE 250 MG TAB PO SCH ×3 (09:44→16:32)
[2016-06-04] MEDS: LACOSAMIDE 100 MG/10 ML UDC G-TUBE SCH ×2 (09:45→20:46)
--- NOTE | 2016-06-04 12:24 | HHI.FPPN ---
Subjective Remarks d/w RN PT AGITATED SEEMS TO BE AT BASELINE ALMOST Objective Vitals Vital Signs Date Time Temp Pulse Resp B/P Pulse Ox O2 Delivery O2 Flow Rate FiO2 06/04/16 08:15 Room Air 06/04/16 08:00 98.1 70 16 94/46 98 06/04/16 04:00 97.5 71 18 106/60 99 06/04/16 02:43 74 06/04/16 01:00 97.8 75 18 106/57 100 06/04/16 01:00 Room Air 06/03/16 22:11 97.8 82 18 95/68 97 06/03/16 21:09 66 06/03/16 16:00 95.7 74 16 92/63 96 06/03/16 12:56 97.2 73 18 131/72 92 I/O 06/03/16 06/03/16 06/03/16 06/04/16 06/04/16 06/04/16 07:00 15:00 23:00 07:00 15:00 23:00 Intake Total 701 ml Output Total 250 ml 300 ml Balance -250 ml 401 ml Intake Oral 0 ml IV Total 463 ml Tube Feeding 238 ml Output Stool Total 250 ml 300 ml # Voids 2 3 0 Result Diagram: 06/04/1660506/04/16 06 Objective Remarks GENERAL: SKIN: Warm and dry. HEAD: Atraumatic. Normocephalic. EYES: No scleral icterus. No injection or drainage. ENT: No nasal bleeding or discharge. Mucous membranes pink and moist. NECK: Trachea midline. No JVD. CARDIOVASCULAR: Regular rate and rhythm. RESPIRATORY: No accessory muscle use. Clear to auscultation. Breath sounds equal bilaterally. GASTROINTESTINAL: Abdomen soft, non-tender, nondistended. Hepatic and splenic margins not palpable. OSTOMY W NL STOOL, R MUCUS FISTULA W SLIGHT AMOUNT OF STOOL INTO HARDY TUBE, L GT CDI MUSCULOSKELETAL: Extremities without clubbing, cyanosis, or edema. No obvious deformities. NEUROLOGICAL: Awake and alert. No obvious cranial nerve deficits. Motor grossly within normal limits. 1 out of 5 muscle strength in the arms and legs. Normal speech. PSYCHIATRIC: Appropriate mood and affect; insight and judgment normal. Medications and IVs Current Medications Medications (Trade) Dose Ordered Sig/Rebeca Route Start Time Stop Time Status Last Admin (NS 1000 ml Inj) 1,000 ml @ 75 mls/hr [id number] IV 05/30/16 02:30 06/03/16 23:10 (Tylenol) 650 mg Q4H PRN PO 05/30/16 07:00 (TEGretol CHEW) 300 mg TID CHEW 05/30/16 09:00 06/04/16 09:44 (Lovenox Inj) 80 mg Q12HR SQ 05/30/16 09:00 06/04/16 08:23 (Neurontin Liq) 100 mg Q8HR PEG 05/30/16 14:00 06/04/16 05:51 ([place] 5-325 Mg) 1 tab Q4H PRN PEG 05/30/16 07:00 06/04/16 09:44 (Vimpat Liq) 200 mg Q12HR G-TUBE 05/30/16 09:00 06/04/16 09:45 (LaMICtal) 25 mg BID PEG 05/30/16 09:00 06/04/16 08:23 (Keppra Liq) 1,500 mg BID PEG 05/30/16 09:00 06/04/16 08:22 (Milk Of Magnesia Liq) 30 ml HS PRN PO 05/30/16 21:00 (Mysoline) 250 mg TID PO 05/30/16 09:00 06/04/16 09:44 (Depakene Liq) 750 mg Q12HR PEG 05/30/16 09:00 06/04/16 09:44 (NS Flush) 2 ml UNSCH PRN FLUSH 05/30/16 07:15 (NS Flush) 2 ml BID FLUSH 05/30/16 09:00 06/04/16 08:22 (Zofran Inj) 4 mg Q6H PRN IVP 05/30/16 07:15 Naloxone HCl 0.4 mg 0.4 mg UNSCH PRN IV 05/30/16 07:15 (Coumadin Consult Pharmacy) 0 ml @ 0 mls/hr UNSCH OTHER 05/30/16 07:15 (Flagyl) 500 mg Q8H PO 06/02/16 08:00 06/16/16 07:59 06/04/16 08:22 (Coumadin) 12 mg DAILY@16 PO 06/02/16 16:00 06/03/16 17:07 A/P Assessment and Plan Laparoscopic assisted diverting ileostomy with mucous fistula, GT, & PARACENTESIS OSMAR 6, C DIF ILEUS, RECURRENT DVT OF LEG AT [facility] LAST MONTH DEHYDRATION HYPERKALEMIA SZ'S, INTRACTABLE FLUID OVERLOAD THIRD SPACING HX ASPIRATION PNA UTERINE FIBROIDS TEGRETOL TOXICITY ARF, PRERENAL MR JAMIE HYPOMAGNESEMIA HYPOCALCEMIA HYPOVITAMINOSIS D HYPERAMMONEMIA PLAN: STOP COUMADIN AND LOVENOX AND START XARELTO TOMORROW APPEARS TO BE COUMADIN RESISTANT ID CONSULT SURGICAL CONSULT IVF STARTING PO GTF'S AM LABS AM LABSELECTROLYTE CORRECTION. DC BACK TO [facility]. Romie Pelayo MD Jun 04, 2016 12:24 Romie Pelayo MD Jun 04, 2016 12:24
--- NOTE | 2016-06-04 12:43 | HHI.IDPN ---
Subjective Subjective Remarks Notes reviewed [place] ok CT A/P with improving bowel wall thickening Antibiotics Flagyl Lines PIV Past Medical History Mental retardation Seizure disorder Blindness Uterine fibroid Past Surgical History Recent laparoscopy with G-tube placement, ileostomy and mucous fistula Paracenteses Allergies: Coded Allergies: No Known Allergies (Unverified , 05/29/16) Objective . Vital Signs Date Time Temp Pulse Resp B/P Pulse Ox O2 Delivery O2 Flow Rate FiO2 06/04/16 08:15 Room Air 06/04/16 08:00 98.1 70 16 94/46 98 06/04/16 04:00 97.5 71 18 106/60 99 06/04/16 02:43 74 06/04/16 01:00 97.8 75 18 106/57 100 06/04/16 01:00 Room Air 06/03/16 22:11 97.8 82 18 95/68 97 06/03/16 21:09 66 06/03/16 16:00 95.7 74 16 92/63 96 06/03/16 12:56 97.2 73 18 131/72 92 06/03/16 06/03/16 06/04/16 15:00 23:00 07:00 Intake Total 701 ml Output Total 250 ml 300 ml Balance -250 ml 401 ml Intake Oral 0 ml IV Total 463 ml Tube Feeding 238 ml Output Stool Total 250 ml 300 ml # Voids 3 0 . Laboratory Tests Test 06/03/16 06/04/16 11:20 06:06 White Blood Count 3.4 TH/MM3 2.8 TH/MM3 Red Blood Count 3.60 MIL/MM3 3.18 MIL/MM3 Hemoglobin 10.2 GM/DL 8.9 GM/DL Hematocrit 30.9 % 27.3 % Mean Corpuscular Volume 85.7 FL 85.9 FL Mean Corpuscular Hemoglobin 28.4 PG 28.1 PG Mean Corpuscular Hemoglobin 33.1 % 32.7 % Concent Red Cell Distribution Width 14.9 % 14.7 % Platelet Count 245 TH/MM3 231 TH/MM3 Mean Platelet Volume 8.3 FL 8.5 FL Neutrophils (%) (Auto) 51.4 % 42.2 % Lymphocytes (%) (Auto) 40.3 % 51.2 % Monocytes (%) (Auto) 6.8 % 5.0 % Eosinophils (%) (Auto) 1.0 % 1.4 % Basophils (%) (Auto) 0.5 % 0.2 % Neutrophils # (Auto) 1.8 TH/MM3 1.2 TH/MM3 Lymphocytes # (Auto) 1.4 TH/MM3 1.4 TH/MM3 Monocytes # (Auto) 0.2 TH/MM3 0.1 TH/MM3 Eosinophils # (Auto) 0.0 TH/MM3 0.0 TH/MM3 Basophils # (Auto) 0.0 TH/MM3 0.0 TH/MM3 CBC Comment DIFF FINAL DIFF FINAL Differential Comment Laboratory Tests Test 06/03/16 06/04/16 06/04/16 11:20 06:06 10:30 Sodium Level 138 MEQ/L 139 MEQ/L Potassium Level 4.6 MEQ/L 4.1 MEQ/L Chloride Level 107 MEQ/L 108 MEQ/L Carbon Dioxide Level 24.2 MEQ/L 22.6 MEQ/L Anion Gap 7 MEQ/L 8 MEQ/L Blood Urea Nitrogen 15 MG/DL 14 MG/DL Creatinine 0.40 MG/DL 0.38 MG/DL Estimat Glomerular Filtration 208 ML/MIN 221 ML/MIN Rate Random Glucose 90 MG/DL 95 MG/DL Calcium Level 8.7 MG/DL 8.3 MG/DL Magnesium Level 1.4 MG/DL Total Bilirubin 0.2 MG/DL Aspartate Amino Transf 34 U/L (AST/SGOT) Alanine Aminotransferase 40 U/L (ALT/SGPT) Alkaline Phosphatase 91 U/L Total Protein 6.9 GM/DL Albumin 2.3 GM/DL Lactic Acid Level 1.3 mmol/L Physical Exam GENERAL: awake, following commands, NAD SKIN: Warm and dry, no generalized rash HEENT: Pale conjunctivae. She has opaque sclera. Moist oral mucosa. NECK: Supple, nontender, no meningeal signs. CARDIOVASCULAR: Regular rate and rhythm without murmurs, gallops, or rubs. RESPIRATORY: Clear to auscultation. Breath sounds equal bilaterally. No wheezes , rales, or rhonchi. Decreased breath sounds at the bases. GASTROINTESTINAL: Abdomen mildly distended, has mild abdominal tenderness, but no guarding or rebound. Ileostomy pink with a lot of output. Mucous fistula has a wafer in place and there is no output. PEG site looks okay. All sounds are present and hypoactive. MUSCULOSKELETAL: Extremities without clubbing, cyanosis, or edema. No joint tenderness, or effusion. No calf tenderness. NEUROLOGICAL: Awake and alert. No Babinski or ankle clonus. PSYCH: CAlm and cooperative LINE: PIV with no evidence of infection Assessment & Plan Remarks IMPRESSION C diff (+) ?from ileostomy - currently no fever, no leukocytosis - likely colonization of her GIT - with improving bowel wall thickening Episode of severe C diff colitis, has mucus fistula and has received long course of colon irrigation with vancomycin solution Hx MR and blindness Hx SZ disorder RECOMMENDATION Continue po Flagyl and give 14 days as planned, for bowel wall thickening Clinically stable from ID standpoint Can be D/C back to SNF I will be available prSheila Cerna MD Jun 04, 2016 12:42
[2016-06-04] MEDS: SODIUM CHLOR 0.9% 1000 ML INJ 1,000 ML IV SCH (13:38)
[2016-06-05] VITALS (8 sets, daily range): BP systolic 94–114; BP diastolic 51–65; PULSE 67–82; RESP 16–20; TEMP 97.3–98.5; O2SAT 97–99
[2016-06-05] MEDS: SODIUM CHLOR 0.9% 1000 ML INJ 1,000 ML IV SCH (03:01)
[2016-06-05] MEDS: GABAPENTIN 250 MG/5 ML UDC PEG SCH ×3 (05:51→22:47)
[2016-06-05] MEDS: ACETAMINOPHEN/HYDROcodone 325 MG/5 MG TAB PEG PRN ×4 (05:51→22:54)
[2016-06-05] MEDS: SODIUM CHLORIDE 0.9% FLUSH 5 ML FLUSH FLUSH SCH ×2 (09:00→22:48)
[2016-06-05] MEDS: PRIMIDONE 250 MG TAB PO SCH ×3 (09:08→17:28)
[2016-06-05] MEDS: metroNIDAZOLE 500 MG TAB PO SCH ×2 (09:08→17:29)
[2016-06-05] MEDS: lamoTRIgine 25 MG TAB PEG SCH ×2 (09:08→22:53)
[2016-06-05] MEDS: VALPROIC ACID SYRUP 250 MG/5 ML UDC PEG SCH ×2 (09:08→22:47)
[2016-06-05] MEDS: LACOSAMIDE 100 MG/10 ML UDC G-TUBE SCH ×2 (09:08→22:47)
[2016-06-05] MEDS: levETIRAcetam 500 MG/5 ML UDC PEG SCH ×2 (09:09→22:47)
[2016-06-05 09:25] LABS: AUTOMATED NEUTROPHIL # 1.8 TH/MM3 (1.8-7.7); BASOPHIL % 0.3 % (0.0-2.0); EOSINOPHIL % 0.9 % (0.0-4.0); HEMATOCRIT 28.7 % (35.0-46.0); HEMO FLAGS DIFF FINAL; LYMPH % 36.2 % (9.0-44.0); LYMPHOCYTE # 1.2 TH/MM3 (1.0-4.8); MEAN CELL VOLUME 84.7 FL (80.0-100.0); MEAN CORPUSCULAR HGB CONC 33.1 % (32.0-36.0); MONO % 6.6 % (0.0-8.0); PLATELET COUNT 233 TH/MM3 (150-450); RED BLOOD COUNT 3.39 MIL/MM3 (4.00-5.30); RED CELL DISTRIBUTION WIDTH 14.6 % (11.6-17.2); WHITE BLOOD COUNT 3.2 TH/MM3 (4.0-11.0)
[2016-06-05 09:35] LABS: INTERNATIONAL NORMALIZED RATIO 1.2 RATIO
[2016-06-05 09:55] LABS: ALKALINE PHOSPHATASE 91 U/L (45-117); ALT (GPT) 33 U/L (10-53); ANION GAP 7 MEQ/L (5-15); AST (GOT) 25 U/L (15-37); BICARBONATE 24.7 MEQ/L (21.0-32.0); BLOOD UREA NITROGEN 11 MG/DL (7-18); CHLORIDE 106 MEQ/L (98-107); GLOMERULAR FILTRATION RATE 235 ML/MIN (>89); POTASSIUM 4.3 MEQ/L (3.5-5.1); SODIUM (NA) 138 MEQ/L (136-145); TOTAL BILIRUBIN ADULT 0.2 MG/DL (0.2-1.0)
[2016-06-05] MEDS: RIVAROXABAN 20 MG TAB GT SCH (11:36)
--- NOTE | 2016-06-05 16:48 | HHI.PR ---
Subjective Remarks COVERAGE FOR DR. PANDYA Patient humming to herself. Nonverbal. Objective Vitals Vital Signs Date Time Temp Pulse Resp B/P Pulse Ox O2 Delivery O2 Flow Rate FiO2 06/05/16 12:00 98.5 78 18 100/58 98 06/05/16 09:10 Room Air 06/05/16 08:00 98.0 67 16 98/59 99 06/05/16 08:00 82 06/05/16 05:30 97.3 74 16 106/54 98 06/05/16 00:10 97.6 78 16 108/61 98 06/04/16 20:44 98.0 79 16 105/60 99 06/04/16 20:00 Room Air I/O 06/04/16 06/04/16 06/04/16 06/05/16 06/05/16 06/05/16 07:00 15:00 23:00 07:00 15:00 23:00 Intake Total 701 ml 1072 ml 1010 ml 834 ml 1131 ml Output Total 300 ml 220 ml 200 ml 400 ml Balance 401 ml 852 ml 810 ml 434 ml 1131 ml Intake Oral 0 ml 0 ml 0 ml IV Total 463 ml 536 ml 675 ml 546 ml 441 ml Tube Feeding 238 ml 236 ml 335 ml 288 ml 290 ml Tube Irrigant 300 ml 400 ml Output Stool Total 300 ml 220 ml 200 ml 400 ml # Voids 0 3 4 6 # Bowel Movements 1 Result Diagram: 06/05/1690406/05/16904 Objective Remarks GENERAL: Well-nourished, well-developed petite -Americans female patient. SKIN: Warm and dry. HEAD: Normocephalic. EYES: Eyes are closed. NECK: Supple, trachea midline. No JVD or lymphadenopathy. CARDIOVASCULAR: Regular rate and rhythm without murmurs, gallops, or rubs. RESPIRATORY: Breath sounds equal bilaterally. No accessory muscle use. GASTROINTESTINAL: Abdomen soft, non-tender, nondistended. She has an ostomy bag on the right abdomen. EXTREMITIES: No cyanosis, or edema. NEUROLOGICAL: Awake, alert. Nonverbal, does not follow commands. A/P Assessment and Plan Laparoscopic assisted diverting ileostomy with mucous fistula, GT, & PARACENTESIS OSMAR 6, C DIF - cont flagyl per ID ILEUS, RECURRENT - now resolved DVT OF LEG AT [facility] LAST MONTH - on xarelto DEHYDRATION - resolved, cont tubed feeds with tray HYPERKALEMIA - resolved SZ disorder, INTRACTABLE - cont antiepileptics Tegretol, Vimpat and Lamictal and Keppra and Depakote. HX ASPIRATION PNA UTERINE FIBROIDS TEGRETOL TOXICITY ARF, PRERENAL - resolved Mental retardation Yoselin Sinclair MD Jun 05, 2016 16:48
[2016-06-06] MEDS: metroNIDAZOLE 500 MG TAB PO SCH ×3 (01:30→16:11)
[2016-06-06 05:15] VITALS: BP 99/54; PULSE 68; RESP 16; TEMP 98; O2SAT 100
[2016-06-06] MEDS: ACETAMINOPHEN/HYDROcodone 325 MG/5 MG TAB PEG PRN ×2 (05:56→09:57)
[2016-06-06] MEDS: GABAPENTIN 250 MG/5 ML UDC PEG SCH ×2 (05:57→13:55)
[2016-06-06 08:00] VITALS: BP 99/52; PULSE 67; PULSE 72; RESP 18; TEMP 98; O2SAT 99
[2016-06-06 08:33] LABS: AUTOMATED NEUTROPHIL # 1.3 TH/MM3 (1.8-7.7); BASOPHIL % 0.2 % (0.0-2.0); EOSINOPHIL % 1.6 % (0.0-4.0); HEMATOCRIT 29.4 % (35.0-46.0); HEMO FLAGS DIFF FINAL; LYMPH % 45.4 % (9.0-44.0); LYMPHOCYTE # 1.3 TH/MM3 (1.0-4.8); MEAN CELL VOLUME 85.5 FL (80.0-100.0); MEAN CORPUSCULAR HEMOGLOBIN 27.8 PG (27.0-34.0); MEAN CORPUSCULAR HGB CONC 32.5 % (32.0-36.0); MONO % 6.8 % (0.0-8.0); PLATELET COUNT 221 TH/MM3 (150-450); RED BLOOD COUNT 3.44 MIL/MM3 (4.00-5.30); RED CELL DISTRIBUTION WIDTH 15.1 % (11.6-17.2); WHITE BLOOD COUNT 2.9 TH/MM3 (4.0-11.0)
[2016-06-06 08:54] LABS: ALKALINE PHOSPHATASE 88 U/L (45-117); ALT (GPT) 29 U/L (10-53); ANION GAP 7 MEQ/L (5-15); AST (GOT) 21 U/L (15-37); BICARBONATE 25.6 MEQ/L (21.0-32.0); BLOOD UREA NITROGEN 16 MG/DL (7-18); CHLORIDE 103 MEQ/L (98-107); GLOMERULAR FILTRATION RATE 227 ML/MIN (>89); POTASSIUM 4.4 MEQ/L (3.5-5.1); SODIUM (NA) 136 MEQ/L (136-145); TOTAL BILIRUBIN ADULT 0.2 MG/DL (0.2-1.0)
[2016-06-06] MEDS: PRIMIDONE 250 MG TAB PO SCH ×2 (08:59→13:55)
[2016-06-06] MEDS: VALPROIC ACID SYRUP 250 MG/5 ML UDC PEG SCH (08:59)
[2016-06-06] MEDS: RIVAROXABAN 20 MG TAB GT SCH (08:59)
[2016-06-06] MEDS: levETIRAcetam 500 MG/5 ML UDC PEG SCH (08:59)
[2016-06-06] MEDS: lamoTRIgine 25 MG TAB PEG SCH (09:00)
[2016-06-06] MEDS: SODIUM CHLORIDE 0.9% FLUSH 5 ML FLUSH FLUSH SCH (09:01)
[2016-06-06] MEDS: LACOSAMIDE 100 MG/10 ML UDC G-TUBE SCH (09:53)
[2016-06-06 10:00] VITALS: BP 100/55; PULSE 74
[2016-06-06 12:00] VITALS: BP 95/52; PULSE 76; RESP 20; TEMP 98.1; O2SAT 100
--- NOTE | 2016-06-06 13:58 | HHI.DS ---
Discharge Summary Admission Date May 31, 2016 at 09:41 Discharge Date: Jun 06, 2016 Admitting Diagnosis Dehydration, hyperkalemia (1) Seizure disorder (2) Severe sepsis (3) Colitis presumed infectious (4) DVT (deep venous thrombosis) (5) Mental retardation Brief History 45 Y AAF, RECENT ADMIT AND DC FROM [facility] WITH VDRF, SEPSIS, C DIF AND SUBSEQUENT COLECTOMY, OSTOMY AND MUCUS FISTULA PLACEMENT. PT SENT TO [facility], AND DISCHARGED BACK TO [facility]. PT PULLED OUT MUCUS FISTULA THIS WEEK AND SENT TO ER, PT SENT BACK TO SNF FROM ER AFTER PLACEMENT OF [place] TO THE FISTULA SITE. PT PULLED FISTULA OUT AGAIN AND SENT BACK TO ER AGAIN. I WAS CALLED FOR ADMISSION FOR HYPERKALEMIA AND DEHYDRATION AND PT IN NEED OF SURGICAL CONSULT. ER MD SPOKE WITH SURGEON. CBC/BMP: 06/06/16 0703 06/06/16 0703 Significant Findings Laboratory Tests Test 06/04/16 06/05/16 06/06/16 06:06 09:05 07:03 White Blood Count 2.8 TH/MM3 3.2 TH/MM3 2.9 TH/MM3 (4.0-11.0) (4.0-11.0) (4.0-11.0) Red Blood Count 3.18 MIL/MM3 3.39 MIL/MM3 3.44 MIL/MM3 (4.00-5.30) (4.00-5.30) (4.00-5.30) Hemoglobin 8.9 GM/DL 9.5 GM/DL 9.6 GM/DL (11.6-15.3) (11.6-15.3) (11.6-15.3) Hematocrit 27.3 % 28.7 % 29.4 % (35.0-46.0) (35.0-46.0) (35.0-46.0) Lymphocytes (%) (Auto) 51.2 % 45.4 % (9.0-44.0) (9.0-44.0) Neutrophils # (Auto) 1.2 TH/MM3 1.3 TH/MM3 (1.8-7.7) (1.8-7.7) Prothrombin Time 14.0 SEC 13.0 SEC (9.8-11.6) (9.8-11.6) Chloride Level 108 MEQ/L (98-107) Creatinine 0.38 MG/DL 0.36 MG/DL 0.37 MG/DL (0.50-1.00) (0.50-1.00) (0.50-1.00) Calcium Level 8.3 MG/DL 8.4 MG/DL (8.5-10.1) (8.5-10.1) Albumin 2.3 GM/DL 2.4 GM/DL 2.3 GM/DL (3.4-5.0) (3.4-5.0) (3.4-5.0) PE at Discharge GENERAL: SKIN: Warm and dry. HEAD: Atraumatic. Normocephalic. EYES: Pupils equal and round. No scleral icterus. No injection or drainage. ENT: No nasal bleeding or discharge. Mucous membranes pink and moist. NECK: Trachea midline. No JVD. CARDIOVASCULAR: Regular rate and rhythm. RESPIRATORY: No accessory muscle use. Clear to auscultation. Breath sounds equal bilaterally. GASTROINTESTINAL: Abdomen soft, non-tender, nondistended. Hepatic and splenic margins not palpable. MUSCULOSKELETAL: Extremities without clubbing, cyanosis, or edema. No obvious deformities. NEUROLOGICAL: Awake and alert. No obvious cranial nerve deficits. Motor grossly within normal limits. 1 out of 5 muscle strength in the arms and legs. Normal speech. PSYCHIATRIC: Appropriate mood and affect; insight and judgment normal. Hospital Course 45 y AAF ADMIT WITH - Laparoscopic assisted diverting ileostomy with mucous fistula, GT, & PARACENTESIS OSMAR 6, C DIF - cont flagyl per ID ILEUS, RECURRENT - now resolved DVT OF LEG AT [facility] LAST MONTH - on xarelto DEHYDRATION - resolved, cont tubed feeds with tray HYPERKALEMIA - resolved SZ disorder, INTRACTABLE - cont antiepileptics Tegretol, Vimpat and Lamictal and Keppra and Depakote. HX ASPIRATION PNA UTERINE FIBROIDS TEGRETOL TOXICITY ARF, PRERENAL - resolved Mental retardation D/W MOM, SHE WANTS HER AT HOME, YET AFTER EDUC RE EXTENSIVE MEDICAL ISSUES SHE AGREES TO GO BACK TO [facility]. Discharge Instructions Speech Therapy-Diet Recommenda: Mechanical Soft, [place] Thickened Liquids, Chopped Meat w/Gravy Follow up Referrals: PCP Follow-up - 2-[address] PANDYA Surgical - 1 Week with Zaheer Godwin MD New Medications: Metronidazole (Flagyl) 500 Mg Tab 500 MG PO Q8H C D Days 14 Ref 0 TAB Rivaroxaban (Xarelto) 20 Mg Tab 20 MG GT DAILY DVT Days 60 Ref 0 TAB Continued Medications: Acetaminophen (Acetaminophen) 325 Mg Tab 650 MG PO Q4H PRN TEMP > 100.4, headache #90 TAB Bisacodyl Supp (Dulcolax Supp) 10 Mg Supp 10 MG MT IN AM PRN NO RESULTS FROM MILK OF MAG Ref 0 SUPP Carbamazepine (Carbamazepine) 100 Mg Chew 300 MG CHEW TID Seizure Control #90 Ref 0 TAB Gabapentin (Gabapentin) 100 Mg Cap 100 MG PEG Q8HR #60 Ref 0 CAP Hydrocodone-Acetaminophen ([place]) 5-325 mg Tab 1 TAB PEG Q4H PRN PAIN Days 30 Ref 0 TAB NS (This prescription has been renewed) Lacosamide (Vimpat) 200 Mg Tab 200 MG PEG Q12HR Control Seizures #60 Ref 0 TAB (This prescription has been renewed) Lamotrigine (Lamictal) 25 Mg Tab 25 MG PEG BID Control Seizures #60 Ref 0 TAB Levetiracetam (Levetiracetam) 1,000 Mg Tab 1500 MG PEG BID Control Seizures #60 Ref 0 TAB Magnesium Citrate Liq (Citroma Liq) 300 Ml Liq 300 ML PO IN THE AM PRN IF NO RESULTS AFTER ENEMA #1 Ref 0 BOTTLE Magnesium Hydroxide Liq (Milk of Magnmario Liq) 400 Mg/5 Ml Susp 30 ML PO HS PRN NO BM FOR 3 DAYS #1 Ref 0 BOTTLE Miconazole Nitrate Powder (Lotrimin AF Deodorant Powder) 2 % Aerp Unknown Dose TOP Q12HR Primidone (Primidone) 250 Mg Tab 250 MG PO TID Control Seizures Ref 0 TAB Sodium Phosphates (Enema Disposable) 1 Kellie Kellie 1 APPLIC MT DIRECTED PRN NO RESULTS AFTER DULCOLAX Trazodone (Trazodone) 50 Mg Tab 50 MG PO Q6HR Control Depression #30 Ref 0 TAB Valproic Acid Liq (Depakene Liq) 250 Mg/5 Ml Syp 750 MG PEG Q12HR #300 Ref 0 ML Discontinued Medications: Enoxaparin Inj (Lovenox Inj) 80 mg/0.8 ML Syr 80 MG SQ Q12HR Blood Clot Prevention Ref 0 SYRINGE Lactobacillus Acidophilus (Acidophilus/l-Sporogenes) 1 Tab Tab 1 TAB PO TID build gut brii #15 TAB Pantoprazole (Protonix) 40 Mg Tab 40 MG PEG BID Reflux #30 Ref 0 TAB Warfarin (Warfarin) 10 Mg Tab 15 MG PEG DAILY Blood Clot Prevention #30 Ref 0 TAB Romie Pandya MD Jun 06, 2016 13:58
[2016-06-06] MEDS ORDERED: XARE20TA GT (14:03)
[2016-06-06] MEDS ORDERED: VIMP200T PEG (14:03)
[2016-06-06] MEDS ORDERED: METR-1 PO (14:03)
[2016-06-06] MEDS ORDERED: NORC5TAB PEG (14:03)
--- NOTE | 2016-06-06 14:05 | HHI.DCPOC ---
Discharge Care Plan Diagnosis: (1) Seizures (2) DVT (deep venous thrombosis) (3) Mental retardation (4) Dehydration, moderate (5) Ileostomy care (6) JAMIE (acute kidney injury) (7) C. difficile colitis Goals to Promote Your Health * To prevent worsening of your condition and complications * To maintain your health at the optimal level Directions to Meet Your Goals Take your medications as prescribed Follow your dietary instruction Follow activity as directed Keep your appointments as scheduled Take your immunizations and boosters as scheduled If your symptoms worsen call your PCP, if no PCP go to Urgent Care Center or Emergency Room Smoking is Dangerous to Your Health. Avoid second hand smoke Call the 24-hour hour crisis hotline for domestic abuse at Romie Pelayo MD Jun 06, 2016 14:04
[2016-06-06 16:00] VITALS: BP 108/62; PULSE 84; RESP 20; TEMP 98.4; O2SAT 98
== END 2016-06-06 16:48 | DRG 394 ==
LOC: NEPC 19:00 → NEDA 05-30 01:48 → NEDH 05-30 08:24 → NEPGCP 05-30 20:02 → MERGE 05-31 09:41 → OBSVTOIN 05-31 09:41 → N04B 06-04 01:12
PROVIDERS: ADMIT Family Medicine; ATTEND Family Medicine
PROC: 0D9 Gastrointestinal System, Drainage (ICD-10-PCS; principal; 2016-05-29)
DX: Z43.2 Encounter for attention to ileostomy (principal); A04.7 Enterocolitis due to Clostridium difficile; N17.9 Acute kidney failure, unspecified; E72.20 Disorder of urea cycle metabolism, unspecified; I82.509 Chronic embolism and thrombosis of unspecified deep veins of unspecified lower extremity; E83.42 Hypomagnesemia; E83.51 Hypocalcemia; E87.5 Hyperkalemia; Z93.1 Gastrostomy status; H54.0 Blindness, both eyes; F79 Unspecified intellectual disabilities; E86.0 Dehydration; G40.909 Epilepsy, unspecified, not intractable, without status epilepticus; Z79.02 Long term (current) use of antithrombotics/antiplatelets; E55.9 Vitamin D deficiency, unspecified; D25.9 Leiomyoma of uterus, unspecified
CPT/HCPCS: 51703; 74000; 74177; 76937; 80048; 80053; 83605; 83690; 83735; 84132; 85025; 85610; 87493; 93005; 94664; 96360; G8987-GO; G8987-GP; G8988-GO; G8988-GP; J0610; J1650; J7030; J7611; Q9963; Q9967

== ENCOUNTER 2016-08-27 12:31 | Observation (INO) | payer MEDICARE, OTHER ==
[~2016-08-27] VITALS: Ht 175.3 cm; Wt 59.0 kg
[~2016-08-27 12:31] MED LIST changes: +CARB100C CHEW; -CARB200T PO; +GABA100C4 PEG; -LACT PO; +LAMO25 PEG; +LEVE10003 PEG; -LEVE500 PO; -LORA-392 PO; +LOTR2AER2 TOP; +NORC5TAB PEG; -QUES4POW PO; +TRAZ50TA12 PO; -VALP250 PO; +VALP250S18 PEG; -VANC1SOL3 PO; +VIMP200T PEG; +XARE20TA GT
[2016-08-27 12:33] VITALS: BP 109/71; PULSE 86; RESP 18; TEMP 98.2; O2SAT 98
--- NOTE | 2016-08-27 12:39 | PD ---
Physical Exam Time Seen by Provider: 12:35 Narrative 45 y/o female presents for evaluation of 4-5 days of issues with her colostomy bag and feeding tube. There have been complaints of abdominal pain and concern for infection of the feeding tube. History obtained by aunt. Vital signs reviewed. Seen at triage desk. Awaiting bed placement. Data Data Last Documented VS Vital Signs Date Time Temp Pulse Resp B/P Pulse Ox O2 Delivery O2 Flow Rate FiO2 08/27/16 12:33 98.2 86 18 109/71 98 Room Air [facility] Medical Record Reviewed: Yes Supervised Visit with RICKEY: Tod Barnhart August 27, 2016 12:39
[2016-08-27] MEDS ORDERED: SODIUM CHLORIDE 0.9% FLUSH 10 ML FLUSH IV FLUSH PRN ×2 (13:00→16:45)
[2016-08-27 13:03] VITALS: BP 106/65; PULSE 78; RESP 14; O2SAT 97
--- NOTE | 2016-08-27 13:16 | PD ---
HPI Chief Complaint: Complaint Time Seen by Provider: 13:10 Travel History International Travel<30 days: No Contact w/Intl Traveler<30days: No Traveled to known affect area: No History of Present Illness HPI Patient is a 45 year old female sent into the emergency department with her aunt for evaluation her G-tube as well as her ileostomy. Patient's aunt reports that the G-tube insertion site is infected. Additionally she states that she has had discharge from the rectum and is unsure why she would continue to have discharge if she has a colostomy. Stools that are loose and watery for the last 3-4 days. Patient has a mental disability and is nonverbal. Patient' s aunt stated that patient has no primary care provider. She is unsure if patient has any fevers. She states that the G-tube is not being used and they would like it removed. PFSH Past Medical History Diminished Hearing: No Gastrointestinal Disorders: Yes (C. difficile colitis) Neurologic: Yes (seizures, blindness, mental disability) Tetanus Vaccination: Unknown ?: Not Past Surgical History Abdominal Surgery: Yes (ileostomy, colostomy, G-tube) Social History Alcohol Use: No Tobacco Use: No Substance Use: No Allergies-Medications (Allergen,Severity, Reaction): Coded Allergies: *MDRO Multi-Drug Resistant Organism (Verified Adverse Reaction, Unknown, C. 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) - 03/15/16, 04/10/16, 06/01/16, 08/27/16 Reported Meds & Prescriptions Reported Meds & Active Scripts Active Xarelto (Rivaroxaban) 20 Mg Tab 20 Mg GT DAILY 60 Days Flagyl (Metronidazole) 500 Mg Tab 500 Mg PO Q8H 14 Days Vimpat (Lacosamide) 200 Mg Tab 200 Mg PEG Q12HR [place] (Hydrocodone-Acetaminophen) 5-325 mg Tab 1 Tab PEG Q4H PRN 30 Days Acetaminophen 325 Mg Tab 650 Mg PO Q4H PRN Reported Depakene Liq (Valproic Acid) 250 Mg/5 Ml Syp 750 Mg PEG Q12HR Trazodone (Trazodone HCl) 50 Mg Tab 50 Mg PO Q6HR Lotrimin AF Deodorant Powder (Miconazole Nitrate Powder) 2 % Aerp Unknown Dose TOP Q12HR Levetiracetam 1,000 Mg Tab 1,500 Mg PEG BID Lamictal (Lamotrigine) 25 Mg Tab 25 Mg PEG BID Gabapentin 100 Mg Cap 100 Mg PEG Q8HR Carbamazepine 100 Mg Chew 300 Mg CHEW TID Milk of Magnesia Liq (Magnesium Hydroxide) 400 Mg/5 Ml Susp 30 Ml PO HS PRN Enema Disposable (Sodium Phosphates) 1 Kellie Kellie 1 Applic ID DIRECTED PRN Dulcolax Supp (Bisacodyl) 10 Mg Supp 10 Mg ID IN AM PRN Citroma Liq (Magnesium Citrate) 300 Ml Liq 300 Ml PO IN THE AM PRN Primidone 250 Mg Tab 250 Mg PO TID Review of Systems ROS Limitations: Clinical Condition (mental disability, nonverbal) Except as stated in HPI: all other systems reviewed are Neg Physical Exam Narrative GENERAL: Well-developed, well-nourished, female. Resting comfortably in no acute distress. SKIN: Focused skin assessment warm/dry. No erythema or induration at G-tube site. HEAD: Atraumatic. Normocephalic. EYES: Pupils equal and round. No scleral icterus. No injection or drainage. ENT: No nasal bleeding or discharge. Mucous membranes pink and moist. NECK: Trachea midline. No JVD. CARDIOVASCULAR: Regular rate and rhythm. No murmur appreciated. RESPIRATORY: No accessory muscle use. Clear to auscultation. Breath sounds equal bilaterally. GASTROINTESTINAL: Abdomen soft, non-tender, nondistended. Hepatic and splenic margins not palpable. Right ileostomy with light brown milky drainage, right lower quadrant colostomy with brown liquid stool. MUSCULOSKELETAL: No obvious deformities. No clubbing. No cyanosis. No edema. NEUROLOGICAL: Awake and alert. No obvious cranial nerve deficits. Motor grossly within normal limits. Nonverbal Data Data Last Documented VS Vital Signs Date Time Temp Pulse Resp B/P Pulse Ox O2 Delivery O2 Flow Rate FiO2 08/27/16 13:03 78 14 106/65 97 Room Air 08/27/16 12:33 98.2 Orders Complete Blood Count With Diff (08/27/16 12:56) Comprehensive Metabolic Panel (08/27/16 12:56) Lactic Acid (08/27/16 12:56) Iv Access Insert/Monitor (08/27/16 12:56) Ecg Monitoring (08/27/16 12:56) Oximetry (08/27/16 12:56) Sodium Chloride 0.9% Flush (Ns Flush) (08/27/16 13:00) C Diff Toxin Pcr (08/27/16 12:56) Ct Abd/Pel W Iv Contrast(Rout) (08/27/16 ) Iohexol 350 Inj (Omnipaque 350 Inj) (08/27/16 15:34) Metronidazole 500 Mg Inj (Flagyl 500 Mg (08/27/16 15:45) Lipase (08/27/16 15:57) Urinalysis - C+S If Indicated (08/27/16 16:11) Cath For Specimen (08/27/16 16:11) Admit Order (Ed Use Only) (08/27/16 16:30) Labs Laboratory Tests Test 08/27/16 08/27/16 13:15 16:30 White Blood Count 4.0 TH/MM3 Red Blood Count 4.44 MIL/MM3 Hemoglobin 11.6 GM/DL Hematocrit 36.1 % Mean Corpuscular Volume 81.3 FL Mean Corpuscular Hemoglobin 26.1 PG Mean Corpuscular Hemoglobin 32.1 % Concent Red Cell Distribution Width 16.9 % Platelet Count 257 TH/MM3 Mean Platelet Volume 7.9 FL Neutrophils (%) (Auto) 64.3 % Lymphocytes (%) (Auto) 28.9 % Monocytes (%) (Auto) 6.3 % Eosinophils (%) (Auto) 0.2 % Basophils (%) (Auto) 0.3 % Neutrophils # (Auto) 2.6 TH/MM3 Lymphocytes # (Auto) 1.2 TH/MM3 Monocytes # (Auto) 0.3 TH/MM3 Eosinophils # (Auto) 0.0 TH/MM3 Basophils # (Auto) 0.0 TH/MM3 CBC Comment DIFF FINAL Differential Comment Stool C. difficile Toxin (PCR) POSITIVE Stl C. difficile Toxin PRESUMPTIVE Epiderm 027 POSITIVE Sodium Level 140 MEQ/L Potassium Level 3.8 MEQ/L Chloride Level 111 MEQ/L Carbon Dioxide Level 22.7 MEQ/L Anion Gap 6 MEQ/L Blood Urea Nitrogen 19 MG/DL Creatinine 0.52 MG/DL Estimat Glomerular Filtration 154 ML/MIN Rate Random Glucose 93 MG/DL Lactic Acid Level 0.9 mmol/L Calcium Level 8.9 MG/DL Total Bilirubin 0.3 MG/DL Aspartate Amino Transf 106 U/L (AST/SGOT) Alanine Aminotransferase 213 U/L (ALT/SGPT) Alkaline Phosphatase 261 U/L Total Protein 7.5 GM/DL Albumin 3.2 GM/DL Lipase 133 U/L Urine Color YELLOW Urine Turbidity CLEAR Urine pH 6.0 Urine Specific Pace GREATER THAN 1.050 Urine Protein 30 mg/dL Urine Glucose (UA) NEG mg/dL Urine Ketones NEG mg/dL Urine Occult Blood NEG Urine Nitrite NEG Urine Bilirubin NEG Urine Urobilinogen LESS THAN 2.0 MG/DL Urine Leukocyte Esterase NEG Urine RBC 1 /hpf Urine WBC LESS THAN 1 /hpf Urine Squamous Epithelial 4 /hpf Cells Urine Mucus FEW /lpf Microscopic Urinalysis Comment CATH-CULT NOT IND MDM Medical Decision Making Medical Screen Exam Complete: Yes Emergency Medical Condition: Yes Medical Record Reviewed: Yes Interpretation(s) Last Impressions Abdomen/Pelvis CT 08/27/16 0000 Signed Impressions: Service Date/Time: Saturday, August 27, 2016 15:09 - CONCLUSION: 1. No evidence of acute abdominal or pelvic process. No masses are identified. There is no evidence of abscess. 2. Massively enlarged fibroid uterus unchanged Narendra Rodriges MD Laboratory Tests Test 08/27/16 13:15 White Blood Count 4.0 TH/MM3 Red Blood Count 4.44 MIL/MM3 Hemoglobin 11.6 GM/DL Hematocrit 36.1 % Mean Corpuscular Volume 81.3 FL Mean Corpuscular Hemoglobin 26.1 PG Mean Corpuscular Hemoglobin 32.1 % Concent Red Cell Distribution Width 16.9 % Platelet Count 257 TH/MM3 Mean Platelet Volume 7.9 FL Neutrophils (%) (Auto) 64.3 % Lymphocytes (%) (Auto) 28.9 % Monocytes (%) (Auto) 6.3 % Eosinophils (%) (Auto) 0.2 % Basophils (%) (Auto) 0.3 % Neutrophils # (Auto) 2.6 TH/MM3 Lymphocytes # (Auto) 1.2 TH/MM3 Monocytes # (Auto) 0.3 TH/MM3 Eosinophils # (Auto) 0.0 TH/MM3 Basophils # (Auto) 0.0 TH/MM3 CBC Comment DIFF FINAL Differential Comment Stool C. difficile Toxin (PCR) POSITIVE Stl C. difficile Toxin PRESUMPTIVE Epiderm 027 POSITIVE Sodium Level 140 MEQ/L Potassium Level 3.8 MEQ/L Chloride Level 111 MEQ/L Carbon Dioxide Level 22.7 MEQ/L Anion Gap 6 MEQ/L Blood Urea Nitrogen 19 MG/DL Creatinine 0.52 MG/DL Estimat Glomerular Filtration 154 ML/MIN Rate Random Glucose 93 MG/DL Lactic Acid Level 0.9 mmol/L Calcium Level 8.9 MG/DL Total Bilirubin 0.3 MG/DL Aspartate Amino Transf 106 U/L (AST/SGOT) Alanine Aminotransferase 213 U/L (ALT/SGPT) Alkaline Phosphatase 261 U/L Total Protein 7.5 GM/DL Albumin 3.2 GM/DL Vital Signs Date Time Temp Pulse Resp B/P Pulse Ox O2 Delivery O2 Flow Rate FiO2 08/27/16 13:03 78 14 106/65 97 Room Air 08/27/16 12:33 98.2 86 18 109/71 98 Room Air Differential Diagnosis C. difficile colitis versus UTI versus peritonitis versus fistula versus other Narrative Course Patient is a 45-year-old female brought in by her aunt for evaluation of abdominal pain, possible infection to the G tube and loose watery stools. Patient is nonverbal, has a history of C. difficile colitis with ileostomy in mucosal fistula placed in April of this year due to colitis. CBC is unremarkable Chemistry with a mild transaminitis Stool is positive for C. difficile Lactic acid 0.9 Flagyl 500 mg IV 1 dose ordered. Patient's vital signs are stable, she is afebrile. This was discussed with my attending physician, Dr. Pelayo will be paged for admission for antibiotics and for infectious disease consult. Dr. Pelayo accepted admission. Patient's family was updated on her status and treatment plan. Aunt was given the pin number. Diagnosis Primary Impression: C. difficile colitis Additional Impression: Transaminitis Condition: Stable July Panchal August 27, 2016 13:16
[2016-08-27 13:33] LABS: AUTOMATED NEUTROPHIL # 2.6 TH/MM3 (1.8-7.7); BASOPHIL % 0.3 % (0.0-2.0); EOSINOPHIL % 0.2 % (0.0-4.0); HEMATOCRIT 36.1 % (35.0-46.0); HEMO FLAGS DIFF FINAL; LYMPH % 28.9 % (9.0-44.0); LYMPHOCYTE # 1.2 TH/MM3 (1.0-4.8); MEAN CELL VOLUME 81.3 FL (80.0-100.0); MEAN CORPUSCULAR HEMOGLOBIN 26.1 PG (27.0-34.0); MEAN CORPUSCULAR HGB CONC 32.1 % (32.0-36.0); MONO % 6.3 % (0.0-8.0); NEUT % 64.3 % (16.0-70.0); PLATELET COUNT 257 TH/MM3 (150-450); RED BLOOD COUNT 4.44 MIL/MM3 (4.00-5.30); RED CELL DISTRIBUTION WIDTH 16.9 % (11.6-17.2)
[2016-08-27 14:01] LABS: ANION GAP 6 MEQ/L (5-15); AST (GOT) 106 U/L (15-37); BICARBONATE 22.7 MEQ/L (21.0-32.0); BLOOD UREA NITROGEN 19 MG/DL (7-18); CHLORIDE 111 MEQ/L (98-107); GLOMERULAR FILTRATION RATE 154 ML/MIN (>89); POTASSIUM 3.8 MEQ/L (3.5-5.1); SODIUM (NA) 140 MEQ/L (136-145)
[2016-08-27 14:03] LABS: ALKALINE PHOSPHATASE 261 U/L (45-117); ALT (GPT) 213 U/L (10-53); TOTAL BILIRUBIN ADULT 0.3 MG/DL (0.2-1.0)
[2016-08-27 15:15] LABS: C. DIFF EPI 027 PRESUMPTIVE POSITIVE (NEGATIVE); C. DIFF TOXIN PCR POSITIVE (NEGATIVE)
[2016-08-27] MEDS ORDERED: IOHEXOL 350 MG/ML 10 ML VIAL (for RAD DIAG) IV ONE (15:34)
[2016-08-27] MEDS ORDERED: metroNIDAZOLE 500 MG INJ 100 ML IV ONE (15:45)
--- NOTE | 2016-08-27 15:47 | RADRPT ---
EXAM DATE/TIME: 08/27/2016 15:09 [facility] COMPARISON: CT ABDOMEN & PELVIS W CONTRAST, June 03, 2016, 18:00. INDICATIONS : Cloostomy and ilieostomy not working right and feeding tube looks infected IV CONTRAST: 71 cc Omnipaque 350 (iohexol) IV ORAL CONTRAST: No oral contrast ingested. RADIATION DOSE: 6.02 CTDIvol (mGy) MEDICAL HISTORY : Seizures. SURGICAL HISTORY : Colostomy. ENCOUNTER: Initial ACUITY: 3 days PAIN SCALE: 5/10 LOCATION: Abdomen TECHNIQUE: Volumetric scanning of the abdomen and pelvis was performed. Using automated exposure control and ad justment of the mA and/or kV according to patient size, radiation dose was kept as low as reasonably achievable to obtain optimal diagnostic quality images. FINDINGS: Examination of the lung bases demonstrates no abnormality. No pleural fluid is identified. No pulmona ry nodules are present. The liver and spleen are normal in size and no focal defects are identified. A gastrostomy tube is in place. The gallbladder and pancreas are unremarkable. No intrahepatic or ext rahepatic ductal dilatation is seen. The adrenal glands and kidneys appear normal bilaterally. No hyd ronephrosis or mass lesions are identified. There is a massively enlarged fibroid uterus measuring 15 cm in diameter unchanged from the prior suzan dy. This is heterogeneous in density with areas of necrosis and calcification. An ileostomy is presen t in the right lower quadrant but no abscess is identified. CONCLUSION: 1. No evidence of acute abdominal or pelvic process. No masses are identified. There is no evidence o f abscess. 2. Massively enlarged fibroid uterus unchanged Narendra Rodriges MD on August 27, 2016 at 15:32 Board Certified Radiologist. This report was verified electronically.
[2016-08-27] MEDS ORDERED: ONDANSETRON HCL 4 MG/2 ML VIAL IVP PRN (16:45)
[2016-08-27] MEDS ORDERED: NALOXONE HCL 0.4 MG/ML AMP IV PRN (16:45)
[2016-08-27] MEDS ORDERED: ACETAMINOPHEN 325 MG TAB PO PRN (16:45)
[2016-08-27 17:00] LABS: BLOOD, URINE NEG (NEG); GLUCOSE,URINE NEG (NEG); KETONE, URINE NEG (NEG); MUCUS URINE FEW /lpf (OCC); NITRITE,URINE NEG (NEG); SQUAMOUS EPITHELIAL CELL URINE 4 /hpf (0-5); URINE COLOR YELLOW (YELLW/STRAW)
[2016-08-27] MEDS: SODIUM CHLOR 0.9% 1000 ML INJ 1,000 ML IV SCH (17:00)
[2016-08-27 17:02] LABS: COMMENT (UR) CATH-CULT NOT IND; CULTURE IF INDICATED CATH CULTURE NOT IND
[2016-08-27 17:50] VITALS: BP 111/68; PULSE 79; RESP 16; O2SAT 98
[2016-08-27] MEDS: VANCOMYCIN 500 MG VIAL (FOR ORAL USE ONLY) PO SCH ×2 (18:00→21:19)
[2016-08-27] MEDS: PRIMIDONE 250 MG TAB PO SCH (18:00)
[2016-08-27 20:00] VITALS: BP 138/80; PULSE 87; RESP 18; TEMP 97; O2SAT 95
[2016-08-27] MEDS: SODIUM CHLORIDE 0.9% FLUSH 10 ML FLUSH IV FLUSH SCH (21:00)
--- NOTE | 2016-08-27 21:09 | MB ---
cc: MONIE RAZA RICHARD DATE OF CONSULTATION: 08/27/2016 REQUESTING PHYSICIAN: Dr. Pelayo. REASON FOR CONSULTATION: Status post laparoscopic ileostomy, now with possible C. difficile infection and output from her mucous fistula. HISTORY OF PRESENT ILLNESS The patient is a 45-year-old female with a history of mental disability and recurrent C. difficile infection, status post laparoscopic mucous fistula and ileostomy, G-tube placement by Dr. Lozada and Dr. Godwin on April 2015. The patient has since recovered and discharged, and was doing well at home, not tolerating a diet, not using her G-tube. The patient's mom noted that the patient was having some drainage around her G-tube site as well as some output from her mucous fistula which apparently not previously been putting out any stool. She became concerned and brought the patient to the emergency department of [facility]. The patient apparently was not feeling ill with any fevers, nausea, vomiting or any other complaints. No complaints of pain. The patient underwent evaluation including CT scan which was essentially negative except for post surgical changes. Laboratory values revealed normal white blood cell count and a C. difficile toxin PCR was positive. The patient was admitted for possible infection. Surgery was consulted. REVIEW OF SYSTEMS: A 12 point review of systems was conducted with the patient and the family and is negative except for the pertinent positives mentioned above in the history of present illness. Recurrent C. difficile infection as above. Neurologic impairment. Blindness. History of seizures. Mental disability. PAST SURGICAL HISTORY: 1. Ileostomy. 2. Colostomy. 3. G-tube as above. SOCIAL HISTORY: No alcohol, tobacco or drug use, cared for by her mother. ALLERGIES: NO KNOWN DRUG ALLERGIES. MEDICATIONS: 1. Xarelto. 2. Flagyl. 3. Vimpat. 4. [place]. 5. Acetaminophen 6. Depakene. 7. Trazodone. 8. Lamictal. 9. Gabapentin 10. Carbamazepine. FAMILY HISTORY: Noncontributory. PHYSICAL EXAMINATION: VITAL SIGNS: Blood pressure 109/71, pulse 86, respiratory rate 18, pulse oximetry 98%. Temperature 98.3 degrees. GENERAL: The patient is a well-developed, well-nourished female. She is awake, alert, responds well. HEAD: Normocephalic, atraumatic. RESPIRATORY: Breath sounds present bilaterally. Normal breathing pattern. HEART: Regular rate and rhythm. ABDOMEN: Soft, nondistended. No tenderness to palpation. No organomegaly. No ascites. Two stoma areas, one appears to be mucous fistula with stool, the other one likely ileostomy with no output. G-tube site, clean, dry, intact with some granulation tissue with no signs of infection. EXTREMITIES: Trace edema. BACK: No CVA tenderness. NEUROLOGIC: The patient is awake, alert, not oriented, is nonverbal. ASSESSMENT AND PLAN: The patient is a 45 year-old female admitted for possible C. difficile infection, versus possible colonization. We will ask Dr. Lozada's the patient's surgeon to evaluate the patient routinely for post surgical changes and outcome, as far as the overall plan for her care. There is no acute surgical intervention required tonight for this patient and agree with current medical management at this time. Thank you for the consultation. MD LISA Tavares/GERARD /8:15 PM /8:51 PM
[2016-08-27] MEDS: lamoTRIgine 25 MG TAB PEG SCH (21:18)
[2016-08-27] MEDS: LACOSAMIDE 100 MG TAB PO SCH (21:18)
[2016-08-27] MEDS: VALPROIC ACID SYRUP 250 MG/5 ML UDC PEG SCH (21:18)
[2016-08-27] MEDS: levETIRAcetam 500 MG TAB PEG SCH (21:19)
[2016-08-27] MEDS: GABAPENTIN 100 MG CAP PEG SCH (21:19)
[2016-08-27] MEDS: metroNIDAZOLE 500 MG INJ 100 ML IV SCH (23:37)
[2016-08-28 00:07] VITALS: BP 128/76; PULSE 75; RESP 19; TEMP 97.2; O2SAT 100
[2016-08-28] MEDS: GABAPENTIN 100 MG CAP PEG SCH ×3 (04:58→21:41)
[2016-08-28 06:55] LABS: POTASSIUM 4.2 MEQ/L (3.5-5.1)
[2016-08-28 08:00] VITALS: BP 124/72; PULSE 70; RESP 16; TEMP 97.8; O2SAT 97
--- NOTE | 2016-08-28 08:11 | HHI.HP ---
History of Present Illness Primary Care Physician Non-Staff Admission Diagnosis CDT COLITIS Diagnoses: (1) Candiduria (2) Seizures (3) Small bowel obstruction (4) DVT (deep venous thrombosis) (5) Mental retardation (6) Physical deconditioning (7) Dehydration, moderate (8) JAMIE (acute kidney injury) (9) Hyperkalemia (10) Colitis presumed infectious (11) Seizure disorder (12) Ileostomy care (13) Transaminitis (14) C. difficile colitis History of Present Illness 45 y AAF. RECENT PROLONGED ADMISSION TO ACUTE CARE THEN TO [facility] S/P MUCUS FISTULA AND OSTOMY PLACEMENT. RECURRENT C DIF TX AND RESULTANT DVT AT LAST ADMIT. PT WENT TO [facility] THEN HOME WITH ELDER MOTHER WITH HHC. PT MOTHER NOTED GT SITE INFECTION AND PRESENTED TO THE ER. I WAS THUS CALLED FOR ADMIT. IN ER RECEIVED IV ABX FOR C DIF. MOTHER AT BEDSIDE AGAIN AND NOTES SHE HAS BEEN GENERALLY WEAK AND HAS HAD OSTOMY OUTPUT. PT ALERT AND TAKING PO. MOTHER WANTS THE GT OUT. Review of Systems ROS Limitations: Clinical Condition, Altered Mental Status, Hearing Impaired, Speech Impaired, Poor Historian Past Family Social History Allergies: Coded Allergies: *MDRO Multi-Drug Resistant Organism (Verified Adverse Reaction, Unknown, C. 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) - 03/15/16, 04/10/16, 06/01/16, 08/27/16 Past Medical History Past Medical History Diminished Hearing: No Gastrointestinal Disorders: Yes (C. difficile colitis) Neurologic: Yes (seizures, blindness, mental disability) Tetanus Vaccination: Unknown ?: Not Past Surgical History Abdominal Surgery: Yes (ileostomy, colostomy, G-tube) Social History Alcohol Use: No Tobacco Use: No Substance Use: No Allergies-Medications Allergies-Medications (Allergen,Severity, Reaction): Coded Allergies: *MDRO Multi-Drug Resistant Organism (Verified Adverse Reaction, Unknown, C. 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) - 03/15/16, 04/10/16, 06/01/16, 08/27/16 Reported Meds & Prescriptions Reported Meds & Active Scripts Active Xarelto (Rivaroxaban) 20 Mg Tab 20 Mg GT DAILY 60 Days Flagyl (Metronidazole) 500 Mg Tab 500 Mg PO Q8H 14 Days Vimpat (Lacosamide) 200 Mg Tab 200 Mg PEG Q12HR [place] (Hydrocodone-Acetaminophen) 5-325 mg Tab 1 Tab PEG Q4H PRN 30 Days Acetaminophen 325 Mg Tab 650 Mg PO Q4H PRN Reported Depakene Liq (Valproic Acid) 250 Mg/5 Ml Syp 750 Mg PEG Q12HR Trazodone (Trazodone HCl) 50 Mg Tab 50 Mg PO Q6HR Lotrimin AF Deodorant Powder (Miconazole Nitrate Powder) 2 % Aerp Unknown Dose TOP Q12HR Levetiracetam 1,000 Mg Tab 1,500 Mg PEG BID Lamictal (Lamotrigine) 25 Mg Tab 25 Mg PEG BID Gabapentin 100 Mg Cap 100 Mg PEG Q8HR Carbamazepine 100 Mg Chew 300 Mg CHEW TID Milk of Magnesia Liq (Magnesium Hydroxide) 400 Mg/5 Ml Susp 30 Ml PO HS PRN Enema Disposable (Sodium Phosphates) 1 Kellie Kellie 1 Applic [place] DIRECTED PRN Dulcolax Supp (Bisacodyl) 10 Mg Supp 10 Mg GA IN AM PRN Citroma Liq (Magnesium Citrate) 300 Ml Liq 300 Ml PO IN THE AM PRN Primidone 250 Mg Tab 250 Mg PO TID Physical Exam Vital Signs Vital Signs Date Time Temp Pulse Resp B/P Pulse Ox O2 Delivery O2 Flow Rate FiO2 08/28/16 00:07 97.2 75 19 128/76 100 08/27/16 20:00 97.0 87 18 138/80 95 08/27/16 17:50 79 16 111/68 98 Room Air 08/27/16 13:03 78 14 106/65 97 Room Air 08/27/16 12:33 98.2 86 18 109/71 98 Room Air Physical Exam GENERAL: This is a well-nourished, well-developed patient, in no apparent distress. SKIN: No rashes, ecchymoses or lesions. Cool and dry. HEAD: Atraumatic. Normocephalic. No temporal or scalp tenderness. EYES: Extraocular motions intact. No scleral icterus. No injection or drainage. ENT: Nose without bleeding, purulent drainage or septal hematoma. Throat without erythema, tonsillar hypertrophy or exudate. Uvula midline. Airway patent. NECK: Trachea midline. No JVD or lymphadenopathy. Supple, nontender, no meningeal signs. CARDIOVASCULAR: Regular rate and rhythm without murmurs, gallops, or rubs. RESPIRATORY: Clear to auscultation. Breath sounds equal bilaterally. No wheezes , rales, or rhonchi. GASTROINTESTINAL: Abdomen soft, non-tender, nondistended. No hepato-splenomegaly , or palpable masses. No guarding. FISTULA W SL OUTPUT, OSTOMY W LOOSE STOOL, GT CDI, MUSCULOSKELETAL: Extremities without clubbing, cyanosis, or edema. No joint tenderness, effusion, or edema noted. No calf tenderness. Negative Homans sign bilaterally. NEUROLOGICAL: Awake and alert. Cranial nerves II through XII intact. Motor and sensory grossly within normal limits. 1 out of 5 muscle strength in all muscle groups. Normal speech. Laboratory Laboratory Tests Test 08/27/16 08/27/16 08/28/16 13:15 16:30 06:00 White Blood Count 4.0 Red Blood Count 4.44 Hemoglobin 11.6 Hematocrit 36.1 Mean Corpuscular Volume 81.3 Mean Corpuscular Hemoglobin 26.1 Mean Corpuscular Hemoglobin 32.1 Concent Red Cell Distribution Width 16.9 Platelet Count 257 Mean Platelet Volume 7.9 Neutrophils (%) (Auto) 64.3 Lymphocytes (%) (Auto) 28.9 Monocytes (%) (Auto) 6.3 Eosinophils (%) (Auto) 0.2 Basophils (%) (Auto) 0.3 Neutrophils # (Auto) 2.6 Lymphocytes # (Auto) 1.2 Monocytes # (Auto) 0.3 Eosinophils # (Auto) 0.0 Basophils # (Auto) 0.0 CBC Comment DIFF FINAL Differential Comment Stool C. difficile Toxin (PCR) POSITIVE Stl C. difficile Toxin PRESUMPTIVE Epiderm 027 POSITIVE Sodium Level 140 142 Potassium Level 3.8 4.2 Chloride Level 111 110 Carbon Dioxide Level 22.7 22.0 Anion Gap 6 10 Blood Urea Nitrogen 19 14 Creatinine 0.52 0.49 Estimat Glomerular Filtration 154 165 Rate Random Glucose 93 87 Lactic Acid Level 0.9 Calcium Level 8.9 8.6 Total Bilirubin 0.3 Aspartate Amino Transf 106 (AST/SGOT) Alanine Aminotransferase 213 (ALT/SGPT) Alkaline Phosphatase 261 Total Protein 7.5 Albumin 3.2 Lipase 133 Urine Color YELLOW Urine Turbidity CLEAR Urine pH 6.0 Urine Specific [place] GREATER THAN 1.050 Urine Protein 30 Urine Glucose (UA) NEG Urine Ketones NEG Urine Occult Blood NEG Urine Nitrite NEG Urine Bilirubin NEG Urine Urobilinogen LESS THAN 2.0 Urine Leukocyte Esterase NEG Urine RBC 1 Urine WBC LESS THAN 1 Urine Squamous Epithelial 4 Cells Urine Mucus FEW Microscopic Urinalysis Comment CATH-CULT NOT IND Date/Time Procedure Status Source Growth 08/27/16 13:15 Cancelled Urine Other Result Diagram: 08/27/16 1315 08/28/16 0600 Imaging Last 72 hours Impressions Abdomen/Pelvis CT 08/27/16 0000 Signed Impressions: Service Date/Time: Saturday, August 27, 2016 15:09 - CONCLUSION: 1. No evidence of acute abdominal or pelvic process. No masses are identified. There is no evidence of abscess. 2. Massively enlarged fibroid uterus unchanged Narendra Rodriges MD Course Current Medications Medications (Trade) Dose Ordered Sig/Rebeca Route Start Time Stop Time Status Last Admin (TEGretol CHEW) 300 mg TID CHEW 08/27/16 18:00 08/27/16 18:00 (Neurontin) 100 mg Q8HR PEG 08/27/16 22:00 08/28/16 04:58 (Vimpat) 200 mg Q12HR PO 08/27/16 21:00 08/27/16 21:18 (LaMICtal) 25 mg BID PEG 08/27/16 21:00 08/27/16 21:18 (Keppra) 1,500 mg BID PEG 08/27/16 21:00 08/27/16 21:19 (Mysoline) 250 mg TID PO 08/27/16 18:00 08/27/16 18:00 (Xarelto) 20 mg DAILY PO 08/28/16 09:00 Valproic Acid 750 mg 750 mg Q12HR PEG 08/27/16 21:00 08/27/16 21:18 (NS 1000 ml Inj) 1,000 ml @ 30 mls/hr Q24H IV 08/27/16 17:00 08/27/16 17:00 (NS Flush) 2 ml UNSCH PRN IV FLUSH 08/27/16 16:45 (NS Flush) 2 ml BID IV FLUSH 08/27/16 21:00 (Tylenol) 650 mg Q4H PRN PO 08/27/16 16:45 (Zofran Inj) 4 mg Q6H PRN IVP 08/27/16 16:45 (Narcan Inj) 0.4 mg UNSCH PRN IV 08/27/16 16:45 Acetaminophen/ Hydrocodone Bitart 1 tab 1 tab Q4H PRN PO 08/27/16 16:45 (Flagyl 500 Mg Inj) 100 ml @ 100 mls/hr Q8H IV 08/28/16 00:00 08/27/16 23:37 (VANCOMYCIN for oral use only) 250 mg QID PO 08/27/16 18:00 08/27/16 21:19 Assessment and Plan Problem List: (1) C. difficile colitis Status: Chronic Plan: PLAN: IVF IV ABX PO VANCO WOUND CONSULT SURGERY CONSULT, MOTHER REQUESTS GT OUT ID CONSULT XARELTO FOR DVT'S AND PROPHYLAXIS DISPO: [facility] OR [facility] (2) Seizure disorder Status: Acute (3) Seizures Status: Acute (4) Small bowel obstruction Status: Acute (5) DVT (deep venous thrombosis) Status: Acute (6) Mental retardation Status: Acute (7) Physical deconditioning Status: Acute (8) Dehydration, moderate Status: Acute (9) JAMIE (acute kidney injury) Status: Acute (10) Colitis presumed infectious Status: Acute (11) Ileostomy care Status: Acute (12) Transaminitis Status: Acute (13) Urinary tract infection Status: Acute Romie Pelayo MD August 28, 2016 08:11
[2016-08-28] MEDS: RIVAROXABAN 20 MG TAB PO SCH (08:59)
[2016-08-28] MEDS: lamoTRIgine 25 MG TAB PEG SCH ×2 (08:59→20:06)
[2016-08-28] MEDS: PRIMIDONE 250 MG TAB PO SCH ×3 (08:59→18:00)
[2016-08-28] MEDS: SODIUM CHLORIDE 0.9% FLUSH 10 ML FLUSH IV FLUSH SCH ×2 (09:00→19:57)
[2016-08-28] MEDS: ACETAMINOPHEN/HYDROcodone 325 MG/5 MG TAB PO PRN ×3 (09:00→20:07)
[2016-08-28] MEDS: VALPROIC ACID SYRUP 250 MG/5 ML UDC PEG SCH ×2 (09:00→20:06)
[2016-08-28] MEDS: VANCOMYCIN 500 MG VIAL (FOR ORAL USE ONLY) PO SCH ×4 (09:00→20:06)
[2016-08-28] MEDS: metroNIDAZOLE 500 MG INJ 100 ML IV SCH ×2 (09:01→16:24)
[2016-08-28] MEDS: levETIRAcetam 500 MG TAB PEG SCH ×2 (09:04→20:06)
[2016-08-28] MEDS: LACOSAMIDE 100 MG TAB PO SCH ×2 (09:13→20:06)
[2016-08-28 10:27] LABS: AUTOMATED NEUTROPHIL # 2.6 TH/MM3 (1.8-7.7); BASOPHIL % 0.3 % (0.0-2.0); EOSINOPHIL % 0.5 % (0.0-4.0); HEMATOCRIT 32.7 % (35.0-46.0); HEMO FLAGS DIFF FINAL; LYMPH % 28.4 % (9.0-44.0); LYMPHOCYTE # 1.2 TH/MM3 (1.0-4.8); MEAN CELL VOLUME 79.9 FL (80.0-100.0); MEAN CORPUSCULAR HEMOGLOBIN 26.6 PG (27.0-34.0); MEAN CORPUSCULAR HGB CONC 33.3 % (32.0-36.0); MONO % 7.7 % (0.0-8.0); NEUT % 63.1 % (16.0-70.0); PLATELET COUNT 257 TH/MM3 (150-450); RED BLOOD COUNT 4.09 MIL/MM3 (4.00-5.30); RED CELL DISTRIBUTION WIDTH 16.8 % (11.6-17.2); WHITE BLOOD COUNT 4.1 TH/MM3 (4.0-11.0)
[2016-08-28 12:00] VITALS: BP 120/69; PULSE 74; RESP 16; TEMP 97.5; O2SAT 100
--- NOTE | 2016-08-28 13:34 | PD.ID.CON ---
History of Present Illness Service ID Consult Requested By Dr Pelayo Reason for Consult C.diff Primary Care Physician Romie Pelayo MD Diagnoses: History of Present Illness 45 yo female with mental retardation, blindness, seizure disorder and development al delay presents with diarrhea via her colostomy Her mother reports that it's probably a 3rd episode of C.diff Pt was started on IV flagyl and po vancomycin and the amount of diarrhea improved She has non fever or leukocytosis Pt is unable to provide history 2/2 to her developmental delay Pre mom pt is ambulatory and verbal at baseline, amnd can feed and dress self with minimal supervision She has 200 cc of stool today Review of Systems ROS Limitations: Poor Historian Past Family Social History Allergies: Coded Allergies: *MDRO Multi-Drug Resistant Organism (Verified Adverse Reaction, Unknown, C. 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) - 03/15/16, 04/10/16, 06/01/16, 08/27/16 Past Medical History recurrent difficile colitis seizures, blindness, mental disability Past Surgical History ileostomy, colostomy, G-tube Active Ordered Medications Medications where reviewed in EMR Antibiotics Include: flagyl IV vanco po Family History Non-Contributory. Social History No Tobacco. No ETOH. No Illicit Drugs. cared by mother Physical Exam Vital Signs Vital Signs Date Time Temp Pulse Resp B/P Pulse Ox O2 Delivery O2 Flow Rate FiO2 08/28/16 12:00 97.5 74 16 120/69 100 08/28/16 08:00 97.8 70 16 124/72 97 08/28/16 00:07 97.2 75 19 128/76 100 08/27/16 20:00 97.0 87 18 138/80 95 08/27/16 17:50 79 16 111/68 98 Room Air Physical Exam CONSTITUTIONAL/GENERAL: This is an adequately nourished patient, in no apparent distress. TUBES/LINES/DRAINS: SKIN: No jaundice, rashes, or lesions. Ecchymoses on upper extremities. No wounds seen anteriorly. Skin temperature appropriate. Not diaphoretic. HEAD: Atraumatic. Normocephalic. EYES: Pupils opacified and eyes appear hypoplastic No scleral icterus. ENT: Hearing grossly normal. Nose without bleeding or purulent drainage. Oral mucosae without visible erythema, exudates, masses, or lesions. NECK: Trachea midline. Supple, nontender. CARDIOVASCULAR: Regular rate and rhythm without murmurs, gallops, or rubs. No JVD. Peripheral pulses symmetric. RESPIRATORY/CHEST: Symmetric, unlabored respirations. Clear to auscultation. Breath sounds equal bilaterally. No wheezes, rales, or rhonchi. GASTROINTESTINAL: Abdomen soft, non-tender, nondistended. PEG in place LUQ with some maceration atg entry site RLQ with colostomy in place with liquid brown stool and mucoid fistula with liquid d/c No hepato-splenomegaly, or palpable masses. No guarding. Bowel sounds present. GENITOURINARY: Without palpable bladder distension. MUSCULOSKELETAL: Extremities without clubbing, cyanosis, or edema. No joint tenderness or effusion noted. No calf tenderness. No mottling or clubbing. LYMPHATICS: No palpable cervical or supraclavicular adenopathy. NEUROLOGICAL: Awake and alert. Motor and sensory grossly within normal limits. Follows commands. Speech clear, aswers questions approprietly. Moves all extremities. PSYCHIATRIC: No obvious anxiety/depression. no apparent hallucinations or other psychotic thought process. Laboratory Laboratory Tests Test 08/27/16 08/28/16 08/28/16 16:30 06:00 10:17 Urine Color YELLOW Urine Turbidity CLEAR Urine pH 6.0 Urine Specific [place] GREATER THAN 1.050 Urine Protein 30 Urine Glucose (UA) NEG Urine Ketones NEG Urine Occult Blood NEG Urine Nitrite NEG Urine Bilirubin NEG Urine Urobilinogen LESS THAN 2.0 Urine Leukocyte Esterase NEG Urine RBC 1 Urine WBC LESS THAN 1 Urine Squamous Epithelial 4 Cells Urine Mucus FEW Microscopic Urinalysis Comment CATH-CULT NOT IND Sodium Level 142 Potassium Level 4.2 Chloride Level 110 Carbon Dioxide Level 22.0 Anion Gap 10 Blood Urea Nitrogen 14 Creatinine 0.49 Estimat Glomerular Filtration 165 Rate Random Glucose 87 Calcium Level 8.6 White Blood Count 4.1 Red Blood Count 4.09 Hemoglobin 10.9 Hematocrit 32.7 Mean Corpuscular Volume 79.9 Mean Corpuscular Hemoglobin 26.6 Mean Corpuscular Hemoglobin 33.3 Concent Red Cell Distribution Width 16.8 Platelet Count 257 Mean Platelet Volume 7.9 Neutrophils (%) (Auto) 63.1 Lymphocytes (%) (Auto) 28.4 Monocytes (%) (Auto) 7.7 Eosinophils (%) (Auto) 0.5 Basophils (%) (Auto) 0.3 Neutrophils # (Auto) 2.6 Lymphocytes # (Auto) 1.2 Monocytes # (Auto) 0.3 Eosinophils # (Auto) 0.0 Basophils # (Auto) 0.0 CBC Comment DIFF FINAL Differential Comment Date/Time Procedure Status Source Growth 08/27/16 13:15 Cancelled Urine Other Result Diagram: 08/28/16 1017 08/28/16 0600 Imaging Last Impressions Abdomen/Pelvis CT 08/27/16 0000 Signed Impressions: Service Date/Time: Saturday, August 27, 2016 15:09 - CONCLUSION: 1. No evidence of acute abdominal or pelvic process. No masses are identified. There is no evidence of abscess. 2. Massively enlarged fibroid uterus unchanged Narendra Rodriges MD Assessment and Plan Assessment and Plan C.diff, recurrent, hypervirulent 027 strain - cont vanco po - dc IV flagyl - Pt will need to have 6 weeks taper since it is a 3 rd episode: vancomycin PO 125 mg q 6 hrs for 14 days, then 125 mg q 12 hrs for 7 days 125 mg q 24 hrs for 7 days 125 mg q 48 hrs for 7 days 125 mg q 72 hrs for 5 doses Pt can be discharged as soon as tomorrow if clinically improves and no other issues Discussed Condition With RN mother @ b/s Alla Price MD August 28, 2016 13:34
[2016-08-28 16:00] VITALS: BP 116/72; PULSE 63; RESP 17; TEMP 96.8; O2SAT 100
[2016-08-28] MEDS: SODIUM CHLOR 0.9% 1000 ML INJ 1,000 ML IV SCH (16:26)
--- NOTE | 2016-08-28 17:30 | HHI.PR ---
Subjective Subjective Notes pt admitted with abd pain, hx of c.diff, stable Objective Vitals/I&O Vital Signs Date Time Temp Pulse Resp B/P Pulse Ox O2 Delivery O2 Flow Rate FiO2 08/28/16 16:00 96.8 63 17 116/72 100 08/27/16 17:50 Room Air Labs Laboratory Tests Test 08/28/16 08/28/16 06:00 10:17 Sodium Level 142 Potassium Level 4.2 Chloride Level 110 Carbon Dioxide Level 22.0 Anion Gap 10 Blood Urea Nitrogen 14 Creatinine 0.49 Estimat Glomerular Filtration 165 Rate Random Glucose 87 Calcium Level 8.6 White Blood Count 4.1 Red Blood Count 4.09 Hemoglobin 10.9 Hematocrit 32.7 Mean Corpuscular Volume 79.9 Mean Corpuscular Hemoglobin 26.6 Mean Corpuscular Hemoglobin 33.3 Concent Red Cell Distribution Width 16.8 Platelet Count 257 Mean Platelet Volume 7.9 Neutrophils (%) (Auto) 63.1 Lymphocytes (%) (Auto) 28.4 Monocytes (%) (Auto) 7.7 Eosinophils (%) (Auto) 0.5 Basophils (%) (Auto) 0.3 Neutrophils # (Auto) 2.6 Lymphocytes # (Auto) 1.2 Monocytes # (Auto) 0.3 Eosinophils # (Auto) 0.0 Basophils # (Auto) 0.0 CBC Comment DIFF FINAL Differential Comment Date/Time Procedure Status Source Growth 08/27/16 13:15 Cancelled Urine Other Abdomen: Other (ostomy x2 pink viable, g tube scand drainage with hypertrophic tissue) A/P Assessment and Plan 45 year-old female admitted for possible C. difficile infection, versus possible colonization. abdominal pain no acute surgical intervention required, will plan to d/c g tube as pt wants it out and mother states it has not been used as pt is tolerating PO check prealbumin continue with current medical management at this time. Jeremiah Lozada MD August 28, 2016 17:30
[2016-08-28 20:00] VITALS: BP 106/63; PULSE 80; RESP 18; TEMP 98.4; O2SAT 99
[2016-08-29] VITALS: BP 118/70; PULSE 77; RESP 18; TEMP 97.6; O2SAT 97
[2016-08-29] MEDS: ACETAMINOPHEN/HYDROcodone 325 MG/5 MG TAB PO PRN ×4 (00:02→15:41)
[2016-08-29] MEDS: GABAPENTIN 100 MG CAP PEG SCH ×2 (05:12→13:43)
[2016-08-29 07:17] LABS: ALT (GPT) 155 U/L (10-53); ANION GAP 9 MEQ/L (5-15); AST (GOT) 49 U/L (15-37); BICARBONATE 23.2 MEQ/L (21.0-32.0); BLOOD UREA NITROGEN 14 MG/DL (7-18); CHLORIDE 110 MEQ/L (98-107); GLOMERULAR FILTRATION RATE 150 ML/MIN (>89); POTASSIUM 3.7 MEQ/L (3.5-5.1); SODIUM (NA) 142 MEQ/L (136-145)
[2016-08-29 07:19] LABS: ALKALINE PHOSPHATASE 215 U/L (45-117); TOTAL BILIRUBIN ADULT 0.3 MG/DL (0.2-1.0)
[2016-08-29 07:57] VITALS: BP 96/55; PULSE 71; RESP 17; TEMP 97.3; O2SAT 96
[2016-08-29] MEDS: SODIUM CHLORIDE 0.9% FLUSH 10 ML FLUSH IV FLUSH SCH (09:00)
[2016-08-29] MEDS: VALPROIC ACID SYRUP 250 MG/5 ML UDC PEG SCH (09:08)
[2016-08-29] MEDS: VANCOMYCIN 500 MG VIAL (FOR ORAL USE ONLY) PO SCH ×2 (09:09→13:43)
[2016-08-29] MEDS: levETIRAcetam 500 MG TAB PEG SCH (09:12)
[2016-08-29] MEDS: RIVAROXABAN 20 MG TAB PO SCH (09:12)
[2016-08-29] MEDS: LACOSAMIDE 100 MG TAB PO SCH (09:12)
[2016-08-29] MEDS: lamoTRIgine 25 MG TAB PEG SCH (09:13)
[2016-08-29] MEDS: PRIMIDONE 250 MG TAB PO SCH ×2 (09:13→13:43)
[2016-08-29 12:00] VITALS: BP 103/65; PULSE 74; RESP 16; TEMP 97.7; O2SAT 99
[2016-08-29] MEDS ORDERED: VANC500I3 PO (13:48)
--- NOTE | 2016-08-29 13:49 | HHI.DCPOC ---
Discharge Care Plan Diagnosis: (1) Severe sepsis (2) Colitis presumed infectious (3) Seizure disorder (4) DVT (deep venous thrombosis) (5) Mental retardation (6) Physical deconditioning (7) Dehydration, moderate (8) Ileostomy care (9) JAMIE (acute kidney injury) (10) C. difficile colitis (11) Candiduria Goals to Promote Your Health * To prevent worsening of your condition and complications * To maintain your health at the optimal level Directions to Meet Your Goals Take your medications as prescribed Follow your dietary instruction Follow activity as directed Keep your appointments as scheduled Take your immunizations and boosters as scheduled If your symptoms worsen call your PCP, if no PCP go to Urgent Care Center or Emergency Room Smoking is Dangerous to Your Health. Avoid second hand smoke Call the 24-hour hour crisis hotline for domestic abuse at Romie Pelayo MD August 29, 2016 13:49
--- NOTE | 2016-08-29 13:52 | HHI.DS ---
Discharge Summary Admission Date August 27, 2016 at 16:33 Discharge Date: August 29, 2016 Admitting Diagnosis CDT COLITIS (1) Colitis presumed infectious (2) Seizure disorder (3) Small bowel obstruction (4) DVT (deep venous thrombosis) (5) Transaminitis (6) Mental retardation (7) Physical deconditioning (8) Dehydration, moderate (9) Ileostomy care (10) JAMIE (acute kidney injury) (11) C. difficile colitis (12) Candiduria (13) Severe sepsis Brief History 45 y AAF. RECENT PROLONGED ADMISSION TO ACUTE CARE THEN TO [facility] S/P MUCUS FISTULA AND OSTOMY PLACEMENT. RECURRENT C DIF TX AND RESULTANT DVT AT LAST ADMIT. PT WENT TO [facility] THEN HOME WITH ELDER MOTHER WITH HHC. PT MOTHER NOTED GT SITE INFECTION AND PRESENTED TO THE ER. I WAS THUS CALLED FOR ADMIT. IN ER RECEIVED IV ABX FOR C DIF. MOTHER AT BEDSIDE AGAIN AND NOTES SHE HAS BEEN GENERALLY WEAK AND HAS HAD OSTOMY OUTPUT. PT ALERT AND TAKING PO. MOTHER WANTS THE GT OUT. CBC/BMP: 08/28/16 1017 08/29/16 0553 Significant Findings Laboratory Tests Test 08/27/16 08/27/16 08/28/16 08/28/16 13:15 16:30 06:00 10:17 Mean Corpuscular Hemoglobin 26.1 PG 26.6 PG (27.0-34.0) (27.0-34.0) Stool C. difficile Toxin (PCR) POSITIVE (NEGATIVE) Stl C. difficile Toxin PRESUMPTIVE Epiderm 027 POSITIVE (NEGATIVE) Chloride Level 111 MEQ/L 110 MEQ/L (98-107) (98-107) Blood Urea Nitrogen 19 MG/DL (7-18) Aspartate Amino Transf 106 U/L (15-37) (AST/SGOT) Alanine Aminotransferase 213 U/L (10-53) (ALT/SGPT) Alkaline Phosphatase 261 U/L (45-117) Albumin 3.2 GM/DL (3.4-5.0) Urine Specific [place] GREATER THAN 1.050 (1.002-1.035) Urine Protein 30 mg/dL (NEG-TRACE) Urine Mucus FEW /lpf (OCC) Creatinine 0.49 MG/DL (0.50-1.00) Hemoglobin 10.9 GM/DL (11.6-15.3) Hematocrit 32.7 % (35.0-46.0) Mean Corpuscular Volume 79.9 FL (80.0-100.0) Test 08/29/16 05:53 Chloride Level 110 MEQ/L (98-107) Aspartate Amino Transf 49 U/L (15-37) (AST/SGOT) Alanine Aminotransferase 155 U/L (10-53) (ALT/SGPT) Alkaline Phosphatase 215 U/L (45-117) Albumin 2.9 GM/DL (3.4-5.0) Prealbumin 17 MG/DL (20-40) PE at Discharge GENERAL: SKIN: Warm and dry. HEAD: Atraumatic. Normocephalic. EYES: No scleral icterus. No injection or drainage. ENT: No nasal bleeding or discharge. Mucous membranes pink and moist. NECK: Trachea midline. No JVD. CARDIOVASCULAR: Regular rate and rhythm. RESPIRATORY: No accessory muscle use. Clear to auscultation. Breath sounds equal bilaterally. GASTROINTESTINAL: Abdomen soft, non-tender, nondistended. Hepatic and splenic margins not palpable. MUSCULOSKELETAL: Extremities without clubbing, cyanosis, or edema. No obvious deformities. NEUROLOGICAL: Awake and alert. No obvious cranial nerve deficits. Motor grossly within normal limits. 1 out of 5 muscle strength in the arms and legs. Normal speech. PSYCHIATRIC: Appropriate mood and affect; insight and judgment normal. Hospital Course HOSPITAL COURSE AND PLAN WAS TO - IVF IV ABX PO VANCO WOUND CONSULT SURGERY CONSULT, MOTHER REQUESTS GT OUT ID CONSULT XARELTO FOR DVT'S AND PROPHYLAXIS DISPO: HOME AFTER GT PULLED. MOM REQS HOME ONLY, DENIES SNF AND UNDERSTANDS MY PREDICTION OF FURTHER COMPLICATIONS OF THE ABOVE AND RECURRENCE OF SEPSIS W/O SNF PLACEMENT. Discharge Disposition: Disch w/ Home Health Serv Discharge Instructions DIET: Follow Instructions for: Heart Healthy Diet Activities you can perform: Regular-No Restrictions Follow up Referrals: PCP Follow-up - 2-[address] PANDYA New Medications: Vancomycin Inj (Vancomycin Inj) 500 Mg Inj 125 MG PO QID vancomycin PO 125 mg q 6 hrs for 14 days, then 125 mg q 12 hrs for 7 days 125 mg q 24 hrs for 7 days 125 mg q 48 hrs for 7 days 125 mg q 72 hrs for 5 doses THEN STOP c dif Days 45 BOTTLE Continued Medications: Acetaminophen (Acetaminophen) 325 Mg Tab 650 MG PO Q4H PRN TEMP > 100.4, headache #90 TAB Bisacodyl Supp (Dulcolax Supp) 10 Mg Supp 10 MG NM IN AM PRN NO RESULTS FROM MILK OF MAG Ref 0 SUPP Carbamazepine (Carbamazepine) 100 Mg Chew 300 MG CHEW TID Seizure Control #90 Ref 0 TAB Gabapentin (Gabapentin) 100 Mg Cap 100 MG PEG Q8HR #60 Ref 0 CAP Hydrocodone-Acetaminophen ([place]) 5-325 mg Tab 1 TAB PEG Q4H PRN PAIN Days 30 Ref 0 TAB NS Lacosamide (Vimpat) 200 Mg Tab 200 MG PEG Q12HR Control Seizures #60 Ref 0 TAB Lamotrigine (Lamictal) 25 Mg Tab 25 MG PEG BID Control Seizures #60 Ref 0 TAB Levetiracetam (Levetiracetam) 1,000 Mg Tab 1500 MG PEG BID Control Seizures #60 Ref 0 TAB Magnesium Citrate Liq (Citroma Liq) 300 Ml Liq 300 ML PO IN THE AM PRN IF NO RESULTS AFTER ENEMA #1 Ref 0 BOTTLE Magnesium Hydroxide Liq (Milk of Magnesia Liq) 400 Mg/5 Ml Susp 30 ML PO HS PRN NO BM FOR 3 DAYS #1 Ref 0 BOTTLE Miconazole Nitrate Powder (Lotrimin AF Deodorant Powder) 2 % Aerp Unknown Dose TOP Q12HR Primidone (Primidone) 250 Mg Tab 250 MG PO TID Control Seizures Ref 0 TAB Rivaroxaban (Xarelto) 20 Mg Tab 20 MG GT DAILY DVT Days 60 Ref 0 TAB Sodium Phosphates (Enema Disposable) 1 Kellie Kellie 1 APPLIC [place] DIRECTED PRN NO RESULTS AFTER DULCOLAX Valproic Acid Liq (Depakene Liq) 250 Mg/5 Ml Syp 750 MG PEG Q12HR #300 Ref 0 ML Discontinued Medications: Metronidazole (Flagyl) 500 Mg Tab 500 MG PO Q8H C D Days 14 Ref 0 TAB Trazodone (Trazodone) 50 Mg Tab 50 MG PO Q6HR Control Depression #30 Ref 0 TAB Romie Pandya MD August 29, 2016 13:52
--- NOTE | 2016-08-29 13:56 | HHI.FF ---
Face to Face Verification Diagnosis: (1) Seizure disorder (2) Small bowel obstruction (3) DVT (deep venous thrombosis) (4) Mental retardation (5) Transaminitis (6) Dehydration, moderate (7) Ileostomy care (8) JAMIE (acute kidney injury) (9) C. difficile colitis (10) Candiduria (11) Severe sepsis Physical Therapy Order: Evaluate and Treat, Improve ambulation, Strength and gait training Occupational Therapy Order: Evaluate and Treat, Improve ADL, Gross motor coordination, Fine motor coordination Home Health Nursing Order: Medical education Signs/symptoms of disease process Medication education-adverse effect Wound care and dressing changes Nursing assessment with vital signs Telehealth Home Health Aide Order: To Assist In: Bathing and personal care, ophthalmic dispenser and meal prep Data Entry Technician Order: To Evaluate: Living conditions/environment, Support services Order: To Provide: Long range planning, Community services I have seen patient Suzanne Tejada on 08/29/16. My clinical findings support the need for the requested home health care services because: Deconditioned w/ increased weakness Med compliance is questionable Limited ability to care for self Need for psychosocial assistance Impaired cognition/judgement High risk of falls Infection w/ risk of complications I certify that my clinical findings support that this patient is homebound because: Impaired cognitive ability/safety Unsteady gait/balance Unsafe to leave home unassisted Need for psychosocial assistance [id number] bed/chair Unable to use public transportation Romie Pelayo MD August 29, 2016 13:56
[2016-08-29 16:00] VITALS: BP 155/92; PULSE 79; RESP 20; TEMP 97.6; O2SAT 95
--- NOTE | 2016-08-29 16:22 | HHI.PR ---
Subjective Subjective Notes Resting in bed Mother at bedside Happy to get G tube out today Objective Vitals/I&O Vital Signs Date Time Temp Pulse Resp B/P Pulse Ox O2 Delivery O2 Flow Rate FiO2 08/29/16 12:00 97.7 74 16 103/65 99 08/27/16 17:50 Room Air Labs Laboratory Tests Test 08/29/16 05:53 Sodium Level 142 Potassium Level 3.7 Chloride Level 110 Carbon Dioxide Level 23.2 Anion Gap 9 Blood Urea Nitrogen 14 Creatinine 0.53 Estimat Glomerular Filtration 150 Rate Random Glucose 84 Calcium Level 8.6 Total Bilirubin 0.3 Aspartate Amino Transf 49 (AST/SGOT) Alanine Aminotransferase 155 (ALT/SGPT) Alkaline Phosphatase 215 Total Protein 6.7 Albumin 2.9 Prealbumin 17 Date/Time Procedure Status Source Growth 08/27/16 13:15 Cancelled Urine Other Cardiovascular: Regular Lungs: Clear Abdomen: Other (colostomy in place without any complications; G tube in place ( removed without any complications) ) Extremities: No edema A/P Assessment and Plan 45 year old female with colostomy and G tube; C-diff infection -Regular diet -G tube removed without any complications -Dry dressing placed over site -Mother instructed on how to change dressing -Avoid thin liquids and eating large meals for about 4 hours. -RN Alla at bedside Attending Statement patient seen at bedside pt not using g tube scant drainage around tube no infection removed g tube Attestation The exam, history, and the medical decision-making described in the above note were completed with the assistance of the mid-level provider. I reviewed and agree with the findings presented. I attest that I had a [id number] encounter with the patient on the same day, and personally performed and documented my assessment and findings in the medical record. Maia Lee August 29, 2016 16:22 Jeremiah Lozada MD September 08, 2016 15:47
== END 2016-08-29 17:49 | disposition home health service (06) ==
LOC: NEPC 12:31 → INTOOBSV 16:33 → NEDA 16:33 → N07B 18:35
PROVIDERS: ADMIT Family Medicine; ATTEND Family Medicine
DX: A04.7 Enterocolitis due to Clostridium difficile (principal); B37.49 Other urogenital candidiasis; G40.909 Epilepsy, unspecified, not intractable, without status epilepticus; K56.60 Unspecified intestinal obstruction; R74.0 Nonspecific elevation of levels of transaminase and lactic acid dehydrogenase [LDH]; F79 Unspecified intellectual disabilities; E86.0 Dehydration; E87.5 Hyperkalemia; N17.9 Acute kidney failure, unspecified; Z93.3 Colostomy status; Z93.2 Ileostomy status; Z86.718 Personal history of other venous thrombosis and embolism; Z79.01 Long term (current) use of anticoagulants
CPT/HCPCS: 74177; 76937; 80048; 80053; 81001; 83605; 83690; 84134; 85025; 87493; 92610; 96374; 97163; 97166; 97530; 97535; 99285; G0378; J7030; Q9967; G8987-GO; G8987-GP; G8988-GO; G8988-GP; G8996-GN; G8997-GN; G8998-GN